=== PATIENT | male | born 1970 | race Caucasian/White ===

== ENCOUNTER → 2016-07-14 | Outpatient (CLI) | payer OTHER ==
--- NOTE | 2016-07-14 15:52 | REP ---
Chest two views HISTORY: Shortness of breath Comparison: None The lungs are clear. The heart is normal in size. The pulmonary vasculature is normal in appearance. The bony structure is intact. IMPRESSION: No acute disease. Signed by Gregorio Denson MD 07/14/2016 03:44 P
== END ==
LOC: M WUC 14:59
PROVIDERS: ATTEND Nurse Practitioner Family
DX: R06.02 Shortness of breath (principal)

== ENCOUNTER → 2016-09-30 | Outpatient (CLI) | payer OTHER ==
--- NOTE | 2016-10-04 12:12 | SLEEPCENT ---
DATE OF PROCEDURE: 09/30/2016 ORDERED BY: NENA Moore Nocturnal polysomnography was performed for evaluation of sleep apnea syndrome symptoms in this patient with a history of excessive somnolence and observed breathing irregularity in sleep. 6 hours and 18 minutes of data were reviewed. There were 276 minutes of sleep identified. Sleep latency was mildly prolonged at 49 minutes. Rapid eye movement (REM) was prolonged at 185 minutes. Sleep architecture was fair with some fragmentation and brief periods of wake. There were 2-3 REM periods appreciated, albeit brief. Overall sleep efficiency was 74%. The patient's EKG showed a sinus rhythm with an average heart rate of 56 beats per minute. Rate variability was seen surrounding respiratory events. Rate ranged 45-75 beats per minute. EEG showed reasonably normal waveforms for awake and sleep. No focal events were identified. There were 49 respiratory events identified of 10 seconds in duration or greater for an apnea hypopnea index of 10.6. The events were obstructive, not exclusive to sleep stage, more frequent but not exclusive to the supine posture. Arousals from respiratory events occurred 5.4 times per hour when arousals from snoring were included. There was some limb activity noted as well. Only 1 train of 30 events. Limb movement arousal index borderline at 5.2. Respiratory events were associated with oxygen desaturations into the low 80s. IMPRESSION: Mild obstructive sleep apnea syndrome (G47.33). Apnea hypopnea index 10.6. RECOMMENDATION: At minimum, sleep position retraining should be recommended for avoidance of the supine posture. However, given the oxygen desaturation seen, consideration should also be given to referral back to the sleep disorder center for pressure therapy. In the interim, alcohol and sedative avoidance should be practiced and caution exercised during the operation of motor vehicles.
== END ==
LOC: M SLEEP 19:47
PROVIDERS: ATTEND Nurse Practitioner Adult Health
DX: G47.30 Sleep apnea, unspecified (principal)

== ENCOUNTER → 2016-10-28 | Outpatient (CLI) | payer OTHER ==
[~2016-10-28] MED LIST: NAPR500T PO; NEXI20CA PO
--- NOTE | 2016-11-03 20:31 | SLEEPCENT ---
DATE OF PROCEDURE: 10/28/2016 ORDERING PROVIDER: Renee Maravilla NP Nocturnal polysomnography was performed for the titration of pressure therapy in this patient with obstructive sleep apnea syndrome, apnea-hypopnea index of 10. For testing, the patient was fit with a ResMed P10 full face mask of medium size. 4 cm of water pressure were applied to the circuit and the lights were extinguished. 6 hours and 49 minutes of data were reviewed. There were 265 minutes of sleep identified. Sleep latency was prolonged at 48 minutes. Rapid eye movement (REM) latency was prolonged at 136 minutes. Sleep architecture improved late in the study. There were two REM periods appreciated. Overall sleep efficiency was 65.5%. Patient's EKG showed a sinus rhythm with an average heart rate of 54 beats per minute. There was some rate variability seen. Rate ranged 40-70 beats per minute. EEG showed normal wave forms for wake and sleep. Respiratory events were found best palliated with CPAP at a pressure of +10. CPAP tolerance was good and there was some limb activity. Limb movement arousal index is borderline at 5.6. IMPRESSION: Obstructive sleep apnea syndrome (G47.33). RECOMMENDATIONS: Nightly use of pressure therapy 10 cm of water.
== END ==
LOC: M SLEEP 19:46
PROVIDERS: ATTEND Nurse Practitioner Adult Health
DX: G47.33 Obstructive sleep apnea (adult) (pediatric) (principal)

== ENCOUNTER 2016-11-06 19:59 | Emergency (ER) | payer OTHER ==
[~2016-11-06] VITALS: Ht 175.3 cm; Wt 90.0 kg
[2016-11-06] MEDS ORDERED: NEXI20CA PO (20:04)
[2016-11-06 21:28] VITALS: BP 147/88
[2016-11-06] MEDS ORDERED: NAPR500T PO (21:28)
--- NOTE | 2016-11-07 08:46 | REP ---
REASON: Pain after trauma. PRIORS: None. FINDINGS: The joint spaces are symmetric and relatively well maintained. There is no evidence of acute fracture or destructive osseous lesion. IMPRESSION: Negative. Plantar and retrocalcaneal heel spurs are present. There are nonspecific calcifications in the soft tissues posterior to the talus. Signed by Dung Yanez DO 11/07/2016 09:22 A
== END 2016-11-06 21:36 | disposition home or self-care (01) ==
LOC: M ED 19:59
DX: M76.71 Peroneal tendinitis, right leg (principal); Z87.891 Personal history of nicotine dependence; K21.9 Gastro-esophageal reflux disease without esophagitis; Z86.19 Personal history of other infectious and parasitic diseases; Z79.899 Other long term (current) drug therapy

== ENCOUNTER → 2017-03-31 | Outpatient (CLI) | payer OTHER ==
--- NOTE | 2017-04-01 02:18 | REP ---
Clinical: trauma. Technique: AP, Lateral and bilateral oblique views of the left foot. Findings: Nondisplaced oblique fracture of the 5th proximal phalanx. Impression: Acute nondisplaced 5th proximal phalanx fracture. Signed by Abad Dunn MD 04/01/2017 02:10 A
== END ==
LOC: M WUC 09:59
PROVIDERS: ATTEND Physician Assistant
DX: S92.515A Nondisplaced fracture of proximal phalanx of left lesser toe(s), initial encounter for closed fracture (principal); X58.XXXA Exposure to other specified factors, initial encounter; Y92.89 Other specified places as the place of occurrence of the external cause; Y93.89 Activity, other specified; Y99.8 Other external cause status

== ENCOUNTER 2017-07-05 10:24 | Emergency (ER) | payer OTHER ==
[2017-07-05 11:02] LABS: BASO % 0.5 % (0.0-1.0); EOS # 0.1 10^3/uL (0.0-0.50); EOS % 1.7 % (0.0-3.0); HEMATOCRIT 45.1 % (42.0-52.0); HEMOGLOBIN 15.7 g/dl (14.0-18.0); IMMATURE GRANULOCYTE % 0.2 % (0-3.0); LYMPH # 3.2 10^3/uL (1.5-4.5); LYMPH % 49.2 % (24.0-44.0); MEAN CORPUSCULAR HEMOGLOBIN 27.9 pg (27.0-33.0); MEAN CORPUSCULAR HGB CONC 34.8 g/dl (32.0-36.5); MEAN CORPUSCULAR VOLUME 80.2 fl (80.0-96.0); MONO # 0.6 10^3/uL (0.0-0.8); MONO % 9.4 % (0.0-5.0); NEUTROPHILS # 2.5 10^3/uL (1.8-7.7); PLATELET COUNT, AUTOMATED 153 10^3/uL (150-450); RED BLOOD COUNT 5.62 10^6/uL (4.30-6.10); RED CELL DISTRIBUTION WIDTH 13.2 % (11.5-14.5); WHITE BLOOD COUNT 6.5 10^3/uL (4.0-10.0)
[2017-07-05 11:34] LABS: ALBUMIN/GLOBULIN RATIO 1.05 (1.00-1.93); ALKALINE PHOSPHATASE 95 U/L (45-117); ALT/SGPT 82 U/L (12-78); ANION GAP 8 MEQ/L (8-16); AST/SGOT 38 U/L (7-37); BILIRUBIN,DIRECT 0.1 MG/DL (0.0-0.2); BILIRUBIN,TOTAL 0.7 MG/DL (0.2-1.0); BLOOD UREA NITROGEN 17 MG/DL (7-18); CALCIUM LEVEL 9.1 MG/DL (8.5-10.1); CARBON DIOXIDE LEVEL 26 MEQ/L (21-32); CHLORIDE LEVEL 107 MEQ/L (98-107); CPK CREATINE PHOSPHOKINASE 193 U/L (39-308); CREATININE FOR GFR 1.14 MG/DL (0.70-1.30); GLOMERULAR FILTRATION RATE > 60.0 (>60); GLUCOSE, FASTING 102 MG/DL (70-100); LIPASE 126 U/L (73-393); POTASSIUM SERUM 4.4 MEQ/L (3.5-5.1); SODIUM LEVEL 141 MEQ/L (136-145); TOTAL PROTEIN 7.8 GM/DL (6.4-8.2); TROPONIN I < 0.02 NG/ML (< 0.10)
[2017-07-05 11:39] LABS: CK-MB VALUE MASS 1.7 NG/ML (<3.6); MB/CK RELATIVE INDEX 0.88 (< OR =4); NT-PRO BNP 17 PG/ML (<125)
[2017-07-05] MEDS: GI COCKTAIL 50ML BTL(HYOSCYAMINE/MAALOX/LIDOCAINE VISCOUS)(1:3:1) PO (11:52)
[2017-07-05 14:04] LABS: D-DIMER QUANT < 270.0 ng/ml (<500)
[2017-07-05 17:31] LABS: CPK CREATINE PHOSPHOKINASE 157 U/L (39-308); TROPONIN I < 0.02 NG/ML (< 0.10)
[2017-07-05 17:32] LABS: CK-MB VALUE MASS 1.5 NG/ML (<3.6); MB/CK RELATIVE INDEX 0.95 (< OR =4)
== END 2017-07-05 18:14 | disposition home or self-care (01) ==
LOC: M ED 10:24
DX: R07.9 Chest pain, unspecified (principal); Z79.899 Other long term (current) drug therapy; Z87.891 Personal history of nicotine dependence
CPT/HCPCS: 71045

== ENCOUNTER → 2018-05-19 | Outpatient (REF) | payer OTHER ==
[~2018-05-19] MED LIST changes: +NAPR-50 PO; -NAPR500T PO; +SUCR1SS PO
[2018-05-19 16:43] LABS: APPEARANCE, URINE CLEAR (CLEAR); BACTERIA, URINE AUTO NEGATIVE (NEGATIVE); BILIRUBIN, URINE AUTO NEGATIVE (NEGATIVE); BLOOD, URINE BLOOD NEGATIVE (NEGATIVE); COLOR, URINE YELLOW (YELLOW); GLUCOSE, URINE (UA) AUTO NEGATIVE (NEGATIVE); KETONE, URINE AUTO NEGATIVE (NEGATIVE); LEUKOCYTE ESTERASE, URINE AUTO NEGATIVE (NEGATIVE); MUCUS, URINE SMALL (NEGATIVE); NITRITE, URINE AUTO NEGATIVE (NEGATIVE); PROTEIN, URINE AUTO NEGATIVE (NEGATIVE); RBC, URINE AUTO 0 /HPF (0-3); SPECIFIC GRAVITY URINE AUTO 1.021 (1.002-1.035); SQUAMOUS EPITHELIAL CELL UR AU 0 /HPF (0-6); UROBILINOGEN, URINE AUTO 0.2 mg/dL (0.0-2.0); WBC, URINE AUTO 1 /HPF (0-3)
== END ==
LOC: M LAB REF 16:16
PROVIDERS: ATTEND Nurse Practitioner Family
DX: R39.12 Poor urinary stream (principal)

== ENCOUNTER → 2018-09-22 | Outpatient (CLI) | payer OTHER ==
[~2018-09-22] MED LIST changes: -NAPR-50 PO; +NAPR-837 PO
[2018-09-22 09:08] LABS: BASO % 0.5 % (0.0-1.0); EOS # 0.2 10^3/uL (0.0-0.50); EOS % 2.9 % (0.0-3.0); HEMATOCRIT 45.9 % (42.0-52.0); HEMOGLOBIN 15.8 g/dl (13.5-17.5); LYMPH # 2.7 10^3/uL (1.5-4.5); LYMPH % 44.1 % (24.0-44.0); MEAN CORPUSCULAR HEMOGLOBIN 28.5 pg (27.0-33.0); MEAN CORPUSCULAR HGB CONC 34.4 g/dl (32.0-36.5); MEAN CORPUSCULAR VOLUME 82.7 fl (80.0-96.0); MONO # 0.6 10^3/uL (0.0-0.8); MONO % 9.2 % (0.0-5.0); NEUTROPHILS # 2.7 10^3/uL (1.8-7.7); NEUTROPHILS % 43.1 % (36.0-66.0); PLATELET COUNT, AUTOMATED 166 10^3/uL (150-450); RED BLOOD COUNT 5.55 10^6/uL (4.30-6.10); WHITE BLOOD COUNT 6.2 10^3/uL (4.0-10.0)
[2018-09-22 09:40] LABS: ALBUMIN 3.5 GM/DL (3.2-5.2); ALT/SGPT 122 U/L (12-78); BILIRUBIN,TOTAL 0.5 MG/DL (0.2-1.0); BLOOD UREA NITROGEN 15 MG/DL (7-18); CALCIUM LEVEL 8.6 MG/DL (8.5-10.1); CARBON DIOXIDE LEVEL 29 MEQ/L (21-32); CHLORIDE LEVEL 109 MEQ/L (98-107); CHOLESTEROL LEVEL 214 MG/DL (<200); CREATININE FOR GFR 1.04 MG/DL (0.70-1.30); GLOMERULAR FILTRATION RATE > 60.0 (>60); GLUCOSE, FASTING 89 MG/DL (70-100); HDL CHOLESTEROL 40 MG/DL (>40); LDL CHOLESTEROL 141 MG/DL (<100); NON-HDL-C 174 MG/DL; POTASSIUM SERUM 4.6 MEQ/L (3.5-5.1); SODIUM LEVEL 144 MEQ/L (136-145); TOTAL PROTEIN 7.4 GM/DL (6.4-8.2); TRIGLYCERIDES LEVEL 166 MG/DL (<150)
== END ==
LOC: M WUC 08:01
PROVIDERS: ATTEND Nurse Practitioner Family
DX: K21.9 Gastro-esophageal reflux disease without esophagitis (principal); E78.5 Hyperlipidemia, unspecified

== ENCOUNTER → 2019-09-21 | Outpatient (CLI) | payer OTHER ==
[2019-09-21 10:52] LABS: HEMATOCRIT 47.8 % (42.0-52.0); HEMOGLOBIN 16.5 g/dl (13.5-17.5); MEAN CORPUSCULAR HEMOGLOBIN 28.2 pg (27.0-33.0); MEAN CORPUSCULAR HGB CONC 34.5 g/dl (32.0-36.5); MEAN CORPUSCULAR VOLUME 81.6 fl (80.0-96.0); PLATELET COUNT, AUTOMATED 175 10^3/uL (150-450); RED BLOOD COUNT 5.86 10^6/uL (4.30-6.10); WHITE BLOOD COUNT 6.6 10^3/uL (4.0-10.0)
[2019-09-21 11:02] LABS: ALBUMIN 3.8 GM/DL (3.2-5.2); ALT/SGPT 78 U/L (12-78); BILIRUBIN,TOTAL 0.7 MG/DL (0.2-1.0); BLOOD UREA NITROGEN 15 MG/DL (7-18); CALCIUM LEVEL 9.1 MG/DL (8.5-10.1); CARBON DIOXIDE LEVEL 27 MEQ/L (21-32); CHLORIDE LEVEL 111 MEQ/L (98-107); CHOLESTEROL LEVEL 204 MG/DL (<200); CREATININE FOR GFR 1.14 MG/DL (0.70-1.30); GLOMERULAR FILTRATION RATE > 60.0 (>56); GLUCOSE, FASTING 102 MG/DL (70-100); HDL CHOLESTEROL 34 MG/DL (>40); LDL CHOLESTEROL 128 MG/DL (<100); NON-HDL-C 170 MG/DL; POTASSIUM SERUM 4.6 MEQ/L (3.5-5.1); SODIUM LEVEL 142 MEQ/L (136-145); TOTAL PROTEIN 7.5 GM/DL (6.4-8.2); TRIGLYCERIDES LEVEL 209 MG/DL (<150)
[2019-09-25 12:07] LABS: HEPATITIS C QUANTITATION 6588460 IU/mL (.)
== END ==
LOC: M WUC 08:27
PROVIDERS: ATTEND Family Medicine
DX: Z00.00 Encounter for general adult medical examination without abnormal findings (principal); Z12.5 Encounter for screening for malignant neoplasm of prostate; B18.2 Chronic viral hepatitis C

== ENCOUNTER → 2019-12-06 | Outpatient (CLI) | payer OTHER ==
[~2019-12-06] MED LIST changes: +CLAR10CA3 PO; +FLOM0.4C39 PO; +NEXI40CA PO
== END ==
LOC: M LABSMTC 12:14
PROVIDERS: ATTEND Anesthesiology
DX: Z01.812 Encounter for preprocedural laboratory examination (principal); Z20.828 Contact with and (suspected) exposure to other viral communicable diseases

== ENCOUNTER 2019-12-11 09:30 | Day surgery (SDC) | payer OTHER ==
[~2019-12-11] VITALS: Ht 172.7 cm; Wt 97.5 kg
[~2019-12-11 09:30] MED LIST changes: +NS 1,000 ML IV ONE
[2019-12-11] MEDS ORDERED: fentaNYL 100 MCG/2 ML INJECTION (J3010) As Ordered ONE (11:38)
[2019-12-11] MEDS ORDERED: LIDOCAINE 2% 100MG/5ML SDV (FOR ANES.) As Ordered ONE (11:38)
[2019-12-11] MEDS ORDERED: propofoL 200 MG/20 ML VIAL As Ordered ONE ×2 (11:38→11:51)
[2019-12-11 12:27] VITALS: BP 125/85
--- NOTE | 2019-12-19 11:31 | ROOR ---
Patient Name: Riky Vergara Procedure Date: 12/11/2019 10:13 AM Date of : 1970 Age: 49 Room: [facility] Gender: Male Note Status: Finalized Procedure: Total Colonoscopy to Cecum Indications: Screening for colorectal malignant neoplasm Providers: Gerald Ricardo MD Referring MD: Ry Noriega MD Requesting Provider: Medicines: Monitored Anesthesia Care Complications: No immediate complications. Procedure: Pre-Anesthesia Assessment: - The heart rate, respiratory rate, oxygen saturations, blood pressure, adequacy of pulmonary ventilation, and response to care were monitored throughout the procedure. The Colonoscope was introduced through the anus and advanced to the cecum, identified by appendiceal orifice and ileocecal valve. The colonoscopy was performed without difficulty. The patient tolerated the procedure well. The quality of the bowel preparation was excellent. Findings: The perianal and digital rectal examinations were normal. Non-bleeding internal hemorrhoids were found during retroflexion. The hemorrhoids were small and Grade I (internal hemorrhoids that do not prolapse). No other significant abnormalities were identified in a careful examination of the remainder of the colon. The exam was otherwise without abnormality on direct and retroflexion views. Impression: - Non-bleeding internal hemorrhoids. - The examination was otherwise normal on direct and retroflexion views. - No specimens collected. - The exam was otherwise normal to the cecum. Recommendation: - Patient has a contact number available for emergencies. The signs and symptoms of potential delayed complications were discussed with the patient. Return to normal activities tomorrow. Written discharge instructions were provided to the patient. - High fiber diet. - Discharge patient to home. - Continue present medications. - Repeat colonoscopy in 10 years for screening purposes. - Return to referring physician. - The findings and recommendations were discussed with the patient. Gerald Ricardo MD Gerald Ricardo MD 12/11/2019 11:57:20 AM Number of Addenda: 0 Note Initiated On: 12/11/2019 10:13 AM Estimated Blood Loss: Estimated blood loss: none.
== END 2019-12-11 12:29 | disposition home or self-care (01) ==
LOC: M OPP 09:30
PROVIDERS: ATTEND Internal Medicine Gastroenterology
DX: Z12.11 Encounter for screening for malignant neoplasm of colon (principal); K64.0 First degree hemorrhoids; K22.8 Other specified diseases of esophagus; K44.9 Diaphragmatic hernia without obstruction or gangrene; K21.9 Gastro-esophageal reflux disease without esophagitis; R12 Heartburn; G47.30 Sleep apnea, unspecified; B19.20 Unspecified viral hepatitis C without hepatic coma; Z79.899 Other long term (current) drug therapy
CPT/HCPCS: 43239; 45378; 88305; J3010

== ENCOUNTER → 2020-01-31 | Outpatient (CLI) | payer OTHER ==
[~2020-01-31] MED LIST changes: -NS 1,000 ML IV ONE
[2020-02-05 02:06] LABS: HEPATITIS C QUANTITATION 7829320 IU/mL (.); HEPATITIS C VIRUS GENOTYPE 1b (.)
== END ==
LOC: M WUC 08:05
PROVIDERS: ATTEND Internal Medicine Infectious Disease
DX: B18.2 Chronic viral hepatitis C (principal)

== ENCOUNTER → 2020-03-18 | Outpatient (REF) | payer OTHER ==
[2020-03-18 16:23] LABS: ALBUMIN 3.9 GM/DL (3.2-5.2); BILIRUBIN,DIRECT 0.2 MG/DL (0.0-0.2); BILIRUBIN,TOTAL 0.5 MG/DL (0.2-1.0); TOTAL PROTEIN 7.4 GM/DL (6.4-8.2)
[2020-03-21 00:09] LABS: HEPATITIS C QUANTITATION HCV Not Detected IU/mL (.)
== END ==
LOC: M SFHCPLAZ 14:10
PROVIDERS: ATTEND Internal Medicine Infectious Disease
DX: B18.2 Chronic viral hepatitis C (principal)

== ENCOUNTER → 2020-07-15 | Outpatient (REF) | payer OTHER ==
[2020-07-15 18:42] LABS: ALBUMIN 4.1 GM/DL (3.2-5.2); BILIRUBIN,DIRECT 0.1 MG/DL (0.0-0.2); BILIRUBIN,TOTAL 0.4 MG/DL (0.2-1.0); TOTAL PROTEIN 7.5 GM/DL (6.4-8.2)
[2020-07-18 00:07] LABS: HEPATITIS C QUANTITATION HCV Not Detected IU/mL (.)
== END ==
LOC: M SFHCPLAZ 13:52
PROVIDERS: ATTEND Internal Medicine Infectious Disease
DX: B18.2 Chronic viral hepatitis C (principal)

== ENCOUNTER → 2020-12-25 | Outpatient (CLI) | payer OTHER ==
--- NOTE | 2020-12-25 15:16 | REP ---
INDICATION: COUGH COMPARISON: 07/14/2016 TECHNIQUE: PA and lateral. FINDINGS: The mediastinum and cardiac silhouette are normal. The lung willis are clear and without acute consolidation, effusion, or pneumothorax. The skeletal structures are intact and normal. IMPRESSION: No acute cardiopulmonary process. <Electronically signed by Abad Dunn > 12/25/20 [id number]
== END ==
LOC: M WUC 15:01
PROVIDERS: ATTEND Family Medicine
DX: R05 Cough (principal)

== ENCOUNTER 2021-01-12 08:02 | Emergency (ER) | payer OTHER ==
[~2021-01-12] VITALS: Ht 172.7 cm; Wt 98.6 kg
[2021-01-12] MEDS ORDERED: ACETAMINOPHEN TAB 650MG DOSE (2X325MG) PO ONE (08:40)
[2021-01-12] MEDS ORDERED: PRED20TA PO (08:47)
[2021-01-12] MEDS ORDERED: IBUP200C25 PO (08:47)
--- NOTE | 2021-01-12 08:56 | REP ---
INDICATION: COVID SOB COMPARISON: 12/25/2020 TECHNIQUE: Portable AP view of the chest FINDINGS: Mediastinum and cardiac silhouette are normal. Evaluation is limited by technique and very subtle left perihilar and right basilar airspace disease cannot be excluded. No discrete focal consolidation, effusion, or pneumothorax. IMPRESSION: Limited examination. Cannot exclude subtle early airspace disease. No discrete focal consolidation or effusion. <Electronically signed by Abad Dunn > 01/12/21 [id number]
[2021-01-12 09:24] LABS: ABG BASE EXCESS -3.4 (-2.0-2.0); ABG HCO3 19.3 MEQ/L (22.0-26.0); ABG O2 SATURATION 95.7 % (95.0-99.0); ABG PARTIAL PRESSURE CO2 28.9 mmHg (35.0-45.0); ABG PARTIAL PRESSURE O2 79.6 mmHg (75.0-100.0); ABG STANDARD HCO3 21.7 MEQ/L (22.0-26.0); ABG TOTAL CO2 20.2 MEQ/L (22.0-29.0); ABG pH (ARTERIAL) 7.442 UNITS (7.350-7.450)
[2021-01-12 09:27] LABS: BASO % 0.2 % (0.0-1.0); HEMATOCRIT 45.8 % (42.0-52.0); HEMOGLOBIN 15.7 g/dl (13.5-17.5); LYMPH # 0.9 10^3/uL (1.5-5.0); LYMPH % 20.5 % (24.0-44.0); MEAN CORPUSCULAR HEMOGLOBIN 27.4 pg (27.0-33.0); MEAN CORPUSCULAR HGB CONC 34.3 g/dl (32.0-36.5); MEAN CORPUSCULAR VOLUME 79.8 fl (80.0-96.0); MONO # 0.4 10^3/uL (0.0-0.8); MONO % 9.5 % (2.0-8.0); NEUTROPHILS # 3.1 10^3/uL (1.5-8.5); NEUTROPHILS % 69.3 % (36.0-66.0); PLATELET COUNT, AUTOMATED 127 10^3/uL (150-450); RED BLOOD COUNT 5.74 10^6/uL (4.30-6.10); WHITE BLOOD COUNT 4.4 10^3/uL (4.0-10.0)
[2021-01-12 09:52] LABS: CK-MB VALUE MASS 1.3 NG/ML (<3.6); CPK CREATINE PHOSPHOKINASE 186 U/L (39-308); TROPONIN I < 0.02 NG/ML (< 0.10)
[2021-01-12 10:02] LABS: ALBUMIN 3.2 GM/DL (3.2-5.2); ALT/SGPT 56 U/L (12-78); BILIRUBIN,TOTAL 0.4 MG/DL (0.2-1.0); BLOOD UREA NITROGEN 21 MG/DL (7-18); C REACTIVE PROTEIN QUANTITATIV 1.88 MG/DL (0.00-0.30); CALCIUM LEVEL 8.5 MG/DL (8.5-10.1); CARBON DIOXIDE LEVEL 24 MEQ/L (21-32); CHLORIDE LEVEL 106 MEQ/L (98-107); CREATININE FOR GFR 1.27 MG/DL (0.70-1.30); GLOMERULAR FILTRATION RATE > 60.0 (>56); GLUCOSE, FASTING 115 MG/DL (70-100); LDH LACTATE DEHYDROGENASE 340 U/L (87-241); POTASSIUM SERUM 3.8 MEQ/L (3.5-5.1); SODIUM LEVEL 136 MEQ/L (136-145); TOTAL PROTEIN 7.6 GM/DL (6.4-8.2)
[2021-01-12] MEDS ORDERED: ISOVUE-370 76% 100ML VIAL As Ordered ONE (10:41)
--- NOTE | 2021-01-12 11:23 | REP ---
INDICATION: COVID positive/hypoxia, r/o PE COMPARISON: None. TECHNIQUE: CT angiography of the chest after the intravenous administration of 75 cc Isovue 370 attention pulmonary arteries. FINDINGS: There is excellent visualization of the pulmonary arterial vasculature. No focal filling defects are present that would be considered consistent with acute pulmonary emboli. Limited evaluation of the thoracic aorta shows no abnormality. There is mediastinal and right hilar adenopathy. There are no pleural or pericardial effusions. The imaged upper abdomen and imaged osseous structures are within normal limits. Evaluation of the lung willis shows patchy bilateral airspace opacities right greater than left. IMPRESSION: 1. There is no evidence of a pulmonary embolism. 2. Adenopathy and airspace opacities consistent with COVID-19 pneumonia. <Electronically signed by Dung Yanez > 01/12/21 [id number]
[2021-01-12] MEDS ORDERED: [UNRECOGNIZED DRUG - OTHER] (12:08)
[2021-01-12] MEDS ORDERED: AZIT-12 PO (12:08)
[2021-01-12 12:44] VITALS: BP 131/83
--- NOTE | 2021-01-14 17:17 | ECGEPIP ---
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
== END 2021-01-12 13:11 | disposition home or self-care (01) ==
LOC: M ED 08:02
DX: J12.82 Pneumonia due to coronavirus disease 2019 (principal); R09.02 Hypoxemia; N40.0 Benign prostatic hyperplasia without lower urinary tract symptoms; B18.2 Chronic viral hepatitis C; Z79.899 Other long term (current) drug therapy
CPT/HCPCS: 36415; 36600; 71045; 71275; 80053; 82550; 82553; 82803; 83605; 83615; 84484; 85025; 86140; 87040; 87798; 93005; 99284; Q9967

== ENCOUNTER 2021-01-14 11:14 | Inpatient (IN) | payer OTHER ==
[~2021-01-14] VITALS: Ht 172.7 cm; Wt 82.9 kg
[~2021-01-14 11:14] MED LIST changes: +AZIT-12 PO; +IBUP200C25 PO; +PRED20TA PO; +[UNRECOGNIZED DRUG - OTHER]
[2021-01-14] MEDS ORDERED: dexameTHASONE 4 MG/ML 1ML VIAL (J1100 PER 1MG) IV ONE (11:35)
--- NOTE | 2021-01-14 12:01 | REP ---
INDICATION: DYSPNEA/COUGH- covid positive. COMPARISON: Comparison chest x-ray January 12, 2021. TECHNIQUE: Portable upright AP chest radiograph. FINDINGS: There are AC patchy infiltrates in the upper lobes bilaterally consistent with viral pneumonia. Pleural angles are sharp. Heart size is normal. No acute bony abnormality is seen. Oxygen delivery tubing is noted. IMPRESSION: New hazy bilateral upper lobe infiltrates consistent with viral pneumonitis. <Electronically signed by Alireza Knapp > 01/14/21 [id number]
[2021-01-14] MEDS: COMBIVENT RESPIMAT 100-20MCG INHALER 4GM INH SCH ×6 (12:02→13:05)
[2021-01-14 13:02] LABS: INR 0.97; PROTHROMBIN TIME 13.2 SECONDS (12.7-14.5)
[2021-01-14 13:04] LABS: ALT/SGPT 59 U/L (12-78); BILIRUBIN,DIRECT 0.2 MG/DL (0.0-0.2); BILIRUBIN,TOTAL 0.5 MG/DL (0.2-1.0); BLOOD UREA NITROGEN 20 MG/DL (7-18); C REACTIVE PROTEIN QUANTITATIV 1.54 MG/DL (0.00-0.30); CALCIUM LEVEL 8.8 MG/DL (8.5-10.1); CARBON DIOXIDE LEVEL 23 MEQ/L (21-32); CHLORIDE LEVEL 107 MEQ/L (98-107); CK-MB VALUE MASS 1.2 NG/ML (<3.6); CPK CREATINE PHOSPHOKINASE 218 U/L (39-308); CREATININE FOR GFR 1.01 MG/DL (0.70-1.30); FERRITIN 886 NG/ML (26-388); GLOMERULAR FILTRATION RATE > 60.0 (>56); GLUCOSE, FASTING 108 MG/DL (70-100); LDH LACTATE DEHYDROGENASE 433 U/L (87-241); MB/CK RELATIVE INDEX 0.55 (< OR =4); NT-PRO BNP 104 PG/ML (<125); POTASSIUM SERUM 4.1 MEQ/L (3.5-5.1); SODIUM LEVEL 138 MEQ/L (136-145); THYROID STIMULATING HORMONE 0.855 uIU/ML (0.358-3.740); THYROXINE (T4) 9.3 UG/DL (4.5-12.0); TOTAL PROTEIN 6.6 GM/DL (6.4-8.2); TROPONIN I < 0.02 NG/ML (< 0.10)
[2021-01-14 13:05] LABS: D-DIMER QUANT 1679.41 ng/ml (<500)
[2021-01-14 13:35] LABS: ABG BASE EXCESS 0.5 (-2.0-2.0); ABG HCO3 23.2 MEQ/L (22.0-26.0); ABG O2 SATURATION 93.5 % (95.0-99.0); ABG PARTIAL PRESSURE CO2 32.5 mmHg (35.0-45.0); ABG PARTIAL PRESSURE O2 65.5 mmHg (75.0-100.0); ABG STANDARD HCO3 24.8 MEQ/L (22.0-26.0); ABG TOTAL CO2 24.2 MEQ/L (22.0-29.0); ABG pH (ARTERIAL) 7.472 UNITS (7.350-7.450)
[2021-01-14] MEDS ORDERED: MUCI600T31 PO (13:35)
[2021-01-14] MEDS ORDERED: AZIT-12 PO (13:37)
[2021-01-14] MEDS ORDERED: HOME MED LIST COMPLETE! XX SCH (13:40)
[2021-01-14 14:32] LABS: BASO % 0.2 % (0.0-1.0); HEMATOCRIT 48.1 % (42.0-52.0); HEMOGLOBIN 16.4 g/dl (13.5-17.5); LYMPH # 1.4 10^3/uL (1.5-5.0); LYMPH % 28.5 % (24.0-44.0); MEAN CORPUSCULAR HEMOGLOBIN 27.3 pg (27.0-33.0); MEAN CORPUSCULAR HGB CONC 34.1 g/dl (32.0-36.5); MONO # 0.3 10^3/uL (0.0-0.8); MONO % 5.9 % (2.0-8.0); NEUTROPHILS # 3.1 10^3/uL (1.5-8.5); PLATELET COUNT, AUTOMATED 137 10^3/uL (150-450); RED BLOOD COUNT 6.01 10^6/uL (4.30-6.10); WHITE BLOOD COUNT 4.8 10^3/uL (4.0-10.0)
--- NOTE | 2021-01-14 17:46 | HPEPDOC ---
General Date of Admission 01/14/21 Date of Service: Jan 14, 2021 Chief Complaint The patient is a 50-year-old male admitted with a reason for visit of Covid +, Worsening Symptoms. Source: Patient History of Present Illness 50-year-old male with obesity, KWAKU noncompliant with CPAP, hepatitis C started having symptoms of cough, cold, congestion chills, body aches, headache, loss of taste and smell on January 06, 2021. patient was found to have a positive Covid test on 01/09/2021. He presented to the ED on 01/12/2021 for continued cough and worsening shortness of breath and was found to be hypoxic and sent home with 2 L of oxygen he comes back to the emergency room on 01/14/2021 with increasing shortness of breath from before and found to be hypoxic to 86% with 2 L of oxygen. He was needing 4 L of oxygen to maintain saturations above 92%. Patient is being admitted for Covid pneumonia with acute hypoxic respiratory failure. Home Medications Scheduled Azithromycin (Azithromycin) 250 Mg Tablet, 250 MG PO DAILY, (Reported) 2 ON THE FIRST DAY, 1 T DAYS 2-5 Esomeprazole Magnesium (Nexium) 40 Mg Capsule.dr, 40 MG PO DAILY, (Reported) Prednisone (Prednisone) 20 Mg Tablet, 20 MG PO DAILY, (Reported) Tamsulosin HCl (Flomax) 0.4 Mg Capsule, 0.4 MG PO DAILY, (Reported) Scheduled PRN Guaifenesin (Mucinex) 600 Mg Tab.er.12h, 600 MG PO for CONGESTION, (Reported) Ibuprofen (Ibuprofen) 200 Mg Capsule, 400 MG PO QID PRN for PAIN LEVEL 1-4, (Reported) Allergies Coded Allergies: No Known Allergies (Unverified , 12/04/19) Past Medical History Medical History Chronic hepatitis C diagnosed in 2010 treated in 2019 History of IV drug use last use in 1999 History of alcohol abuse Sleep apnea does not use the CPAP GERD Hypercholesterolemia Surgical History Tonsillectomy Social History * Smoker: former Smoker (Quit in 2016) A-FIB/CHADSVASC A-FIB History Current/History of A-Fib/PAF?: No Review of Systems Constitutional: Reports: Malaise, Weakness, Fatigue Eyes: Denies: Pain, Vision change ENT: Reports: Sinus Congestion, Sore Throat Skin: Denies: Rash, Lesions, Breakdown Pulmonary: Reports: Dyspnea, Cough Cardiovascular: Denies: Chest Pain, Palpitations, Lt Headedness Gastrointestinal: Reports: Diarrhea, Other Symptoms (pooor appetite); Denies: Nausea, Vomiting, Abdominal Pain Genitourinary: Reports: Frequency; Denies: Dysuria, Incontinence, Retention Hematologic: Denies: Bruising, Bleeding Excessively Musculoskeletal: Reports: Muscle Pain Neurological: Denies: Numbness, Change in speech, Confusion Physical Examination General Exam: Positive: Alert, Cooperative, No Acute Distress Eye Exam: Positive: PERRLA, Conjunctiva & lids normal, EOMI; Negative: Sclera icteric ENT Exam: Positive: Atraumatic, Mucous membr. moist/pink, Pharynx Normal Neck Exam: Positive: Supple; Negative: JVD, thyromegaly Chest Exam: Positive: Diminished, Other (Bilateral diffuse crackles) Heart Exam: Positive: Rate Normal, Regular Rhythm, Normal S1, Normal S2; Negative: Murmurs, Rubs Abdomen Exam: Positive: Normal bowel sounds, Soft; Negative: Tenderness Extremity Exam: Negative: Clubbing, Cyanosis, Edema Skin Exam: Positive: Nl turgor and temperature; Negative: Breakdown, Lesion Neuro Exam: Positive: Normal Speech, Strength at 5/5 X4 ext, Normal Tone Psych Exam: Positive: Memory Intact, Oriented x 3 Vital Signs Vital Signs Date Time Temp Pulse Resp B/P (MAP) Pulse Ox O2 Delivery O2 Flow Rate FiO2 01/14/21 14:20 97 89 01/14/21 12:01 146/87 (106) 01/14/21 12:00 Nasal Cannula 4.0 01/14/21 11:15 98.2 28 Laboratory Data Labs 24H Laboratory Tests 2 01/14/21 12:07: Immature Granulocyte % (Auto) 0.4, Neutrophils (%) (Auto) 65.0, Lymphocytes (%) (Auto) 28.5, Monocytes (%) (Auto) 5.9, Eosinophils (%) (Auto) 0.0, Basophils (%) (Auto) 0.2, Neutrophils # (Auto) 3.1, Lymphocytes # (Auto) 1.4L, Monocytes # (Auto) 0.3, Eosinophils # (Auto) 0.0, Basophils # (Auto) 0.0, Nucleated Red Blood Cells % (auto) 0.0, Prothrombin Time 13.2, Prothromb Time International Ratio 0.97, D-Dimer, Quantitative 1679.41H, Anion Gap 8, Glomerular Filtration Rate > 60.0, Lactic Acid Level 0.9, Calcium Level 8.8, Ferritin 886H, Total Bilirubin 0.5, Direct Bilirubin 0.2, Aspartate Amino Transf (AST/SGOT) 56H, Alanine Aminotransferase (ALT/SGPT) 59, Alkaline Phosphatase 72, Lactate Dehydrogenase 433H, Total Creatine Kinase 218, Creatine Kinase MB 1.2, Creatine Kinase MB Relative Index 0.55, Troponin I < 0.02, C-Reactive Protein, Q uantitative 1.54H, YQ-Fbk-C-Type Natriuretic Peptide 104, Total Protein 6.6, Albumin 3.0L, Albumin/Globulin Ratio 0.8, Procalcitonin <0.05, Thyroid Stimulating Hormone (TSH) 0.855, Thyroxine (T4) 9.3 01/14/21 12:25: Blood Gas Bicarbonate Standard 24.8, Arterial Blood pH 7.472H, Arterial Blood Partial Pressure CO2 32.5L, Arterial Blood Partial Pressure O2 65.5L, Arterial Blood Total CO2 24.2, Arterial Blood HCO3 23.2, Arterial Blood Base Excess 0.5, Arterial Blood Oxygen Saturation 93.5L CBC/BMP Laboratory Tests 01/14/21 12:07 Microbiology Microbiology 01/14/21 Blood Culture, Received Pending 01/14/21 Blood Culture, Received Pending Assessment/Plan 50-year-old male with obesity, KWAKU noncompliant with CPAP, hepatitis C started having symptoms of cough, cold, congestion chills, body aches, headache, loss of taste and smell on January 07, 2021. patient was found to have a positive Covid test on 01/09/2021. He presented to the ED on 01/12/2021 for continued cough and worsening shortness of breath and was found to be hypoxic and sent home with 2 L of oxygen he comes back to the emergency room on 01/14/2021 with increasing shortness of breath from before and found to be hypoxic to 86% with 2 L of oxygen. He was needing 4 L of oxygen to maintain saturations above 92%. Patient is being admitted for Covid pneumonia with acute hypoxic respiratory failure. COVID-19 pneumonia with acute hypoxic respiratory failure We will start the patient on Decadron and remdesivir, aspirin. Will use MDIs as needed Covid labs ordered Procalcitonin not elevated so no antibiotics given Awake proning, incentive spirometry, Lovenox twice daily BPH continue flomax. H/o KWAKU does not use CPAP. Plan / VTE VTE Prophylaxis Ordered?: Yes Claire Nuñez MD Jan 14, 2021 14:57
--- NOTE | 2021-01-14 17:52 | ECGEPIP ---
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
[2021-01-14] MEDS ORDERED: REMDESIVIR 200 MG in NS 250 ML IV ONE (18:00)
[2021-01-14] MEDS ORDERED: SODIUM CHLORIDE 0.9% INJ 10 ML SYR IV ONE (20:00)
[2021-01-14] MEDS: guaiFENesin ER 600 MG TAB PO SCH (21:00)
[2021-01-15] VITALS (7 sets, daily range): BP systolic 113–121; BP diastolic 58–79; O2SAT 92
[2021-01-15] MEDS: ENOXAPARIN 60MG/0.6ML SYRINGE (J1650 PER 10MG) SC SCH ×3 (02:22→20:56)
[2021-01-15] MEDS: ASPIRIN 81MG ENTERIC TABLET PO SCH ×2 (02:23→09:09)
[2021-01-15 05:34] LABS: ABG BASE EXCESS 0.6 (-2.0-2.0); ABG HCO3 23.7 MEQ/L (22.0-26.0); ABG O2 SATURATION 93.7 % (95.0-99.0); ABG PARTIAL PRESSURE CO2 33.7 mmHg (35.0-45.0); ABG PARTIAL PRESSURE O2 66.7 mmHg (75.0-100.0); ABG STANDARD HCO3 24.9 MEQ/L (22.0-26.0); ABG TOTAL CO2 24.7 MEQ/L (22.0-29.0); ABG pH (ARTERIAL) 7.465 UNITS (7.350-7.450)
[2021-01-15 07:37] LABS: BASO % 0.2 % (0.0-1.0); HEMATOCRIT 44.6 % (42.0-52.0); HEMOGLOBIN 15.2 g/dl (13.5-17.5); LYMPH # 1.2 10^3/uL (1.5-5.0); LYMPH % 20.9 % (24.0-44.0); MEAN CORPUSCULAR HGB CONC 34.1 g/dl (32.0-36.5); MEAN CORPUSCULAR VOLUME 79.2 fl (80.0-96.0); MONO # 0.5 10^3/uL (0.0-0.8); MONO % 8.9 % (2.0-8.0); NEUTROPHILS % 69.7 % (36.0-66.0); PLATELET COUNT, AUTOMATED 160 10^3/uL (150-450); RED BLOOD COUNT 5.63 10^6/uL (4.30-6.10); WHITE BLOOD COUNT 5.8 10^3/uL (4.0-10.0)
[2021-01-15 08:06] LABS: ALBUMIN 2.8 GM/DL (3.2-5.2); ALT/SGPT 57 U/L (12-78); BILIRUBIN,DIRECT 0.2 MG/DL (0.0-0.2); BILIRUBIN,TOTAL 0.5 MG/DL (0.2-1.0); BLOOD UREA NITROGEN 23 MG/DL (7-18); CALCIUM LEVEL 9.1 MG/DL (8.5-10.1); CARBON DIOXIDE LEVEL 24 MEQ/L (21-32); CHLORIDE LEVEL 107 MEQ/L (98-107); CREATININE FOR GFR 0.96 MG/DL (0.70-1.30); GLOMERULAR FILTRATION RATE > 60.0 (>56); GLUCOSE, FASTING 103 MG/DL (70-100); SODIUM LEVEL 137 MEQ/L (136-145)
[2021-01-15] MEDS: COMBIVENT RESPIMAT 100-20MCG INHALER 4GM INH SCH ×3 (08:11→20:56)
[2021-01-15] MEDS ORDERED: dexameTHASONE 20MG/5ML VIAL (J1100 PER 1MG) IV SCH (09:00)
[2021-01-15] MEDS ORDERED: dexameTHASONE 4 MG/ML 1ML VIAL (J1100 PER 1MG) IV SCH (09:00)
[2021-01-15] MEDS ORDERED: PANTOPRAZOLE 40MG TAB (PROTONIX) PO SCH (09:00)
[2021-01-15] MEDS: TAMSULOSIN 0.4 MG CAP PO SCH (09:09)
[2021-01-15] MEDS: guaiFENesin ER 600 MG TAB PO SCH ×2 (09:09→20:55)
[2021-01-15] MEDS: ACETAMINOPHEN TAB 650MG DOSE (2X325MG) PO PRN (11:47)
--- NOTE | 2021-01-15 13:12 | IPNPDOC ---
Subjective Date Seen The patient was seen on 01/15/21. Subjective Chief Complaint/HPI Patient's oxygen requirement has increased progressively since yesterday and this morning he was placed on Vapotherm now needing 40 L at 100%. Generalized weakness poor appetite. Updated patient's regarding his condition this morning. Objective Physical Examination General Exam: Positive: Alert, Cooperative, No Acute Distress, Other (Conversational dyspnea noted) Eye Exam: Positive: PERRLA, Conjunctiva & lids normal, EOMI; Negative: Sclera icteric ENT Exam: Positive: Atraumatic, Mucous membr. moist/pink, Pharynx Normal Neck Exam: Positive: Supple; Negative: JVD, thyromegaly Chest Exam: Positive: Diminished, Other (Bilateral diffuse crackles) Heart Exam: Positive: Rate Normal, Regular Rhythm, Normal S1, Normal S2; Negative: Murmurs, Rubs Abdomen Exam: Positive: Normal bowel sounds, Soft; Negative: Tenderness Extremity Exam: Negative: Clubbing, Cyanosis, Edema Skin Exam: Negative: Breakdown, Lesion Psych Exam: Positive: Memory Intact, Oriented x 3 Assessment /Plan Assessment 50-year-old male with obesity, KWAKU noncompliant with CPAP, hepatitis C treated , started having symptoms of cough, cold, congestion, chills, body aches, headache, loss of taste and smell on January 07, 2021. Patient was found to have a positive Covid test on 01/09/2021. He presented to the ED on 01/12/2021 for continued cough and worsening shortness of breath and was found to be hypoxic and sent home with 2 L of oxygen he comes back to the emergency room on 01/14/2021 with increasing shortness of breath from before and found to be hypoxic to 86% with 2 L of oxygen. He was needing 4 L of oxygen to maintain saturations above 92%. Patient is being admitted for Covid pneumonia with acute hypoxic respiratory failure. Patient's oxygen requirement progressively increased overnight and at present patient is on Vapotherm 40 L /100%. COVID-19 pneumonia with acute hypoxic respiratory failure on Decadron and remdesivir, aspirin. Continue Combivent [id number] and albuterol as needed. Procalcitonin not elevated so no antibiotics given Awake proning, incentive spirometry, Lovenox twice daily Currently needing Vapotherm at 40 L / 100% BPH continue flomax. H/o KWAKU does not use CPAP. Plan/VTE VTE Prophylaxis Ordered?: Yes VS, I&O, 24H, Fishbone Vital Signs/I&O Vital Signs Date Time Temp Pulse Resp B/P (MAP) Pulse Ox O2 Delivery O2 Flow Rate FiO2 01/15/21 12:00 40.0 100 01/15/21 11:46 97.2 87 20 118/73 (88) 95 HVNI-Vapotherm I&O- Last 24 Hours up to 6 AM 01/15/21 05:59 Intake Total 460 ml Output Total 0 ml Balance 460 ml Laboratory Data 24H LABS Laboratory Tests 2 01/15/21 05:23: Blood Gas Bicarbonate Standard 24.9, Arterial Blood pH 7.465H, Arterial Blood Partial Pressure CO2 33.7L, Arterial Blood Partial Pressure O2 66.7L, Arterial B lood Total CO2 24.7, Arterial Blood HCO3 23.7, Arterial Blood Base Excess 0.6, Arterial Blood Oxygen Saturation 93.7L 01/15/21 07:02: Immature Granulocyte % (Auto) 0.3, Neutrophils (%) (Auto) 69.7H, Lymphocytes (%) (Auto) 20.9L, Monocytes (%) (Auto) 8.9H, Eosinophils (%) (Auto) 0.0, Basophils (%) (Auto) 0.2, Neutrophils # (Auto) 4.0, Lymphocytes # (Auto) 1.2L, Monocytes # (Auto) 0.5, Eosinophils # (Auto) 0.0, Basophils # (Auto) 0.0, Nucleated Red Blood Cells % (auto) 0.0, Anion Gap 6L, Glomerular Filtration Rate > 60.0, Calcium Level 9.1, Magnesium Level 2.0, Total Bilirubin 0.5, Direct Bilirubin 0.2, Aspartate Amino Transf (AST/SGOT) 56H, Alanine Aminotransferase (ALT/SGPT) 57, Alkaline Phosphatase 72, Total Protein 7.0, Albumin 2.8L, Albumin/Globulin Ratio 0.7 CBC/BMP Laboratory Tests 01/15/21 07:02 Microbiology Microbiology 01/14/21 Blood Culture - Preliminary, Resulted No growth after 24 hours . All specim... 01/14/21 Blood Culture - Preliminary, Resulted No growth after 24 hours . All specim... Claire Nuñez MD Jan 15, 2021 13:12
[2021-01-15] MEDS: REMDESIVIR 100 MG in NS 250 ML IV SCH (17:43)
[2021-01-15] MEDS: SODIUM CHLORIDE 0.9% INJ 10 ML SYR IV SCH (17:44)
[2021-01-15] MEDS: PANTOPRAZOLE 40MG TAB (PROTONIX) PO SCH (20:55)
[2021-01-15] MEDS: dexameTHASONE 20MG/5ML VIAL (J1100 PER 1MG) IV SCH (20:56)
[2021-01-16] MEDS: COMBIVENT RESPIMAT 100-20MCG INHALER 4GM INH SCH ×4 (02:14→18:39)
[2021-01-16 08:39] LABS: HEMATOCRIT 45.6 % (42.0-52.0); HEMOGLOBIN 15.3 g/dl (13.5-17.5); MEAN CORPUSCULAR HEMOGLOBIN 26.9 pg (27.0-33.0); MEAN CORPUSCULAR HGB CONC 33.6 g/dl (32.0-36.5); MEAN CORPUSCULAR VOLUME 80.1 fl (80.0-96.0); PLATELET COUNT, AUTOMATED 175 10^3/uL (150-450); RED BLOOD COUNT 5.69 10^6/uL (4.30-6.10); WHITE BLOOD COUNT 6.5 10^3/uL (4.0-10.0)
[2021-01-16 09:00] VITALS: BP 116/77
[2021-01-16 09:09] LABS: ALBUMIN 2.8 GM/DL (3.2-5.2); ALT/SGPT 78 U/L (12-78); BILIRUBIN,DIRECT 0.3 MG/DL (0.0-0.2); BILIRUBIN,TOTAL 0.7 MG/DL (0.2-1.0); BLOOD UREA NITROGEN 32 MG/DL (7-18); CALCIUM LEVEL 9.3 MG/DL (8.5-10.1); CARBON DIOXIDE LEVEL 24 MEQ/L (21-32); CHLORIDE LEVEL 106 MEQ/L (98-107); CPK CREATINE PHOSPHOKINASE 147 U/L (39-308); FERRITIN 1307 NG/ML (26-388); GLOMERULAR FILTRATION RATE > 60.0 (>56); GLUCOSE, FASTING 132 MG/DL (70-100); LDH LACTATE DEHYDROGENASE 604 U/L (87-241); MAGNESIUM LEVEL 2.2 MG/DL (1.8-2.4); NT-PRO BNP 87 PG/ML (<125); POTASSIUM SERUM 4.2 MEQ/L (3.5-5.1); SODIUM LEVEL 138 MEQ/L (136-145); TOTAL PROTEIN 7.2 GM/DL (6.4-8.2); TROPONIN I < 0.02 NG/ML (< 0.10)
[2021-01-16 09:20] LABS: INR 1.04
[2021-01-16 09:22] LABS: PARTIAL THROMBOPLASTIN TIME 32.5 SECONDS (25.9-37.0)
[2021-01-16] MEDS: ASPIRIN 81MG ENTERIC TABLET PO SCH (09:30)
[2021-01-16] MEDS: PANTOPRAZOLE 40MG TAB (PROTONIX) PO SCH ×2 (09:30→21:12)
[2021-01-16] MEDS: guaiFENesin ER 600 MG TAB PO SCH ×2 (09:30→21:12)
[2021-01-16] MEDS: dexameTHASONE 20MG/5ML VIAL (J1100 PER 1MG) IV SCH ×2 (09:30→21:14)
[2021-01-16] MEDS: ALBUTEROL 90 MCG/ACT 8GM HFA INHALER INH PRN (09:30)
[2021-01-16] MEDS: TAMSULOSIN 0.4 MG CAP PO SCH (09:31)
[2021-01-16] MEDS: ENOXAPARIN 60MG/0.6ML SYRINGE (J1650 PER 10MG) SC SCH ×2 (09:31→21:14)
[2021-01-16 09:58] LABS: ATYPICAL LYMPH 3 % (0-5); LYMPHOCYTES 19 % (16-44); MONOCYTES 8 % (0-5); NEUTROPHILS 70 % (28-66); PLATELET ESTIMATE NORMAL (NORMAL)
--- NOTE | 2021-01-16 11:05 | IPNPDOC ---
Subjective Date Seen The patient was seen on 01/16/21. Subjective Chief Complaint/HPI Remains about the same as yesterday, no acute overnight events, SOb not any worse than yesterday . Needing vapotherm 30L/ 90% Objective Physical Examination General Exam: Positive: Alert, Cooperative, No Acute Distress, Other (Conversational dyspnea noted) Eye Exam: Positive: PERRLA, Conjunctiva & lids normal, EOMI; Negative: Sclera icteric ENT Exam: Positive: Atraumatic, Mucous membr. moist/pink, Pharynx Normal Neck Exam: Positive: Supple; Negative: JVD, thyromegaly Chest Exam: Positive: Diminished, Other (Bilateral diffuse crackles) Heart Exam: Positive: Rate Normal, Regular Rhythm, Normal S1, Normal S2; Negative: Murmurs, Rubs Abdomen Exam: Positive: Normal bowel sounds, Soft; Negative: Tenderness Extremity Exam: Negative: Clubbing, Cyanosis, Edema Skin Exam: Negative: Breakdown, Lesion Psych Exam: Positive: Memory Intact, Oriented x 3 Assessment /Plan Assessment 50-year-old male with obesity, KWAKU noncompliant with CPAP, hepatitis C treated , started having symptoms of cough, cold, congestion, chills, body aches, headache, loss of taste and smell on January 07, 2021. Patient was found to have a positive Covid test on 01/09/2021. He presented to the ED on 01/12/2021 for continued cough and worsening shortness of breath and was found to be hypoxic and sent home with 2 L of oxygen he comes back to the emergency room on 01/14/2021 with increasing shortness of breath from before and found to be hypoxic to 86% with 2 L of oxygen. He was needing 4 L of oxygen to maintain saturations above 92%. Patient is being admitted for Covid pneumonia with acute hypoxic respiratory failure. Patient's oxygen requirement progressively increased overnight and at present patient is on Vapotherm 40 L /100%. COVID-19 pneumonia with acute hypoxic respiratory failure on Decadron and remdesivir, aspirin. Continue Combivent [id number] and a lbuterol as needed. Procalcitonin not elevated so no antibiotics given Awake proning, incentive spirometry, Lovenox twice daily Currently needing Vapotherm BPH continue flomax. H/o KWAKU does not use CPAP. Plan/VTE VTE Prophylaxis Ordered?: Yes VS, I&O, 24H, [place] Vital Signs/I&O Vital Signs Date Time Temp Pulse Resp B/P (MAP) Pulse Ox O2 Delivery O2 Flow Rate FiO2 01/16/21 09:00 97.0 75 20 116/77 (90) 92 HVNI-Vapotherm 30.0 95 I&O- Last 24 Hours up to 6 AM 01/16/21 05:59 Intake Total 240 ml Output Total 1800 ml Balance -1560 ml Laboratory Data 24H LABS Laboratory Tests 2 01/16/21 07:46: Neutrophils (%) (Auto) , Nucleated Red Blood Cells % (auto) 0.0, Neutrophils 70H, Lymphocytes (Manual) 19, Monocytes (Manual) 8H, Atypical Lymphocytes 3, Red Blood Cell Morphology NORMAL, Platelet Estimate NORMAL, Prothrombin Time 14.0, Prothromb Time International Ratio 1.04, Activated Partial Thromboplast Time 32.5, Fibrinogen 536H, Anion Gap 8, Glomerular Filtration Rate > 60.0, Calcium Level 9.3, Magnesium Level 2.2, Ferritin 1307H, Total Bilirubin 0.7, Direct Bilirubin 0.3H, Aspartate Amino Transf (AST/SGOT) 71H, Alanine Aminotransferase (ALT/SGPT) 78, Alkaline Phosphatase 89, Lactate Dehydrogenase 604H, Total Creatine Kinase 147, Troponin I < 0.02, FO-Euw-L-Type Natriuretic Peptide 87, Total Protein 7.2, Albumin 2.8L, Albumin/Globulin Ratio 0.6 CBC/BMP Laboratory Tests 01/16/21 07:46 Microbiology Microbiology 01/14/21 Blood Culture - Preliminary, Resulted No growth after 24 hours . All specim... 01/14/21 Blood Culture - Preliminary, Resulted No growth after 24 hours . All specim... Claire Nuñez MD Jan 16, 2021 11:05
[2021-01-16] MEDS: REMDESIVIR 100 MG in NS 250 ML IV SCH (16:31)
[2021-01-16] MEDS: SODIUM CHLORIDE 0.9% INJ 10 ML SYR IV SCH (18:34)
[2021-01-16 20:00] VITALS: O2SAT 93
[2021-01-16 22:00] VITALS: BP 111/63
[2021-01-16] MEDS ORDERED: FLUTICASONE PROP 0.05% NASAL SPRAY 16 GM (FLONASE) NARES PRN (22:25)
[2021-01-17] VITALS (7 sets, daily range): BP systolic 102–148; BP diastolic 57–63; O2SAT 93–94
[2021-01-17] MEDS: COMBIVENT RESPIMAT 100-20MCG INHALER 4GM INH SCH ×4 (02:04→19:33)
[2021-01-17 07:57] LABS: HEMATOCRIT 43.2 % (42.0-52.0); HEMOGLOBIN 14.5 g/dl (13.5-17.5); MEAN CORPUSCULAR HGB CONC 33.6 g/dl (32.0-36.5); MEAN CORPUSCULAR VOLUME 80.4 fl (80.0-96.0); PLATELET COUNT, AUTOMATED 218 10^3/uL (150-450); RED BLOOD COUNT 5.37 10^6/uL (4.30-6.10)
[2021-01-17 08:22] LABS: BLOOD UREA NITROGEN 29 MG/DL (7-18); CALCIUM LEVEL 8.9 MG/DL (8.5-10.1); CARBON DIOXIDE LEVEL 24 MEQ/L (21-32); CHLORIDE LEVEL 108 MEQ/L (98-107); CREATININE FOR GFR 0.88 MG/DL (0.70-1.30); GLOMERULAR FILTRATION RATE > 60.0 (>56); GLUCOSE, FASTING 131 MG/DL (70-100); MAGNESIUM LEVEL 2.1 MG/DL (1.8-2.4); POTASSIUM SERUM 4.6 MEQ/L (3.5-5.1); SODIUM LEVEL 140 MEQ/L (136-145)
[2021-01-17 08:46] LABS: ATYPICAL LYMPH 2 % (0-5); LYMPHOCYTES 13 % (16-44); MONOCYTES 3 % (0-5); NEUTROPHILS 79 % (28-66)
[2021-01-17 08:48] LABS: PLATELET ESTIMATE NORMAL (NORMAL); SMUDGE CELLS 1+
[2021-01-17] MEDS: ASPIRIN 81MG ENTERIC TABLET PO SCH (10:49)
[2021-01-17] MEDS: guaiFENesin ER 600 MG TAB PO SCH (10:49)
[2021-01-17] MEDS: TAMSULOSIN 0.4 MG CAP PO SCH (10:49)
[2021-01-17] MEDS: PANTOPRAZOLE 40MG TAB (PROTONIX) PO SCH ×2 (10:49→20:52)
[2021-01-17] MEDS: dexameTHASONE 20MG/5ML VIAL (J1100 PER 1MG) IV SCH ×2 (10:55→20:52)
[2021-01-17] MEDS: ENOXAPARIN 60MG/0.6ML SYRINGE (J1650 PER 10MG) SC SCH (10:55)
--- NOTE | 2021-01-17 16:33 | IPNPDOC ---
Subjective Date Seen The patient was seen on 01/17/21. Subjective Chief Complaint/HPI Patient feels a little better this a.m.. Says his appetite is better. He complains of some back pain from laying on his belly. He says that he has been vomiting almost all day. Remains on Vapotherm at 30 L 90%. Objective Physical Examination General Exam: Positive: Alert, Cooperative, No Acute Distress, Other (Conversational dyspnea noted) Eye Exam: Positive: PERRLA, Conjunctiva & lids normal, EOMI; Negative: Sclera icteric ENT Exam: Positive: Atraumatic, Mucous membr. moist/pink, Pharynx Normal Neck Exam: Positive: Supple; Negative: JVD, thyromegaly Chest Exam: Positive: Diminished, Other (Bilateral diffuse crackles) Heart Exam: Positive: Rate Normal, Regular Rhythm, Normal S1, Normal S2; Negative: Murmurs, Rubs Abdomen Exam: Positive: Normal bowel sounds, Soft; Negative: Tenderness Extremity Exam: Negative: Clubbing, Cyanosis, Edema Skin Exam: Negative: Breakdown, Lesion Psych Exam: Positive: Memory Intact, Oriented x 3 Assessment /Plan Assessment 50-year-old male with obesity, KWAKU noncompliant with CPAP, hepatitis C treated , started having symptoms of cough, cold, congestion, chills, body aches, headache, loss of taste and smell on January 07, 2021. Patient was found to have a positive Covid test on 01/09/2021. He presented to the ED on 01/12/2021 for continued cough and worsening shortness of breath and was found to be hypox ic and sent home with 2 L of oxygen he comes back to the emergency room on 01/14/2021 with increasing shortness of breath from before and found to be hypoxic to 86% with 2 L of oxygen. He was needing 4 L of oxygen to maintain saturations above 92%. Patient is being admitted for Covid pneumonia with acute hypoxic respiratory failure. COVID-19 pneumonia with acute hypoxic respiratory failure on Decadron and remdesivir, aspirin. Continue Combivent [id number] and albuterol as needed. Procalcitonin not elevated so no antibiotics given Awake proning, incentive spirometry, Lovenox Currently needing Vapotherm BPH continue flomax. H/o KWAKU does not use CPAP. Plan/VTE VTE Prophylaxis Ordered?: Yes VS, I&O, 24H, Nataliobonjoseph Vital Signs/I&O Vital Signs Date Time Temp Pulse Resp B/P (MAP) Pulse Ox O2 Delivery O2 Flow Rate FiO2 01/17/21 16:00 94 Nasal Cannula 30.0 90 01/17/21 04:24 96.8 63 20 102/57 (72) I&O- Last 24 Hours up to 6 AM 01/17/21 06:00 Intake Total 1500 ml Output Total 1075 ml Balance 425 ml Laboratory Data 24H LABS Laboratory Tests 2 01/17/21 07:03: Neutrophils (%) (Auto) , Nucleated Red Blood Cells % (auto) 0.0, Neutrophils 79H, Band Neutrophils 3, Lymphocytes (Manual) 13L, Monocytes (Manual) 3, Atypical Lymphocytes 2, Smudge Cells 1+, Platelet Estimate NORMAL, Anion Gap 8, Glomerular Filtration Rate > 60.0, Calcium Level 8.9, Magnesium Level 2.1 CBC/BMP Laboratory Tests 01/17/21 07:03 Microbiology Microbiology 01/14/21 Blood Culture - Preliminary, Resulted No Growth after 72 hours. All specime... 01/14/21 Blood Culture - Preliminary, Resulted No Growth after 72 hours. All specime... Claire Nuñez MD Jan 17, 2021 16:33
[2021-01-17] MEDS: REMDESIVIR 100 MG in NS 250 ML IV SCH (18:54)
[2021-01-17] MEDS: SODIUM CHLORIDE 0.9% INJ 10 ML SYR IV SCH (20:53)
[2021-01-18 00:11] VITALS: BP 131/64
[2021-01-18] MEDS: COMBIVENT RESPIMAT 100-20MCG INHALER 4GM INH SCH ×4 (01:43→19:27)
[2021-01-18 04:31] VITALS: BP 127/76
[2021-01-18] MEDS: ALBUTEROL 90 MCG/ACT 8GM HFA INHALER INH PRN (07:24)
[2021-01-18 08:00] VITALS: BP 105/57
[2021-01-18 08:29] LABS: HEMATOCRIT 44.2 % (42.0-52.0); HEMOGLOBIN 14.9 g/dl (13.5-17.5); MEAN CORPUSCULAR HEMOGLOBIN 27.2 pg (27.0-33.0); MEAN CORPUSCULAR HGB CONC 33.7 g/dl (32.0-36.5); MEAN CORPUSCULAR VOLUME 80.7 fl (80.0-96.0); PLATELET COUNT, AUTOMATED 244 10^3/uL (150-450); RED BLOOD COUNT 5.48 10^6/uL (4.30-6.10); WHITE BLOOD COUNT 11.4 10^3/uL (4.0-10.0)
[2021-01-18 08:50] LABS: INR 1.06; PROTHROMBIN TIME 14.2 SECONDS (12.7-14.5)
[2021-01-18 08:52] LABS: PARTIAL THROMBOPLASTIN TIME 26.4 SECONDS (25.9-37.0)
[2021-01-18 08:53] LABS: ALBUMIN 2.7 GM/DL (3.2-5.2); ALT/SGPT 93 U/L (12-78); BILIRUBIN,DIRECT 0.3 MG/DL (0.0-0.2); BILIRUBIN,TOTAL 0.8 MG/DL (0.2-1.0); BLOOD UREA NITROGEN 30 MG/DL (7-18); CALCIUM LEVEL 8.7 MG/DL (8.5-10.1); CARBON DIOXIDE LEVEL 23 MEQ/L (21-32); CHLORIDE LEVEL 108 MEQ/L (98-107); CPK CREATINE PHOSPHOKINASE 62 U/L (39-308); CREATININE FOR GFR 0.93 MG/DL (0.70-1.30); FERRITIN 1163 NG/ML (26-388); GLOMERULAR FILTRATION RATE > 60.0 (>56); GLUCOSE, FASTING 127 MG/DL (70-100); LDH LACTATE DEHYDROGENASE 635 U/L (87-241); NT-PRO BNP 342 PG/ML (<125); POTASSIUM SERUM 4.7 MEQ/L (3.5-5.1); SODIUM LEVEL 140 MEQ/L (136-145); TOTAL PROTEIN 6.3 GM/DL (6.4-8.2); TROPONIN I < 0.02 NG/ML (< 0.10)
[2021-01-18] MEDS: dexameTHASONE 20MG/5ML VIAL (J1100 PER 1MG) IV SCH ×2 (09:00→23:05)
[2021-01-18 09:18] LABS: ATYPICAL LYMPH 3 % (0-5); LYMPHOCYTES 12 % (16-44); MONOCYTES 7 % (0-5); NEUTROPHILS 74 % (28-66)
[2021-01-18 09:21] LABS: PLATELET ESTIMATE NORMAL (NORMAL)
[2021-01-18] MEDS: TAMSULOSIN 0.4 MG CAP PO SCH (10:19)
[2021-01-18] MEDS: PANTOPRAZOLE 40MG TAB (PROTONIX) PO SCH ×2 (10:19→23:06)
[2021-01-18] MEDS: ASPIRIN 81MG ENTERIC TABLET PO SCH (10:19)
[2021-01-18] MEDS: ENOXAPARIN 60MG/0.6ML SYRINGE (J1650 PER 10MG) SC SCH (10:20)
--- NOTE | 2021-01-18 12:10 | IPNPDOC ---
Subjective Date Seen The patient was seen on 01/18/21. Subjective Chief Complaint/HPI Minimal improvement in oxygen requirement. At present he is needing 30 L / 90%. Fortunately he is able to prone throughout the day. He says that he sleeps on his sides during the night. His appetite has improved and overall he is feeling better Objective Physical Examination General Exam: Positive: Alert, Cooperative, No Acute Distress Eye Exam: Positive: PERRLA, Conjunctiva & lids normal, EOMI; Negative: Sclera icteric ENT Exam: Positive: Atraumatic, Mucous membr. moist/pink, Pharynx Normal Neck Exam: Positive: Supple; Negative: JVD, thyromegaly Chest Exam: Positive: Diminished, Other (Bilateral diffuse crackles) Heart Exam: Positive: Rate Normal, Regular Rhythm, Normal S1, Normal S2; Negative: Murmurs, Rubs Abdomen Exam: Positive: Normal bowel sounds, Soft; Negative: Tenderness Extremity Exam: Negative: Clubbing, Cyanosis, Edema Skin Exam: Positive: Nl turgor and temperature; Negative: Breakdown, Lesion Neuro Exam: Positive: Normal Speech, Strength at 5/5 X4 ext, Normal Tone Psych Exam: Positive: Memory Intact, Oriented x 3 Assessment /Plan Assessment 50-year-old male with obesity, KWAKU noncompliant with CPAP, hepatitis C treated , started having symptoms of cough, cold, congestion, chills, body aches, heada jc, loss of taste and smell on January 07, 2021. Patient was found to have a positive Covid test on 01/09/2021. He presented to the ED on 01/12/2021 for continued cough and worsening shortness of breath and was found to be hypoxic and sent home with 2 L of oxygen he comes back to the emergency room on 01/14/2021 with increasing shortness of breath from before and found to be hypoxic to 86% with 2 L of oxygen. He was needing 4 L of oxygen to maintain saturations above 92%. Patient is being admitted for Covid pneumonia with acute hypoxic respiratory failure. COVID-19 pneumonia with acute hypoxic respiratory failure on Decadron and remdesivir, aspirin. Continue Combivent [id number]-[id number] and albuterol as needed. Procalcitonin not elevated so no antibiotics given Awake proning, incentive spirometry, Lovenox Currently needing Vapotherm BPH continue flomax. H/o KWAKU does not use CPAP. Plan/VTE VTE Prophylaxis Ordered?: Yes VS, I&O, 24H, Fishbone Vital Signs/I&O Vital Signs Date Time Temp Pulse Resp B/P (MAP) Pulse Ox O2 Delivery O2 Flow Rate FiO2 01/18/21 08:28 92 HVNI-Vapotherm 30.0 90 01/18/21 08:00 96.7 80 17 105/57 (73) I&O- Last 24 Hours up to 6 AM 01/18/21 06:00 Intake Total 820 ml Output Total 1100 ml Balance -280 ml Laboratory Data 24H LABS Laboratory Tests 2 01/18/21 07:28: Neutrophils (%) (Auto) , Nucleated Red Blood Cells % (auto) 0.0, Neutrophils 74H, Band Neutrophils 4, Lymphocytes (Manual) 12L, Monocytes (Manual) 7H, Atypical Lymphocytes 3, Platelet Estimate NORMAL, Prothrombin Time 14.2H, Prothromb Time International Ratio 1.06, Activated Partial Thromboplast Time 26.4, Fibrinogen 383, Anion Gap 9, Glomerular Filtration Rate > 60.0, Calcium Level 8.7, Ferritin 1163H, Total Bilirubin 0.8, Direct Bilirubin 0.3H, Aspartate Amino Transf (AST/SGOT) 46H, Alanine Aminotransferase (ALT/SGPT) 93H, Alkaline Phosphatase 92, Lactate Dehydrogenase 635H, Total Creatine Kinase 62, Troponin I < 0.02, HT-Qbf-S-Type Natriuretic Peptide 342H, Total Protein 6.3L, Albumin 2.7L, Albumin/Globulin Ratio 0.8 CBC/BMP Laboratory Tests 01/18/21 07:28 Microbiology Microbiology 01/14/21 Blood Culture - Preliminary, Resulted No Growth after 72 hours. All specime... 01/14/21 Blood Culture - Preliminary, Resulted No Growth after 72 hours. All specime... Claire Nuñez MD Jan 18, 2021 12:10
[2021-01-18 14:00] VITALS: BP 102/56
[2021-01-18] MEDS: SODIUM CHLORIDE 0.9% INJ 10 ML SYR IV SCH (17:53)
[2021-01-18] MEDS: REMDESIVIR 100 MG in NS 250 ML IV SCH (17:53)
[2021-01-18 20:13] VITALS: BP 127/78
[2021-01-19] MEDS: COMBIVENT RESPIMAT 100-20MCG INHALER 4GM INH SCH ×4 (02:00→20:31)
[2021-01-19 04:00] VITALS: BP 116/67
[2021-01-19 08:00] VITALS: O2SAT 94
--- NOTE | 2021-01-19 09:44 | IPNPDOC ---
Subjective Date Seen The patient was seen on 01/19/21. Subjective Chief Complaint/HPI No acute events over night. Oxygen requirement no improvement yet. remains on vapotherm at 30 L/ 90 to 95 %. Objective Physical Examination General Exam: Positive: Alert, Cooperative, No Acute Distress Eye Exam: Positive: PERRLA, Conjunctiva & lids normal, EOMI; Negative: Sclera icteric ENT Exam: Positive: Atraumatic, Mucous membr. moist/pink, Pharynx Normal Neck Exam: Positive: Supple; Negative: JVD, thyromegaly Chest Exam: Positive: Diminished, Other (Bilateral diffuse crackles) Heart Exam: Positive: Rate Normal, Regular Rhythm, Normal S1, Normal S2; Negative: Murmurs, Rubs Abdomen Exam: Positive: Normal bowel sounds, Soft; Negative: Tenderness Extremity Exam: Negative: Clubbing, Cyanosis, Edema Skin Exam: Positive: Nl turgor and temperature; Negative: Breakdown, Lesion Neuro Exam: Positive: Normal Speech, Strength at 5/5 X4 ext, Normal Tone Psych Exam: Positive: Memory Intact, Oriented x 3 Assessment /Plan Assessment 50-year-old male with obesity, KWAKU noncompliant with CPAP, hepatitis C treated , started having symptoms of cough, cold, congestion, chills, body aches, headache, loss of taste and smell on January 07, 2021. Patient was found to have a positive Covid test on 01/09/2021. He presented to the ED on 01/12/2021 for continued cough and worsening shortness of breath and was found to be hypoxic and sent home with 2 L of oxygen he comes back to the emergency room on 01/14/2021 with increasing shortness of breath from before and found to be hypoxic to 86% with 2 L of oxygen. He was needing 4 L of oxygen to maintain saturations above 92%. Patient is being admitted for Covid pneumonia with acute hypoxic respiratory failure. COVID-19 pneumonia with acute hypoxic respiratory failure finished remdesevir on Decadron and aspirin. Continue Combivent fpuqon-kxw-[id number] and albuterol as needed. Procalcitonin not elevated so no antibiotics given Awake proning, incentive spirometry, Lovenox On Vapotherm BPH continue flomax. H/o KWAKU does not use CPAP. Plan/VTE VTE Prophylaxis Ordered?: Yes VS, I&O, 24H, Fishbone Vital Signs/I&O Vital Signs Date Time Temp Pulse Resp B/P (MAP) Pulse Ox O2 Delivery O2 Flow Rate FiO2 01/19/21 06:00 91 HVNI-Vapotherm 30.0 95 01/19/21 04:00 98.6 73 20 116/67 (83) I&O- Last 24 Hours up to 6 AM 01/19/21 06:00 Intake Total 1260 ml Output Total 1100 ml Balance 160 ml Laboratory Data 24H LABS Laboratory Tests 2 01/18/21 07:28: Neutrophils (%) (Auto) , Nucleated Red Blood Cells % (auto) 0.0, Neutrophils 74H, Band Neutrophils 4, Lymphocytes (Manual) 12L, Monocytes (Manual) 7H, Atypical Lymphocytes 3, Platelet Estimate NORMAL, Prothrombin Time 14.2H, Prothr omb Time International Ratio 1.06, Activated Partial Thromboplast Time 26.4, Fibrinogen 383, Anion Gap 9, Glomerular Filtration Rate > 60.0, Calcium Level 8.7, Ferritin 1163H, Total Bilirubin 0.8, Direct Bilirubin 0.3H, Aspartate Amino Transf (AST/SGOT) 46H, Alanine Aminotransferase (ALT/SGPT) 93H, Alkaline Phosphatase 92, Lactate Dehydrogenase 635H, Total Creatine Kinase 62, Troponin I < 0.02, RV-Puu-N-Type Natriuretic Peptide 342H, Total Protein 6.3L, Albumin 2.7L, Albumin/Globulin Ratio 0.8, Procalcitonin 0.07 CBC/BMP Laboratory Tests 01/18/21 07:28 Microbiology Microbiology 01/14/21 Blood Culture - Preliminary, Resulted No Growth after 72 hours. All specime... 01/14/21 Blood Culture - Preliminary, Resulted No Growth after 72 hours. All specime... Claire Nuñez MD Jan 19, 2021 07:18
[2021-01-19] MEDS: PANTOPRAZOLE 40MG TAB (PROTONIX) PO SCH ×2 (09:54→20:10)
[2021-01-19] MEDS: dexameTHASONE 20MG/5ML VIAL (J1100 PER 1MG) IV SCH (09:54)
[2021-01-19] MEDS: ASPIRIN 81MG ENTERIC TABLET PO SCH (09:54)
[2021-01-19] MEDS: ENOXAPARIN 60MG/0.6ML SYRINGE (J1650 PER 10MG) SC SCH (09:54)
[2021-01-19] MEDS: TAMSULOSIN 0.4 MG CAP PO SCH (09:55)
[2021-01-19 10:23] LABS: BASO % 0.2 % (0.0-1.0); HEMATOCRIT 45.3 % (42.0-52.0); LYMPH # 1.1 10^3/uL (1.5-5.0); LYMPH % 8.7 % (24.0-44.0); MEAN CORPUSCULAR HEMOGLOBIN 26.7 pg (27.0-33.0); MEAN CORPUSCULAR HGB CONC 33.1 g/dl (32.0-36.5); MEAN CORPUSCULAR VOLUME 80.7 fl (80.0-96.0); MONO # 0.4 10^3/uL (0.0-0.8); MONO % 3.2 % (2.0-8.0); NEUTROPHILS # 10.8 10^3/uL (1.5-8.5); NEUTROPHILS % 86.2 % (36.0-66.0); PLATELET COUNT, AUTOMATED 250 10^3/uL (150-450); RED BLOOD COUNT 5.61 10^6/uL (4.30-6.10); WHITE BLOOD COUNT 12.5 10^3/uL (4.0-10.0)
[2021-01-19 11:04] LABS: BLOOD UREA NITROGEN 27 MG/DL (7-18); CALCIUM LEVEL 8.5 MG/DL (8.5-10.1); CARBON DIOXIDE LEVEL 24 MEQ/L (21-32); CHLORIDE LEVEL 104 MEQ/L (98-107); CREATININE FOR GFR 1.09 MG/DL (0.70-1.30); GLOMERULAR FILTRATION RATE > 60.0 (>56); GLUCOSE, FASTING 138 MG/DL (70-100); POTASSIUM SERUM 4.8 MEQ/L (3.5-5.1); SODIUM LEVEL 137 MEQ/L (136-145)
[2021-01-19 12:00] VITALS: O2SAT 95
[2021-01-19 14:56] VITALS: BP 114/69
[2021-01-19 20:00] VITALS: BP 78/43
[2021-01-19 20:10] VITALS: O2SAT 95
[2021-01-20] MEDS: COMBIVENT RESPIMAT 100-20MCG INHALER 4GM INH SCH ×4 (02:17→20:59)
[2021-01-20] MEDS: ACETAMINOPHEN TAB 650MG DOSE (2X325MG) PO PRN ×2 (06:33→13:53)
[2021-01-20 06:35] VITALS: BP 94/62
[2021-01-20 07:13] LABS: BASO % 0.3 % (0.0-1.0); EOS % 0.3 % (0.0-3.0); HEMATOCRIT 45.2 % (42.0-52.0); HEMOGLOBIN 15.3 g/dl (13.5-17.5); LYMPH # 1.3 10^3/uL (1.5-5.0); LYMPH % 10.2 % (24.0-44.0); MEAN CORPUSCULAR HGB CONC 33.8 g/dl (32.0-36.5); MEAN CORPUSCULAR VOLUME 79.9 fl (80.0-96.0); MONO # 0.5 10^3/uL (0.0-0.8); MONO % 3.6 % (2.0-8.0); NEUTROPHILS # 10.8 10^3/uL (1.5-8.5); NEUTROPHILS % 83.7 % (36.0-66.0); PLATELET COUNT, AUTOMATED 254 10^3/uL (150-450); RED BLOOD COUNT 5.66 10^6/uL (4.30-6.10); WHITE BLOOD COUNT 12.9 10^3/uL (4.0-10.0)
[2021-01-20 07:23] LABS: INR 1.1; PROTHROMBIN TIME 14.6 SECONDS (12.7-14.5)
[2021-01-20 07:29] LABS: PARTIAL THROMBOPLASTIN TIME 24.9 SECONDS (25.9-37.0)
[2021-01-20 08:02] LABS: ALBUMIN 2.7 GM/DL (3.2-5.2); ALT/SGPT 76 U/L (12-78); BILIRUBIN,DIRECT 0.4 MG/DL (0.0-0.2); BILIRUBIN,TOTAL 1.1 MG/DL (0.2-1.0); BLOOD UREA NITROGEN 27 MG/DL (7-18); CALCIUM LEVEL 9.1 MG/DL (8.5-10.1); CARBON DIOXIDE LEVEL 26 MEQ/L (21-32); CHLORIDE LEVEL 104 MEQ/L (98-107); CPK CREATINE PHOSPHOKINASE 45 U/L (39-308); FERRITIN 966 NG/ML (26-388); GLOMERULAR FILTRATION RATE > 60.0 (>56); GLUCOSE, FASTING 88 MG/DL (70-100); LDH LACTATE DEHYDROGENASE 626 U/L (87-241); NT-PRO BNP 145 PG/ML (<125); POTASSIUM SERUM 4.1 MEQ/L (3.5-5.1); SODIUM LEVEL 137 MEQ/L (136-145); TOTAL PROTEIN 6.7 GM/DL (6.4-8.2); TROPONIN I < 0.02 NG/ML (< 0.10)
[2021-01-20] MEDS: PANTOPRAZOLE 40MG TAB (PROTONIX) PO SCH ×2 (08:16→20:16)
[2021-01-20] MEDS: ASPIRIN 81MG ENTERIC TABLET PO SCH (08:16)
[2021-01-20] MEDS: TAMSULOSIN 0.4 MG CAP PO SCH (08:16)
[2021-01-20] MEDS: ENOXAPARIN 60MG/0.6ML SYRINGE (J1650 PER 10MG) SC SCH (08:17)
--- NOTE | 2021-01-20 12:36 | IPNPDOC ---
Text Note Date of Service The patient was seen on 01/20/21. NOTE Subjective: Patient is a 50-year-old male presented to the hospital with wor sening shortness of breath and was found to have COVID-19. Patient is on max Vapotherm at this time. Patient's oxygen saturations has been doing well on this. We will attempt to wean it later. Patient states he is feeling well. Review of systems: General: Patient denies fevers HEENT: Patient denies headaches Cardiovascular: Patient denies chest pain Respiratory: Patient reports improvement in shortness of breath, cough GI: Patient denies abdominal pain, nausea, vomiting, diarrhea : Patient denies increased frequency or pain with urination Extremities: Patient denies swelling or pain in extremities Neurological: Patient denies numbness or tingling in legs Physical exam: Vitals: See below General: Alert and oriented male patient who was sitting up in bed when I walked in. Patient had Vapotherm nasal cannula in place. Patient did not appear to be in any acute distress. HEENT: Normocephalic, atraumatic, moist mucous membranes. Neck: No lymphadenopathy or thyromegaly Cardiac: Regular rate and rhythm, no murmurs, normal S1, normal S2 Pulm: Diminished breath sounds bilaterally Abd: Nondistended, nontender to palpation, normal bowel sounds Ext: No edema bilateral lower extremities Labs: See below Imaging: No new imaging has been performed Assessment/plan: 50-year-old male with a history of obesity, KWAKU noncompliant with CPAP, treated hepatitis C who started having symptoms of a cough, cold, congestion, chills, body aches, headache, loss of taste and smell on 01/07/2021 and was found to be Covid positive on 01/09/2021. Patient presented to the emergency department on with continued cough and worsening shortness of breath found to be hypoxic and was sent home with 2 L of oxygen and came back to the emergency room on 6020 with increased shortness of breath and was found to be hypoxic at 86 with 2 L of oxygen. Patient needed 4 L of oxygen to maintain saturations above 92% and was admitted for Covid pneumonia with acute hypoxic respiratory failure. 1. Acute hypoxic respiratory failure secondary to COVID-19. Patient is currently on maximal Vapotherm. Patient has finished remdesivir and Decadron. Baricitinib has been added. Procalcitonin not elevated so no antibiotics given. Continue with proning and incentive spirometry. 2. COVID-19. Continue treatment as above. 3. BPH. Continue Flomax. 4. History of KWAKU. Does not use CPAP. 5. Class I obesity. DVT Prophylaxis: Lovenox Disposition: Pending improvement in oxygenation. VS,Fishbone, I+O VS, Fishbone, I+O Laboratory Tests 01/20/21 06:43 Vital Signs Date Time Temp Pulse Resp B/P (MAP) Pulse Ox O2 Delivery O2 Flow Rate FiO2 01/20/21 10:47 40.0 100 01/20/21 06:35 94/62 (73) 93 HVNI-Vapotherm 01/19/21 20:00 97.4 71 16 I&O- Last 24 Hours up to 6 AM 01/20/21 06:00 Intake Total 710 ml Output Total 1025 ml Balance -315 ml ANITA SANTANA DO Jan 20, 2021 12:36
[2021-01-20 14:00] VITALS: BP 107/53
[2021-01-20] MEDS: BARICITINIB 2MG TABLET (OLUMIANT) FOR EUA PO SCH (14:33)
[2021-01-20 20:00] VITALS: BP 116/62
--- NOTE | 2021-01-20 23:16 | IPNPDOC ---
Text Note Date of Service The patient was seen on 01/20/21. NOTE TIME OF SERVICE 11;11PM I was asked to see the pt by René grover of concerns that the patient may need to be upgraded to ICU. The patient is persistently hypoxemic to the high 80s despite being switched to non-rebreather mask. Per chart review it was noted that he has KWAKU and is non-compliant w CPAP. Per d/w the RT the patient refused ABG #Acute Hypoxemic Respiratory Failure 2/2 COVID Plan: we will transfer him to ICU for CPAP and possibly switch to BIPAP we will also check a VBG. LUCHO MCKEON MD Jan 20, 2021 23:16
[2021-01-20 23:20] VITALS: O2SAT 79
[2021-01-20 23:23] VITALS: O2SAT 93
[2021-01-21] VITALS (12 sets, daily range): BP systolic 102–136; BP diastolic 61–80; O2SAT 93–97
[2021-01-21] MEDS: ACETAMINOPHEN TAB 650MG DOSE (2X325MG) PO PRN ×3 (01:02→20:13)
--- NOTE | 2021-01-21 01:12 | REPVR ---
PROCEDURE INFORMATION: Exam: XR Chest Exam date and time: 01/20/2021 11:20 PM Age: 50 years old Clinical indication: Dyspnea; Additional info: Respiratory distress TECHNIQUE: Imaging protocol: XR of the chest. Views: 1 view. COMPARISON: CR PORTABLE CHEST X-RAY 01/14/2021 11:45 AM FINDINGS: Lungs: There are no interval infiltrates. Pleural spaces: Unremarkable. No pleural effusion. No pneumothorax. Heart/Mediastinum: The heart and mediastinum are unchanged. Bones/joints: Unremarkable. IMPRESSION: Essentially stable chest since 01/14/2021. No acute interval process is identified. Electronically signed by: Ra Diaz On 01/21/2021 01:12:10 AM
[2021-01-21 01:35] LABS: VENOUS BASE EXCESS 0.9 (-2.0-2.0); VENOUS O2 SATURATION 98.4 % (60.0-80.0); VENOUS PARTIAL PRESSURE CO2 30.1 mmHg (38.0-50.0); VENOUS PARTIAL PRESSURE O2 136.2 mmHg (30.0-50.0); VENOUS PH 7.501 UNITS (7.330-7.430); VENOUS STANDARD HCO3 25.3 MEQ/L; VENOUS TOTAL CO2 23.9 MEQ/L (24.0-28.0)
[2021-01-21] MEDS: COMBIVENT RESPIMAT 100-20MCG INHALER 4GM INH SCH ×4 (01:53→19:21)
[2021-01-21 04:27] LABS: BASO % 0.1 % (0.0-1.0); EOS # 0.1 10^3/uL (0.0-0.5); EOS % 0.7 % (0.0-3.0); HEMATOCRIT 42.6 % (42.0-52.0); HEMOGLOBIN 14.5 g/dl (13.5-17.5); LYMPH # 0.8 10^3/uL (1.5-5.0); LYMPH % 5.6 % (24.0-44.0); MEAN CORPUSCULAR VOLUME 79.2 fl (80.0-96.0); MONO # 0.5 10^3/uL (0.0-0.8); MONO % 3.4 % (2.0-8.0); NEUTROPHILS # 12.1 10^3/uL (1.5-8.5); NEUTROPHILS % 88.5 % (36.0-66.0); PLATELET COUNT, AUTOMATED 222 10^3/uL (150-450); RED BLOOD COUNT 5.38 10^6/uL (4.30-6.10); WHITE BLOOD COUNT 13.7 10^3/uL (4.0-10.0)
[2021-01-21 04:57] LABS: BLOOD UREA NITROGEN 24 MG/DL (7-18); CALCIUM LEVEL 8.3 MG/DL (8.5-10.1); CARBON DIOXIDE LEVEL 26 MEQ/L (21-32); CHLORIDE LEVEL 101 MEQ/L (98-107); CREATININE FOR GFR 1.07 MG/DL (0.70-1.30); GLOMERULAR FILTRATION RATE > 60.0 (>56); GLUCOSE, FASTING 103 MG/DL (70-100); POTASSIUM SERUM 4.7 MEQ/L (3.5-5.1); SODIUM LEVEL 134 MEQ/L (136-145)
[2021-01-21] MEDS: ENOXAPARIN 60MG/0.6ML SYRINGE (J1650 PER 10MG) SC SCH (08:44)
[2021-01-21] MEDS: BARICITINIB 2MG TABLET (OLUMIANT) FOR EUA PO SCH (08:45)
[2021-01-21] MEDS: PANTOPRAZOLE 40MG TAB (PROTONIX) PO SCH ×2 (08:45→20:11)
[2021-01-21] MEDS: TAMSULOSIN 0.4 MG CAP PO SCH (08:45)
[2021-01-21] MEDS: ASPIRIN 81MG ENTERIC TABLET PO SCH (08:45)
--- NOTE | 2021-01-21 11:50 | CR.PDOC ---
General Date of Consultation: Jan 21, 2021 Referring Provider: ANITA SANTANA DO Attending Physician: ANITA SANTANA DO Consultation REASON FOR CONSULTATION/CHIEF COMPLAINT: Hypoxic respiratory failure, COVID-19 ARDS. HISTORY OF PRESENT ILLNESS: This is a 50-year-old gentleman with past medical history of obstructive sleep apnea noncompliant with CPAP therapy, hepatitis C who is currently admitted to the ICU for COVID-19 ARDS hypoxic respiratory failure. Patient initially presented to the emergency department on January 12, 2021 with ongoing cough and worsening shortness of breath. He was found to be hypoxic and was sent home with 2 L oxygen. He subsequently came back to the emergency room on January 14, 2021 with increasing shortness of breath and found to be profoundly hypoxic on 2 L oxygen. Therefore he was admitted to the hospital for further care. He has been on remdesivir and Decadron for COVID-19. He was put on Vapotherm. Because of his worsening hypoxemia, he was started on baricitinib yesterday. His Vapotherm setting with maxed out on 40 L 100% FiO2. Therefore he was switched to CPAP pressure of 8. Pulmonary was consulted for further recommendation. Patient is doing well with self proning. Work-up revealed significant lymphopenia. Otherwise no elevation of procalcitonin. Renal function is fairly preserved. CT scan of the chest revealed bilateral patchy infiltrates consistent with viral pneumonitis. Allergies Coded Allergies: No Known Allergies (Unverified , 12/04/19) Past Medical History Past Medical History Medical History Chronic hepatitis C diagnosed in 2010 treated in 2019 History of IV drug use last use in 1999 History of alcohol abuse Sleep apnea does not use the CPAP GERD Hypercholesterolemia Surgical History Tonsillectomy Social History * Smoker: former Smoker (Quit in 2016) Family history: Noncontributory to this hospital admission. ALLERGIES: Please see below. HOME MEDICATIONS: Please see below. REVIEW OF SYSTEMS: CONSTITUTIONAL: Admits to experiencing fatigue and malaise but denies fever, chills, night sweats. HEENT: Denies sore throat or sinusitis. CARDIOVASCULAR: Denies chest pain, orthopnea, lower extremity swelling. RESPIRATORY: Admits to having productive cough consist of green sputum and shortness of breath. Denies hemoptysis or wheezing GENITOURINARY: Denies dysuria. MUSCULOSKELETAL: Denies myalgia arthralgia. GASTROINTESTINAL: Denies nausea, vomiting, abdominal pain, blood in stool, diarrhea. SKIN: Denies any skin rash. NEUROLOGICAL: Denies slurred speech or focal weakness. PSYCHIATRIC: Denies depression. ENDOCRINE: Denies weight change. HEMATOLOGIC/LYMPHATIC: Denies bleeding. ALLERGIC/IMMUNOLOGIC: Denies allergy. PHYSICAL EXAMINATION: VITAL SIGNS: Please see below. GENERAL APPEARANCE: Patient alert and oriented x3. Patient not in any acute distress. He is conversing well. HEENT: No cervical adenopathy or wheezing. RESPIRATORY: Significant fine crackles of the right lung field. CARDIOVASCULAR: Normal S1-S2 with no evidence of murmur. ABDOMEN: Soft nontender positive bowel sounds. EXTREMITIES: No evidence of pedal edema. NEUROLOGICAL: Gross neurological examination is intact. PSYCHIATRIC: Alert and oriented x3. LABORATORY DATA: Please see below. ASSESSMENT/PLAN: This is a 50-year-old gentleman with past medical history of obstructive sleep apnea noncompliant with CPAP therapy, hepatitis C who is currently admitted to the ICU for COVID-19 ARDS hypoxic respiratory failure. 1. Hypoxic respiratory failure. 2. COVID-19 ARDS. Recommendations: -Continue with intermittent Vapotherm and CPAP therapy. Encourage self proning. Continue with baricitinib, Decadron, remdesivir. I do not suspect any evidence of bacterial coinfection/pneumonia. Therefore we can further hold off antibiotic therapy. I anticipate he will improve slowly over time. Vital Signs/I&O Vital Signs Date Time Temp Pulse Resp B/P (MAP) Pulse Ox O2 Delivery O2 Flow Rate FiO2 01/21/21 07:45 100 01/21/21 06:00 96 BIPAP/CPAP 01/21/21 06:00 67 28 126/80 (95) 01/21/21 04:00 98.9 01/20/21 23:23 15.0 I&O- Last 24 Hours up to 6 AM 01/21/21 06:00 Intake Total 1840 ml Output Total 875 ml Balance 965 ml Laboratory Data Labs 24H Laboratory Tests 2 01/21/21 01:25: Blood Gas Bicarbonate Standard 25.3, Venous Blood pH 7.501H, Venous Blood Partial Pressure CO2 30.1L, Venous Blood Partial Pressure O2 136.2H, Venous Blood Total Carbon Dioxide 23.9L, Venous Blood HCO3 23.0, Venous Blood Oxygen Saturation 98.4H, Venous Blood Base Excess 0.9 01/21/21 04:00: Immature Granulocyte % (Auto) 1.7, Neutrophils (%) (Auto) 88.5H, Lymphocytes (%) (Auto) 5.6L, Monocytes (%) (Auto) 3.4, Eosinophils (%) (Auto) 0.7, Basophils (%) (Auto) 0.1, Neutrophils # (Auto) 12.1H, Lymphocytes # (Auto) 0.8L, Monocytes # (Auto) 0.5, Eosinophils # (Auto) 0.1, Basophils # (Auto) 0.0, Nucleated Red Blood Cells % (auto) 0.0 01/21/21 04:01: Anion Gap 7L, Glomerular Filtration Rate > 60.0, Calcium Level 8.3L CBC/BMP Laboratory Tests 01/21/21 04:00 01/21/21 04:01 Microbiology Microbiology 01/14/21 Blood Culture - Final, Complete NO GROWTH AFTER 5 DAYS 01/14/21 Blood Culture - Final, Complete NO GROWTH AFTER 5 DAYS Allergies Coded Allergies: No Known Allergies (Unverified , 12/04/19) Home Medications Scheduled Azithromycin (Azithromycin) 250 Mg Tablet, 250 MG PO DAILY, (Reported) 2 ON THE FIRST DAY, 1 T DAYS 2-5 Esomeprazole Magnesium (Nexium) 40 Mg Capsule.dr, 40 MG PO DAILY, (Reported) Prednisone (Prednisone) 20 Mg Tablet, 20 MG PO DAILY, (Reported) Tamsulosin HCl (Flomax) 0.4 Mg Capsule, 0.4 MG PO DAILY, (Reported) Scheduled PRN Guaifenesin (Mucinex) 600 Mg Tab.er.12h, 600 MG PO for CONGESTION, (Reported) Ibuprofen (Ibuprofen) 200 Mg Capsule, 400 MG PO QID PRN for PAIN LEVEL 1-4, (Reported) JOSE LUIS DAY MD Jan 21, 2021 11:50
--- NOTE | 2021-01-21 14:01 | IPNPDOC ---
Text Note Date of Service The patient was seen on 01/21/21. NOTE Subjective: Patient is a 50-year-old male who presented to hospital with wor sening shortness of breath and was later found to have COVID-19. Patient had to be transferred to the intensive care unit last night due to worsening respiratory distress. Patient was transitioned over to CPAP therapy and was currently on 10 cm of water at 100% FiO2 CPAP therapy when I walked into the room today. Patient says he was having a tough time breathing but was more comfortable with the CPAP machine on. Patient denies any chest pain at this time. Patient has been trying to prone as much as possible. Review of systems: General: Patient denies fevers HEENT: Patient denies headaches Cardiovascular: Patient denies chest pain Respiratory: Patient reports increased shortness of breath as above GI: Patient denies abdominal pain, nausea, vomiting, diarrhea : Patient denies increased frequency or pain with urination Extremities: Patient denies swelling or pain in extremities Neurological: Patient denies numbness or tingling in legs Physical exam: Vitals: See below General: Alert and oriented male patient who was sitting on the side of the bed when I walked in the room. Patient had CPAP mask on. Patient did not appear to be in any acute distress. HEENT: Normocephalic, atraumatic, moist mucous membranes. Neck: No lymphadenopathy or thyromegaly Cardiac: Regular rate and rhythm, no murmurs, normal S1, normal S2 Pulm: Diminished breath sounds bilaterally Abd: Nondistended, nontender to palpation, normal bowel sounds Ext: No edema bilateral lower extremities Labs: See below Imaging: Chest x-ray performed on 01/20/2021 was reported to show essentially stable chest since 6020. No acute interval process is identified. Assessment/plan: 50-year-old male with a history of obesity, KWAKU noncompliant with CPAP, treated hepatitis C who started having symptoms of cough, cold, congestion, chills, body aches, headache, loss of taste smell on 01/07/2021 was found to be Covid positive. Patient required increased oxygenation and ventilatory support with CPAP last night and was transferred to the intensive care unit. 1. Acute hypoxic respiratory failure secondary to COVID-19. Patient needed to be transferred to the intensive care unit so the patient could be placed on CPAP therapy. Patient is doing better with this. I have consulted pulmonology to help with the patient's CPAP settings. They will follow along. I appreciate Dr. Trejo's help treating the patient. I again advised patient prone as much as possible in order to help with this. Continue remdesivir Decadron and baricitinib. 2. COVID-19. Continue treatment as above. 3. BPH. Continue Flomax. 4. History of KWAKU. CPAP will be used at night. 5. Class I obesity, complicating the patient's care. DVT Prophylaxis: Lovenox Disposition: Pending improvement of the patient's oxygenation. VS,Fishbone, I+O VS, Fishbone, I+O Laboratory Tests 01/21/21 04:00 01/21/21 04:01 Vital Signs Date Time Temp Pulse Resp B/P (MAP) Pulse Ox O2 Delivery O2 Flow Rate FiO2 01/21/21 13:00 85 22 96 HVNI-Vapotherm 100 01/21/21 12:00 40.0 01/21/21 11:25 97.4 118/74 (89) I&O- Last 24 Hours up to 6 AM 01/21/21 06:00 Intake Total 1840 ml Output Total 875 ml Balance 965 ml ANITA SANTANA DO Jan 21, 2021 14:01
[2021-01-21] MEDS: RAMELTEON 8 MG TAB (ROZEREM) PO SCH (20:11)
[2021-01-22] VITALS (7 sets, daily range): BP systolic 89–115; BP diastolic 55–72
[2021-01-22] MEDS ORDERED: KETOROLAC 30 MG/ML 1ML VIAL IV ONE (00:30)
[2021-01-22] MEDS: COMBIVENT RESPIMAT 100-20MCG INHALER 4GM INH SCH ×2 (01:16→07:35)
[2021-01-22] MEDS: ACETAMINOPHEN TAB 650MG DOSE (2X325MG) PO PRN (04:06)
[2021-01-22 04:33] LABS: BASO % 0.1 % (0.0-1.0); EOS # 0.2 10^3/uL (0.0-0.5); EOS % 1.3 % (0.0-3.0); HEMATOCRIT 43.7 % (42.0-52.0); HEMOGLOBIN 14.8 g/dl (13.5-17.5); LYMPH # 0.6 10^3/uL (1.5-5.0); LYMPH % 4.2 % (24.0-44.0); MEAN CORPUSCULAR HEMOGLOBIN 27.3 pg (27.0-33.0); MEAN CORPUSCULAR HGB CONC 33.9 g/dl (32.0-36.5); MEAN CORPUSCULAR VOLUME 80.5 fl (80.0-96.0); MONO # 0.4 10^3/uL (0.0-0.8); MONO % 3.3 % (2.0-8.0); NEUTROPHILS # 12.1 10^3/uL (1.5-8.5); NEUTROPHILS % 89.9 % (36.0-66.0); PLATELET COUNT, AUTOMATED 209 10^3/uL (150-450); RED BLOOD COUNT 5.43 10^6/uL (4.30-6.10); WHITE BLOOD COUNT 13.5 10^3/uL (4.0-10.0)
[2021-01-22 05:03] LABS: ALBUMIN 2.2 GM/DL (3.2-5.2); ALT/SGPT 42 U/L (12-78); BILIRUBIN,TOTAL 1.2 MG/DL (0.2-1.0); BLOOD UREA NITROGEN 29 MG/DL (7-18); CALCIUM LEVEL 8.7 MG/DL (8.5-10.1); CARBON DIOXIDE LEVEL 26 MEQ/L (21-32); CHLORIDE LEVEL 102 MEQ/L (98-107); CREATININE FOR GFR 1.33 MG/DL (0.70-1.30); GLOMERULAR FILTRATION RATE > 60.0 (>56); GLUCOSE, FASTING 105 MG/DL (70-100); POTASSIUM SERUM 4.9 MEQ/L (3.5-5.1); SODIUM LEVEL 135 MEQ/L (136-145); TOTAL PROTEIN 6.1 GM/DL (6.4-8.2)
[2021-01-22] MEDS ORDERED: SODIUM CHLORIDE 0.9% 500 ML IV ONE (05:15)
[2021-01-22] MEDS: ASPIRIN 81MG ENTERIC TABLET PO SCH (09:12)
[2021-01-22] MEDS: BARICITINIB 2MG TABLET (OLUMIANT) FOR EUA PO SCH (09:13)
[2021-01-22] MEDS: PANTOPRAZOLE 40MG TAB (PROTONIX) PO SCH ×2 (09:13→19:51)
[2021-01-22] MEDS: TAMSULOSIN 0.4 MG CAP PO SCH (09:13)
[2021-01-22] MEDS: ENOXAPARIN 60MG/0.6ML SYRINGE (J1650 PER 10MG) SC SCH (09:14)
--- NOTE | 2021-01-22 10:48 | IPNPDOC ---
Subjective Date Seen The patient was seen on 01/22/21. Subjective Chief Complaint/HPI Patient has absolutely no complaint today. He goes between Vapotherm and CPAP. Constitutional: Denies: Chills, Fever Eyes: Denies: Pain ENT: Denies: Head Aches Skin: Denies: Rash Pulmonary: Denies: Dyspnea, Cough, Pleuritic Chest Pain Cardiovascular: Denies: Chest Pain, Palpitations, Orthopnea, Edema Gastrointestinal: Denies: Nausea, Vomiting, Abdominal Pain, Diarrhea Neurological: Denies: Weakness Objective Physical Examination General Exam: Positive: Alert, Cooperative, No Acute Distress Eye Exam: Positive: PERRLA, Conjunctiva & lids normal, EOMI; Negative: Sclera icteric ENT Exam: Positive: Atraumatic, Mucous membr. moist/pink, Pharynx Normal Neck Exam: Positive: Supple; Negative: JVD, thyromegaly Chest Exam: Positive: Diminished, Other (Bilateral diffuse crackles) Heart Exam: Positive: Rate Normal, Regular Rhythm, Normal S1, Normal S2; Negative: Murmurs, Rubs Abdomen Exam: Positive: Normal bowel sounds, Soft; Negative: Tenderness Extremity Exam: Negative: Clubbing, Cyanosis, Edema Skin Exam: Positive: Nl turgor and temperature; Negative: Breakdown, Lesion Neuro Exam: Positive: Normal Speech, Strength at 5/5 X4 ext, Normal Tone Psych Exam: Positive: Memory Intact, Oriented x 3 Assessment /Plan Assessment This is a 50-year-old gentleman with past medical history of obstructive sleep apnea noncompliant with CPAP therapy, hepatitis C who is currently admitted to the ICU for COVID-19 ARDS hypoxic respiratory failure. 1. Hypoxic respiratory failure. 2. COVID-19 ARDS. Plan/VTE VTE Prophylaxis Ordered?: Yes Plan -He is alternating betwee Vapotherm and CPAP pressure of 8 cm water. -Continue with baricitinib, but not severe and Decadron. -Patient is self proning. -I do not suspect superimposed bacterial pneumonia. Therefore, we can hold off antibiotic therapy. -Low threshold for intubation. CODE STATUS was addressed with patient. There was some hesitation but patient wishes to remain full code for now. Disposition continue ICU care. VS, I&O, 24H, Fishbone Vital Signs/I&O Vital Signs Date Time Temp Pulse Resp B/P (MAP) Pulse Ox O2 Delivery O2 Flow Rate FiO2 01/22/21 06:00 78 94/55 (68) 93 NIPPV (BIPAP/CPAP) 95 01/22/21 04:00 98.2 29 01/22/21 03:00 40.0 I&O- Last 24 Hours up to 6 AM 01/22/21 06:00 Intake Total 1260 ml Output Total 750 ml Balance 510 ml Laboratory Data 24H LABS Laboratory Tests 2 01/22/21 04:08: Immature Granulocyte % (Auto) 1.2, Neutrophils (%) (Auto) 89.9H, Lymphocytes (%) (Auto) 4.2L, Monocytes (%) (Auto) 3.3, Eosinophils (%) (Auto) 1.3, Basophils (%) (Auto) 0.1, Neutrophils # (Auto) 12.1H, Lymphocytes # (Auto) 0.6L, Monocytes # (Auto) 0.4, Eosinophils # (Auto) 0.2, Basophils # (Auto) 0.0, Nucleated Red Blood Cells % (auto) 0.0, Anion Gap 7L, Glomerular Filtration Rate > 60.0, Calcium Level 8.7, Magnesium Level 2.0, Total Bilirubin 1.2H, Aspartate Amino Transf (AST/SGOT) 33, Alanine Aminotransferase (ALT/SGPT) 42, Alkaline Phosphatase 105, Total Protein 6.1L, Albumin 2.2L, Albumin/Globulin Ratio 0.6 CBC/BMP Laboratory Tests 01/22/21 04:08 Microbiology Microbiology 01/14/21 Blood Culture - Final, Complete NO GROWTH AFTER 5 DAYS 01/14/21 Blood Culture - Final, Complete NO GROWTH AFTER 5 DAYS JOSE LUIS DAY MD Jan 22, 2021 10:48
--- NOTE | 2021-01-22 13:54 | IPNPDOC ---
Text Note Date of Service The patient was seen on 01/22/21. NOTE Subjective: Patient is a 50-year-old male presented hospital with worsening shortness of breath was later found to have COVID-19. Patient was transferred to the ICU 2 nights ago for worsening respiratory distress and was placed on CPAP therapy. Patient has been trying to prone as much as possible. Patient does have issues with being a prone on Vapotherm with oxygen saturations decreasing. Patient does say he is having some shortness of breath. Patient has been coughing as well but this is nonproductive. Patient is otherwise doing well Review of systems: General: Patient denies fevers HEENT: Patient denies headaches Cardiovascular: Patient denies chest pain Respiratory: Patient reports shortness of breath and cough as above GI: Patient denies abdominal pain, nausea, vomiting, diarrhea : Patient denies increased frequency or pain with urination Extremities: Patient denies swelling or pain in extremities Neurological: Patient denies numbness or tingling in legs Physical exam: Vitals: See below General: Alert and oriented male patient who is laying on his side with Vapotherm nasal cannula in place when I walked in. Patient not appear to be in any acute distress. HEENT: Normocephalic, atraumatic, moist mucous membranes. Neck: No lymphadenopathy or thyromegaly Cardiac: Regular rate and rhythm, no murmurs, normal S1, normal S2 Pulm: Diminished breath sounds bilaterally Abd: Nondistended, nontender to palpation, normal bowel sounds Ext: No edema bilateral lower extremities Labs: See below Imaging: No new imaging has been performed Assessment/plan: 50-year-old male with a history of obesity, KWAKU noncompliant with CPAP, treated hepatitis C was started having symptoms of cough, cold, congestion, chills, body aches, headache, loss of taste and smell on 01/07/2021 is found to be Covid positive. Patient is required increased oxygenation and ventilatory support with CPAP and has been transferred to the intensive care unit. 1. Acute hypoxic respiratory failure secondary to COVID-19. Patient will need to remain on CPAP for most of the next 48 hours. Patient can come off onto Vapotherm for about an hour for breakfast and dinner. I have supplemented a protein shake as well during breakfast and dinner to add more caloric intake since the patient was getting lunch. I explained to the patient that this strategy is to be able to keep the lungs inflated to help with avoiding airway collapse every time he switches from CPAP to Vapotherm. Patient states that he will try a as much as he can because he does not want to be intubated. I explained the patient that we will try everything in her power to get there and this is the best way at this time. The next 48 hours he will be on CPAP therapy. Patient will be given IV Ativan for anxiety if needed. 2. COVID-19. Continue with baricitinib, dexamethasone, and patient has complet ed course of remdesivir. 3. BPH. Continue Flomax. 4. History of KWAKU. Patient will be on CPAP the next 48 hours. 5. Class I obesity. Complicating the patient's care. DVT Prophylaxis: Lovenox Disposition: Pending improvement patient's oxygenation. VS,Fishbone, I+O VS, Fishbone, I+O Laboratory Tests 01/22/21 04:08 Vital Signs Date Time Temp Pulse Resp B/P (MAP) Pulse Ox O2 Delivery O2 Flow Rate FiO2 01/22/21 10:00 84 30 90 HVNI-Vapotherm 40.0 95 01/22/21 08:00 97.4 105/63 (77) I&O- Last 24 Hours up to 6 AM 01/22/21 06:00 Intake Total 1260 ml Output Total 750 ml Balance 510 ml ANITA SANTANA DO Jan 22, 2021 13:54
[2021-01-22] MEDS: ALBUTEROL 90 MCG/ACT 8GM HFA INHALER INH SCH ×2 (15:29→19:35)
[2021-01-22] MEDS ORDERED: LORazepam 2 MG/ML VIAL As Ordered ONE (19:39)
[2021-01-22] MEDS: RAMELTEON 8 MG TAB (ROZEREM) PO SCH (19:51)
[2021-01-22] MEDS: LORazepam 2 MG/ML VIAL IV PRN (19:51)
[2021-01-23] VITALS (10 sets, daily range): BP systolic 100–119; BP diastolic 62–85; O2SAT 87–92
[2021-01-23] MEDS: ALBUTEROL 90 MCG/ACT 8GM HFA INHALER INH SCH ×4 (01:16→19:36)
[2021-01-23] MEDS: PANTOPRAZOLE 40MG TAB (PROTONIX) PO SCH ×2 (08:31→21:20)
[2021-01-23] MEDS: ASPIRIN 81MG ENTERIC TABLET PO SCH (08:31)
[2021-01-23] MEDS: ENOXAPARIN 60MG/0.6ML SYRINGE (J1650 PER 10MG) SC SCH (08:31)
[2021-01-23] MEDS: TAMSULOSIN 0.4 MG CAP PO SCH (08:31)
[2021-01-23 10:20] LABS: BASO % 0.1 % (0.0-1.0); EOS # 0.1 10^3/uL (0.0-0.5); EOS % 0.9 % (0.0-3.0); HEMATOCRIT 42.2 % (42.0-52.0); HEMOGLOBIN 14.1 g/dl (13.5-17.5); LYMPH # 0.6 10^3/uL (1.5-5.0); LYMPH % 4.8 % (24.0-44.0); MEAN CORPUSCULAR HEMOGLOBIN 27.1 pg (27.0-33.0); MEAN CORPUSCULAR HGB CONC 33.4 g/dl (32.0-36.5); MEAN CORPUSCULAR VOLUME 81.2 fl (80.0-96.0); MONO # 0.6 10^3/uL (0.0-0.8); NEUTROPHILS # 11.2 10^3/uL (1.5-8.5); NEUTROPHILS % 88.3 % (36.0-66.0); PLATELET COUNT, AUTOMATED 167 10^3/uL (150-450); WHITE BLOOD COUNT 12.7 10^3/uL (4.0-10.0)
--- NOTE | 2021-01-23 10:20 | IPNPDOC ---
Text Note Date of Service The patient was seen on 01/23/21. NOTE SUBJECTIVE: Patient is a 50-year-old gentleman with past medical history of obstructive sleep apnea noncompliant with CPAP therapy, hepatitis C who is currently admitted to the ICU for COVID-19 ARDS hypoxic respiratory failure. Patient was seen lying comfortably in bed on CPAP. Has some cough and shortness of breath. Denies fever, chills, night sweats, chest pain, palpations, n/v/d. OBJECTIVE PHYSICAL EXAMINATION: VITAL SIGNS: Please see below. GENERAL: in no acute distress, HEENT: PERRLA, EOMI, mucous membranes moist CARDIOVASCULAR: regular rate and rhythm; S1 S2; no murmur, rubs or gallops noted RESPIRATORY: Diminished breath sounds; diffuse fine crackles heard ABDOMINAL: normal active bowel sounds; soft, nondistended, no tenderness with palpation EXTREMITIES: no pitting edema bilaterally; +2 dorsalis pedis palpated; normal range of motion and 5/5 strength on both upper and lower extremities. NEUROLOGICAL: Cranial nerves II through XII grossly intact; no focal neurologic deficits noted LABORATORY DATA, IMAGING STUDIES, MICROBIOLOGY: Please see below. ASSESSMENT: This is a 50-year-old gentleman with past medical history of obstr uctive sleep apnea noncompliant with CPAP therapy, hepatitis C who is currently admitted to the ICU for COVID-19 ARDS hypoxic respiratory failure. 1. Hypoxic respiratory failure 2. COVID-19 ARDS PLAN: -Alternate with Vapotherm and CPAP pressure of 10; continue encouragement of proning (patient self prones) -Continue with baricitinib -Unlikely a superimposed bacterial pneumonia; hold off on antibiotic therapy. -CODE STATUS: full code VS,Fishbone, I+O VS, Fishbone, I+O Vital Signs Date Time Temp Pulse Resp B/P (MAP) Pulse Ox O2 Delivery O2 Flow Rate FiO2 01/23/21 07:53 75 01/23/21 06:00 94 91 NIPPV (BIPAP/CPAP) 01/23/21 04:00 99.1 28 114/85 (95) 01/22/21 10:00 40.0 I&O- Last 24 Hours up to 6 AM 01/23/21 06:00 Intake Total 2520 ml Output Total 1500 ml Balance 1020 ml GME ATTESTATION GME ATTESTATION My faculty preceptor for this patient encounter was physically present during the encounter and was fully available. All aspects of the patient interview, examination, medical decision making process, and medical care plan development were reviewed and approved by the faculty preceptor. The faculty preceptor is aware and concurs with the plan as stated in the body of this note and will attest to such by his/her cosignature. ATTENDING NOTE This is a 50-year-old gentleman with no significant past medical problem admitted to the ICU for COVID-19 pneumonia and ARDS requiring Vapotherm. He is currently going intermittently between Vapotherm and CPAP setting of 8cm water. He is currently on baricitinib, remdesivir, Decadron. He is still full code. He is doing well with self-proning. Recommend to continue with current management. Linda Green DO Jan 23, 2021 10:20 JOSE LUIS DAY MD Jan 23, 2021 10:44
[2021-01-23 10:36] LABS: INR 1.35; PROTHROMBIN TIME 17.1 SECONDS (12.7-14.5)
[2021-01-23 10:37] LABS: FIBRINOGEN 313 MG/DL (268-480); PARTIAL THROMBOPLASTIN TIME 40.2 SECONDS (25.9-37.0)
[2021-01-23 10:51] LABS: BLOOD UREA NITROGEN 26 MG/DL (7-18); CALCIUM LEVEL 8.6 MG/DL (8.5-10.1); CARBON DIOXIDE LEVEL 27 MEQ/L (21-32); CHLORIDE LEVEL 101 MEQ/L (98-107); CREATININE FOR GFR 1.18 MG/DL (0.70-1.30); GLOMERULAR FILTRATION RATE > 60.0 (>56); GLUCOSE, FASTING 136 MG/DL (70-100); POTASSIUM SERUM 4.3 MEQ/L (3.5-5.1); SODIUM LEVEL 134 MEQ/L (136-145)
[2021-01-23 10:55] LABS: ALBUMIN 2.2 GM/DL (3.2-5.2); ALT/SGPT 55 U/L (12-78); BILIRUBIN,DIRECT 0.5 MG/DL (0.0-0.2); C REACTIVE PROTEIN QUANTITATIV 8.14 MG/DL (0.00-0.30); CPK CREATINE PHOSPHOKINASE 25 U/L (39-308); FERRITIN 1078 NG/ML (26-388); LDH LACTATE DEHYDROGENASE 746 U/L (87-241); TOTAL PROTEIN 6.2 GM/DL (6.4-8.2); TROPONIN I < 0.02 NG/ML (< 0.10)
[2021-01-23 11:37] LABS: D-DIMER QUANT > 4000 ng/ml (<500)
--- NOTE | 2021-01-23 15:12 | IPNPDOC ---
Text Note Date of Service The patient was seen on 01/23/21. NOTE Subjective: Patient is a 50-year-old male presented to hospital with worsening shortness of breath later found to have COVID-19. Patient was transferred to the ICU 3 nights ago for worsening respiratory distress and was placed on CPAP therapy. Patient was trying to prone as much as possible. Patient did well with CPAP throughout the day yesterday and overnight. Patient is doing better and is motivated to continue to get better. Review of systems: General: Patient denies fevers HEENT: Patient denies headaches Cardiovascular: Patient denies chest pain Respiratory: Patient reports improvement in shortness of breath GI: Patient denies abdominal pain, nausea, vomiting, diarrhea : Patient denies increased frequency or pain with urination Extremities: Patient denies swelling or pain in extremities Neurological: Patient denies numbness or tingling in legs Physical exam: Vitals: See below General: Alert and oriented male patient who was sitting up in bed with CPAP on when I walked in. Patient not in acute distress. HEENT: Normocephalic, atraumatic, moist mucous membranes. Neck: No lymphadenopathy or thyromegaly Cardiac: Regular rate and rhythm, no murmurs, normal S1, normal S2 Pulm: Diminished breath sounds bilaterally Abd: Nondistended, nontender to palpation, normal bowel sounds Ext: No edema bilateral lower extremities Labs: See below Imaging: No new imaging is been performed Assessment/plan: 50-year-old male with a history of obesity, KWAKU noncompliant with CPAP, treated hepatitis C started worsening symptoms found to be Covid positive. Patient had increased oxygenation ventilatory requirements requiring CPAP therapy and had been transferred to the intensive care unit. 1. Acute hypoxic respiratory failure secondary to COVID-19. Patient will continue to remain on CPAP for the next 24 hours. We will reassess the patient tomorrow to see if we can go on Vapotherm. Patient said he slept well with CPAP on and was tolerating it well. 2. COVID-19. Continue with baricitinib, dexamethasone and patient has completed course of remdesivir. 3. BPH. Continue Flomax. 4. History of KWAKU. Patient will be on CPAP next 48 hours. 5. Class I obesity complicating the patient's care DVT Prophylaxis: Lovenox Disposition: Pending improvement in oxygenation. VS,Fishbone, I+O VS, Fishbone, I+O Laboratory Tests 01/23/21 09:58 Vital Signs Date Time Temp Pulse Resp B/P (MAP) Pulse Ox O2 Delivery O2 Flow Rate FiO2 01/23/21 14:38 70 01/23/21 13:00 92 32 90 NIPPV (BIPAP/CPAP) 01/23/21 12:00 98.3 100/63 (75) 01/22/21 10:00 40.0 I&O- Last 24 Hours up to 6 AM 01/23/21 06:00 Intake Total 2520 ml Output Total 1500 ml Balance 1020 ml ANITA SANTANA DO Jan 23, 2021 15:12
[2021-01-23] MEDS: BARICITINIB 2MG TABLET (OLUMIANT) FOR EUA PO SCH (16:40)
[2021-01-23] MEDS: RAMELTEON 8 MG TAB (ROZEREM) PO SCH (21:20)
[2021-01-23] MEDS: LORazepam 2 MG/ML VIAL IV PRN (21:21)
[2021-01-24] VITALS (15 sets, daily range): BP systolic 106–116; BP diastolic 60–65; O2SAT 83–95
[2021-01-24] MEDS: ALBUTEROL 90 MCG/ACT 8GM HFA INHALER INH SCH ×4 (01:30→19:57)
[2021-01-24 06:37] LABS: HEMATOCRIT 42.6 % (42.0-52.0); MEAN CORPUSCULAR HGB CONC 32.9 g/dl (32.0-36.5); MEAN CORPUSCULAR VOLUME 82.1 fl (80.0-96.0); PLATELET COUNT, AUTOMATED 165 10^3/uL (150-450); RED BLOOD COUNT 5.19 10^6/uL (4.30-6.10); WHITE BLOOD COUNT 12.2 10^3/uL (4.0-10.0)
[2021-01-24 06:54] LABS: BLOOD UREA NITROGEN 26 MG/DL (7-18); CALCIUM LEVEL 8.4 MG/DL (8.5-10.1); CARBON DIOXIDE LEVEL 25 MEQ/L (21-32); CHLORIDE LEVEL 100 MEQ/L (98-107); CREATININE FOR GFR 1.05 MG/DL (0.70-1.30); GLOMERULAR FILTRATION RATE > 60.0 (>56); GLUCOSE, FASTING 81 MG/DL (70-100); MAGNESIUM LEVEL 2.2 MG/DL (1.8-2.4); POTASSIUM SERUM 4.9 MEQ/L (3.5-5.1); SODIUM LEVEL 134 MEQ/L (136-145)
[2021-01-24] MEDS: ENOXAPARIN 60MG/0.6ML SYRINGE (J1650 PER 10MG) SC SCH (09:49)
[2021-01-24] MEDS: PANTOPRAZOLE 40MG TAB (PROTONIX) PO SCH ×2 (09:49→21:36)
[2021-01-24] MEDS: TAMSULOSIN 0.4 MG CAP PO SCH (09:49)
[2021-01-24] MEDS: BARICITINIB 2MG TABLET (OLUMIANT) FOR EUA PO SCH (09:49)
[2021-01-24] MEDS: ASPIRIN 81MG ENTERIC TABLET PO SCH (09:49)
--- NOTE | 2021-01-24 12:05 | IPNPDOC ---
Subjective Date Seen The patient was seen on 01/24/21. Subjective Chief Complaint/HPI Patient absolutely has no complaint today. He is doing well with self proning. Constitutional: Denies: Chills, Fever Eyes: Denies: Pain ENT: Denies: Sinus Congestion, Sore Throat Skin: Denies: Rash Pulmonary: Reports: Dyspnea (Baseline); Denies: Cough Cardiovascular: Denies: Chest Pain, Palpitations, Orthopnea, Paroxysmal Noc. Dyspnea, Edema Gastrointestinal: Denies: Nausea, Vomiting Neurological: Denies: Weakness, Numbness Objective Physical Examination General Exam: Positive: Alert, Cooperative, No Acute Distress Eye Exam: Positive: PERRLA, Conjunctiva & lids normal, EOMI; Negative: Sclera icteric ENT Exam: Positive: Atraumatic, Mucous membr. moist/pink, Pharynx Normal Neck Exam: Positive: Supple; Negative: JVD, thyromegaly Chest Exam: Positive: Diminished, Other (Bilateral diffuse crackles) Heart Exam: Positive: Rate Normal, Regular Rhythm, Normal S1, Normal S2; Negative: Murmurs, Rubs Abdomen Exam: Positive: Normal bowel sounds, Soft; Negative: Tenderness Extremity Exam: Negative: Clubbing, Cyanosis, Edema Skin Exam: Positive: Nl turgor and temperature; Negative: Breakdown, Lesion Neuro Exam: Positive: Normal Speech, Strength at 5/5 X4 ext, Normal Tone Psych Exam: Positive: Memory Intact, Oriented x 3 Assessment /Plan Assessment This is a 50-year-old gentleman with past medical history of obstructive sleep apnea noncompliant with CPAP therapy, hepatitis C who is currently admitted to the ICU for COVID-19 ARDS hypoxic respiratory failure. 1. Hypoxic respiratory failure 2. COVID-19 ARDS Plan/VTE VTE Prophylaxis Ordered?: Yes Plan -Alternating between CPAP and Vapotherm. However, he is tolerating more Vapotherm during the day. Therefore we will keep him on Vapotherm more throughout the day. -He is doing well with self proning. -Continue with baricitinib, remdesivir, Decadron. I do not suspect any evidence of superimposed bacterial pneumonia. -He remains critical. He wishes to remain full code. Disposition Continue ICU care. VS, I&O, 24H, Fishbone Vital Signs/I&O Vital Signs Date Time Temp Pulse Resp B/P (MAP) Pulse Ox O2 Delivery O2 Flow Rate FiO2 01/24/21 08:08 75 01/24/21 05:00 87 BIPAP/CPAP 01/24/21 04:00 98.6 92 28 116/60 (78) 01/22/21 10:00 40.0 I&O- Last 24 Hours up to 6 AM 01/24/21 06:00 Intake Total 1110 ml Output Total 1375 ml Balance -265 ml Laboratory Data 24H LABS Laboratory Tests 2 01/24/21 04:46: Nucleated Red Blood Cells % (auto) 0.0, Anion Gap 9, Glomerular Filtration Rate > 60.0, Calcium Level 8.4L, Magnesium Level 2.2 CBC/BMP Laboratory Tests 01/24/21 04:46 Microbiology Microbiology 01/14/21 Blood Culture - Final, Complete NO GROWTH AFTER 5 DAYS 01/14/21 Blood Culture - Final, Complete NO GROWTH AFTER 5 DAYS JOSE LUIS DAY MD Jan 24, 2021 12:05
--- NOTE | 2021-01-24 14:05 | IPNPDOC ---
Text Note Date of Service The patient was seen on 01/24/21. NOTE Subjective: Patient is a 50-year-old male who presented to the hospital with worsening shortness of breath found later to have COVID-19. Patient was transferred to the ICU for evidence of worsening respiratory distress with CPAP therapy. Patient has been tolerating CPAP therapy well throughout the last 2 days. Patient is feeling better and is motivated to continue to get better. Review of systems: General: Patient denies fevers HEENT: Patient denies headaches Cardiovascular: Patient denies chest pain Respiratory: Patient reports improvement in shortness of breath. GI: Patient denies abdominal pain, nausea, vomiting, diarrhea : Patient denies increased frequency or pain with urination Extremities: Patient denies swelling or pain in extremities Neurological: Patient denies numbness or tingling in legs Physical exam: Vitals: See below General: Alert and oriented male patient who was sitting up in bed with Vapotherm nasal cannula when I walked in. Patient not appear to be in any acute distress. HEENT: Normocephalic, atraumatic, moist mucous membranes. Neck: No lymphadenopathy or thyromegaly Cardiac: Regular rate and rhythm, no murmurs, normal S1, normal S2 Pulm: Diminished breath sounds bilaterally Abd: Nondistended, nontender to palpation, normal bowel sounds Ext: No edema bilateral lower extremities Labs: See below Imaging: No new imaging is been performed Assessment/plan: 50-year-old male with a history of obesity, KWAKU noncompliant with CPAP, treated hepatitis C started worsening symptoms found to be Covid positive. Patient had increased oxygenation and ventilatory requirements requiring CPAP therapy. 1. Acute hypoxic respiratory failure secondary to COVID-19. Patient has been on CPAP for last 48 hours and has been tolerating this well. We will attempt to keep the patient on Vapotherm throughout much of the day. Patient will need to be on CPAP overnight. Patient is still in the ICU and will still require ICU level of care at this time. 2. COVID-19. Continue with baricitinib, dexamethasone. Patient has completed course of remdesivir. 3. BPH. Continue Flomax. 4. History of KWAKU. Patient will need to continue her CPAP at night. 5. Class I obesity complicating the patient's care. DVT Prophylaxis: Lovenox Disposition: Pending clinical improvement ALBERTO,Fishbone, I+O VS, Terrence, I+O Laboratory Tests 01/24/21 04:46 Vital Signs Date Time Temp Pulse Resp B/P (MAP) Pulse Ox O2 Delivery O2 Flow Rate FiO2 01/24/21 12:00 97.6 99 22 106/61 (76) 88 HVNI-Vapotherm 40.0 100 I&O- Last 24 Hours up to 6 AM 01/24/21 06:00 Intake Total 1110 ml Output Total 1375 ml Balance -265 ml ANITA SANTANA DO Jan 24, 2021 14:05
[2021-01-24] MEDS: RAMELTEON 8 MG TAB (ROZEREM) PO SCH (21:36)
[2021-01-24] MEDS: LORazepam 2 MG/ML VIAL IV PRN (21:37)
[2021-01-25] VITALS (15 sets, daily range): BP systolic 92–113; BP diastolic 54–89; O2SAT 86–97
[2021-01-25] MEDS: ALBUTEROL 90 MCG/ACT 8GM HFA INHALER INH SCH ×4 (01:13→19:21)
[2021-01-25] MEDS: DEXTROMETHORPHAN 60MG/10ML SUSP 90ML BTL(DELSYM) PO PRN ×2 (02:17→20:09)
[2021-01-25 05:42] LABS: HEMATOCRIT 40.6 % (42.0-52.0); HEMOGLOBIN 13.5 g/dl (13.5-17.5); MEAN CORPUSCULAR HEMOGLOBIN 26.9 pg (27.0-33.0); MEAN CORPUSCULAR HGB CONC 33.3 g/dl (32.0-36.5); PLATELET COUNT, AUTOMATED 169 10^3/uL (150-450); RED BLOOD COUNT 5.01 10^6/uL (4.30-6.10); WHITE BLOOD COUNT 13.8 10^3/uL (4.0-10.0)
[2021-01-25 05:53] LABS: INR 1.22; PROTHROMBIN TIME 15.8 SECONDS (12.7-14.5)
[2021-01-25 05:54] LABS: PARTIAL THROMBOPLASTIN TIME 35.1 SECONDS (25.9-37.0)
[2021-01-25 06:08] LABS: ALT/SGPT 97 U/L (12-78); BILIRUBIN,DIRECT 0.7 MG/DL (0.0-0.2); BILIRUBIN,TOTAL 1.4 MG/DL (0.2-1.0); BLOOD UREA NITROGEN 23 MG/DL (7-18); CALCIUM LEVEL 8.4 MG/DL (8.5-10.1); CARBON DIOXIDE LEVEL 28 MEQ/L (21-32); CHLORIDE LEVEL 100 MEQ/L (98-107); CPK CREATINE PHOSPHOKINASE 33 U/L (39-308); FERRITIN 1274 NG/ML (26-388); GLOMERULAR FILTRATION RATE > 60.0 (>56); GLUCOSE, FASTING 100 MG/DL (70-100); LDH LACTATE DEHYDROGENASE 799 U/L (87-241); MAGNESIUM LEVEL 2.2 MG/DL (1.8-2.4); NT-PRO BNP 171 PG/ML (<125); POTASSIUM SERUM 4.6 MEQ/L (3.5-5.1); SODIUM LEVEL 135 MEQ/L (136-145); TOTAL PROTEIN 6.5 GM/DL (6.4-8.2); TROPONIN I < 0.02 NG/ML (< 0.10)
[2021-01-25] MEDS: BARICITINIB 2MG TABLET (OLUMIANT) FOR EUA PO SCH (07:59)
[2021-01-25] MEDS: ACETAMINOPHEN TAB 650MG DOSE (2X325MG) PO PRN (07:59)
[2021-01-25] MEDS: ASPIRIN 81MG ENTERIC TABLET PO SCH (07:59)
[2021-01-25] MEDS: ENOXAPARIN 60MG/0.6ML SYRINGE (J1650 PER 10MG) SC SCH (08:00)
[2021-01-25] MEDS: PANTOPRAZOLE 40MG TAB (PROTONIX) PO SCH ×2 (08:00→20:09)
[2021-01-25] MEDS: TAMSULOSIN 0.4 MG CAP PO SCH (08:00)
[2021-01-25] MEDS ORDERED: LORazepam 2 MG/ML VIAL As Ordered ONE (08:05)
[2021-01-25] MEDS: PIPERACILLIN/TAZOBACTAM SOD 4.5 GM in D5W MINI-BAG PLUS 50 ML IV SCH ×3 (08:17→20:00)
[2021-01-25] MEDS: LORazepam 2 MG/ML VIAL IV PRN ×2 (08:18→22:29)
--- NOTE | 2021-01-25 08:24 | REP ---
INDICATION: WORSENING HYPOXIA COMPARISON: None. TECHNIQUE: Portable AP view of the chest FINDINGS: The mediastinum and cardiac silhouette are stable and within normal limits for portable technique. The lung willis demonstrate subtle increased scattered bilateral airspace disease. No effusion. No pneumothorax. Skeletal structures are intact. IMPRESSION: Increasing bilateral opacities. <Electronically signed by Abad Dunn > 01/25/21 [id number]
--- NOTE | 2021-01-25 10:40 | IPNPDOC ---
Subjective Date Seen The patient was seen on 01/25/21. Subjective Chief Complaint/HPI Patient still has shortness of breath and complains of productive cough consist of greenish sputum. However he denies fever, chills, chest pain, palpitation or orthopnea. Constitutional: Denies: Chills, Fever Eyes: Denies: Pain ENT: Denies: Head Aches Skin: Denies: Rash Pulmonary: Reports: Dyspnea, Cough (Productive cough consist of green sputum); Denies: Pleuritic Chest Pain Cardiovascular: Denies: Chest Pain, Palpitations, Orthopnea, Edema Gastrointestinal: Denies: Nausea, Vomiting, Abdominal Pain, Diarrhea Neurological: Denies: Weakness, Numbness Objective Physical Examination General Exam: Positive: Alert, Cooperative, Moderate Distress Eye Exam: Positive: PERRLA, Conjunctiva & lids normal, EOMI; Negative: Sclera icteric ENT Exam: Positive: Atraumatic, Mucous membr. moist/pink, Pharynx Normal Neck Exam: Positive: Supple; Negative: JVD, thyromegaly Chest Exam: Positive: Rhonchi (Bilateral), Other (Bilateral diffuse crackles) Heart Exam: Positive: Rate Normal, Regular Rhythm, Normal S1, Normal S2; Negative: Murmurs, Rubs Abdomen Exam: Positive: Normal bowel sounds, Soft; Negative: Tenderness Extremity Exam: Negative: Clubbing, Cyanosis, Edema Skin Exam: Positive: Nl turgor and temperature; Negative: Breakdown, Lesion Neuro Exam: Positive: Normal Speech, Strength at 5/5 X4 ext, Normal Tone Psych Exam: Positive: Mental status NL, Anxiety, Memory Intact, Oriented x 3 Assessment /Plan Assessment This is a 50-year-old gentleman with past medical history of obstructive sleep apnea noncompliant with CPAP therapy, hepatitis C who is currently admitted to the ICU for COVID-19 ARDS hypoxic respiratory failure. 1. Hypoxic respiratory failure 2. COVID-19 ARDS 3. Sepsis present on admission Plan/VTE VTE Prophylaxis Ordered?: Yes Plan -He is depending more on CPAP as he cannot tolerate Vapotherm. We will continue with CPAP most of the day today. I have addressed his CODE STATUS with him and he wishes to remain full code but he would like to talk to his family first. -Continue with baricitinib, remdesivir, Decadron. He has been started on Zosyn. Procalcitonin level pending. Procalcitonin level which was negative or within normal limit, recommend holding empiric antibiotics. -Continue with self proning. -He is low threshold for intubation. Disposition Continue ICU care. VS, I&O, 24H, Fishbone Vital Signs/I&O Vital Signs Date Time Temp Pulse Resp B/P (MAP) Pulse Ox O2 Delivery O2 Flow Rate FiO2 01/25/21 08:26 85 01/25/21 06:00 92 BIPAP/CPAP 01/25/21 04:00 97.0 81 24 99/54 (69) 01/24/21 17:00 40.0 I&O- Last 24 Hours up to 6 AM 01/25/21 06:00 Intake Total 680 ml Output Total 1450 ml Balance -770 ml Laboratory Data 24H LABS Laboratory Tests 2 01/25/21 05:09: Nucleated Red Blood Cells % (auto) 0.0, Prothrombin Time 15.8H, Prothromb Time International Ratio 1.22, Activated Partial Thromboplast Time 35.1, Fibrinogen 253, Anion Gap 7L, Glomerular Filtration Rate > 60.0, Calcium Level 8.4L, Magnesium Level 2.2, Ferritin 1274H, Total Bilirubin 1.4H, Direct Bilirubin 0.7H, Aspartate Amino Transf (AST/SGOT) 74H, Alanine Aminotransferase (ALT/SGPT) 97H, Alkaline Phosphatase 168H, Lactate Dehydrogenase 799H, Total Creatine Kinase 33L, Troponin I < 0.02, SY-Pcr-L-Type Natriuretic Peptide 171H, Total Protein 6.5, Albumin 2.0L, Albumin/Globulin Ratio 0.4 CBC/BMP Laboratory Tests 01/25/21 05:09 Microbiology Microbiology 01/25/21 Gram Stain, Received Pending 01/25/21 Sputum Culture, Received Pending JOSE LUIS DAY MD Jan 25, 2021 10:40
--- NOTE | 2021-01-25 11:32 | IPNPDOC ---
Text Note Date of Service The patient was seen on 01/25/21. NOTE Subjective: Patient is a 50-year-old male presented to the hospital with wor sening shortness of breath and was found later to have COVID-19. Patient had been on CPAP for the last few days and was transitioned back to Vapotherm yesterday and did well for a few hours before needing to be transition back to CPAP after he began desaturating. Patient is currently on CPAP at this time after not doing well on Vapotherm earlier this morning. Patient has been complaining of a cough with greenish sputum production. Patient is very anxious about what is going on. Patient denies any chest pain. Patient is complaining of shortness of breath. Review of systems: General: Patient denies fevers HEENT: Patient denies headaches Cardiovascular: Patient denies chest pain Respiratory: Patient reports shortness of breath and cough with greenish sputum production GI: Patient denies abdominal pain, nausea, vomiting, diarrhea : Patient denies increased frequency or pain with urination Extremities: Patient denies swelling or pain in extremities Neurological: Patient denies numbness or tingling in legs Physical exam: Vitals: See below General: Alert and oriented male patient who was sitting up in bed with CPAP mask on when I walked in. Patient was breathing quite shallow and quick and did appear to be in mild distress. HEENT: Normocephalic, atraumatic, moist mucous membranes. Neck: No lymphadenopathy or thyromegaly Cardiac: Regular rate and rhythm, no murmurs, normal S1, normal S2 Pulm: Diminished breath sounds bilaterally Abd: Nondistended, nontender to palpation, normal bowel sounds Ext: No edema bilateral lower extremities Labs: See below Imaging: Chest x-ray performed on 01/25/2021 was reported to show increasing bilateral opacities Assessment/plan: 50-year-old male with a history of obesity, KWAKU noncompliant with CPAP, treated hepatitis C with worsening symptoms found to be Covid positive. Patient had increased oxygenation and ventilatory requirements requiring CPAP therapy 1. Acute hypoxic respiratory failure secondary to COVID-19. Patient had been on CPAP for 48 hours and was tolerating this well. Patient went to Vapotherm yesterday but did not tolerate this throughout the entire day. Patient was attempted to be weaned just Vapotherm this morning but desatted into the 80s and remained there. Patient was transitioned back to Vapotherm. Patient is breathing quickly around 30 times a minute. I did have a conversation about the patient's CODE STATUS and asking whether or not he would like intubation if we get to that point. Patient states that he needs to talk to his . I advised him that he should talk to his sooner rather than later due to the tenuous nature of the patient's respiratory failure. I advised the patient that he should let us know about his decision and this can always be changed as new information becomes available. At this time, patient is stable on CPAP and we do have room to increase both the pressure and oxygenation. I appreciate Dr. Trejo's help in treating the patient. 2. COVID-19. Continue baricitinib and dexamethasone. Patient has completed course of remdesivir. IV Zosyn has been added until procalcitonin comes back. If procalcitonin is negative, Zosyn can be discontinued. 3. BPH. Continue Flomax. 4. History of KWAKU. Patient is currently on CPAP but once able to be weaned down, patient will need to be on CPAP at night. 5. Class I obesity, complicating the patient's care. DVT Prophylaxis: Lovenox Disposition: Pending clinical improvement VS,Terrence, I+O VS, Terrence, I+O Laboratory Tests 01/25/21 05:09 Vital Signs Date Time Temp Pulse Resp B/P (MAP) Pulse Ox O2 Delivery O2 Flow Rate FiO2 01/25/21 08:26 85 01/25/21 06:00 92 BIPAP/CPAP 01/25/21 04:00 97.0 81 24 99/54 (69) 01/24/21 17:00 40.0 I&O- Last 24 Hours up to 6 AM 01/25/21 06:00 Intake Total 680 ml Output Total 1450 ml Balance -770 ml ANITA SANTANA DO Jan 25, 2021 11:32
[2021-01-25] MEDS: RAMELTEON 8 MG TAB (ROZEREM) PO SCH (20:09)
[2021-01-26] VITALS (11 sets, daily range): BP systolic 96–113; BP diastolic 51–75; O2SAT 89–93
[2021-01-26] MEDS: ALBUTEROL 90 MCG/ACT 8GM HFA INHALER INH SCH ×4 (01:28→20:06)
[2021-01-26] MEDS: PIPERACILLIN/TAZOBACTAM SOD 4.5 GM in D5W MINI-BAG PLUS 50 ML IV SCH ×3 (03:02→13:48)
[2021-01-26] MEDS: LORazepam 2 MG/ML VIAL IV PRN ×2 (03:09→21:50)
[2021-01-26 04:44] LABS: HEMATOCRIT 41.5 % (42.0-52.0); HEMOGLOBIN 13.7 g/dl (13.5-17.5); MEAN CORPUSCULAR HEMOGLOBIN 27.2 pg (27.0-33.0); MEAN CORPUSCULAR VOLUME 82.3 fl (80.0-96.0); PLATELET COUNT, AUTOMATED 181 10^3/uL (150-450); RED BLOOD COUNT 5.04 10^6/uL (4.30-6.10); WHITE BLOOD COUNT 13.2 10^3/uL (4.0-10.0)
[2021-01-26 05:07] LABS: BLOOD UREA NITROGEN 22 MG/DL (7-18); CALCIUM LEVEL 8.8 MG/DL (8.5-10.1); CARBON DIOXIDE LEVEL 29 MEQ/L (21-32); CHLORIDE LEVEL 102 MEQ/L (98-107); CREATININE FOR GFR 1.15 MG/DL (0.70-1.30); GLOMERULAR FILTRATION RATE > 60.0 (>56); GLUCOSE, FASTING 107 MG/DL (70-100); MAGNESIUM LEVEL 2.1 MG/DL (1.8-2.4); POTASSIUM SERUM 4.6 MEQ/L (3.5-5.1); SODIUM LEVEL 136 MEQ/L (136-145)
[2021-01-26] MEDS: PANTOPRAZOLE 40MG TAB (PROTONIX) PO SCH ×2 (08:28→19:56)
[2021-01-26] MEDS: TAMSULOSIN 0.4 MG CAP PO SCH (08:29)
[2021-01-26] MEDS: ENOXAPARIN 60MG/0.6ML SYRINGE (J1650 PER 10MG) SC SCH (08:29)
[2021-01-26] MEDS: ASPIRIN 81MG ENTERIC TABLET PO SCH (08:29)
[2021-01-26] MEDS: BARICITINIB 2MG TABLET (OLUMIANT) FOR EUA PO SCH (08:29)
--- NOTE | 2021-01-26 13:14 | IPNPDOC ---
Subjective Date Seen The patient was seen on 01/26/21. Subjective Chief Complaint/HPI Patient continues to experience shortness of breath and intermittent productive cough. He denies of fever, chills, chest pain, palpitation. Nursing report stated that he is pretty much dependent on CPAP 10 cm of water with Vapotherm +100% nonrebreather on top for feeding. Constitutional: Denies: Chills, Fever Eyes: Denies: Pain ENT: Denies: Head Aches Pulmonary: Reports: Dyspnea, Cough Cardiovascular: Denies: Chest Pain, Palpitations, Orthopnea, Paroxysmal Noc. Dyspnea, Edema Gastrointestinal: Denies: Nausea, Vomiting, Abdominal Pain, Diarrhea Neurological: Denies: Weakness, Numbness Objective Physical Examination General Exam: Positive: Alert, Cooperative, Moderate Distress Eye Exam: Positive: PERRLA, Conjunctiva & lids normal, EOMI; Negative: Sclera icteric ENT Exam: Positive: Atraumatic, Mucous membr. moist/pink, Pharynx Normal Neck Exam: Positive: Supple; Negative: JVD, thyromegaly Chest Exam: Positive: Rhonchi (Bilateral), Other (Bilateral diffuse crackles) Heart Exam: Positive: Rate Normal, Regular Rhythm, Normal S1, Normal S2; Negative: Murmurs, Rubs Abdomen Exam: Positive: Normal bowel sounds, Soft; Negative: Tenderness Extremity Exam: Negative: Clubbing, Cyanosis, Edema Skin Exam: Positive: Nl turgor and temperature; Negative: Breakdown, Lesion Neuro Exam: Positive: Normal Speech, Strength at 5/5 X4 ext, Normal Tone Psych Exam: Positive: Mental status NL, Anxiety, Memory Intact, Oriented x 3 Assessment /Plan Assessment This is a 50-year-old gentleman with past medical history of obstructive sleep apnea noncompliant with CPAP therapy, hepatitis C who is currently admitted to the ICU for COVID-19 ARDS hypoxic respiratory failure. 1. Hypoxic respiratory failure 2. COVID-19 ARDS 3. Sepsis present on admission Plan/VTE VTE Prophylaxis Ordered?: Yes Plan -His clinical status/respiratory status has further deteriorated. He is not tolerating Vapotherm at this point. He is using Vapotherm + 100% nonrebreather doing feeding. Otherwise he remains on CPAP pressure of 10 cm of water with FiO2 nearly 100%. Attempt to readdress CODE STATUS with patient resulted in anxiety and agitation from patient. Patient expresses wish not to discuss "negative things". However, he did rehearse to me that he would like a trial of intubation should he need it. -Continue with baricitinib, Decadron, remdesivir. -Procalcitonin pending. Patient currently on Zosyn. Recommend discontinue br oad-spectrum antibiotic if procalcitonin level is grossly normal. -He should continue with self proning. -Pulmonary will be on standby. Please notify when he reaches impending respiratory failure requiring intubation. Disposition Continue ICU care. VS, I&O, 24H, Fishbone Vital Signs/I&O Vital Signs Date Time Temp Pulse Resp B/P (MAP) Pulse Ox O2 Delivery O2 Flow Rate FiO2 01/26/21 08:44 HVNI-Vapotherm 40.0 100 01/26/21 06:00 93 01/26/21 04:00 97.2 93 40 96/51 (66) I&O- Last 24 Hours up to 6 AM 01/26/21 06:00 Intake Total 385 ml Output Total 1050 ml Balance -665 ml Laboratory Data 24H LABS Laboratory Tests 2 01/26/21 04:20: Nucleated Red Blood Cells % (auto) 0.0, Anion Gap 5L, Glomerular Filtration Rate > 60.0, Calcium Level 8.8, Magnesium Level 2.1 CBC/BMP Laboratory Tests 01/26/21 04:20 Microbiology Microbiology 01/25/21 Gram Stain - Final, Complete 01/25/21 Sputum Culture - Final, Complete JOSE LUIS DAY MD Jan 26, 2021 13:13
--- NOTE | 2021-01-26 13:30 | IPNPDOC ---
Text Note Date of Service The patient was seen on 01/26/21. NOTE Subjective: Patient is a 50-year-old male presented to hospital with worsening shortness of breath is ventilated have COVID-19. Patient has been on CPAP for last few days. Patient was transitioned back to Vapotherm with a nonrebreather over it for meals. Patient is still having a difficult time maintaining saturations greater than 92% while off CPAP. Patient is prone as much as he can. We did have a conversation with both patient and his about CODE STATUS yesterday. Patient is feeling very tired but is otherwise feeling well. Patient is complaining of a productive cough at this time. Review of systems: General: Patient denies fevers HEENT: Patient denies headaches Cardiovascular: Patient denies chest pain Respiratory: Patient reports shortness of breath and a cough with greenish sputum production. GI: Patient denies abdominal pain, nausea, vomiting, diarrhea : Patient denies increased frequency or pain with urination Extremities: Patient denies swelling or pain in extremities Neurological: Patient denies numbness or tingling in legs Physical exam: Vitals: See below General: Alert and oriented male patient who was wearing Vapotherm with a no nrebreather mask over it when I walked in. Patient did not appear to be in any acute distress. HEENT: Normocephalic, atraumatic, moist mucous membranes. Neck: No lymphadenopathy or thyromegaly Cardiac: Regular rate and rhythm, no murmurs, normal S1, normal S2 Pulm: Managed breath sounds bilaterally Abd: Nondistended, nontender to palpation, normal bowel sounds Ext: No edema bilateral lower extremities Labs: See below Imaging: No new imaging is been performed Assessment/plan: 50-year-old male with a history of obesity, KWAKU noncompliant with CPAP, treated hepatitis C with worsening symptoms found to be Covid positive. Patient had increased oxygen ventilatory requirements requiring CPAP therapy. 1. Acute hypoxic respiratory failure secondary to COVID-19. Patient has been on CPAP for the last 72 hours and tolerating this well. When patient transitioned to Vapotherm, patient needs at least a nonrebreather mask in order to maintain his oxygen saturations. Patient will continue to prone. Again discussed CODE STATUS with the patient and patient is still unsure whether or not he would need intubation. Patient does not need to be emergently urgently intubated at this time. I appreciate Dr. Trejo's help treating the patient. 2. COVID-19. Continue baricitinib dexamethasone. Completed course of remdesivir. IV Zosyn has been added. If procalcitonin negative, Zosyn be discontinued. 3. BPH. Continue Flomax. 4. History of KWAKU. Patient is currently on CPAP. If on Vapotherm during the day, patient will need CPAP at night. 5. Class I obesity. Complicating patient's care. DVT Prophylaxis: Lovenox Disposition: Pending clinical improvement VS,Adrye, I+O VS, Nataliobone, I+O Laboratory Tests 01/26/21 04:20 Vital Signs Date Time Temp Pulse Resp B/P (MAP) Pulse Ox O2 Delivery O2 Flow Rate FiO2 01/26/21 08:44 HVNI-Vapotherm 40.0 100 01/26/21 06:00 93 01/26/21 04:00 97.2 93 40 96/51 (66) I&O- Last 24 Hours up to 6 AM 01/26/21 06:00 Intake Total 385 ml Output Total 1050 ml Balance -665 ml ANITA SANTANA DO Jan 26, 2021 13:30
[2021-01-26] MEDS: RAMELTEON 8 MG TAB (ROZEREM) PO SCH (19:55)
[2021-01-26] MEDS ORDERED: LORazepam 2 MG/ML VIAL As Ordered ONE (21:46)
[2021-01-27] VITALS: BP 104/56
[2021-01-27] MEDS: ALBUTEROL 90 MCG/ACT 8GM HFA INHALER INH SCH ×4 (02:47→20:00)
[2021-01-27] MEDS: ALBUTEROL 90 MCG/ACT 8GM HFA INHALER INH PRN (02:48)
[2021-01-27] MEDS ORDERED: LORazepam 2 MG/ML VIAL As Ordered ONE (03:59)
[2021-01-27 04:00] VITALS: BP 114/71
[2021-01-27 04:10] LABS: HEMATOCRIT 41.7 % (42.0-52.0); HEMOGLOBIN 13.8 g/dl (13.5-17.5); MEAN CORPUSCULAR HEMOGLOBIN 27.2 pg (27.0-33.0); MEAN CORPUSCULAR HGB CONC 33.1 g/dl (32.0-36.5); MEAN CORPUSCULAR VOLUME 82.1 fl (80.0-96.0); PLATELET COUNT, AUTOMATED 224 10^3/uL (150-450); RED BLOOD COUNT 5.08 10^6/uL (4.30-6.10); WHITE BLOOD COUNT 15.4 10^3/uL (4.0-10.0)
[2021-01-27] MEDS: LORazepam 2 MG/ML VIAL IV PRN (04:14)
[2021-01-27 04:21] LABS: INR 1.18; PROTHROMBIN TIME 15.4 SECONDS (12.7-14.5)
--- NOTE | 2021-01-27 04:21 | IPNPDOC ---
Text Note Date of Service The patient was seen on 01/27/21. NOTE TIME OF SERVICE 410AM I was asked to assess the patient by RN Randal grover the patient's O2 sats dropped to the 70s on CPAP and the pt became tachycardic into the 130. By the time I arrived in the ICU the RT had switched him to BIPAP and his O2 sats were in the low 90s. #Acute Hypoxemic Respiratory Failure Plan:BIPAP / check VBG now and in a few hours / check chest xray SIRS Tachycardia w T of 101.8 per d/w Randal the pt was coughing Plan: blood cultures / lactic acid / f/u chest xray / check Respiratory panel to r/o RSV (there seems to be an early out break of RSV in the region this year) VS,Terrence, I+O VS, Terrence, I+O Laboratory Tests 01/26/21 04:20 01/27/21 03:53 Vital Signs Date Time Temp Pulse Resp B/P (MAP) Pulse Ox O2 Delivery O2 Flow Rate FiO2 01/27/21 02:49 80 01/27/21 02:00 96 89 NIPPV (BIPAP/CPAP) 01/27/21 00:00 97.2 31 104/56 (72) 01/26/21 20:06 20.0 I&O- Last 24 Hours up to 6 AM 01/27/21 06:00 Intake Total 660 ml Output Total 600 ml Balance 60 ml LUCHO MCKEON MD Jan 27, 2021 04:21
[2021-01-27 04:22] LABS: PARTIAL THROMBOPLASTIN TIME 35.1 SECONDS (25.9-37.0)
[2021-01-27 04:34] LABS: VENOUS BASE EXCESS 3.1 (-2.0-2.0); VENOUS HCO3 27.2 MEQ/L (23.0-27.0); VENOUS O2 SATURATION 98.5 % (60.0-80.0); VENOUS PARTIAL PRESSURE CO2 39.8 mmHg (38.0-50.0); VENOUS PARTIAL PRESSURE O2 134.1 mmHg (30.0-50.0); VENOUS PH 7.453 UNITS (7.330-7.430); VENOUS STANDARD HCO3 27.3 MEQ/L; VENOUS TOTAL CO2 28.5 MEQ/L (24.0-28.0)
[2021-01-27 04:36] LABS: ALBUMIN 2.1 GM/DL (3.2-5.2); ALT/SGPT 99 U/L (12-78); BILIRUBIN,DIRECT 0.8 MG/DL (0.0-0.2); BILIRUBIN,TOTAL 1.4 MG/DL (0.2-1.0); BLOOD UREA NITROGEN 20 MG/DL (7-18); CALCIUM LEVEL 8.5 MG/DL (8.5-10.1); CARBON DIOXIDE LEVEL 29 MEQ/L (21-32); CHLORIDE LEVEL 101 MEQ/L (98-107); CPK CREATINE PHOSPHOKINASE 26 U/L (39-308); FERRITIN 1390 NG/ML (26-388); GLOMERULAR FILTRATION RATE > 60.0 (>56); GLUCOSE, FASTING 101 MG/DL (70-100); LDH LACTATE DEHYDROGENASE 757 U/L (87-241); MAGNESIUM LEVEL 2.2 MG/DL (1.8-2.4); NT-PRO BNP 205 PG/ML (<125); POTASSIUM SERUM 4.6 MEQ/L (3.5-5.1); SODIUM LEVEL 137 MEQ/L (136-145); TROPONIN I < 0.02 NG/ML (< 0.10)
[2021-01-27 07:23] LABS: VENOUS BASE EXCESS 3.2 (-2.0-2.0); VENOUS HCO3 28.4 MEQ/L (23.0-27.0); VENOUS O2 SATURATION 97.9 % (60.0-80.0); VENOUS PARTIAL PRESSURE CO2 45.4 mmHg (38.0-50.0); VENOUS PARTIAL PRESSURE O2 113.6 mmHg (30.0-50.0); VENOUS PH 7.414 UNITS (7.330-7.430); VENOUS STANDARD HCO3 27.3 MEQ/L; VENOUS TOTAL CO2 29.8 MEQ/L (24.0-28.0)
[2021-01-27 08:00] VITALS: BP 114/83
[2021-01-27] MEDS: ENOXAPARIN 60MG/0.6ML SYRINGE (J1650 PER 10MG) SC SCH (08:57)
[2021-01-27] MEDS: ASPIRIN 81MG ENTERIC TABLET PO SCH (08:57)
[2021-01-27] MEDS: PANTOPRAZOLE 40MG TAB (PROTONIX) PO SCH ×2 (08:58→19:34)
[2021-01-27] MEDS: dexameTHASONE 20MG/5ML VIAL (J1100 PER 1MG) IV SCH ×2 (08:58→19:34)
[2021-01-27] MEDS: TAMSULOSIN 0.4 MG CAP PO SCH (08:58)
[2021-01-27] MEDS: BARICITINIB 2MG TABLET (OLUMIANT) FOR EUA PO SCH (08:58)
--- NOTE | 2021-01-27 09:38 | IPNPDOC ---
Text Note Date of Service The patient was seen on 01/27/21. NOTE S: Patient seen and evaluated at bedside this a.m. He tells me he is doing well, but is having difficulty breathing especially during brief periods off of the nonrebreather (ie. when taking PO medications). He tells me he had a panic attack overnight, and that is why he became tachycardic and tachypneic. Denies chest pain, palpitations, abdominal pain, nausea vomiting. Denies changes in urination, bowel movements. O: GEN: Alert, awake, laying in bed left lateral recumbant, NAD, HEENT: NC/AT, EOMI, nares patent, nonrebreather in place CARDIO: RRR, normal heart sounds, no MRG PULM: CTA b/l, no WRR, accessory muscles used with deep inspiration ABD: soft, nontender, nondistended, normal BS EXTREMITIES: no edema, normal ROM IMAGING: CXR (01/14) New hazy bilateral upper lobe infiltrates consistent with viral pneumonitis. CXR (01/20) Essentially stable chest since 01/14/2021. No acute interval process is identified. CXR (01/25) Increasing bilateral opacities. A/P: Riky is 50M history of obesity, KWAKU noncompliant with CPAP, found to be Covid positive on 01/09 with worsening cough, shortness of breath, hypoxia, now on nonrebreather with appropriate oxygen saturation and worsening SOB w/ minimal physical exertion. #Acute hypoxic respiratory failure, secondary to acute COVID-19 SpO2 93% on BiPAP/CPAP Discussed CODE STATUS and possible intubation. Patient tells me he is still unsure about his consent for intubation, as he is concerned about his prognosis following intubation and being placed on a ventilator At this time, patient does not need to be intubated. Continue frequent proning Pulm on consult, appreciate recommendations Of note, patient was transferred to ICU for worsening respiratory distress on CPAP therapy and, there, was transitioned from CPAP to Vapotherm. Unfortunately, he did not tolerate Vapotherm throughout the day and when attempting to wean patient off Vapotherm, he desatted into the 80s and remained there. He was transitioned back to Vapotherm and found to be stable on CPAP. 01/27, patient's O2 sats dropped to 70s and he became tachycardic to 130 on CPAP so he was placed on nonrebreather mask to maintain his oxygen saturations in low 90s. #COVID-19, acute Continue baricitinib Restart Dexamethasone Of note, patient began having symptoms of COVID-19 on 01/07 and was found to be Covid positive on 01/09. He was seen and evaluated at [facility] ED on 01/12 and sent home with 2 L of oxygen. He returned to [facility] ED 01/14 with worsening shortness of breath and was found to be hypoxic with SpO2 86% on 2 L O2, requiring 4L O2 to maintain spO2 above 92%. He was admitted and completed course of remdesivir, Decadron #KWAKU- chronic Continue nonrebreather Of note, if on Vapotherm during the day, patient will need CPAP at night #Anxiety Patient had panic attack early 01/27, resulting in tachycardia and tachypnea Continue Ativan Q4H PRN #BPH- chronic, stable Continue Flomax #Class I obesity Complicating patient's care #DVT Prophylaxis Lovenox (weight based prophylactic dosing) DIET: regular ACTIVITY: as tolerated DISPO: pending clinical improvement VS,Nataliobone, I+O VS, Fishbone, I+O Laboratory Tests 01/27/21 03:53 Vital Signs Date Time Temp Pulse Resp B/P (MAP) Pulse Ox O2 Delivery O2 Flow Rate FiO2 01/27/21 06:00 105 93 NIPPV (BIPAP/CPAP) 01/27/21 05:00 35 01/27/21 04:00 100 01/27/21 04:00 101.8 114/71 (85) 01/26/21 20:06 20.0 I&O- Last 24 Hours up to 6 AM 01/27/21 06:00 Intake Total 780 ml Output Total 1175 ml Balance -395 ml GME ATTESTATION GME ATTESTATION My faculty preceptor for this patient encounter was physically present during the encounter and was fully available. All aspects of the patient interview, examination, medical decision making process, and medical care plan development were reviewed and approved by the faculty preceptor. The faculty preceptor is aware and concurs with the plan as stated in the body of this note and will attest to such by his/her cosignature. ATTENDING NOTE I, Sonia Collins, have independently examined this patient and performed my own physical exam, as well as reviewed the documentation and edited where necessary with the resident. For medical students we have performed the physical exam together and discussed medical decision making and I have verified the history. I have discussed in detail with the resident / student the findings and plan of treatment as documented by the resident / student and edited their note. I agree with their findings and treatment plan and have edited their documentation. I will continue to follow the patient during this hospital stay. Veronica Flores DO Jan 27, 2021 09:37 SONIA COLLINS MD Jan 27, 2021 14:29
[2021-01-27 12:00] VITALS: BP 107/68
--- NOTE | 2021-01-27 12:04 | IPNPDOC ---
Subjective Date Seen The patient was seen on 01/27/21. Subjective Chief Complaint/HPI Complains of ongoing shortness of breath and cough. Denies of fever, chills, chest pain, orthopnea, lower extremity swelling. Constitutional: Denies: Chills, Fever Skin: Denies: Rash Pulmonary: Reports: Dyspnea, Cough Cardiovascular: Denies: Chest Pain, Palpitations, Orthopnea Gastrointestinal: Denies: Nausea, Vomiting, Abdominal Pain Neurological: Denies: Weakness, Numbness Objective Physical Examination General Exam: Positive: Alert, Cooperative, Moderate Distress Eye Exam: Positive: PERRLA, Conjunctiva & lids normal, EOMI ENT Exam: Positive: Atraumatic, Mucous membr. moist/pink, Pharynx Normal Neck Exam: Positive: Supple Chest Exam: Positive: Rhonchi, Other Heart Exam: Positive: Rate Normal, Regular Rhythm, Normal S1, Normal S2 Abdomen Exam: Positive: Normal bowel sounds, Soft Extremity Exam: Negative: Clubbing, Cyanosis, Edema Skin Exam: Positive: Nl turgor and temperature Neuro Exam: Positive: Normal Speech, Strength at 5/5 X4 ext, Normal Tone Psych Exam: Positive: Mental status NL, Anxiety, Memory Intact, Oriented x 3 Assessment /Plan Assessment This is a 50-year-old gentleman with past medical history of obstructive sleep apnea noncompliant with CPAP therapy, hepatitis C who is currently admitted to the ICU for COVID-19 ARDS hypoxic respiratory failure. 1. Hypoxic respiratory failure 2. COVID-19 ARDS 3. Sepsis present on admission Plan/VTE VTE Prophylaxis Ordered?: Yes Plan -Patient cannot tolerate Vapotherm without 100% nonrebreather on top. Even despite this method, he still has episodic oxygen desaturation. He was switched from CPAP to BiPAP. I do not see a benefit of switching to BiPAP as he does not have any ventilatory deficiency. Recommend switching his setting back to CPAP. -Continue with baricitinib, remdesivir, Decadron. -Encourage self proning. -Lasix as needed to keep overall net fluid balance around 0. -He is very low threshold for intubation. According to the conversation I had with him yesterday, he would like a trial of intubation. He remains full code. Disposition Continue ICU care. VS, I&O, 24H, Fishbone Vital Signs/I&O Vital Signs Date Time Temp Pulse Resp B/P (MAP) Pulse Ox O2 Delivery O2 Flow Rate FiO2 01/27/21 10:00 106 44 93 NIPPV (BIPAP/CPAP) 100 01/27/21 08:00 98.4 114/83 (93) 30.0 I&O- Last 24 Hours up to 6 AM 01/27/21 06:00 Intake Total 780 ml Output Total 1175 ml Balance -395 ml Laboratory Data 24H LABS Laboratory Tests 2 01/27/21 03:53: Nucleated Red Blood Cells % (auto) 0.0, Prothrombin Time 15.4H, Prothromb Time International Ratio 1.18, Activated Partial Thromboplast Time 35.1, Fibrinogen 309, Anion Gap 7L, Glomerular Filtration Rate > 60.0, Calcium Level 8.5, Magnesium Level 2.2, Ferritin 1390H, Total Bilirubin 1.4H, Direct Bilirubin 0.8H, Aspartate Amino Transf (AST/SGOT) 56H, Alanine Aminotransferase (ALT/SGPT) 99H, Alkaline Phosphatase 214H, Lactate Dehydrogenase 757H, Total Creatine Kinase 26L, Troponin I < 0.02, WR-Qmh-[id number]-Type Natriuretic Peptide 205H, Total Protein 7.0, Albumin 2.1L, Albumin/Globulin Ratio 0.4, Procalcitonin 0.18 01/27/21 04:27: Blood Gas Bicarbonate Standard 27.3, Venous Blood pH 7.453H, Venous Blood Part ial Pressure CO2 39.8, Venous Blood Partial Pressure O2 134.1H, Venous Blood Total Carbon Dioxide 28.5H, Venous Blood HCO3 27.2H, Venous Blood Oxygen Saturation 98.5H, Venous Blood Base Excess 3.1H 01/27/21 04:28: Lactic Acid Level 1.5 01/27/21 07:18: Blood Gas Bicarbonate Standard 27.3, Venous Blood pH 7.414, Venous Blood Partial Pressure CO2 45.4, Venous Blood Partial Pressure O2 113.6H, Venous Blood Total Carbon Dioxide 29.8H, Venous Blood HCO3 28.4H, Venous Blood Oxygen Saturation 97.9H, Venous Blood Base Excess 3.2H CBC/BMP Laboratory Tests 01/27/21 03:53 Microbiology Microbiology 01/27/21 Blood Culture, Received Pending 01/27/21 Respiratory Virus Panel (PCR) ([facility]) - Final, Complete SARS-CoV-2 (COVID 19) 01/27/21 Blood Culture, Received Pending 01/25/21 Gram Stain - Final, Complete 01/25/21 Sputum Culture - Final, Complete JOSE LUIS DAY MD Jan 27, 2021 12:04
[2021-01-27 12:37] LABS: C REACTIVE PROTEIN QUANTITATIV 3.61 MG/DL (0.00-0.30)
[2021-01-27 16:00] VITALS: BP 109/72
[2021-01-27] MEDS: RAMELTEON 8 MG TAB (ROZEREM) PO SCH (19:34)
[2021-01-27 20:00] VITALS: BP 115/73
[2021-01-28] VITALS: BP 125/81
[2021-01-28] MEDS: ALBUTEROL 90 MCG/ACT 8GM HFA INHALER INH SCH ×4 (02:00→20:00)
[2021-01-28 04:00] VITALS: BP 109/58
[2021-01-28 04:56] LABS: HEMATOCRIT 41.3 % (42.0-52.0); HEMOGLOBIN 13.3 g/dl (13.5-17.5); MEAN CORPUSCULAR HEMOGLOBIN 26.8 pg (27.0-33.0); MEAN CORPUSCULAR HGB CONC 32.2 g/dl (32.0-36.5); MEAN CORPUSCULAR VOLUME 83.1 fl (80.0-96.0); PLATELET COUNT, AUTOMATED 248 10^3/uL (150-450); RED BLOOD COUNT 4.97 10^6/uL (4.30-6.10); WHITE BLOOD COUNT 16.2 10^3/uL (4.0-10.0)
[2021-01-28 05:12] LABS: BLOOD UREA NITROGEN 23 MG/DL (7-18); CALCIUM LEVEL 9.1 MG/DL (8.5-10.1); CARBON DIOXIDE LEVEL 32 MEQ/L (21-32); CHLORIDE LEVEL 102 MEQ/L (98-107); CREATININE FOR GFR 1.08 MG/DL (0.70-1.30); GLOMERULAR FILTRATION RATE > 60.0 (>56); GLUCOSE, FASTING 138 MG/DL (70-100); MAGNESIUM LEVEL 2.4 MG/DL (1.8-2.4); POTASSIUM SERUM 5.3 MEQ/L (3.5-5.1); SODIUM LEVEL 138 MEQ/L (136-145)
[2021-01-28 07:30] LABS: C REACTIVE PROTEIN QUANTITATIV 7.45 MG/DL (0.00-0.30)
[2021-01-28 07:59] VITALS: BP 103/67
[2021-01-28] MEDS: ENOXAPARIN 60MG/0.6ML SYRINGE (J1650 PER 10MG) SC SCH (07:59)
[2021-01-28] MEDS: PANTOPRAZOLE 40MG TAB (PROTONIX) PO SCH ×2 (07:59→20:43)
[2021-01-28] MEDS: BARICITINIB 2MG TABLET (OLUMIANT) FOR EUA PO SCH (08:00)
[2021-01-28] MEDS: TAMSULOSIN 0.4 MG CAP PO SCH (08:00)
[2021-01-28] MEDS: dexameTHASONE 20MG/5ML VIAL (J1100 PER 1MG) IV SCH ×2 (08:01→20:43)
[2021-01-28] MEDS: ASPIRIN 81MG ENTERIC TABLET PO SCH (08:04)
--- NOTE | 2021-01-28 09:27 | REP ---
INDICATION: Worsening Leukocytosis COMPARISON: 01/25/2021 TECHNIQUE: Portable AP view of the chest FINDINGS: The mediastinum and cardiac silhouette are stable and within normal limits for portable technique. The lung willis again demonstrate diffuse bilateral alveolar infiltrates essentially unchanged in appearance. No obvious effusion. No pneumothorax. Skeletal structures are intact. IMPRESSION: Diffuse bilateral alveolar infiltrates essentially unchanged from prior examination. <Electronically signed by Abad Dunn > 01/28/21 0927
--- NOTE | 2021-01-28 11:13 | IPNPDOC ---
Text Note Date of Service The patient was seen on 01/28/21. NOTE S: Patient seen and evaluated at bedside this a.m. He tells me he is feeling well and denies any pain. He tells me he has agreed to a trial of intubation as a "very last resort," and would not like to discuss it further. Denies chest pain, palpitations, abdominal pain, nausea, vomiting. O: GEN: Alert, awake, laying in bed, NAD HEENT: NC/AT, EOMI, nasal cannula in place, patient holding oxygen mask up to the face CARDIO: RRR, normal heart sounds, no MRG PULM: CTA b/l, managed breath sounds bilaterally, no WRR, accessory muscles used ABD: soft, nontender, nondistended, normal BS EXTREMITIES: no edema, normal ROM IMAGING: CXR (01/14) New hazy bilateral upper lobe infiltrates consistent with viral pneumonitis. CXR (01/20) Essentially stable chest since 01/14/2021. No acute interval process is identified. CXR (01/25) Increasing bilateral opacities. CXR (01/28) Diffuse bilateral alveolar infiltrates essentially unchanged from prior examination. A/P: Riky is 50M history of obesity, KWAKU noncompliant with CPAP, found to be Covid positive on 01/09 with worsening cough, shortness of breath, hypoxia, now on CPAP with appropriate oxygen saturation and worsening SOB w/ minimal physical exerti on. #Acute hypoxic respiratory failure, most likely 2/2 to acute COVID-19 SpO2 92% on CPAP (01/27) blood culture negative, after 24H (01/28) CRP 7.45 Patient tells me he is full code and would like a trial of intubation. Continue frequent proning Pulm on consult, appreciate recommendations Of note, patient was transferred to ICU for worsening respiratory distress on CPAP therapy and, there, was transitioned from CPAP to Vapotherm. Unfortunately, he did not tolerate Vapotherm throughout the day and when attempting to wean patient off Vapotherm, he desatted into the 80s and remained there. He was transitioned back to Vapotherm and found to be stable on CPAP. 01/27, patient's O2 sats dropped to 70s and he became tachycardic to 130 on CPAP so he was placed on nonrebreather mask to maintain his oxygen saturations in low 90s. Patient was evaluated to have a very low threshold for intubation according to Pulm/CC and, following discussion with regards to possible intubation and ventilator management, patient consented to full CODE STATUS with trial of intubation if necessary. #COVID-19, acute Continue baricitinib, Decadron Of note, patient began having symptoms of COVID-19 on 01/07 and was found to be COVID19 positive on 01/09. He was seen and evaluated at [facility] ED on 01/12 and sent home with 2 L of oxygen. He returned to [facility] ED 01/14 with worsening shortness of breath and was found to be hypoxic with SpO2 86% on 2 L O2, requiring 4L O2 to maintain spO2 above 92%. He was admitted and completed course of remdesivir, Decadron. #KWAKU- chronic Continue nonrebreather Of note, if on Vapotherm during the day, patient will need CPAP at night #Anxiety-chronic Continue Ativan Q4H PRN Of note, patient had panic attack early 01/27, resulting in tachycardia and tachypnea resulted in session and patient from CPAP to BiPAP for maintenance of appropriate O2 saturation. #BPH- chronic, stable Continue Flomax #Class I obesity Complicating patient's care #DVT Prophylaxis Lovenox (weight based prophylactic dosing) DIET: regular ACTIVITY: as tolerated DISPO: pending clinical improvement VSTerrence, I+O VS, Terrence, I+O Laboratory Tests 01/28/21 04:39 Vital Signs Date Time Temp Pulse Resp B/P (MAP) Pulse Ox O2 Delivery O2 Flow Rate FiO2 01/28/21 08:00 95 01/28/21 07:59 97.1 83 28 103/67 (79) 92 NIPPV (BIPAP/CPAP) 01/27/21 19:00 30.0 I&O- Last 24 Hours up to 6 AM 01/28/21 05:59 Intake Total 1550 ml Output Total 1425 ml Balance 125 ml GME ATTESTATION GME ATTESTATION My faculty preceptor for this patient encounter was physically present during the encounter and was fully available. All aspects of the patient interview, ex amination, medical decision making process, and medical care plan development were reviewed and approved by the faculty preceptor. The faculty preceptor is aware and concurs with the plan as stated in the body of this note and will attest to such by his/her cosignature. ATTENDING NOTE I, Sonia Collins, have independently examined this patient and performed my own p hysical exam, as well as reviewed the documentation and edited where necessary with the resident. For medical students we have performed the physical exam together and discussed medical decision making and I have verified the history. I have discussed in detail with the resident / student the findings and plan of treatment as documented by the resident / student and edited their note. I agree with their findings and treatment plan and have edited their documentation. I will continue to follow the patient during this hospital stay. Veronica Flores DO Jan 28, 2021 11:13 SONIA COLLINS MD Jan 28, 2021 12:30
[2021-01-28 11:39] VITALS: BP 106/75
--- NOTE | 2021-01-28 13:13 | IPNPDOC ---
Subjective Date Seen The patient was seen on 01/28/21. Subjective Chief Complaint/HPI Patient continues to be short of breath and dry cough. He denies of fever, chills, chest pain, palpitation. Constitutional: Denies: Chills, Fever Eyes: Denies: Pain ENT: Denies: Head Aches Skin: Denies: Rash Pulmonary: Reports: Dyspnea, Cough Cardiovascular: Denies: Chest Pain, Palpitations, Orthopnea, Edema Gastrointestinal: Denies: Nausea, Abdominal Pain, Diarrhea Objective Physical Examination General Exam: Positive: Alert, Cooperative, Moderate Distress Eye Exam: Positive: PERRLA, Conjunctiva & lids normal, EOMI ENT Exam: Positive: Atraumatic, Mucous membr. moist/pink, Pharynx Normal Neck Exam: Positive: Supple Chest Exam: Positive: Rhonchi, Other Heart Exam: Positive: Rate Normal, Regular Rhythm, Normal S1, Normal S2 Abdomen Exam: Positive: Normal bowel sounds, Soft Extremity Exam: Negative: Clubbing, Cyanosis, Edema Skin Exam: Positive: Nl turgor and temperature Neuro Exam: Positive: Normal Speech, Strength at 5/5 X4 ext, Normal Tone Psych Exam: Positive: Mental status NL, Anxiety, Memory Intact, Oriented x 3 Assessment /Plan Assessment This is a 50-year-old gentleman with past medical history of obstructive sleep apnea noncompliant with CPAP therapy, hepatitis C who is currently admitted to the ICU for COVID-19 ARDS hypoxic respiratory failure. 1. Hypoxic respiratory failure 2. COVID-19 ARDS 3. Sepsis present on admission Plan/VTE VTE Prophylaxis Ordered?: Yes Plan -He is currently not doing well on Vapotherm make setting at 40 L/min, FiO2 100%. He requires 100% nonrebreather on top of Vapotherm. Recommend to switch him back to CPAP pressure of 10. Titrate FiO2 to target oxygen saturation above 90%. -Continue with self proning. -I do not suspect any evidence of superimposed bacterial pneumonia. Therefore, we can continue to hold off empiric antibiotics. -Continue with baricitinib, Decadron and remdesivir. -Very low threshold for intubation and mechanical ventilator. Patient is cu rrently full code. Disposition Continue ICU care. VS, I&O, 24H, Fishbone Vital Signs/I&O Vital Signs Date Time Temp Pulse Resp B/P (MAP) Pulse Ox O2 Delivery O2 Flow Rate FiO2 01/28/21 12:00 100 01/28/21 12:00 87 90 HVNI-Vapotherm 35.0 01/28/21 11:39 98.1 32 106/75 (85) I&O- Last 24 Hours up to 6 AM 01/28/21 06:00 Intake Total 1430 ml Output Total 1100 ml Balance 330 ml Laboratory Data 24H LABS Laboratory Tests 2 01/28/21 04:39: Nucleated Red Blood Cells % (auto) 0.0, Anion Gap 4L, Glomerular Filtration Rate > 60.0, Calcium Level 9.1, Magnesium Level 2.4, C-Reactive Protein, Quantitative 7.45H CBC/BMP Laboratory Tests 01/28/21 04:39 Microbiology Microbiology 01/27/21 Blood Culture - Preliminary, Resulted No growth after 24 hours . All specim... 01/27/21 Respiratory Virus Panel (PCR) ([facility]) - Final, Complete SARS-CoV-2 (COVID 19) 01/27/21 Blood Culture - Preliminary, Resulted No growth after 24 hours . All specim... 01/25/21 Gram Stain - Final, Complete 01/25/21 Sputum Culture - Final, Complete JOSE LUIS DAY MD Jan 28, 2021 13:13
[2021-01-28 15:34] VITALS: BP 119/70
[2021-01-28 20:00] VITALS: BP 116/83
[2021-01-28] MEDS: DEXTROMETHORPHAN 60MG/10ML SUSP 90ML BTL(DELSYM) PO PRN (20:43)
[2021-01-28] MEDS: RAMELTEON 8 MG TAB (ROZEREM) PO SCH (20:43)
[2021-01-28] MEDS: LORazepam 2 MG/ML VIAL IV PRN (23:35)
[2021-01-29] VITALS: BP 93/63
[2021-01-29] MEDS: ALBUTEROL 90 MCG/ACT 8GM HFA INHALER INH SCH ×4 (02:00→20:42)
[2021-01-29 04:00] VITALS: BP 113/72
[2021-01-29] MEDS ORDERED: LORazepam 2 MG/ML VIAL As Ordered ONE ×2 (04:35→20:28)
[2021-01-29] MEDS: LORazepam 2 MG/ML VIAL IV PRN ×2 (04:41→21:30)
[2021-01-29 05:10] LABS: HEMATOCRIT 41.7 % (42.0-52.0); HEMOGLOBIN 13.4 g/dl (13.5-17.5); MEAN CORPUSCULAR HEMOGLOBIN 26.9 pg (27.0-33.0); MEAN CORPUSCULAR HGB CONC 32.1 g/dl (32.0-36.5); MEAN CORPUSCULAR VOLUME 83.7 fl (80.0-96.0); PLATELET COUNT, AUTOMATED 295 10^3/uL (150-450); RED BLOOD COUNT 4.98 10^6/uL (4.30-6.10); WHITE BLOOD COUNT 17.9 10^3/uL (4.0-10.0)
[2021-01-29 05:19] LABS: INR 1.16; PARTIAL THROMBOPLASTIN TIME 30.2 SECONDS (25.9-37.0); PROTHROMBIN TIME 15.2 SECONDS (12.7-14.5)
[2021-01-29 05:40] LABS: ALBUMIN 2.2 GM/DL (3.2-5.2); ALT/SGPT 114 U/L (12-78); BILIRUBIN,DIRECT 0.3 MG/DL (0.0-0.2); BILIRUBIN,TOTAL 0.7 MG/DL (0.2-1.0); BLOOD UREA NITROGEN 27 MG/DL (7-18); CALCIUM LEVEL 9.4 MG/DL (8.5-10.1); CARBON DIOXIDE LEVEL 31 MEQ/L (21-32); CHLORIDE LEVEL 102 MEQ/L (98-107); CPK CREATINE PHOSPHOKINASE 25 U/L (39-308); CREATININE FOR GFR 1.02 MG/DL (0.70-1.30); FERRITIN 1655 NG/ML (26-388); GLOMERULAR FILTRATION RATE > 60.0 (>56); GLUCOSE, FASTING 127 MG/DL (70-100); LDH LACTATE DEHYDROGENASE 698 U/L (87-241); MAGNESIUM LEVEL 2.4 MG/DL (1.8-2.4); NT-PRO BNP 243 PG/ML (<125); POTASSIUM SERUM 4.9 MEQ/L (3.5-5.1); SODIUM LEVEL 138 MEQ/L (136-145); TOTAL PROTEIN 7.4 GM/DL (6.4-8.2); TROPONIN I < 0.02 NG/ML (< 0.10)
[2021-01-29] MEDS: BARICITINIB 2MG TABLET (OLUMIANT) FOR EUA PO SCH (07:53)
[2021-01-29] MEDS: dexameTHASONE 20MG/5ML VIAL (J1100 PER 1MG) IV SCH ×2 (07:53→20:36)
[2021-01-29] MEDS: ASPIRIN 81MG ENTERIC TABLET PO SCH (07:54)
[2021-01-29] MEDS: TAMSULOSIN 0.4 MG CAP PO SCH (07:54)
[2021-01-29] MEDS: ENOXAPARIN 60MG/0.6ML SYRINGE (J1650 PER 10MG) SC SCH (07:54)
[2021-01-29] MEDS: PANTOPRAZOLE 40MG TAB (PROTONIX) PO SCH ×2 (07:54→20:35)
[2021-01-29 08:00] VITALS: BP 127/81
--- NOTE | 2021-01-29 09:40 | IPNPDOC ---
Text Note Date of Service The patient was seen on 01/29/21. NOTE S: Patient seen and evaluated at bedside this a.m. He tells me he is feeling well. Reports mildly productive cough with green/yellow sputum that has been unchanged since admission. Denies chest pain, palpitations, abdominal pain, nausea, vomiting. Denies difficulty with urination, bowel movements. O: GEN: Alert, awake, laying in bed, NAD HEENT: NC/AT, EOMI, nares patent, BiPAP on face CARDIO: RRR, normal heart sounds, no MRG PULM: CTA b/l, diminished breath sounds bilaterally, no WRR, accessory muscles used ABD: soft, nontender, nondistended, normal BS EXTREMITIES: no edema, normal ROM IMAGING: CXR (01/14) New hazy bilateral upper lobe infiltrates consistent with viral pneumonitis. CXR (01/20) Essentially stable chest since 01/14/2021. No acute interval process is identified. CXR (01/25) Increasing bilateral opacities. CXR (01/28) Diffuse bilateral alveolar infiltrates essentially unchanged from prior examination. A/P: Riky is 50M history of obesity, KWAKU noncompliant with CPAP, found to be Covid positive on 01/09 with worsening cough, shortness of breath, hypoxia, now on CPAP with improving FiO2. #Acute hypoxic respiratory failure, most likely 2/2 to acute [id number] FiO2 SpO2 95% on CPAP 75 FiO2 Leukocytosis continues to worsen (17.9 on 01/29), which may be 2/2 Decadron. (01/27) blood culture negative, after 40 8H (01/29) CRP 3.61, proBNP 205, ferritin 1390, LDH 757 Continue frequent proning Pulm on consult, appreciate recommendations Of note, patient was transferred to ICU for worsening respiratory distress on CPAP therapy and, there, was transitioned from CPAP to Vapotherm. Unfortunately, he did not tolerate Vapotherm throughout the day and when attempting to wean patient off Vapotherm, he desatted into the 80s and remained there. He was transitioned back to Vapotherm and found to be stable on CPAP. 01/27, patient's O2 sats dropped to 70s and he became tachycardic to 130 on CPAP so he was placed on nonrebreather mask to maintain his oxygen saturations in low 90s. Patient was evaluated to have a very low threshold for intubation according to Pulm/CC and, following discussion with regards to possible intubation and ventilator management, patient consented to full CODE STATUS with trial of intubation if necessary. #COVID-19, acute Continue baricitinib, Decadron Of note, patient began having symptoms of COVID-19 on 01/07 and was found to be COVID19 positive on 01/09. He was seen and evaluated at [facility] ED on 01/12 and sent home with 2L of oxygen. He returned to [facility] ED 01/14 with worsening shortness of breath and was found to be hypoxic with SpO2 86% on 2 L O2, requiring 4L O2 to maintain spO2 above 92%. He was admitted and completed course of remdesivir (01/18), Decadron (01/19). #KWAKU- chronic Continue CPAP Of note, if on Vapotherm during the day, patient will need CPAP at night #Anxiety-chronic Continue Ativan Q4H PRN Of note, patient had panic attack early 01/27, resulting in tachycardia and tachypnea resulted in session and patient from CPAP to BiPAP for maintenance of appropriate O2 saturation. #Elevated LFTs, most likely 2/2 history HCV-stable (01/29) AST 55, ALT 114 #BPH- chronic, stable Continue Flomax #Class I obesity Complicating patient's care #DVT Prophylaxis Lovenox (weight based prophylactic dosing) DIET: regular ACTIVITY: as tolerated DISPO: pending clinical improvement VS,Fishbone, I+O VS, Fishbone, I+O Laboratory Tests 01/29/21 04:47 Vital Signs Date Time Temp Pulse Resp B/P (MAP) Pulse Ox O2 Delivery O2 Flow Rate FiO2 01/29/21 08:00 84 127/81 (96) 91 HVNI-Vapotherm 40.0 95 01/29/21 04:00 97.6 18 I&O- Last 24 Hours up to 6 AM 01/29/21 06:00 Intake Total 1160 ml Output Total 1050 ml Balance 110 ml GME ATTESTATION GME ATTESTATION My faculty preceptor for this patient encounter was physically present during the encounter and was fully available. All aspects of the patient interview, examination, medical decision making process, and medical care plan development were reviewed and approved by the faculty preceptor. The faculty preceptor is aware and concurs with the plan as stated in the body of this note and will attest to such by his/her cosignature. ATTENDING NOTE I, Sonia Collins, have independently examined this patient and performed my own physical exam, as well as reviewed the documentation and edited where necessary with the resident. For medical students we have performed the physical exam together and discussed medical decision making and I have verified the history. I have discussed in detail with the resident / student the findings and plan of treatment as documented by the resident / student and edited their note. I agree with their findings and treatment plan and have edited their documentation. I will continue to follow the patient during this hospital stay. Veronica Flores DO Jan 29, 2021 09:40 SONIA COLLINS MD Jan 29, 2021 14:32
[2021-01-29 13:00] VITALS: BP 120/72
--- NOTE | 2021-01-29 13:43 | IPNPDOC ---
Subjective Date Seen The patient was seen on 01/29/21. Subjective Chief Complaint/HPI Patient has no new complaints today. Constitutional: Denies: Chills, Fever Skin: Denies: Rash Pulmonary: Reports: Dyspnea, Cough; Denies: Pleuritic Chest Pain Cardiovascular: Denies: Chest Pain, Palpitations, Orthopnea, Paroxysmal Noc. Dyspnea, Edema Gastrointestinal: Denies: Nausea, Abdominal Pain, Diarrhea Neurological: Denies: Weakness, Numbness Objective Physical Examination General Exam: Positive: Alert, Cooperative, Moderate Distress Eye Exam: Positive: PERRLA, Conjunctiva & lids normal, EOMI ENT Exam: Positive: Atraumatic, Mucous membr. moist/pink, Pharynx Normal Neck Exam: Positive: Supple Chest Exam: Positive: Rhonchi Heart Exam: Positive: Rate Normal, Regular Rhythm, Normal S1, Normal S2 Abdomen Exam: Positive: Normal bowel sounds, Soft Extremity Exam: Negative: Clubbing, Cyanosis, Edema Skin Exam: Positive: Nl turgor and temperature Neuro Exam: Positive: Normal Speech, Strength at 5/5 X4 ext, Normal Tone Psych Exam: Positive: Mental status NL, Anxiety, Memory Intact, Oriented x 3 Assessment /Plan Assessment This is a 50-year-old gentleman with past medical history of obstructive sleep apnea noncompliant with CPAP therapy, hepatitis C who is currently admitted to the ICU for COVID-19 ARDS hypoxic respiratory failure. 1. Hypoxic respiratory failure 2. COVID-19 ARDS 3. Severe sepsis present on admission Plan/VTE VTE Prophylaxis Ordered?: Yes Plan -He has completed a short course of remdesivir. He is currently on baricitinib and Decadron. -Patient is essentially failing on Vapotherm make setting with 100% nonreb reather on top. Continue with CPAP pressure 10 cm of water. His clinical course continues to deteriorate. -Prone when possible. -He is very low threshold for intubation at this point. CODE STATUS was addressed and patient was hesitant to talk about goals of care. However, he hesitantly wanted to remain full code. Disposition Continue ICU care. VS, I&O, 24H, Fishbone Vital Signs/I&O Vital Signs Date Time Temp Pulse Resp B/P (MAP) Pulse Ox O2 Delivery O2 Flow Rate FiO2 01/29/21 08:00 84 127/81 (96) 91 HVNI-Vapotherm 40.0 95 01/29/21 04:00 97.6 18 I&O- Last 24 Hours up to 6 AM 01/29/21 06:00 Intake Total 1160 ml Output Total 1050 ml Balance 110 ml Laboratory Data 24H LABS Laboratory Tests 2 01/29/21 04:47: Nucleated Red Blood Cells % (auto) 0.0, Prothrombin Time 15.2H, Prothromb Time International Ratio 1.16, Activated Partial Thromboplast Time 30.2, Fibrinogen 313, Anion Gap 5L, Glomerular Filtration Rate > 60.0, Calcium Level 9.4, Magnesium Level 2.4, Ferritin 1655H, Total Bilirubin 0.7, Direct Bilirubin 0.3H, Aspartate Amino Transf (AST/SGOT) 55H, Alanine Aminotransferase (ALT/SGPT) 114H, Alkaline Phosphatase 204H, Lactate Dehydrogenase 698H, Total Creatine Kinase 25L, Troponin I < 0.02, TA-Kte-[id number]-Type Natriuretic Peptide 243H, Total Protein 7.4, Albumin 2.2L, Albumin/Globulin Ratio 0.4, Procalcitonin 0.30 CBC/BMP Laboratory Tests 01/29/21 04:47 Microbiology Microbiology 01/27/21 Blood Culture - Preliminary, Resulted No Growth after 48 hours. All Specime... 01/27/21 Respiratory Virus Panel (PCR) ([facility]) - Final, Complete SARS-CoV-2 (COVID 19) 01/27/21 Blood Culture - Preliminary, Resulted No Growth after 48 hours. All Specime... 01/25/21 Gram Stain - Final, Complete 01/25/21 Sputum Culture - Final, Complete JOSE LUIS DAY MD Jan 29, 2021 13:43
[2021-01-29 16:39] VITALS: BP 118/72
[2021-01-29 20:34] VITALS: BP 129/77
[2021-01-29] MEDS: RAMELTEON 8 MG TAB (ROZEREM) PO SCH (20:35)
[2021-01-30] VITALS: BP 98/64
[2021-01-30] MEDS: ALBUTEROL 90 MCG/ACT 8GM HFA INHALER INH SCH ×4 (02:00→19:27)
[2021-01-30] MEDS ORDERED: LORazepam 2 MG/ML VIAL As Ordered ONE (02:27)
[2021-01-30] MEDS: LORazepam 2 MG/ML VIAL IV PRN ×2 (02:29→21:16)
[2021-01-30 04:00] VITALS: BP 115/80
[2021-01-30 05:17] LABS: HEMATOCRIT 41.6 % (42.0-52.0); HEMOGLOBIN 13.5 g/dl (13.5-17.5); MEAN CORPUSCULAR HEMOGLOBIN 27.2 pg (27.0-33.0); MEAN CORPUSCULAR HGB CONC 32.5 g/dl (32.0-36.5); MEAN CORPUSCULAR VOLUME 83.9 fl (80.0-96.0); PLATELET COUNT, AUTOMATED 304 10^3/uL (150-450); RED BLOOD COUNT 4.96 10^6/uL (4.30-6.10); WHITE BLOOD COUNT 14.2 10^3/uL (4.0-10.0)
[2021-01-30 05:31] LABS: BLOOD UREA NITROGEN 29 MG/DL (7-18); CALCIUM LEVEL 9.3 MG/DL (8.5-10.1); CARBON DIOXIDE LEVEL 31 MEQ/L (21-32); CHLORIDE LEVEL 103 MEQ/L (98-107); CREATININE FOR GFR 0.92 MG/DL (0.70-1.30); GLOMERULAR FILTRATION RATE > 60.0 (>56); GLUCOSE, FASTING 130 MG/DL (70-100); MAGNESIUM LEVEL 2.3 MG/DL (1.8-2.4); POTASSIUM SERUM 5.4 MEQ/L (3.5-5.1); SODIUM LEVEL 139 MEQ/L (136-145)
[2021-01-30] MEDS ORDERED: SOD POLYSTYRENE SULFONATE SUSP 15 GM/60 ML UD PO ONE (06:55)
[2021-01-30 08:00] VITALS: BP 128/91
[2021-01-30] MEDS: dexameTHASONE 20MG/5ML VIAL (J1100 PER 1MG) IV SCH ×2 (08:21→20:35)
[2021-01-30] MEDS: TAMSULOSIN 0.4 MG CAP PO SCH (08:22)
[2021-01-30] MEDS: PANTOPRAZOLE 40MG TAB (PROTONIX) PO SCH ×2 (08:22→20:35)
[2021-01-30] MEDS: ASPIRIN 81MG ENTERIC TABLET PO SCH (08:22)
[2021-01-30] MEDS: BARICITINIB 2MG TABLET (OLUMIANT) FOR EUA PO SCH (08:22)
[2021-01-30] MEDS: ENOXAPARIN 60MG/0.6ML SYRINGE (J1650 PER 10MG) SC SCH (08:23)
--- NOTE | 2021-01-30 08:58 | IPNPDOC ---
Text Note Date of Service The patient was seen on 01/30/21. NOTE S: Patient seen and evaluated at bedside this a.m. He tells me he is feeling well and would like to move to the recliner the assistance of nurses. He tells me he would like to start walking around his room and, at the very least, eating meals and in the chair rather than his bed. Continues to report mildly productive cough with green/yellow sputum, unchanged since admission. Denies chest pain, palpitations, abdominal pain, nausea, vomiting. Denies difficulty with urination, bowel movements. Denies anxious mood. O: GEN: Alert, awake, sitting up in bed, NAD HEENT: NC/AT, EOMI, nares patent, CPAP on face CARDIO: RRR, normal heart sounds, no MRG PULM: CTA b/l, diminished breath sounds bilaterally, no WRR, accessory muscles used ABD: soft, nontender, nondistended, normal BS EXTREMITIES: no edema, normal ROM IMAGING: CXR (01/14) New hazy bilateral upper lobe infiltrates consistent with viral pneumonitis. CXR (01/20) Essentially stable chest since 01/14/2021. No acute interval process is identified. CXR (01/25) Increasing bilateral opacities. CXR (01/28) Diffuse bilateral alveolar infiltrates essentially unchanged from prior examination. A/P: Riky is 50M history of obesity, KWAKU noncompliant with CPAP, found to be Covid positive on 01/09 with worsening cough, shortness of breath, hypoxia, now on CPAP with improving FiO2 and no complaints. #Acute hypoxic respiratory failure, most likely 2/2 to acute [id number] FiO2 SpO2 94% on CPAP 60 FiO2 Leukocytosis improving (14.2 on 01/30), which may be 2/2 Decadron. (01/29) CRP 3.61, proBNP 205, ferritin 1390, LDH 757 Continue frequent proning. PT/OT eval pending Pulm on consult, appreciate recommendations Of note, patient was transferred to ICU for worsening respiratory distress on CPAP therapy and, there, was transitioned from CPAP to Vapotherm. Unfortunately, he did not tolerate Vapotherm throughout the day and when attempting to wean patient off Vapotherm, he desatted into the 80s and remained there. He was transitioned back to Vapotherm and found to be stable on CPAP. 01/27, patient's O2 sats dropped to 70s and he became tachycardic to 130 on CPAP so he was placed on nonrebreather mask to maintain his oxygen saturations in low 90s. Patient was evaluated to have a very low threshold for intubation according to Pulm/CC and, following discussion with regards to possible intubation and ventilator management, patient consented to full CODE STATUS with trial of intubation if necessary. Of note, blood cultures 01/14 and 01/27 negative; sputum culture 01/25 of poor quality and difficult to assess. #COVID-19, acute Continue baricitinib, Decadron Of note, patient began having symptoms of COVID-19 on 01/07 and was found to be COVID19 positive on 01/09. He was seen and evaluated at [facility] ED on 01/12 and sent home with 2L of oxygen. He returned to [facility] ED 01/14 with worsening shortness of breath and was found to be hypoxic with SpO2 86% on 2 L O2, requiring 4L O2 to maintain spO2 above 92%. He was admitted and completed course of remdesivir (01/18), Decadron (01/19). #KWAKU- chronic Continue CPAP Of note, if on Vapotherm during the day, patient will need CPAP at night #Hyperkalemia, asx (01/30) AM labs significant for K+ 5.4 Patient received 15g Kayexalate Continue to monitor labs #Anxiety-chronic Continue Ativan Q4H PRN Of note, patient had panic attack early 01/27, resulting in tachycardia and tachypnea resulted in session and patient from CPAP to BiPAP for maintenance of appropriate O2 saturation. #Elevated LFTs, most likely 2/2 history HCV-stable (01/29) AST 55, ALT 114 #BPH- chronic, stable Continue Flomax #Class I obesity Complicating patient's care #DVT Prophylaxis Lovenox (weight based prophylactic dosing) DIET: regular ACTIVITY: as tolerated DISPO: pending clinical improvement VS,Fishbone, I+O VS, Fishbone, I+O Laboratory Tests 01/30/21 04:55 Vital Signs Date Time Temp Pulse Resp B/P (MAP) Pulse Ox O2 Delivery O2 Flow Rate FiO2 01/30/21 08:21 80 01/30/21 06:00 73 94 NIPPV (BIPAP/CPAP) 01/30/21 04:00 98.2 22 115/80 (92) 01/29/21 20:34 40.0 I&O- Last 24 Hours up to 6 AM 01/30/21 06:00 Intake Total 1080 ml Output Total 850 ml Balance 230 ml GME ATTESTATION GME ATTESTATION My faculty preceptor for this patient encounter was physically present during the encounter and was fully available. All aspects of the patient interview, examination, medical decision making process, and medical care plan development were reviewed and approved by the faculty preceptor. The faculty preceptor is aware and concurs with the plan as stated in the body of this note and will attest to such by his/her cosignature. ATTENDING NOTE I, Sonia Collins, have independently examined this patient and performed my own physical exam, as well as reviewed the documentation and edited where necessary with the resident. For medical students we have performed the physical exam together and discussed medical decision making and I have verified the history. I have discussed in detail with the resident / student the findings and plan of treatment as documented by the resident / student and edited their note. I agree with their findings and treatment plan and have edited their documentation. I will continue to follow the patient during this hospital stay. Veronica Flores DO Jan 30, 2021 08:58 SONIA COLLINS MD Jan 30, 2021 14:16
[2021-01-30 12:00] VITALS: BP 111/77
--- NOTE | 2021-01-30 12:26 | IPN ---
PROGRESS NOTE DATE: 01/30/2021 SUBJECTIVE: I attended Riky Vergara here in the intensive care unit. The patient has been examined, chart reviewed and I spoke at length with the nurse at the bedside. He remains here in the ICU secondary to his COVID pneumonia. He has been much more cooperative with the use of CPAP and proning. T-Max overnight 98.2, blood pressure 90-120s, heart rate generally 60-90s with sinus mechanism, respiratory rate generally in the 20s without accessory muscle use. Ins and outs midnight to midnight 1180 mL in, 1075 mL out. White blood cell count 14.2, hemoglobin 13.5, platelet count 304 thousand. Sodium 139, potassium 5.4, chloride 103, CO2 31, BUN 29, creatinine 0.92, glucose 130. No new imaging available. OBJECTIVE: On exam he is prone. Vital signs outlined above. Currently on Vapotherm, saturations are 95% on 40 liters at 100%. He is awake, alert and appropriate and able to be comfortably conversant. Pupils reactive, sclerae clear. Trachea midline. Chest is clear to both auscultation and percussion. Tactile fremitus palpable. Cardiac exam not well heard as he is prone. Peripheral pulses easily palpable, however. There are audible sounds laterally in the flanks. Extremities no cyanosis or clubbing. Neurologically he is awake, alert and appropriate. Psych has normal mood and affect. Mediation list has been reviewed. He remains on Baricitinib and Decadron. He is on ulcer and DVT prophylaxis. No new inflammatory markers are available. His ferritin yesterday was 1655, up mildly from several days prior at 1390. Last d-dimer on 01/23 was greater than 4000 and we will repeat this tomorrow. IMPRESSION: 1. Hypoxemic respiratory failure. 2. COVID-19 pneumonia/ARDS. 3. Severe sepsis on admission. PLAN: At this point he completed a short course of Remdesivir and Decadron. He remains on Baricitinib. He has been much more cooperative with CPAP and does well when on it. He is proning much more and I had a long discussion with him in that regard. At this point, as long as he is able to at least hold where he is at and maybe even make some mild progress, my hopes are that we can avoid intubation. He currently is reasonably comfortable in the prone position. Will proceed as outlined above. We will repeat his inflammatory markers tomorrow. He will be followed closely as given his status there is always a very high likelihood for further decompensation and need for more aggressive measures. He remains a full code.
[2021-01-30 16:00] VITALS: BP 115/78
[2021-01-30 20:00] VITALS: BP 122/74
[2021-01-30] MEDS: RAMELTEON 8 MG TAB (ROZEREM) PO SCH (20:35)
[2021-01-31] VITALS: BP 119/60
[2021-01-31] MEDS: ALBUTEROL 90 MCG/ACT 8GM HFA INHALER INH SCH ×4 (02:41→20:34)
[2021-01-31 04:00] VITALS: BP 122/73
[2021-01-31 08:00] VITALS: BP 117/77
[2021-01-31 08:54] LABS: BASO % 0.2 % (0.0-1.0); EOS % 0.1 % (0.0-3.0); HEMATOCRIT 44.3 % (42.0-52.0); HEMOGLOBIN 14.3 g/dl (13.5-17.5); LYMPH # 1.4 10^3/uL (1.5-5.0); LYMPH % 9.2 % (24.0-44.0); MEAN CORPUSCULAR HEMOGLOBIN 26.9 pg (27.0-33.0); MEAN CORPUSCULAR HGB CONC 32.3 g/dl (32.0-36.5); MEAN CORPUSCULAR VOLUME 83.3 fl (80.0-96.0); MONO # 1.3 10^3/uL (0.0-0.8); MONO % 8.4 % (2.0-8.0); NEUTROPHILS # 12.1 10^3/uL (1.5-8.5); PLATELET COUNT, AUTOMATED 370 10^3/uL (150-450); RED BLOOD COUNT 5.32 10^6/uL (4.30-6.10); WHITE BLOOD COUNT 14.9 10^3/uL (4.0-10.0)
--- NOTE | 2021-01-31 09:14 | IPNPDOC ---
Text Note Date of Service The patient was seen on 01/31/21. NOTE S: Patient seen and evaluated at bedside this a.m. He tells me he is feeling well but still slightly fatigued from working with physical therapy yesterday. He te lls me he was able to ambulate to his chair where he ate his dinner, without complications. He would like to continue working with physical therapy. Reports mildly productive cough with green/yellow sputum, unchanged since admission. Reports mild constipation. Denies chest pain, palpitations, ab dominal pain, nausea, vomiting. Denies anxious mood. O: GEN: Alert, awake, sitting up in bed, NAD HEENT: NC/AT, EOMI, nares patent, CPAP on face CARDIO: RRR, normal heart sounds, no MRG PULM: CTA b/l, diminished breath sounds bilaterally, no WRR, accessory muscles used ABD: soft, nontender, nondistended, normal BS EXTREMITIES: no edema, normal ROM IMAGING: CXR (01/14) New hazy bilateral upper lobe infiltrates consistent with viral pneumonitis. CXR (01/20) Essentially stable chest since 01/14/2021. No acute interval process is identified. CXR (01/25) Increasing bilateral opacities. CXR (01/28) Diffuse bilateral alveolar infiltrates essentially unchanged from prior examination. A/P: Riky is 50M history of obesity, KWAKU noncompliant with CPAP, found to be Covid positive on 01/09 with worsening cough, shortness of breath, hypoxia, now on CPAP with unchanged status. #Acute hypoxic respiratory failure, most likely 2/2 to acute [id number] FiO2 SpO2 98% on CPAP 85 FiO2 Leukocytosis 14.9, which may be 2/2 Decadron. (01/31) ferritin 1356, CRP 0.77, repeat pro-Wilfrido pending Patient encouraged to continue frequent proning. Continue PT/OT Pulm on consult, appreciate recommendations Of note, patient was transferred to ICU for worsening respiratory distress on CPAP therapy and, there, was transitioned from CPAP to Vapotherm. Unfortunately, he did not tolerate Vapotherm throughout the day and when attempting to wean patient off Vapotherm, he desatted into the 80s and remained there. He was transitioned back to Vapotherm and found to be stable on CPAP. 01/27, patient's O2 sats dropped to 70s and he became tachycardic to 130 on CPAP so he was placed on nonrebreather mask to maintain his oxygen saturations in low 90s. Patient was evaluated to have a very low threshold for intubation according to Pulm/CC and, following discussion with regards to possible intubation and ventilator management, patient consented to full CODE STATUS with trial of intubation if necessary. Of note, blood cultures 01/14 and 01/27 negative; sputum culture 01/25 of poor quality and difficult to assess. #COVID-19, acute (01/31) D-dimer> 4000 Continue baricitinib, Decadron Of note, patient began having symptoms of COVID-19 on 01/07 and was found to be COVID19 positive on 01/09. He was seen and evaluated at [facility] ED on 01/12 and sent home with 2L of oxygen. He returned to [facility] ED 01/14 with worsening shortness of breath and was found to be hypoxic with SpO2 86% on 2 L O2, requiring 4L O2 to maintain spO2 above 92%. He was admitted and completed course of remdesivir (01/18), Decadron (01/19). #KWAKU- chronic Continue CPAP Of note, if on Vapotherm during the day, patient will need CPAP at night #Hyperkalemia, asx-resolved (01/31) K+ 4.6 Continue to monitor labs #Anxiety-chronic Continue Ativan Q4H PRN Of note, patient had panic attack early 01/27, resulting in tachycardia and tachypnea resulted in session and patient from CPAP to BiPAP for maintenance of appropriate O2 saturation. #Elevated LFTs, most likely 2/2 history HCV from IVDU, asx-stable (01/31) AST 67, ALT 200 #BPH- chronic, stable Continue Flomax #Class I obesity, chronic Complicating patient's care #DVT Prophylaxis Lovenox twice daily DIET: regular ACTIVITY: as tolerated DISPO: Home with services, pending clinical improvement Terrence DOMINGUEZ, I+O Terrence DOMINGUEZ I+O Laboratory Tests 01/31/21 08:44 Vital Signs Date Time Temp Pulse Resp B/P (MAP) Pulse Ox O2 Delivery O2 Flow Rate FiO2 01/31/21 07:41 100 01/31/21 04:00 97.6 54 18 122/73 (89) 98 NIPPV (BIPAP/CPAP) 01/31/21 04:00 40.0 I&O- Last 24 Hours up to 6 AM 01/31/21 06:00 Intake Total 2120 ml Output Total 1690 ml Balance 430 ml GME ATTESTATION GME ATTESTATION My faculty preceptor for this patient encounter was physically present during the encounter and was fully available. All aspects of the patient interview, examination, medical decision making process, and medical care plan development were reviewed and approved by the faculty preceptor. The faculty preceptor is aware and concurs with the plan as stated in the body of this note and will attest to such by his/her cosignature. ATTENDING NOTE I, Sonia Collins, have independently examined this patient and performed my own physical exam, as well as reviewed the documentation and edited where necessary with the resident. For medical students we have performed the physical exam together and discussed medical decision making and I have verified the history. I have discussed in detail with the resident / student the findings and plan of treatment as documented by the resident / student and edited their note. I agree with their findings and treatment plan and have edited their documentation. I will continue to follow the patient during this hospital stay. Veronica Flores DO Jan 31, 2021 09:14 SONIA COLLINS MD Jan 31, 2021 12:46
[2021-01-31 09:25] LABS: ALBUMIN 2.5 GM/DL (3.2-5.2); ALT/SGPT 200 U/L (12-78); BILIRUBIN,TOTAL 0.6 MG/DL (0.2-1.0); BLOOD UREA NITROGEN 31 MG/DL (7-18); CALCIUM LEVEL 9.5 MG/DL (8.5-10.1); CARBON DIOXIDE LEVEL 30 MEQ/L (21-32); CHLORIDE LEVEL 101 MEQ/L (98-107); CREATININE FOR GFR 0.87 MG/DL (0.70-1.30); GLOMERULAR FILTRATION RATE > 60.0 (>56); GLUCOSE, FASTING 115 MG/DL (70-100); POTASSIUM SERUM 4.6 MEQ/L (3.5-5.1); SODIUM LEVEL 135 MEQ/L (136-145); TOTAL PROTEIN 7.8 GM/DL (6.4-8.2)
[2021-01-31] MEDS: ASPIRIN 81MG ENTERIC TABLET PO SCH (09:32)
[2021-01-31] MEDS: ENOXAPARIN 60MG/0.6ML SYRINGE (J1650 PER 10MG) SC SCH ×2 (09:32→21:10)
[2021-01-31] MEDS: dexameTHASONE 20MG/5ML VIAL (J1100 PER 1MG) IV SCH ×2 (09:32→21:08)
[2021-01-31] MEDS: PANTOPRAZOLE 40MG TAB (PROTONIX) PO SCH ×2 (09:33→21:08)
[2021-01-31] MEDS: TAMSULOSIN 0.4 MG CAP PO SCH (09:33)
[2021-01-31] MEDS: DOCUSATE SODIUM 100MG CAPSULE PO SCH ×2 (09:33→21:08)
[2021-01-31] MEDS: BARICITINIB 2MG TABLET (OLUMIANT) FOR EUA PO SCH (09:36)
[2021-01-31 12:00] VITALS: BP 110/56
--- NOTE | 2021-01-31 12:44 | CCN ---
CRITICAL CARE NOTE DATE: 01/31/2021 SUBJECTIVE: Patient has been examined and chart reviewed. I spoke with his nurse. Currently comfortable and resting on Vapotherm. Saturation 96% on 40 liters flow and 85% FiO2. VITAL SIGNS: Maximum temperature (T-max) overnight 97.6, blood pressure 117 to 125 systolic, heart rate generally in the 80s, respiratory rate 16-18 and unlabored at the moment. INTAKE AND OUTPUT: Ins and outs midnight to midnight 1920 mL and 1615 mL out. LABORATORY DATA: Sodium 135, potassium 4.6, chloride 101, CO2 30, BUN 31, creatinine 0.87. C-reactive protein (CRP) 0.77. His ferritin this morning 1356, down from 1655. D-dimer remains greater than 4000. White blood cell count 14.9, hemoglobin 14.3, platelet count of 370,000, 81% segs, no bands. PHYSICAL EXAMINATION: GENERAL: He is quite comfortable. CHEST: Reasonably clear to both auscultation and percussion. Tactile fremitus palpable. CARDIAC EXAM: Regular with no gallop. Peripheral pulses palpable. No edema. ABDOMEN: Soft and nontender. Normoactive bowel sounds. No obvious organomegaly or masses. EXTREMITIES: No cyanosis or clubbing. NEUROLOGIC: Awake, alert and appropriate. PSYCHAITRIC: Appropriate mood and affect. IMPRESSION: 1. Hypoxemic respiratory failure. 2. COVID pneumonia/acute respiratory distress syndrome (ARDS). 3. Severe sepsis on admission. PLAN: At this point, he has finished his therapy with Remdesivir and Decadron. He is to finish his course of baricitinib. He is doing well with proning and continuous positive airway pressure (CPAP). Oxygen saturations are reasonable. I am in agreement with his current management. At this point, he will be followed closely while here in the hospital. Further recommendations will be made in the progress record as new information becomes available
[2021-01-31 16:00] VITALS: BP 118/60
[2021-01-31 19:41] VITALS: BP 112/71
[2021-01-31] MEDS: RAMELTEON 8 MG TAB (ROZEREM) PO SCH (21:08)
[2021-01-31] MEDS: LORazepam 2 MG/ML VIAL IV PRN (21:10)
[2021-01-31] MEDS: guaiFENesin ER 600 MG TAB PO PRN (21:23)
[2021-02-01] VITALS (21 sets, daily range): BP systolic 97–121; BP diastolic 58–74; O2SAT 85–98
[2021-02-01] MEDS: LORazepam 2 MG/ML VIAL IV PRN ×2 (02:02→21:25)
[2021-02-01] MEDS: ALBUTEROL 90 MCG/ACT 8GM HFA INHALER INH SCH ×4 (02:47→20:00)
[2021-02-01 05:21] LABS: BASO % 0.2 % (0.0-1.0); EOS % 0.2 % (0.0-3.0); HEMATOCRIT 41.2 % (42.0-52.0); HEMOGLOBIN 13.3 g/dl (13.5-17.5); LYMPH # 0.9 10^3/uL (1.5-5.0); LYMPH % 6.6 % (24.0-44.0); MEAN CORPUSCULAR HEMOGLOBIN 26.8 pg (27.0-33.0); MEAN CORPUSCULAR HGB CONC 32.3 g/dl (32.0-36.5); MEAN CORPUSCULAR VOLUME 82.9 fl (80.0-96.0); MONO # 0.8 10^3/uL (0.0-0.8); MONO % 5.8 % (2.0-8.0); NEUTROPHILS # 11.4 10^3/uL (1.5-8.5); PLATELET COUNT, AUTOMATED 358 10^3/uL (150-450); RED BLOOD COUNT 4.97 10^6/uL (4.30-6.10); WHITE BLOOD COUNT 13.2 10^3/uL (4.0-10.0)
[2021-02-01 05:42] LABS: BLOOD UREA NITROGEN 29 MG/DL (7-18); C REACTIVE PROTEIN QUANTITATIV 0.45 MG/DL (0.00-0.30); CALCIUM LEVEL 8.9 MG/DL (8.5-10.1); CARBON DIOXIDE LEVEL 32 MEQ/L (21-32); CHLORIDE LEVEL 100 MEQ/L (98-107); CREATININE FOR GFR 1.02 MG/DL (0.70-1.30); GLOMERULAR FILTRATION RATE > 60.0 (>56); GLUCOSE, FASTING 132 MG/DL (70-100); MAGNESIUM LEVEL 2.3 MG/DL (1.8-2.4); SODIUM LEVEL 136 MEQ/L (136-145)
[2021-02-01] MEDS: DOCUSATE SODIUM 100MG CAPSULE PO SCH ×2 (08:34→21:25)
[2021-02-01] MEDS: PANTOPRAZOLE 40MG TAB (PROTONIX) PO SCH ×2 (08:34→21:24)
[2021-02-01] MEDS: ASPIRIN 81MG ENTERIC TABLET PO SCH (08:34)
[2021-02-01] MEDS: dexameTHASONE 20MG/5ML VIAL (J1100 PER 1MG) IV SCH ×2 (08:34→20:00)
[2021-02-01] MEDS: TAMSULOSIN 0.4 MG CAP PO SCH (08:34)
[2021-02-01] MEDS: ENOXAPARIN 60MG/0.6ML SYRINGE (J1650 PER 10MG) SC SCH ×2 (08:35→21:25)
[2021-02-01] MEDS: BARICITINIB 2MG TABLET (OLUMIANT) FOR EUA PO SCH (08:35)
--- NOTE | 2021-02-01 11:05 | IPNPDOC ---
Text Note Date of Service The patient was seen on 02/01/21. NOTE Subjective: Patient is a 50-year-old male with a PMHx of KWAKU (non-compliant with CPAP), Obesity, Diagnosed with COVID19 on 01/09 who presented to the ER on 01/14 with worsening cough and shortness of breath. Patient was admitted to the hospitalist service for further evaluation and treatment. Patient was seen and examined at the bedside. Currently patient denies any nausea, vomiting, abdominal pain, diarrhea, or urinary discomfort. Reports that his breathing is doing relatively better, still reports a cough that is mostly nonproductive. Denies any chest pain. Objective: Vitals (See below) General: Patient was seen sitting up in chair, appears to be comfortable. Currently on Vapotherm therapy. No acute distress. He is awake, alert, oriented 3 HEENT: NC, AT CVS: RRR, +S1S2 Lungs: Fair air entry b/l, mild crackles at bases. No wheezing or rhonchi Abdomen: Soft, ND, NT Extremities: - Edema, - Calf tenderness Imaging: CXR (01/14) New hazy bilateral upper lobe infiltrates consistent with viral pneumonitis. CXR (01/20) Essentially stable chest since 01/14/2021. No acute interval process is identified. CXR (01/25) Increasing bilateral opacities. CXR (01/28) Diffuse bilateral alveolar infiltrates essentially unchanged from prior examination. Assessment and plan: Acute hypoxic respiratory failure / ARDS - likely 2/2 COVID19 pneumonia - Currently patient reports shortness of breath without any significant productive cough - Patient is currently on max Vapotherm therapy - Inflammatory markers will be trended; CRP improving - Imaging noted above - s/p Remdesivir (Complete 5 days) - c/w Baricitinib (Day #12) and Dexamethasone (Day #14) - c/w Acapella / Incentive spirometry / Mucinex / Prone positioning - Pulmonology on consultation KWAKU - c/w CPAP s/p Hyperkalemia Anxiety - c/w Ativan PRN Transaminitis - possibly 2/2 Hx of Hepatitis C, possibly 2/2 Medications (Remdesivir) - Based on prior records it appears that HCV RNA was undetectable on 07/15/2020 - Will check liver profile today - Will continue to trend BPH - c/w Tamsulosin Obesity - BMI of 28.7 - Contin getting medical care GI prophylaxis - c/w Protonix DVT prophylaxis - c/w Lovenox weight-based prophylactic dosing Prognosis: - Guarded Disposition: - Pending clinical improvement Terrence DOMINGUEZ, I+O Terrence DOMINGUEZ I+O Laboratory Tests 02/01/21 04:46 Vital Signs Date Time Temp Pulse Resp B/P (MAP) Pulse Ox O2 Delivery O2 Flow Rate FiO2 02/01/21 10:00 95 40.0 100 02/01/21 08:38 97.2 81 22 104/66 (79) NIPPV (BIPAP/CPAP) I&O- Last 24 Hours up to 6 AM 02/01/21 06:00 Intake Total 1660 ml Output Total 1775 ml Balance -115 ml CHRISTOPHER COLLINS MD Feb 01, 2021 11:05
[2021-02-01 11:45] LABS: ALBUMIN 2.3 GM/DL (3.2-5.2); ALT/SGPT 177 U/L (12-78); BILIRUBIN,DIRECT 0.2 MG/DL (0.0-0.2); BILIRUBIN,TOTAL 0.7 MG/DL (0.2-1.0); FERRITIN 1373 NG/ML (26-388)
[2021-02-01] MEDS: RAMELTEON 8 MG TAB (ROZEREM) PO SCH (21:25)
[2021-02-02] VITALS: BP 118/67; O2SAT 95
[2021-02-02] MEDS: ALBUTEROL 90 MCG/ACT 8GM HFA INHALER INH SCH ×4 (02:54→20:17)
[2021-02-02] MEDS: LORazepam 2 MG/ML VIAL IV PRN ×2 (02:54→20:35)
[2021-02-02 04:00] VITALS: BP 107/68; O2SAT 95
[2021-02-02 05:23] LABS: BASO % 0.2 % (0.0-1.0); EOS # 0.9 10^3/uL (0.0-0.5); EOS % 6.7 % (0.0-3.0); HEMATOCRIT 41.6 % (42.0-52.0); HEMOGLOBIN 13.6 g/dl (13.5-17.5); LYMPH # 1.8 10^3/uL (1.5-5.0); LYMPH % 13.6 % (24.0-44.0); MEAN CORPUSCULAR HEMOGLOBIN 27.3 pg (27.0-33.0); MEAN CORPUSCULAR HGB CONC 32.7 g/dl (32.0-36.5); MEAN CORPUSCULAR VOLUME 83.4 fl (80.0-96.0); MONO % 7.3 % (2.0-8.0); NEUTROPHILS # 9.5 10^3/uL (1.5-8.5); NEUTROPHILS % 70.6 % (36.0-66.0); PLATELET COUNT, AUTOMATED 394 10^3/uL (150-450); RED BLOOD COUNT 4.99 10^6/uL (4.30-6.10); WHITE BLOOD COUNT 13.4 10^3/uL (4.0-10.0)
[2021-02-02 05:34] LABS: INR 1.07; PROTHROMBIN TIME 14.3 SECONDS (12.7-14.5)
[2021-02-02 05:41] LABS: ALBUMIN 2.4 GM/DL (3.2-5.2); ALT/SGPT 152 U/L (12-78); BILIRUBIN,DIRECT 0.2 MG/DL (0.0-0.2); BILIRUBIN,TOTAL 0.6 MG/DL (0.2-1.0); BLOOD UREA NITROGEN 28 MG/DL (7-18); CALCIUM LEVEL 9.2 MG/DL (8.5-10.1); CARBON DIOXIDE LEVEL 31 MEQ/L (21-32); CHLORIDE LEVEL 103 MEQ/L (98-107); CREATININE FOR GFR 0.96 MG/DL (0.70-1.30); FERRITIN 1312 NG/ML (26-388); GLOMERULAR FILTRATION RATE > 60.0 (>56); GLUCOSE, FASTING 87 MG/DL (70-100); MAGNESIUM LEVEL 2.1 MG/DL (1.8-2.4); POTASSIUM SERUM 4.6 MEQ/L (3.5-5.1); SODIUM LEVEL 138 MEQ/L (136-145); TOTAL PROTEIN 6.5 GM/DL (6.4-8.2)
[2021-02-02 05:53] LABS: D-DIMER QUANT > 4000 ng/ml (<500)
[2021-02-02 08:05] VITALS: BP 92/57
[2021-02-02] MEDS: PANTOPRAZOLE 40MG TAB (PROTONIX) PO SCH ×2 (08:54→20:18)
[2021-02-02] MEDS: ENOXAPARIN 60MG/0.6ML SYRINGE (J1650 PER 10MG) SC SCH ×2 (08:54→20:18)
[2021-02-02] MEDS: TAMSULOSIN 0.4 MG CAP PO SCH (08:54)
[2021-02-02] MEDS: dexameTHASONE 20MG/5ML VIAL (J1100 PER 1MG) IV SCH ×2 (08:54→20:17)
[2021-02-02] MEDS: ASPIRIN 81MG ENTERIC TABLET PO SCH (08:54)
[2021-02-02] MEDS: DOCUSATE SODIUM 100MG CAPSULE PO SCH ×2 (08:54→20:17)
--- NOTE | 2021-02-02 09:16 | IPNPDOC ---
Text Note Date of Service The patient was seen on 02/02/21. NOTE S: Patient seen and evaluated at bedside this a.m. He tells me he is feeling well and has no acute complaints. Report frequent ambulation to and from his chair f or meals, without difficulty. Reports dry cough, but tells me he has chest congestion and feels like he cannot "get it out." Denies chest pain, palpitations, abdominal pain, nausea, vomiting. O: GEN: Alert, awake, sitting up in bed, NAD HEENT: NC/AT, EOMI, nares patent, CPAP on face CARDIO: RRR, normal heart sounds, no MRG PULM: CTA b/l, diminished breath sounds bilaterally, no WRR, accessory muscles used ABD: soft, nontender, nondistended, normal BS EXTREMITIES: no edema, normal ROM IMAGING: CXR (01/14) New hazy bilateral upper lobe infiltrates consistent with viral pneumonitis. CXR (01/20) Essentially stable chest since 01/14/2021. No acute interval process is identified. CXR (01/25) Increasing bilateral opacities. CXR (01/28) Diffuse bilateral alveolar infiltrates essentially unchanged from prior examination. A/P: Riky is 50M history of obesity, KWAKU noncompliant with CPAP, found to be Covid positive on 01/09 with worsening cough, shortness of breath, hypoxia, now on CPAP with unchanged status. #Acute hypoxic respiratory failure, most likely 2/2 to acute [id number] FiO2 SpO2 95% on CPAP 100 FiO2 Mild leukocytosis 13.4, which may be 2/2 Decadron. (02/02) ferritin 1312, CRP 0.3, repeat pro-Wilfrido pending Patient encouraged to continue frequent proning. Continue PT/OT Pulm on consult, appreciate recommendations Of note, patient was transferred to ICU for worsening respiratory distress on CPAP therapy and, there, was transitioned from CPAP to Vapotherm. Unfortunately, he did not tolerate Vapotherm throughout the day and when attempting to wean patient off Vapotherm, he desatted into the 80s and remained there. He was transitioned back to Vapotherm and found to be stable on CPAP. 01/27, patient's O2 sats dropped to 70s and he became tachycardic to 130 on CPAP so he was placed on nonrebreather mask to maintain his oxygen saturations in low 90s. Patient was evaluated to have a very low threshold for intubation according to Pulm/CC and, following discussion with regards to possible intubation and ventilator management, patient consented to full CODE STATUS with trial of intubation if necessary. Of note, blood cultures 01/14 and 01/27 negative; sputum culture 01/25 of poor quality and difficult to assess. #COVID-19, acute (02/02) D-dimer> 4000 Continue baricitinib, Decadron Of note, patient began having symptoms of COVID-19 on 01/07 and was found to be COVID19 positive on 01/09. He was seen and evaluated at [facility] ED on 01/12 and sent home with 2L of oxygen. He returned to [facility] ED 01/14 with worsening shortness of breath and was found to be hypoxic with SpO2 86% on 2 L O2, requiring 4L O2 to maintain spO2 above 92%. He was admitted and completed course of remdesivir (01/18), Decadron (01/19). #KWAKU- chronic Continue CPAP Of note, if on Vapotherm during the day, patient will need CPAP at night #Hyperkalemia, asx-resolved Continue to monitor labs Of note, patient was found to have K+ 5.4 on 01/30, and received one-time dose 15g Kayexalate with adequate response. #Anxiety-chronic Continue Ativan Q4H PRN Of note, patient had panic attack early 01/27, resulting in tachycardia and tachypnea resulted in session and patient from CPAP to BiPAP for maintenance of appropriate O2 saturation. #Elevated LFTs, most likely 2/2 history HCV from IVDU, asx-stable (02/02) AST 47, ALT 152 #BPH- chronic, stable Continue Flomax #Class I obesity, chronic Complicating patient's care #DVT Prophylaxis Lovenox twice daily DIET: regular ACTIVITY: as tolerated DISPO: Home with services, pending clinical improvement Terrence DOMINGUEZ, I+O Terrence DOMINGUEZ, I+O Laboratory Tests 02/02/21 04:56 Vital Signs Date Time Temp Pulse Resp B/P (MAP) Pulse Ox O2 Delivery O2 Flow Rate FiO2 02/02/21 08:39 91 HVNI-Vapotherm 40.0 95 02/02/21 04:00 97.8 69 22 107/68 (81) I&O- Last 24 Hours up to 6 AM 02/02/21 06:00 Intake Total 980 ml Output Total 1395 ml Balance -415 ml GME ATTESTATION GME ATTESTATION My faculty preceptor for this patient encounter was physically present during the encounter and was fully available. All aspects of the patient interview, examination, medical decision making process, and medical care plan development were reviewed and approved by the faculty preceptor. The faculty preceptor is aware and concurs with the plan as stated in the body of this note and will attest to such by his/her cosignature. ATTENDING NOTE I, Sonia Collins, have independently examined this patient and performed my own physical exam, as well as reviewed the documentation and edited where necessary with the resident. For medical students we have performed the physical exam together and discussed medical decision making and I have verified the history. I have discussed in detail with the resident / student the findings and plan of treatment as documented by the resident / student and edited their note. I agree with their findings and treatment plan and have edited their documentation. I will continue to follow the patient during this hospital stay. Veronica Flores DO Feb 02, 2021 09:16 SONIA COLLINS MD Feb 02, 2021 16:01
[2021-02-02 12:56] VITALS: BP 91/53
[2021-02-02] MEDS: BARICITINIB 2MG TABLET (OLUMIANT) FOR EUA PO SCH (13:50)
[2021-02-02 16:29] VITALS: BP 108/70
[2021-02-02 20:00] VITALS: BP 113/63
[2021-02-02] MEDS: RAMELTEON 8 MG TAB (ROZEREM) PO SCH (20:18)
[2021-02-03] VITALS: BP 106/69
[2021-02-03] MEDS: LORazepam 2 MG/ML VIAL IV PRN ×2 (01:14→20:27)
[2021-02-03] MEDS: ALBUTEROL 90 MCG/ACT 8GM HFA INHALER INH SCH ×4 (01:14→19:52)
[2021-02-03 05:00] VITALS: BP 99/57
[2021-02-03 05:18] LABS: BASO % 0.2 % (0.0-1.0); EOS # 0.1 10^3/uL (0.0-0.5); EOS % 0.7 % (0.0-3.0); HEMATOCRIT 40.3 % (42.0-52.0); HEMOGLOBIN 13.1 g/dl (13.5-17.5); LYMPH # 0.9 10^3/uL (1.5-5.0); LYMPH % 8.4 % (24.0-44.0); MEAN CORPUSCULAR HEMOGLOBIN 26.9 pg (27.0-33.0); MEAN CORPUSCULAR HGB CONC 32.5 g/dl (32.0-36.5); MEAN CORPUSCULAR VOLUME 82.8 fl (80.0-96.0); MONO # 0.6 10^3/uL (0.0-0.8); NEUTROPHILS # 9.4 10^3/uL (1.5-8.5); NEUTROPHILS % 83.7 % (36.0-66.0); PLATELET COUNT, AUTOMATED 421 10^3/uL (150-450); RED BLOOD COUNT 4.87 10^6/uL (4.30-6.10); WHITE BLOOD COUNT 11.3 10^3/uL (4.0-10.0)
[2021-02-03 05:28] LABS: INR 0.99; PROTHROMBIN TIME 13.4 SECONDS (12.7-14.5)
[2021-02-03 05:45] LABS: ALBUMIN 2.3 GM/DL (3.2-5.2); ALT/SGPT 119 U/L (12-78); BILIRUBIN,DIRECT 0.2 MG/DL (0.0-0.2); BILIRUBIN,TOTAL 0.5 MG/DL (0.2-1.0); BLOOD UREA NITROGEN 25 MG/DL (7-18); C REACTIVE PROTEIN QUANTITATIV 1.55 MG/DL (0.00-0.30); CARBON DIOXIDE LEVEL 30 MEQ/L (21-32); CHLORIDE LEVEL 102 MEQ/L (98-107); CREATININE FOR GFR 0.89 MG/DL (0.70-1.30); FERRITIN 1216 NG/ML (26-388); GLOMERULAR FILTRATION RATE > 60.0 (>56); GLUCOSE, FASTING 131 MG/DL (70-100); MAGNESIUM LEVEL 2.2 MG/DL (1.8-2.4); POTASSIUM SERUM 4.8 MEQ/L (3.5-5.1); SODIUM LEVEL 137 MEQ/L (136-145); TOTAL PROTEIN 6.8 GM/DL (6.4-8.2)
[2021-02-03 06:31] LABS: D-DIMER QUANT > 4000 ng/ml (<500)
[2021-02-03 08:09] VITALS: BP 101/63
[2021-02-03] MEDS: PANTOPRAZOLE 40MG TAB (PROTONIX) PO SCH ×2 (08:10→20:11)
[2021-02-03] MEDS: ASPIRIN 81MG ENTERIC TABLET PO SCH (08:10)
[2021-02-03] MEDS: guaiFENesin ER 600 MG TAB PO PRN (08:11)
[2021-02-03] MEDS: TAMSULOSIN 0.4 MG CAP PO SCH (08:11)
[2021-02-03] MEDS: BARICITINIB 2MG TABLET (OLUMIANT) FOR EUA PO SCH (08:11)
[2021-02-03] MEDS: ENOXAPARIN 60MG/0.6ML SYRINGE (J1650 PER 10MG) SC SCH ×2 (08:12→20:12)
[2021-02-03] MEDS: dexameTHASONE 20MG/5ML VIAL (J1100 PER 1MG) IV SCH ×2 (08:12→20:12)
[2021-02-03] MEDS: DOCUSATE SODIUM 100MG CAPSULE PO SCH ×2 (09:00→20:11)
--- NOTE | 2021-02-03 09:17 | IPNPDOC ---
Text Note Date of Service The patient was seen on 02/03/21. NOTE NOTE S: Patient seen and evaluated at bedside this a.m. He tells me he is feeling well and has been ambulating more often during PT sessions. He tells me he is able to ambulate around the room with the walker, and his main limitation is being connected to his Vapotherm machine. No acute complaints. Denies chest pain, palpitations, abdominal pain, nausea, vomiting. O: GEN: Alert, awake, sitting on the edge of his bed, NAD HEENT: NC/AT, EOMI, nares patent, CPAP on face CARDIO: RRR, normal heart sounds, no MRG PULM: CTA b/l, diminished breath sounds right side, no WRR, accessory muscles used with deep inspiration ABD: soft, nontender, nondistended, normal BS EXTREMITIES: no edema, normal ROM IMAGING: CXR (01/14) New hazy bilateral upper lobe infiltrates consistent with viral pneumonitis. CXR (01/20) Essentially stable chest since 01/14/2021. No acute interval process is identified. CXR (01/25) Increasing bilateral opacities. CXR (01/28) Diffuse bilateral alveolar infiltrates essentially unchanged from prior examination. A/P: Riky is 50M history of obesity, KWAKU noncompliant with CPAP, found to be Covid positive on 01/09 with worsening cough, shortness of breath, hypoxia, now on CPAP with unchanged status. #Acute hypoxic respiratory failure, most likely 2/2 to acute [id number] FiO2 SpO2 97% on CPAP 100 FiO2 Mild leukocytosis 11.3, which may be 2/2 Decadron. (02/03) ferritin 1216, CRP 1.55, repeat pro-Wilfrido pending (02/02 pro-Wilfrido 0.07) Patient encouraged to continue frequent proning. Continue PT/OT Pulm on consult, appreciate recommendations Of note, patient was transferred to ICU for worsening respiratory distress on CPAP therapy and, there, was transitioned from CPAP to Vapotherm. Unfortunately, he did not tolerate Vapotherm throughout the day and when attempting to wean patient off Vapotherm, he desatted into the 80s and remained there. He was transitioned back to Vapotherm and found to be stable on CPAP. 01/27, patient's O2 sats dropped to 70s and he became tachycardic to 130 on CPAP so he was placed on nonrebreather mask to maintain his oxygen saturations in low 90s. Patient was evaluated to have a very low threshold for intubation according to Pulm/CC and, following discussion with regards to possible intubation and ventilator management, patient consented to full CODE STATUS with trial of intubation if necessary. Of note, blood cultures 01/14 and 01/27 negative; sputum culture 01/25 of poor quality and difficult to assess. #COVID-19, acute (02/03) D-dimer> 4000 Continue baricitinib, Decadron Of note, patient began having symptoms of COVID-19 on 01/07 and was found to be COVID19 positive on 01/09. He was seen and evaluated at [facility] ED on 01/12 and sent home with 2L of oxygen. He returned to [facility] ED 01/14 with worsening shortness of breath and was found to be hypoxic with SpO2 86% on 2 L O2, requiring 4L O2 to maintain spO2 above 92%. He was admitted and completed course of remdesivir (01/18), Decadron (01/19). #KWAKU- chronic Continue CPAP Of note, if on Vapotherm during the day, patient will need CPAP at night #Hyperkalemia, asx-resolved Continue to monitor labs Of note, patient was found to have K+ 5.4 on 01/30, and received one-time dose 15g Kayexalate with adequate response. #Anxiety-chronic Continue Ativan Q4H PRN Of note, patient had panic attack early 01/27, resulting in tachycardia and tachypnea resulted in session and patient from CPAP to BiPAP for maintenance of appropriate O2 saturation. #Elevated LFTs, most likely 2/2 history HCV from IVDU, asx-stable (02/02) AST 26, ALT 119 #BPH- chronic, stable Continue Flomax #Class I obesity, chronic Complicating patient's care #DVT Prophylaxis Lovenox twice daily DIET: regular ACTIVITY: as tolerated DISPO: Home with services, pending clinical improvement VS,Terrence, I+O VS, Nataliobone, I+O Laboratory Tests 02/03/21 05:04 Vital Signs Date Time Temp Pulse Resp B/P (MAP) Pulse Ox O2 Delivery O2 Flow Rate FiO2 02/03/21 08:38 95 HVNI-Vapotherm 40.0 100 02/03/21 05:00 97.9 67 30 99/57 (71) I&O- Last 24 Hours up to 6 AM 02/03/21 06:00 Intake Total 1110 ml Output Total 1250 ml Balance -140 ml GME ATTESTATION GME ATTESTATION My faculty preceptor for this patient encounter was physically present during the encounter and was fully available. All aspects of the patient interview, examination, medical decision making process, and medical care plan development were reviewed and approved by the faculty preceptor. The faculty preceptor is aware and concurs with the plan as stated in the body of this note and will attest to such by his/her cosignature. ATTENDING NOTE I, Sonia Collins, have independently examined this patient and performed my own physical exam, as well as reviewed the documentation and edited where necessary with the resident. For medical students we have performed the physical exam together and discussed medical decision making and I have verified the history. I have discussed in detail with the resident / student the findings and plan of treatment as documented by the resident / student and edited their note. I agree with their findings and treatment plan and have edited their documentation. I will continue to follow the patient during this hospital stay. Veronica Flores DO Feb 03, 2021 09:17 SONIA COLLINS MD Feb 17, 2021 20:05
[2021-02-03 12:22] VITALS: BP 109/62
[2021-02-03 17:29] VITALS: BP 97/63
[2021-02-03] MEDS: RAMELTEON 8 MG TAB (ROZEREM) PO SCH (20:11)
[2021-02-03 20:19] VITALS: BP 119/68
[2021-02-04] VITALS (11 sets, daily range): BP systolic 96–130; BP diastolic 55–76; O2SAT 91–98
[2021-02-04] MEDS: ALBUTEROL 90 MCG/ACT 8GM HFA INHALER INH SCH ×4 (02:00→19:18)
[2021-02-04 04:18] LABS: BASO % 0.2 % (0.0-1.0); EOS # 0.2 10^3/uL (0.0-0.5); EOS % 1.5 % (0.0-3.0); HEMATOCRIT 38.2 % (42.0-52.0); HEMOGLOBIN 12.4 g/dl (13.5-17.5); LYMPH # 0.9 10^3/uL (1.5-5.0); LYMPH % 7.1 % (24.0-44.0); MEAN CORPUSCULAR HEMOGLOBIN 27.1 pg (27.0-33.0); MEAN CORPUSCULAR HGB CONC 32.5 g/dl (32.0-36.5); MEAN CORPUSCULAR VOLUME 83.4 fl (80.0-96.0); MONO # 0.7 10^3/uL (0.0-0.8); NEUTROPHILS % 84.3 % (36.0-66.0); PLATELET COUNT, AUTOMATED 455 10^3/uL (150-450); RED BLOOD COUNT 4.58 10^6/uL (4.30-6.10); WHITE BLOOD COUNT 13.1 10^3/uL (4.0-10.0)
[2021-02-04 04:30] LABS: INR 1.06; PROTHROMBIN TIME 14.2 SECONDS (12.7-14.5)
[2021-02-04 04:51] LABS: ALBUMIN 2.4 GM/DL (3.2-5.2); ALT/SGPT 103 U/L (12-78); BILIRUBIN,DIRECT 0.2 MG/DL (0.0-0.2); BILIRUBIN,TOTAL 0.6 MG/DL (0.2-1.0); BLOOD UREA NITROGEN 24 MG/DL (7-18); C REACTIVE PROTEIN QUANTITATIV 0.71 MG/DL (0.00-0.30); CALCIUM LEVEL 9.2 MG/DL (8.5-10.1); CARBON DIOXIDE LEVEL 32 MEQ/L (21-32); CHLORIDE LEVEL 101 MEQ/L (98-107); CREATININE FOR GFR 0.85 MG/DL (0.70-1.30); FERRITIN 1109 NG/ML (26-388); GLOMERULAR FILTRATION RATE > 60.0 (>56); GLUCOSE, FASTING 132 MG/DL (70-100); POTASSIUM SERUM 5.5 MEQ/L (3.5-5.1); SODIUM LEVEL 136 MEQ/L (136-145); TOTAL PROTEIN 6.3 GM/DL (6.4-8.2)
[2021-02-04 05:31] LABS: D-DIMER QUANT > 4000 ng/ml (<500)
[2021-02-04] MEDS: LORazepam 2 MG/ML VIAL IV PRN ×2 (05:47→20:13)
[2021-02-04] MEDS ORDERED: SOD POLYSTYRENE SULFONATE SUSP 15 GM/60 ML UD PO ONE (08:00)
[2021-02-04] MEDS: DOCUSATE SODIUM 100MG CAPSULE PO SCH ×2 (10:11→20:14)
[2021-02-04] MEDS: ENOXAPARIN 60MG/0.6ML SYRINGE (J1650 PER 10MG) SC SCH ×2 (10:11→20:12)
[2021-02-04] MEDS: ASPIRIN 81MG ENTERIC TABLET PO SCH (10:12)
[2021-02-04] MEDS: TAMSULOSIN 0.4 MG CAP PO SCH (10:12)
[2021-02-04] MEDS: PANTOPRAZOLE 40MG TAB (PROTONIX) PO SCH ×2 (10:12→20:13)
[2021-02-04] MEDS: dexameTHASONE 20MG/5ML VIAL (J1100 PER 1MG) IV SCH ×2 (10:14→20:13)
[2021-02-04] MEDS: BARICITINIB 2MG TABLET (OLUMIANT) FOR EUA PO SCH (10:14)
[2021-02-04] MEDS: guaiFENesin ER 600 MG TAB PO PRN (10:15)
--- NOTE | 2021-02-04 10:17 | IPNPDOC ---
Text Note Date of Service The patient was seen on 02/04/21. NOTE S: Patient seen and evaluated at bedside this a.m. He tells me he is feeling much better and has noticed significant improvement since admission. Reports improve d cough, which he now describes as nonproductive. Reports continued work with PT, including sitting on the edge of the bed and ambulating with the walker. Denies chest pain, palpitations, abdominal pain, nausea, vomiting. O: GEN: Alert, awake, laying in bed, NAD HEENT: NC/AT, EOMI, nares patent, CPAP on face CARDIO: RRR, normal heart sounds, no MRG PULM: CTA b/l, diminished breath sounds right side, no WRR, no accessory muscles used ABD: soft, nontender, nondistended, normal BS EXTREMITIES: no edema, normal ROM IMAGING: CXR (01/14) New hazy bilateral upper lobe infiltrates consistent with viral pneumonitis. CXR (01/20) Essentially stable chest since 01/14/2021. No acute interval process is identified. CXR (01/25) Increasing bilateral opacities. CXR (01/28) Diffuse bilateral alveolar infiltrates essentially unchanged from prior examination. A/P: Riky is 50M history of obesity, KWAKU noncompliant with CPAP, found to be Covid positive on 01/09 with worsening cough, shortness of breath, hypoxia, now on CPAP with minimally improved overall status. #Acute hypoxic respiratory failure, most likely 2/2 to acute COVID-19- improving FiO2 SpO2 98% on CPAP 40/100 FiO2. Patient was found to have SpO2 70s% during evaluation this morning, which quickly improved when patient repositioned in bed and was no longer speaking. Patient does tell me this AM that his CPAP settings were decreased today, so I suspect his is more sensitive to minimal exertion. Mild leukocytosis 13.1 (02/03) ferritin 1109, CRP 0.71, repeat pro-Wilfrido pending (02/03 pro-Wilfrido <0.05) Patient encouraged to continue frequent proning. Continue PT/OT Pulm on consult, appreciate recommendations Of note, patient was transferred to ICU for worsening respiratory distress on CPAP therapy and, there, was transitioned from CPAP to Vapotherm. Unfortunately, he did not tolerate Vapotherm throughout the day and when attempting to wean pat ient off Vapotherm, he desatted into the 80s and remained there. He was transitioned back to Vapotherm and found to be stable on CPAP. 01/27, patient's O2 sats dropped to 70s and he became tachycardic to 130 on CPAP so he was placed on nonrebreather mask to maintain his oxygen saturations in low 90s. Patient was evaluated to have a very low threshold for intubation according to Pulm/CC and, following discussion with regards to possible intubation and ventilator management, patient consented to full CODE STATUS with trial of intubation if necessary. Of note, blood cultures 01/14 and 01/27 negative; sputum culture 01/25 of poor quality and difficult to assess. #COVID-19, acute (02/04) D-dimer> 4000 Continue baricitinib, Decadron Of note, patient began having symptoms of COVID-19 on 01/07 and was found to be COVID19 positive on 01/09. He was seen and evaluated at [facility] ED on 01/12 and sent home with 2L of oxygen. He returned to [facility] ED 01/14 with worsening shortness of breath and was found to be hypoxic with SpO2 86% on 2 L O2, requiring 4L O2 to maintain spO2 above 92%. He was admitted and completed course of remdesivir (01/18), Decadron (01/19). #KWAKU- chronic Continue CPAP Of note, if on Vapotherm during the day, patient will need CPAP at night #Hyperkalemia, asx-resolved Continue to monitor labs Of note, patient was found to have K+ 5.4 on 01/30, and received one-time dose 15g Kayexalate with adequate response. #Anxiety-chronic Continue Ativan Q4H PRN Of note, patient had panic attack early 01/27, resulting in tachycardia and tachypnea resulted in session and patient from CPAP to BiPAP for maintenance of appropriate O2 saturation. 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 I agree with the finding and the plan of care as documented in the residents note. VS,Fishbone, I+O VS, Fishbone, I+O Laboratory Tests 02/04/21 03:57 Vital Signs Date Time Temp Pulse Resp B/P (MAP) Pulse Ox O2 Delivery O2 Flow Rate FiO2 02/04/21 07:48 100 02/04/21 00:00 97.0 72 22 96/55 (69) 98 NIPPV (BIPAP/CPAP) 02/03/21 21:00 40.0 I&O- Last 24 Hours up to 6 AM 02/04/21 05:59 Intake Total 660 ml Output Total 900 ml Balance -240 ml Veronica Flores DO Feb 04, 2021 10:17 SASHA SCRUGGS MD Feb 05, 2021 06:21
[2021-02-04] MEDS: RAMELTEON 8 MG TAB (ROZEREM) PO SCH (20:12)
[2021-02-05] VITALS (15 sets, daily range): BP systolic 95–119; BP diastolic 57–70; O2SAT 96–99
[2021-02-05] MEDS: LORazepam 2 MG/ML VIAL IV PRN ×3 (00:14→20:03)
[2021-02-05] MEDS: ALBUTEROL 90 MCG/ACT 8GM HFA INHALER INH SCH ×4 (01:35→20:16)
[2021-02-05 05:11] LABS: BASO % 0.2 % (0.0-1.0); EOS # 0.1 10^3/uL (0.0-0.5); EOS % 0.7 % (0.0-3.0); HEMATOCRIT 40.6 % (42.0-52.0); LYMPH # 1.1 10^3/uL (1.5-5.0); LYMPH % 9.2 % (24.0-44.0); MEAN CORPUSCULAR HEMOGLOBIN 26.7 pg (27.0-33.0); MEAN CORPUSCULAR VOLUME 83.5 fl (80.0-96.0); MONO # 0.9 10^3/uL (0.0-0.8); NEUTROPHILS # 9.9 10^3/uL (1.5-8.5); NEUTROPHILS % 81.3 % (36.0-66.0); PLATELET COUNT, AUTOMATED 348 10^3/uL (150-450); RED BLOOD COUNT 4.86 10^6/uL (4.30-6.10); WHITE BLOOD COUNT 12.2 10^3/uL (4.0-10.0)
[2021-02-05 05:41] LABS: INR 1.01; PROTHROMBIN TIME 13.7 SECONDS (12.7-14.5)
[2021-02-05 05:42] LABS: ALBUMIN 2.4 GM/DL (3.2-5.2); ALT/SGPT 89 U/L (12-78); BILIRUBIN,DIRECT 0.2 MG/DL (0.0-0.2); BILIRUBIN,TOTAL 0.5 MG/DL (0.2-1.0); BLOOD UREA NITROGEN 23 MG/DL (7-18); C REACTIVE PROTEIN QUANTITATIV 0.37 MG/DL (0.00-0.30); CALCIUM LEVEL 9.1 MG/DL (8.5-10.1); CARBON DIOXIDE LEVEL 30 MEQ/L (21-32); CHLORIDE LEVEL 104 MEQ/L (98-107); CREATININE FOR GFR 0.86 MG/DL (0.70-1.30); FERRITIN 1108 NG/ML (26-388); GLOMERULAR FILTRATION RATE > 60.0 (>56); GLUCOSE, FASTING 121 MG/DL (70-100); POTASSIUM SERUM 4.5 MEQ/L (3.5-5.1); SODIUM LEVEL 137 MEQ/L (136-145); TOTAL PROTEIN 6.7 GM/DL (6.4-8.2)
[2021-02-05 07:20] LABS: D-DIMER QUANT > 4000 ng/ml (<500)
[2021-02-05] MEDS: ENOXAPARIN 60MG/0.6ML SYRINGE (J1650 PER 10MG) SC SCH ×2 (08:13→20:03)
[2021-02-05] MEDS: DEXTROMETHORPHAN 60MG/10ML SUSP 90ML BTL(DELSYM) PO PRN (08:13)
[2021-02-05] MEDS: dexameTHASONE 20MG/5ML VIAL (J1100 PER 1MG) IV SCH ×2 (08:14→20:02)
[2021-02-05] MEDS: PANTOPRAZOLE 40MG TAB (PROTONIX) PO SCH ×2 (08:14→20:02)
[2021-02-05] MEDS: DOCUSATE SODIUM 100MG CAPSULE PO SCH ×2 (08:14→20:02)
[2021-02-05] MEDS: TAMSULOSIN 0.4 MG CAP PO SCH (08:14)
[2021-02-05] MEDS: ASPIRIN 81MG ENTERIC TABLET PO SCH (08:14)
[2021-02-05] MEDS: BARICITINIB 2MG TABLET (OLUMIANT) FOR EUA PO SCH (08:15)
--- NOTE | 2021-02-05 09:32 | IPNPDOC ---
Text Note Date of Service The patient was seen on 02/05/21. NOTE S: Patient seen and evaluated at bedside this a.m. He tells me he has just transitioned from CPAP to Vapotherm this morning and feels short of breath. His nurse does tell me that patient's SpO2 98% on CPAP throughout the night. Patient continues to work with PT, and tells me he is ambulating with a walker well. He is noted to have significant desaturation and fatigue with exertion, but he is found to recover quickly with rest, as noted in PT progress note on 02/04. Reports dry cough. Denies chest pain, abdominal pain, nausea, vomiting. O: GEN: Alert, awake, laying in bed, NAD HEENT: NC/AT, EOMI, Vapotherm in place, moist mucous membranes CARDIO: RRR, normal heart sounds, no MRG PULM: CTA b/l, coarse breath sounds bilaterally throughout, no WRR, accessory muscles used ABD: soft, nontender, nondistended, normal BS EXTREMITIES: no edema, normal ROM IMAGING: CXR (01/14) New hazy bilateral upper lobe infiltrates consistent with viral pneumonitis. CXR (01/20) Essentially stable chest since 01/14/2021. No acute interval process is identified. CXR (01/25) Increasing bilateral opacities. CXR (01/28) Diffuse bilateral alveolar infiltrates essentially unchanged from prior examination. A/P: Riky is 50M history of obesity, KWAKU noncompliant with CPAP, found to be Covid positive on 01/09 with worsening cough, shortness of breath, hypoxia, now on Vapotherm throughout the day and CPAP at night with minimally improved overall status. #Acute hypoxic respiratory failure, most likely 2/2 to acute COVID-19- improving SpO2 99% on CPAP 10/100 FiO2. Patient was found to have SpO2 88% on Vapotherm 35/80 during evaluation this morning. Mild leukocytosis 12.2 (02/04) ferritin 1108, CRP 0.37, repeat pro-Wilfrido pending (02/04 pro-Wilfrido 0.06) Patient encouraged to continue frequent proning. Continue PT/OT Pulm on consult, appreciate recommendations Of note, patient was transferred to ICU for worsening respiratory distress on CPAP therapy and, there, was transitioned from CPAP to Vapotherm. Unfortunately, he did not tolerate Vapotherm throughout the day and when attempting to wean patient off Vapotherm, he desatted into the 80s and remained there. He was tra nsitioned back to Vapotherm and found to be stable on CPAP. 01/27, patient's O2 sats dropped to 70s and he became tachycardic to 130 on CPAP so he was placed on nonrebreather mask to maintain his oxygen saturations in low 90s. Patient was evaluated to have a very low threshold for intubation according to Pulm/CC and, following discussion with regards to possible intubation and ventilator manageme nt, patient consented to full CODE STATUS with trial of intubation if necessary. Of note, blood cultures 01/14 and 01/27 negative; sputum culture 01/25 of poor quality and difficult to assess. His productive cough resolved and he was noted to have occasional dry cough. #COVID-19, acute (02/04) D-dimer> 4000 Continue baricitinib (started 01/20), Decadron (started 01/27) Of note, patient began having symptoms of COVID-19 on 01/07 and was found to be COVID19 positive on 01/09. He was seen and evaluated at [facility] ED on 01/12 and sent home with 2L of oxygen. He returned to [facility] ED 01/14 with worsening shortness of breath and was found to be hypoxic with SpO2 86% on 2 L O2, requiring 4L O2 to maintain spO2 above 92%. He was admitted and completed course of remdesivir (01/18), Decadron (01/19). #KWAKU- chronic Continue CPAP. Will adjust patient's CPAP settings to titrate SPO2 >90%. Of note, if on Vapotherm during the day, patient will need CPAP at night #Hyperkalemia, asx-resolved Continue to monitor labs Of note, patient was found to have K+ 5.4 (01/30), K+ 5.5 (02/04), and received one-time dose 15g Kayexalate with adequate response. #Anxiety-chronic Continue Ativan Q4H PRN Of note, patient had panic attack early 01/27, resulting in tachycardia and tachypnea resulted in session and patient from CPAP to BiPAP for maintenance of appropriate O2 saturation. 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 I agree with the finding and the plan of care as documented in the residents note. VS,Fishbone, I+O VS, Fishbone, I+O Laboratory Tests 02/05/21 04:55 Vital Signs Date Time Temp Pulse Resp B/P (MAP) Pulse Ox O2 Delivery O2 Flow Rate FiO2 02/05/21 08:00 97.5 86 22 106/67 (80) 97 100 02/05/21 04:00 NIPPV (BIPAP/CPAP) 10.0 I&O- Last 24 Hours up to 6 AM 02/05/21 06:00 Intake Total 1250 ml Output Total 425 ml Balance 825 ml Veronica Flores DO Feb 05, 2021 09:32 SASHA SCRUGGS MD Feb 06, 2021 06:30
[2021-02-05] MEDS: RAMELTEON 8 MG TAB (ROZEREM) PO SCH (20:02)
[2021-02-06] VITALS (7 sets, daily range): BP systolic 103–111; BP diastolic 58–69
[2021-02-06] MEDS: LORazepam 2 MG/ML VIAL IV PRN ×3 (00:23→20:13)
[2021-02-06] MEDS: ALBUTEROL 90 MCG/ACT 8GM HFA INHALER INH SCH ×4 (02:00→19:22)
[2021-02-06 05:10] LABS: BASO % 0.1 % (0.0-1.0); EOS # 0.1 10^3/uL (0.0-0.5); EOS % 0.9 % (0.0-3.0); HEMATOCRIT 37.6 % (42.0-52.0); HEMOGLOBIN 12.4 g/dl (13.5-17.5); LYMPH # 1.7 10^3/uL (1.5-5.0); LYMPH % 11.9 % (24.0-44.0); MEAN CORPUSCULAR HEMOGLOBIN 27.3 pg (27.0-33.0); MEAN CORPUSCULAR VOLUME 82.6 fl (80.0-96.0); MONO # 0.9 10^3/uL (0.0-0.8); MONO % 6.6 % (2.0-8.0); NEUTROPHILS # 10.7 10^3/uL (1.5-8.5); RED BLOOD COUNT 4.55 10^6/uL (4.30-6.10); WHITE BLOOD COUNT 13.9 10^3/uL (4.0-10.0)
[2021-02-06 05:14] LABS: PLATELET COUNT, AUTOMATED 460 10^3/uL (150-450)
[2021-02-06 05:26] LABS: INR 1.18; PROTHROMBIN TIME 15.5 SECONDS (12.7-14.5)
[2021-02-06 05:42] LABS: ALBUMIN 2.6 GM/DL (3.2-5.2); ALT/SGPT 76 U/L (12-78); BILIRUBIN,DIRECT 0.2 MG/DL (0.0-0.2); BILIRUBIN,TOTAL 0.5 MG/DL (0.2-1.0); BLOOD UREA NITROGEN 23 MG/DL (7-18); CALCIUM LEVEL 9.2 MG/DL (8.5-10.1); CARBON DIOXIDE LEVEL 30 MEQ/L (21-32); CHLORIDE LEVEL 102 MEQ/L (98-107); CREATININE FOR GFR 0.81 MG/DL (0.70-1.30); FERRITIN 1070 NG/ML (26-388); GLOMERULAR FILTRATION RATE > 60.0 (>56); GLUCOSE, FASTING 114 MG/DL (70-100); SODIUM LEVEL 138 MEQ/L (136-145); TOTAL PROTEIN 6.3 GM/DL (6.4-8.2)
[2021-02-06 06:41] LABS: D-DIMER QUANT > 4000 ng/ml (<500)
[2021-02-06] MEDS: DOCUSATE SODIUM 100MG CAPSULE PO SCH ×2 (09:00→20:14)
[2021-02-06] MEDS: dexameTHASONE 20MG/5ML VIAL (J1100 PER 1MG) IV SCH ×2 (09:10→20:13)
[2021-02-06] MEDS: ENOXAPARIN 60MG/0.6ML SYRINGE (J1650 PER 10MG) SC SCH ×2 (09:10→20:13)
[2021-02-06] MEDS: TAMSULOSIN 0.4 MG CAP PO SCH (09:10)
[2021-02-06] MEDS: PANTOPRAZOLE 40MG TAB (PROTONIX) PO SCH ×2 (09:10→20:13)
[2021-02-06] MEDS: ASPIRIN 81MG ENTERIC TABLET PO SCH (09:10)
--- NOTE | 2021-02-06 10:04 | IPNPDOC ---
Text Note Date of Service The patient was seen on 02/06/21. NOTE S: Patient seen and evaluated at bedside this a.m. He tells me he is doing well he denies any acute complaints. Reports shortness of breath with exertion, but te lls me he can recover quickly with rest and deep breathing. Reports dry cough. Denies chest pain, abdominal pain, nausea, vomiting. O: GEN: Alert, awake, laying in bed, NAD HEENT: NC/AT, EOMI, CPAP on face, nares patent CARDIO: RRR, normal heart sounds, no MRG PULM: CTA b/l, diminished breath sounds on left side, no WRR, accessory muscles used ABD: soft, nontender, nondistended, normal BS EXTREMITIES: no edema, normal ROM IMAGING: CXR (01/14) New hazy bilateral upper lobe infiltrates consistent with viral pneumonitis. CXR (01/20) Essentially stable chest since 01/14/2021. No acute interval process is identified. CXR (01/25) Increasing bilateral opacities. CXR (01/28) Diffuse bilateral alveolar infiltrates essentially unchanged from prior examination. A/P: Riky is 50M history of obesity, KWAKU noncompliant with CPAP, found to be Covid positive on 01/09 with worsening cough, shortness of breath, hypoxia, now on Vapotherm throughout the day and CPAP at night with improved overall status. #Acute hypoxic respiratory failure, most likely 2/2 to acute COVID-19- improving SpO2 97% on CPAP 10/100 FiO2. Patient's Vapotherm settings have been decreased to 35/65 and patient tells me he has been tolerating it well. Mild leukocytosis 13.9 (02/06) ferritin 1070 CRP 0.30, repeat pro-Wilfrido pending (02/05 pro-Wilfrido <0.05) Patient encouraged to continue frequent proning. Continue PT/OT Pulm on consult, appreciate recommendations Of note, patient was transferred to ICU for worsening respiratory distress on CPAP therapy and, there, was transitioned from CPAP to Vapotherm. Unfortunately, he did not tolerate Vapotherm throughout the day and when attempting to wean patient off Vapotherm, he desatted into the 80s and remained there. He was transitioned back to Vapotherm and found to be stable on CPAP. 01/27, patient's O2 sats dropped to 70s and he became tachycardic to 130 on CPAP so he was placed on nonrebreather mask to maintain his oxygen saturations in low 90s. Patient was evaluated to have a very low threshold for intubation according to Pulm/CC and, following discussion with regards to possible intubation and ventilator management, patient consented to full CODE STATUS with trial of intubation if necessary. Of note, blood cultures 01/14 and 01/27 negative; sputum culture 01/25 of poor quality and difficult to assess. His productive cough resolved and he was noted to have occasional dry cough. #COVID-19, acute (02/06) D-dimer> 4000 D/C baricitinib Continue Decadron (restarted 01/27) Of note, patient began having symptoms of COVID-19 on 01/07 and was found to be COVID19 positive on 01/09. He was seen and evaluated at [facility] ED on 01/12 and sent home with 2L of oxygen. He returned to [facility] ED 01/14 with worsening shortness of breath and was found to be hypoxic with SpO2 86% on 2 L O2, requiring 4L O2 to maintain spO2 above 92%. He was admitted and completed course of remdesivir (01/14-01/18), Decadron (01/14-01/19), baricitinib (). #KWAKU- chronic Continue CPAP. Will adjust patient's CPAP settings to titrate SPO2 >90%. Of note, if on Vapotherm during the day, patient will need CPAP at night #Hyperkalemia, asx-resolved Continue to monitor labs Of note, patient was found to have K+ 5.4 (01/30), K+ 5.5 (02/04), and received one-time dose 15g Kayexalate with adequate response. #Anxiety-chronic Continue Ativan Q4H PRN Of note, patient had panic attack early 01/27, resulting in tachycardia and tachypnea resulted in session and patient from CPAP to BiPAP for maintenance of appropriate O2 saturation. 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 I agree with the finding and the plan of care as documented in the residents note. VS,Fishbone, I+O VS, Fishbone, I+O Laboratory Tests 02/06/21 04:41 Vital Signs Date Time Temp Pulse Resp B/P (MAP) Pulse Ox O2 Delivery O2 Flow Rate FiO2 02/06/21 08:31 88 HVNI-Vapotherm 35.0 85 02/06/21 04:24 98.0 73 28 103/61 (75) I&O- Last 24 Hours up to 6 AM 02/06/21 06:00 Intake Total 820 ml Output Total 1000 ml Balance -180 ml Veronica Flores DO Feb 06, 2021 10:04 SASHA SCRUGGS MD Feb 07, 2021 06:37
[2021-02-06] MEDS: RAMELTEON 8 MG TAB (ROZEREM) PO SCH (20:13)
[2021-02-07] MEDS: LORazepam 2 MG/ML VIAL IV PRN ×3 (00:13→20:55)
[2021-02-07 00:15] VITALS: BP 101/57
[2021-02-07] MEDS: ALBUTEROL 90 MCG/ACT 8GM HFA INHALER INH SCH ×4 (02:03→20:13)
[2021-02-07 05:23] LABS: BASO # 0.1 10^3/uL (0.0-0.2); BASO % 0.4 % (0.0-1.0); EOS # 0.1 10^3/uL (0.0-0.5); EOS % 0.5 % (0.0-3.0); HEMATOCRIT 38.5 % (42.0-52.0); HEMOGLOBIN 12.5 g/dl (13.5-17.5); LYMPH # 1.8 10^3/uL (1.5-5.0); LYMPH % 11.1 % (24.0-44.0); MEAN CORPUSCULAR HEMOGLOBIN 26.9 pg (27.0-33.0); MEAN CORPUSCULAR HGB CONC 32.5 g/dl (32.0-36.5); MONO # 0.9 10^3/uL (0.0-0.8); MONO % 5.8 % (2.0-8.0); NEUTROPHILS # 12.5 10^3/uL (1.5-8.5); NEUTROPHILS % 78.2 % (36.0-66.0); PLATELET COUNT, AUTOMATED 476 10^3/uL (150-450); RED BLOOD COUNT 4.64 10^6/uL (4.30-6.10); WHITE BLOOD COUNT 15.9 10^3/uL (4.0-10.0)
[2021-02-07 05:28] LABS: INR 0.92; PROTHROMBIN TIME 12.8 SECONDS (12.7-14.5)
[2021-02-07 05:31] LABS: D-DIMER QUANT 3461.1 ng/ml (<500)
[2021-02-07 05:33] LABS: BLOOD UREA NITROGEN 27 MG/DL (7-18); CALCIUM LEVEL 9.5 MG/DL (8.5-10.1); CARBON DIOXIDE LEVEL 29 MEQ/L (21-32); CHLORIDE LEVEL 103 MEQ/L (98-107); CREATININE FOR GFR 0.86 MG/DL (0.70-1.30); GLOMERULAR FILTRATION RATE > 60.0 (>56); GLUCOSE, FASTING 131 MG/DL (70-100); MAGNESIUM LEVEL 2.1 MG/DL (1.8-2.4); SODIUM LEVEL 137 MEQ/L (136-145)
[2021-02-07 05:35] LABS: ALBUMIN 2.5 GM/DL (3.2-5.2); BILIRUBIN,DIRECT 0.2 MG/DL (0.0-0.2); BILIRUBIN,TOTAL 0.5 MG/DL (0.2-1.0); TOTAL PROTEIN 6.2 GM/DL (6.4-8.2)
[2021-02-07 08:00] VITALS: BP 110/70
[2021-02-07] MEDS: PANTOPRAZOLE 40MG TAB (PROTONIX) PO SCH ×2 (08:24→20:48)
[2021-02-07] MEDS: DOCUSATE SODIUM 100MG CAPSULE PO SCH ×2 (08:24→20:48)
[2021-02-07] MEDS: ASPIRIN 81MG ENTERIC TABLET PO SCH (08:24)
[2021-02-07] MEDS: TAMSULOSIN 0.4 MG CAP PO SCH (08:24)
[2021-02-07] MEDS: dexameTHASONE 20MG/5ML VIAL (J1100 PER 1MG) IV SCH ×2 (08:24→20:48)
[2021-02-07] MEDS: ENOXAPARIN 60MG/0.6ML SYRINGE (J1650 PER 10MG) SC SCH ×2 (08:25→20:49)
[2021-02-07 12:43] VITALS: BP 108/69
[2021-02-07 16:00] VITALS: BP 110/71
[2021-02-07 17:35] VITALS: BP 129/73
[2021-02-07] MEDS: RAMELTEON 8 MG TAB (ROZEREM) PO SCH (20:48)
[2021-02-07 20:55] VITALS: BP 116/76
[2021-02-08 00:11] VITALS: BP 114/61
[2021-02-08] MEDS: LORazepam 2 MG/ML VIAL IV PRN ×2 (00:56→20:40)
[2021-02-08] MEDS: ALBUTEROL 90 MCG/ACT 8GM HFA INHALER INH SCH ×4 (02:51→20:10)
[2021-02-08 04:55] VITALS: BP 101/56
[2021-02-08 05:55] LABS: BASO # 0.1 10^3/uL (0.0-0.2); BASO % 0.3 % (0.0-1.0); EOS % 0.2 % (0.0-3.0); HEMATOCRIT 39.9 % (42.0-52.0); LYMPH # 1.8 10^3/uL (1.5-5.0); LYMPH % 9.9 % (24.0-44.0); MEAN CORPUSCULAR HEMOGLOBIN 27.1 pg (27.0-33.0); MEAN CORPUSCULAR HGB CONC 32.6 g/dl (32.0-36.5); MEAN CORPUSCULAR VOLUME 83.3 fl (80.0-96.0); MONO # 0.9 10^3/uL (0.0-0.8); MONO % 4.9 % (2.0-8.0); NEUTROPHILS # 14.6 10^3/uL (1.5-8.5); NEUTROPHILS % 80.3 % (36.0-66.0); PLATELET COUNT, AUTOMATED 475 10^3/uL (150-450); RED BLOOD COUNT 4.79 10^6/uL (4.30-6.10); WHITE BLOOD COUNT 18.1 10^3/uL (4.0-10.0)
[2021-02-08 06:26] LABS: ALBUMIN 2.7 GM/DL (3.2-5.2); ALT/SGPT 67 U/L (12-78); BILIRUBIN,TOTAL 0.5 MG/DL (0.2-1.0); BLOOD UREA NITROGEN 25 MG/DL (7-18); CALCIUM LEVEL 9.5 MG/DL (8.5-10.1); CARBON DIOXIDE LEVEL 27 MEQ/L (21-32); CHLORIDE LEVEL 103 MEQ/L (98-107); CREATININE FOR GFR 0.96 MG/DL (0.70-1.30); FERRITIN 934 NG/ML (26-388); GLOMERULAR FILTRATION RATE > 60.0 (>56); GLUCOSE, FASTING 119 MG/DL (70-100); POTASSIUM SERUM 4.4 MEQ/L (3.5-5.1); SODIUM LEVEL 137 MEQ/L (136-145); TOTAL PROTEIN 6.8 GM/DL (6.4-8.2)
--- NOTE | 2021-02-08 09:14 | IPNPDOC ---
Text Note Date of Service The patient was seen on 02/07/21. NOTE Subjective: Patient seen and evaluated at bedside this a.m. He tells me he is doing well he denies any acute complaints. Reports shortness of breath with exertion, but tells me he can recover quickly with rest and deep breathing. Reports dry cough. Denies chest pain, abdominal pain, nausea, vomiting. Objective: Vital Signs: reviewed General: NAD, sitting comfortably in chair HEENT: NC/AT, EOMI Neck: supple, no masses Chest: lungs CTA B/L, diminished breath sounds, no accessory muscle use Heart: +S1S2, RRR Abd: soft, NT, ND, +BS Ext: no edema Skin: no rashes Neuro: no gross focal deficits Psych: AAOx3 A/P: 50M with PMHx including obesity, KWAKU noncompliant with CPAP, found to be Covid positive on 01/09 with worsening cough, shortness of breath and hypoxia #Acute hypoxic respiratory failure/COVID-19, acute - improving, o2 requirements slowly trending down - Pulm on consult, appreciate recommendations - DDimer trending down - s/p baricitinib - Continue Decadron 10q12 (restarted 01/27) - therapeutic dosing lovenox 50q12h - symptoms of COVID-19 on 01/07 and was found to be COVID19 positive on 01/09. He was seen and evaluated at [facility] ED on 01/12 and sent home with 2L of oxygen. He returned to [facility] ED 01/14 with worsening shortness of breath and was found to be hypoxic with SpO2 86% on 2 L O2, requiring 4L O2 to maintain spO2 above 92%. He was admitted and completed course of remdesivir (01/14-01/18), Decadron (01/14- 01/19), baricitinib (). #KWAKU - chronic - Continue CPAP. Will adjust patient's CPAP settings to titrate SPO2 >90%. -Vapotherm during the day, patient will need CPAP at night #Hyperkalemia - resolved - Continue to trend #Anxiety-chronic - Continue Ativan Q4H PRN -panic attack early 01/27, transitioned CPAP to BiPAP for maintenance of appropriate O2 saturation. 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, asx-stable - essentially resolved - elevated ALP today - continue to trend #BPH - chronic, stable - Continue Flomax # obesity - Complicating patient's care #DVT Prophylaxis - as above - Lovenox twice daily DISPO: Pending clinical improvement VS,Terrence, I+O VSTerrence, I+O Laboratory Tests 02/08/21 05:27 Vital Signs Date Time Temp Pulse Resp B/P (MAP) Pulse Ox O2 Delivery O2 Flow Rate FiO2 02/08/21 08:09 93 HVNI-Vapotherm 30.0 80 02/08/21 04:55 96.1 84 20 101/56 (71) I&O- Last 24 Hours up to 6 AM 02/08/21 06:00 Intake Total 900 ml Output Total 1150 ml Balance -250 ml SASHA SCRUGGS MD Feb 08, 2021 09:14
--- NOTE | 2021-02-08 09:16 | IPNPDOC ---
Text Note Date of Service The patient was seen on 02/08/21. NOTE Subjective: Patient seen and evaluated at bedside this a.m. he just had a bowel movement, and is short of breath from minimal exertion ambulating from commode to bed. He was able to catch his breath and recover after a few minutes. He denies any new complaints. No acute overnight events reported. Objective: Vital Signs: reviewed General: NAD, lying comfortably in bed HEENT: NC/AT, EOMI Neck: supple, no masses Chest: lungs CTA B/L, diminished breath sounds, no accessory muscle use Heart: +S1S2, RRR Abd: soft, NT, ND, +BS Ext: no edema Skin: no rashes Neuro: no gross focal deficits Psych: AAOx3 A/P: 50M with PMHx including obesity, KWAKU noncompliant with CPAP, found to be Covid positive on 01/09 with worsening cough, shortness of breath and hypoxia #Acute hypoxic respiratory failure/COVID-19, acute - improving, o2 requirements slowly trending down - Pulm on consult, appreciate recommendations - DDimer trending down, will follow with tomorrow labs - s/p baricitinib - Continue Decadron 10q12 (restarted 01/27) - therapeutic dosing lovenox 50q12h - symptoms of COVID-19 on 01/07 and was found to be COVID19 positive on 01/09. He was seen and evaluated at [facility] ED on 01/12 and sent home with 2L of oxygen. He returned to [facility] ED 01/14 with worsening shortness of breath and was found to be hypoxic with SpO2 86% on 2 L O2, requiring 4L O2 to maintain spO2 above 92%. He was admitted and completed course of remdesivir (01/14-01/18), Decadron (01/14- 01/19), baricitinib (). #KWAKU - chronic - Continue CPAP. Will adjust patient's CPAP settings to titrate SPO2 >90%. -Vapotherm during the day, patient will need CPAP at night #Hyperkalemia - resolved - Continue to trend #Anxiety-chronic - Continue Ativan Q4H PRN -panic attack early 01/27, transitioned CPAP to BiPAP for maintenance of appropriate O2 saturation. 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 VS,Fishbone, I+O VS, Fishbone, I+O Laboratory Tests 02/08/21 05:27 Vital Signs Date Time Temp Pulse Resp B/P (MAP) Pulse Ox O2 Delivery O2 Flow Rate FiO2 02/08/21 08:09 93 HVNI-Vapotherm 30.0 80 02/08/21 04:55 96.1 84 20 101/56 (71) I&O- Last 24 Hours up to 6 AM 02/08/21 06:00 Intake Total 900 ml Output Total 1150 ml Balance -250 ml SASHA SCRUGGS MD Feb 08, 2021 09:16
[2021-02-08 10:00] VITALS: BP 112/83
[2021-02-08] MEDS: DOCUSATE SODIUM 100MG CAPSULE PO SCH ×2 (10:03→20:40)
[2021-02-08] MEDS: PANTOPRAZOLE 40MG TAB (PROTONIX) PO SCH ×2 (10:04→20:40)
[2021-02-08] MEDS: ASPIRIN 81MG ENTERIC TABLET PO SCH (10:04)
[2021-02-08] MEDS: TAMSULOSIN 0.4 MG CAP PO SCH (10:04)
[2021-02-08] MEDS: ENOXAPARIN 60MG/0.6ML SYRINGE (J1650 PER 10MG) SC SCH ×2 (10:05→20:40)
[2021-02-08] MEDS: dexameTHASONE 20MG/5ML VIAL (J1100 PER 1MG) IV SCH ×2 (10:05→20:39)
[2021-02-08 17:00] VITALS: BP 104/66
[2021-02-08 20:00] VITALS: BP 102/57
[2021-02-08] MEDS: RAMELTEON 8 MG TAB (ROZEREM) PO SCH (20:40)
[2021-02-08 23:45] VITALS: BP 92/50
[2021-02-09] VITALS (8 sets, daily range): BP systolic 91–108; BP diastolic 53–70
[2021-02-09] MEDS: ALBUTEROL 90 MCG/ACT 8GM HFA INHALER INH SCH ×4 (02:44→20:00)
[2021-02-09] MEDS: LORazepam 2 MG/ML VIAL IV PRN ×2 (03:57→21:49)
[2021-02-09 07:04] LABS: BASO # 0.1 10^3/uL (0.0-0.2); BASO % 0.3 % (0.0-1.0); EOS % 0.2 % (0.0-3.0); HEMOGLOBIN 12.6 g/dl (13.5-17.5); LYMPH # 2.1 10^3/uL (1.5-5.0); LYMPH % 12.1 % (24.0-44.0); MEAN CORPUSCULAR HEMOGLOBIN 27.6 pg (27.0-33.0); MEAN CORPUSCULAR HGB CONC 33.2 g/dl (32.0-36.5); MEAN CORPUSCULAR VOLUME 83.2 fl (80.0-96.0); MONO # 1.2 10^3/uL (0.0-0.8); MONO % 6.8 % (2.0-8.0); NEUTROPHILS # 13.5 10^3/uL (1.5-8.5); NEUTROPHILS % 76.9 % (36.0-66.0); PLATELET COUNT, AUTOMATED 405 10^3/uL (150-450); RED BLOOD COUNT 4.57 10^6/uL (4.30-6.10); WHITE BLOOD COUNT 17.5 10^3/uL (4.0-10.0)
[2021-02-09 07:32] LABS: ALBUMIN 2.5 GM/DL (3.2-5.2); ALT/SGPT 58 U/L (12-78); BILIRUBIN,TOTAL 0.4 MG/DL (0.2-1.0); BLOOD UREA NITROGEN 25 MG/DL (7-18); CARBON DIOXIDE LEVEL 29 MEQ/L (21-32); CHLORIDE LEVEL 104 MEQ/L (98-107); CREATININE FOR GFR 0.82 MG/DL (0.70-1.30); FERRITIN 854 NG/ML (26-388); GLOMERULAR FILTRATION RATE > 60.0 (>56); GLUCOSE, FASTING 108 MG/DL (70-100); POTASSIUM SERUM 4.2 MEQ/L (3.5-5.1); SODIUM LEVEL 139 MEQ/L (136-145); TOTAL PROTEIN 6.3 GM/DL (6.4-8.2)
[2021-02-09] MEDS: ENOXAPARIN 60MG/0.6ML SYRINGE (J1650 PER 10MG) SC SCH ×2 (09:19→21:48)
[2021-02-09] MEDS: PANTOPRAZOLE 40MG TAB (PROTONIX) PO SCH ×2 (09:20→21:48)
[2021-02-09] MEDS: TAMSULOSIN 0.4 MG CAP PO SCH (09:20)
[2021-02-09] MEDS: DOCUSATE SODIUM 100MG CAPSULE PO SCH ×2 (09:20→21:49)
[2021-02-09] MEDS: ASPIRIN 81MG ENTERIC TABLET PO SCH (09:20)
[2021-02-09] MEDS: dexameTHASONE 20MG/5ML VIAL (J1100 PER 1MG) IV SCH ×2 (09:20→21:48)
--- NOTE | 2021-02-09 11:10 | IPNPDOC ---
Text Note Date of Service The patient was seen on 02/09/21. NOTE Subjective: Patient seen and evaluated at bedside this a.m. He denies any new complaints. No acute overnight events reported. Objective: Vital Signs: reviewed General: NAD, lying comfortably in bed HEENT: NC/AT, EOMI Neck: supple, no masses Chest: lungs CTA B/L, diminished breath sounds, no accessory muscle use Heart: +S1S2, RRR Abd: soft, NT, ND, +BS Ext: no edema Skin: no rashes Neuro: no gross focal deficits Psych: AAOx3 A/P: 50M with PMHx including obesity, KWAKU noncompliant with CPAP, found to be Covid positive on 01/09 with worsening cough, shortness of breath and hypoxia #Acute hypoxic respiratory failure/COVID-19, acute - improving, o2 requirements slowly trending down - Pulm on consult, appreciate recommendations - DDimer trending down, will follow with tomorrow labs - s/p baricitinib - Continue Decadron 10q12 (restarted 01/27) - therapeutic dosing lovenox 50q12h - symptoms of COVID-19 on 01/07 and was found to be COVID19 positive on 01/09. He was seen and evaluated at [facility] ED on 01/12 and sent home with 2L of oxygen. He returned to [facility] ED 01/14 with worsening shortness of breath and was found to be hypoxic with SpO2 86% on 2 L O2, requiring 4L O2 to maintain spO2 above 92%. He was admitted and completed course of remdesivir (01/14-01/18), Decadron (01/14- 01/19), baricitinib (). #KWAKU - chronic - Continue CPAP. Will adjust patient's CPAP settings to titrate SPO2 >90%. -Vapotherm during the day, patient will need CPAP at night #Hyperkalemia - resolved - Continue to trend #Anxiety-chronic - Continue Ativan Q4H PRN -panic attack early 01/27, transitioned CPAP to BiPAP for maintenance of appropriate O2 saturation. 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 discussed with nursing staff. VS,Fishbone, I+O VS, Fishbone, I+O Laboratory Tests 02/09/21 06:31 Vital Signs Date Time Temp Pulse Resp B/P (MAP) Pulse Ox O2 Delivery O2 Flow Rate FiO2 02/09/21 09:27 97.6 110 20 104/68 (80) 96 HVNI-Vapotherm 30.0 70 I&O- Last 24 Hours up to 6 AM 02/09/21 06:00 Intake Total 665 ml Output Total 325 ml Balance 340 ml SASHA SCRUGGS MD Feb 09, 2021 11:10
[2021-02-09] MEDS: DEXTROMETHORPHAN 60MG/10ML SUSP 90ML BTL(DELSYM) PO PRN (14:52)
[2021-02-09] MEDS: RAMELTEON 8 MG TAB (ROZEREM) PO SCH (21:49)
[2021-02-10] MEDS: ALBUTEROL 90 MCG/ACT 8GM HFA INHALER INH SCH ×4 (02:23→21:20)
[2021-02-10 03:56] VITALS: BP 104/60
[2021-02-10] MEDS: LORazepam 2 MG/ML VIAL IV PRN ×2 (04:05→21:51)
[2021-02-10 07:05] LABS: BASO # 0.1 10^3/uL (0.0-0.2); BASO % 0.3 % (0.0-1.0); EOS % 0.2 % (0.0-3.0); HEMATOCRIT 38.7 % (42.0-52.0); HEMOGLOBIN 12.6 g/dl (13.5-17.5); LYMPH # 1.5 10^3/uL (1.5-5.0); LYMPH % 8.9 % (24.0-44.0); MEAN CORPUSCULAR HEMOGLOBIN 27.1 pg (27.0-33.0); MEAN CORPUSCULAR HGB CONC 32.6 g/dl (32.0-36.5); MEAN CORPUSCULAR VOLUME 83.2 fl (80.0-96.0); MONO # 0.8 10^3/uL (0.0-0.8); NEUTROPHILS # 13.9 10^3/uL (1.5-8.5); NEUTROPHILS % 82.1 % (36.0-66.0); PLATELET COUNT, AUTOMATED 369 10^3/uL (150-450); RED BLOOD COUNT 4.65 10^6/uL (4.30-6.10); WHITE BLOOD COUNT 16.9 10^3/uL (4.0-10.0)
[2021-02-10 07:22] LABS: ALBUMIN 2.7 GM/DL (3.2-5.2); ALT/SGPT 58 U/L (12-78); BILIRUBIN,TOTAL 0.5 MG/DL (0.2-1.0); BLOOD UREA NITROGEN 25 MG/DL (7-18); CALCIUM LEVEL 9.5 MG/DL (8.5-10.1); CARBON DIOXIDE LEVEL 27 MEQ/L (21-32); CHLORIDE LEVEL 103 MEQ/L (98-107); CREATININE FOR GFR 0.96 MG/DL (0.70-1.30); GLOMERULAR FILTRATION RATE > 60.0 (>56); GLUCOSE, FASTING 120 MG/DL (70-100); POTASSIUM SERUM 4.3 MEQ/L (3.5-5.1); SODIUM LEVEL 137 MEQ/L (136-145); TOTAL PROTEIN 6.7 GM/DL (6.4-8.2)
[2021-02-10 08:00] VITALS: BP 118/90
[2021-02-10] MEDS: ENOXAPARIN 60MG/0.6ML SYRINGE (J1650 PER 10MG) SC SCH ×2 (09:43→21:52)
[2021-02-10] MEDS: dexameTHASONE 20MG/5ML VIAL (J1100 PER 1MG) IV SCH ×2 (09:44→22:04)
[2021-02-10] MEDS: ASPIRIN 81MG ENTERIC TABLET PO SCH (09:44)
[2021-02-10] MEDS: DEXTROMETHORPHAN 60MG/10ML SUSP 90ML BTL(DELSYM) PO PRN (09:44)
[2021-02-10] MEDS: TAMSULOSIN 0.4 MG CAP PO SCH (09:44)
[2021-02-10] MEDS: PANTOPRAZOLE 40MG TAB (PROTONIX) PO SCH ×2 (09:44→21:50)
[2021-02-10] MEDS: DOCUSATE SODIUM 100MG CAPSULE PO SCH ×2 (09:44→21:50)
--- NOTE | 2021-02-10 09:57 | IPNPDOC ---
Text Note Date of Service The patient was seen on 02/10/21. NOTE Subjective: Patient is a 50-year-old male with a PMHx of KWAKU (non-compliant with CPAP), Obesity, Diagnosed with COVID19 on 01/09 who presented to the ER on 01/14 with worsening cough and shortness of breath. Patient was admitted to the hospitalist service for further evaluation and treatment. Patient was seen and examined at the bedside. Patient is seen lying on his side, appears comfortable. Reports breathing is doing better. Denies any nausea, vomi ting, abdominal pain, diarrhea, or urinary discomfort. Objective: Vitals (See below) General: Laying in bed on his side, appears comfortable, no acute distress, awake, alert, oriented 3 HEENT: NC, AT CVS: +S1S2 Lungs: There appears to be fair air entry bilaterally without any auscultated evidence of crackles, wheezing or rhonchi Abdomen: Remains soft without any distention or tenderness Extremities: No evidence of lower extremity edema Imaging: CXR (01/14) New hazy bilateral upper lobe infiltrates consistent with viral pneumonitis. CXR (01/20) Essentially stable chest since 01/14/2021. No acute interval process is identified. CXR (01/25) Increasing bilateral opacities. CXR (01/28) Diffuse bilateral alveolar infiltrates essentially unchanged from prior examination. Assessment and plan: Acute hypoxic respiratory failure / ARDS - likely 2/2 COVID19 pneumonia - Patient was that her breathing is doing better - c/w Vapotherm therapy; FiO2 requirement has been improving - Inflammatory markers have improved - Imaging noted above - s/p Remdesivir (Complete 5 days) and Baricitinib (Completed 14 days) - c/w Dexamethasone - c/w Acapella / Incentive spirometry / Mucinex / Prone positioning KWAKU - c/w CPAP s/p Hyperkalemia Anxiety - c/w Ativan PRN s/p Transaminitis - possibly 2/2 Hx of Hepatitis C, possibly 2/2 Medications (Remdesivir) - Based on prior records it appears that HCV RNA was undetectable on 07/15/2020 - Will have outpatient follow up with PCP BPH - c/w Tamsulosin Obesity - BMI of 28.7 - Complicating medical care GI prophylaxis - c/w Protonix DVT prophylaxis - c/w Lovenox weight-based prophylactic dosing Prognosis: - Guarded Disposition: - Pending clinical improvement VS,Nataliobone, I+O VS, Fishbone, I+O Laboratory Tests 02/10/21 06:30 Vital Signs Date Time Temp Pulse Resp B/P (MAP) Pulse Ox O2 Delivery O2 Flow Rate FiO2 02/10/21 08:23 92 HVNI-Vapotherm 30.0 65 02/10/21 08:00 72 118/90 (99) 02/10/21 03:56 97.1 24 I&O- Last 24 Hours up to 6 AM 02/10/21 05:59 Intake Total 1140 ml Output Total 1025 ml Balance 115 ml CHRISTOPHER COLLINS MD Feb 10, 2021 09:57
[2021-02-10 12:00] VITALS: BP 110/70
[2021-02-10 16:00] VITALS: BP 115/56
[2021-02-10 20:00] VITALS: BP 114/62
[2021-02-10] MEDS: RAMELTEON 8 MG TAB (ROZEREM) PO SCH (21:50)
[2021-02-11] VITALS (7 sets, daily range): BP systolic 94–115; BP diastolic 57–70
[2021-02-11] MEDS: ALBUTEROL 90 MCG/ACT 8GM HFA INHALER INH SCH ×4 (01:27→20:53)
[2021-02-11] MEDS: LORazepam 2 MG/ML VIAL IV PRN ×2 (03:48→21:32)
[2021-02-11 07:43] LABS: BASO % 0.2 % (0.0-1.0); EOS % 0.1 % (0.0-3.0); HEMATOCRIT 36.4 % (42.0-52.0); HEMOGLOBIN 11.9 g/dl (13.5-17.5); LYMPH # 1.6 10^3/uL (1.5-5.0); LYMPH % 10.6 % (24.0-44.0); MEAN CORPUSCULAR HEMOGLOBIN 27.2 pg (27.0-33.0); MEAN CORPUSCULAR HGB CONC 32.7 g/dl (32.0-36.5); MEAN CORPUSCULAR VOLUME 83.1 fl (80.0-96.0); MONO # 0.9 10^3/uL (0.0-0.8); MONO % 5.7 % (2.0-8.0); NEUTROPHILS % 80.8 % (36.0-66.0); PLATELET COUNT, AUTOMATED 290 10^3/uL (150-450); RED BLOOD COUNT 4.38 10^6/uL (4.30-6.10); WHITE BLOOD COUNT 14.9 10^3/uL (4.0-10.0)
[2021-02-11 08:11] LABS: ALBUMIN 2.5 GM/DL (3.2-5.2); ALT/SGPT 49 U/L (12-78); BILIRUBIN,TOTAL 0.4 MG/DL (0.2-1.0); BLOOD UREA NITROGEN 24 MG/DL (7-18); CALCIUM LEVEL 9.3 MG/DL (8.5-10.1); CARBON DIOXIDE LEVEL 28 MEQ/L (21-32); CHLORIDE LEVEL 104 MEQ/L (98-107); CREATININE FOR GFR 0.81 MG/DL (0.70-1.30); FERRITIN 767 NG/ML (26-388); GLOMERULAR FILTRATION RATE > 60.0 (>56); GLUCOSE, FASTING 116 MG/DL (70-100); MAGNESIUM LEVEL 2.1 MG/DL (1.8-2.4); POTASSIUM SERUM 4.2 MEQ/L (3.5-5.1); SODIUM LEVEL 138 MEQ/L (136-145); TOTAL PROTEIN 6.3 GM/DL (6.4-8.2)
[2021-02-11] MEDS: PANTOPRAZOLE 40MG TAB (PROTONIX) PO SCH ×2 (08:22→21:30)
[2021-02-11] MEDS: dexameTHASONE 20MG/5ML VIAL (J1100 PER 1MG) IV SCH ×2 (08:22→21:31)
[2021-02-11] MEDS: DOCUSATE SODIUM 100MG CAPSULE PO SCH ×2 (08:22→21:30)
[2021-02-11] MEDS: ASPIRIN 81MG ENTERIC TABLET PO SCH (08:22)
[2021-02-11] MEDS: TAMSULOSIN 0.4 MG CAP PO SCH (08:22)
[2021-02-11] MEDS: ENOXAPARIN 60MG/0.6ML SYRINGE (J1650 PER 10MG) SC SCH ×2 (08:22→21:30)
--- NOTE | 2021-02-11 09:40 | IPNPDOC ---
Text Note Date of Service The patient was seen on 02/11/21. NOTE Subjective: Patient is a 50-year-old male with a PMHx of KWAKU (non-compliant with CPAP), Obesity, Diagnosed with COVID19 on 01/09 who presented to the ER on 01/14 with worsening cough and shortness of breath. Patient was admitted to the hospitalist service for further evaluation and treatment. Patient was seen and examined at the bedside. Patient denies any nausea, vomiting, abdominal pain, diarrhea, or urinary discomfort. Patient reports his breathing is doing better. Denies any significant cough. Objective: Vitals (See below) General: Patient is sitting up at the edge of the bed eating breakfast appears to be comfortable, awake, alert, oriented 3 HEENT: Atraumatic and normocephalic CVS: +S1S2 Lungs: There appears to be fair air entry bilaterally without any evidence of crackles, wheezing or rhonchi Abdomen: Soft, ND, NT Extremities: No lower extremity edema Imaging: CXR (01/14) New hazy bilateral upper lobe infiltrates consistent with viral pneumonitis. CXR (01/20) Essentially stable chest since 01/14/2021. No acute interval process is identi fied. CXR (01/25) Increasing bilateral opacities. CXR (01/28) Diffuse bilateral alveolar infiltrates essentially unchanged from prior examination. Assessment and plan: Acute hypoxic respiratory failure / ARDS - likely 2/2 COVID19 pneumonia - Reports breathing is doing better; no significant cough - c/w Vapotherm therapy; FiO2 requirement has been improving - Inflammatory markers have continued to improve - Imaging noted above - s/p Remdesivir (Complete 5 days) and Baricitinib (Completed 14 days) - c/w Dexamethasone - c/w Acapella / Incentive spirometry / Mucinex / Prone positioning KWAKU - c/w CPAP s/p Hyperkalemia Anxiety - c/w Ativan PRN s/p Transaminitis - possibly 2/2 Hx of Hepatitis C, possibly 2/2 Medications (Remdesivir) - Based on prior records it appears that HCV RNA was undetectable on 07/15/2020 - Will have outpatient follow up with PCP BPH - c/w Tamsulosin Obesity - BMI of 28.7 - Complicating medical care GI prophylaxis - c/w Protonix DVT prophylaxis - c/w Lovenox weight-based prophylactic dosing Prognosis: - Guarded Disposition: - Pending clinical improvement VS,Terrence, I+O VS, Terrence, I+O Laboratory Tests 02/11/21 07:08 Vital Signs Date Time Temp Pulse Resp B/P (MAP) Pulse Ox O2 Delivery O2 Flow Rate FiO2 02/11/21 08:01 100/58 (72) 02/11/21 08:00 96.7 89 16 92 NIPPV (BIPAP/CPAP) 12.0 02/10/21 22:12 55 I&O- Last 24 Hours up to 6 AM 02/11/21 06:00 Intake Total 780 ml Output Total 585 ml Balance 195 ml CHRISTOPHER COLLINS MD Feb 11, 2021 09:40
[2021-02-11] MEDS: DEXTROMETHORPHAN 60MG/10ML SUSP 90ML BTL(DELSYM) PO PRN (13:46)
[2021-02-11] MEDS: RAMELTEON 8 MG TAB (ROZEREM) PO SCH (21:30)
[2021-02-12] VITALS (7 sets, daily range): BP systolic 100–109; BP diastolic 61–67
[2021-02-12] MEDS: ALBUTEROL 90 MCG/ACT 8GM HFA INHALER INH SCH ×4 (01:42→20:52)
[2021-02-12] MEDS: LORazepam 2 MG/ML VIAL IV PRN ×2 (01:43→20:54)
[2021-02-12 07:51] LABS: BASO % 0.2 % (0.0-1.0); EOS % 0.1 % (0.0-3.0); LYMPH # 1.5 10^3/uL (1.5-5.0); LYMPH % 10.5 % (24.0-44.0); MEAN CORPUSCULAR HEMOGLOBIN 27.3 pg (27.0-33.0); MEAN CORPUSCULAR HGB CONC 32.4 g/dl (32.0-36.5); MEAN CORPUSCULAR VOLUME 84.1 fl (80.0-96.0); MONO # 0.7 10^3/uL (0.0-0.8); MONO % 4.7 % (2.0-8.0); NEUTROPHILS % 82.2 % (36.0-66.0); PLATELET COUNT, AUTOMATED 253 10^3/uL (150-450); WHITE BLOOD COUNT 14.6 10^3/uL (4.0-10.0)
[2021-02-12 08:11] LABS: ALBUMIN 2.5 GM/DL (3.2-5.2); ALT/SGPT 44 U/L (12-78); BILIRUBIN,TOTAL 0.5 MG/DL (0.2-1.0); BLOOD UREA NITROGEN 25 MG/DL (7-18); CALCIUM LEVEL 8.9 MG/DL (8.5-10.1); CARBON DIOXIDE LEVEL 29 MEQ/L (21-32); CHLORIDE LEVEL 104 MEQ/L (98-107); CREATININE FOR GFR 0.72 MG/DL (0.70-1.30); FERRITIN 702 NG/ML (26-388); GLOMERULAR FILTRATION RATE > 60.0 (>56); GLUCOSE, FASTING 115 MG/DL (70-100); MAGNESIUM LEVEL 2.1 MG/DL (1.8-2.4); POTASSIUM SERUM 4.2 MEQ/L (3.5-5.1); SODIUM LEVEL 139 MEQ/L (136-145); TOTAL PROTEIN 6.5 GM/DL (6.4-8.2)
[2021-02-12] MEDS: TAMSULOSIN 0.4 MG CAP PO SCH (08:48)
[2021-02-12] MEDS: DOCUSATE SODIUM 100MG CAPSULE PO SCH ×2 (08:48→20:55)
[2021-02-12] MEDS: DEXTROMETHORPHAN 60MG/10ML SUSP 90ML BTL(DELSYM) PO PRN (08:48)
[2021-02-12] MEDS: ASPIRIN 81MG ENTERIC TABLET PO SCH (08:48)
[2021-02-12] MEDS: PANTOPRAZOLE 40MG TAB (PROTONIX) PO SCH ×2 (08:48→20:55)
[2021-02-12] MEDS: ENOXAPARIN 60MG/0.6ML SYRINGE (J1650 PER 10MG) SC SCH ×2 (08:49→20:55)
[2021-02-12] MEDS: dexameTHASONE 20MG/5ML VIAL (J1100 PER 1MG) IV SCH ×2 (08:49→20:54)
--- NOTE | 2021-02-12 13:16 | IPNPDOC ---
Text Note Date of Service The patient was seen on 02/12/21. NOTE Subjective: Patient is a 50-year-old male with a PMHx of KWAKU (non-compliant with CPAP), Obesity, Diagnosed with COVID19 on 01/09 who presented to the ER on 01/14 with worsening cough and shortness of breath. Patient was admitted to the hospitalist service for further evaluation and treatment. Patient was seen and examined at the bedside. Currently patient appears relatively fine sitting up in bed eating breakfast. Denies any chest pain, no significant cough. No nausea, vomiting, abdominal pain, no urinary discomfort or diarrhea. Objective: Vitals (See below) General: Patient is sitting up in bed eating breakfast, not appear to be in any distress, oriented to person, place and time HEENT: AT, NC CVS: +S1S2 Lungs: Air entry appears to be fair bilaterally without any evidence of wheezing, crackles or rhonchi Abdomen: Remains soft without any distention or tenderness Extremities: Lower extremities are without edema Imaging: CXR (01/14) New hazy bilateral upper lobe infiltrates consistent with viral pneumonitis. CXR (01/20) Essentially stable chest since 01/14/2021. No acute interval process is identified. CXR (01/25) Increasing bilateral opacities. CXR (01/28) Diffuse bilateral alveolar infiltrates essentially unchanged from prior examination. Assessment and plan: Acute hypoxic respiratory failure / ARDS - likely 2/2 COVID19 pneumonia - Patient continues to have clinical improvement and has been transitioned to high flow nasal cannula oxygen - s/p Vapotherm therapy - Inflammatory markers have continued to improve - Imaging noted above - s/p Remdesivir (Complete 5 days) and Baricitinib (Completed 14 days) - c/w Dexamethasone - c/w Acapella / Incentive spirometry / Mucinex / Prone positioning - Patient continues to work with physical therapy KWAKU - c/w CPAP s/p Hyperkalemia Anxiety - c/w Ativan PRN s/p Transaminitis - possibly 2/2 Hx of Hepatitis C, possibly 2/2 Medications (Remdesivir) - Based on prior records it appears that HCV RNA was undetectable on 07/15/2020 - Will have outpatient follow up with PCP BPH - c/w Tamsulosin Obesity - BMI of 28.7 - Complicating medical care GI prophylaxis - c/w Protonix DVT prophylaxis - c/w Lovenox weight-based prophylactic dosing Disposition: - Pending clinical improvement - Anticipate discharge within the next 24-48 hours Terrence DOMINGUEZ, I+O VSTerrence I+O Laboratory Tests 02/12/21 07:14 Vital Signs Date Time Temp Pulse Resp B/P (MAP) Pulse Ox O2 Delivery O2 Flow Rate FiO2 02/12/21 13:09 93 High Flow Cannula 8.0 02/12/21 11:50 97.6 87 21 109/66 (80) 02/12/21 08:00 50 I&O- Last 24 Hours up to 6 AM 02/12/21 06:00 Intake Total 680 ml Output Total 850 ml Balance -170 ml CHRISTOPHER COLLINS MD Feb 12, 2021 13:16
[2021-02-12] MEDS: RAMELTEON 8 MG TAB (ROZEREM) PO SCH (20:55)
[2021-02-13] VITALS (8 sets, daily range): BP systolic 90–114; BP diastolic 50–80
[2021-02-13] MEDS: LORazepam 2 MG/ML VIAL IV PRN ×2 (00:54→22:32)
[2021-02-13] MEDS: ALBUTEROL 90 MCG/ACT 8GM HFA INHALER INH SCH ×4 (03:10→19:35)
[2021-02-13 07:48] LABS: BASO % 0.2 % (0.0-1.0); EOS % 0.2 % (0.0-3.0); HEMATOCRIT 36.9 % (42.0-52.0); LYMPH # 1.8 10^3/uL (1.5-5.0); LYMPH % 13.6 % (24.0-44.0); MEAN CORPUSCULAR HEMOGLOBIN 27.3 pg (27.0-33.0); MEAN CORPUSCULAR HGB CONC 32.5 g/dl (32.0-36.5); MEAN CORPUSCULAR VOLUME 84.1 fl (80.0-96.0); MONO # 0.7 10^3/uL (0.0-0.8); MONO % 5.6 % (2.0-8.0); NEUTROPHILS # 10.1 10^3/uL (1.5-8.5); NEUTROPHILS % 78.5 % (36.0-66.0); PLATELET COUNT, AUTOMATED 219 10^3/uL (150-450); RED BLOOD COUNT 4.39 10^6/uL (4.30-6.10); WHITE BLOOD COUNT 12.9 10^3/uL (4.0-10.0)
[2021-02-13 08:26] LABS: ALBUMIN 2.4 GM/DL (3.2-5.2); ALT/SGPT 43 U/L (12-78); BILIRUBIN,TOTAL 0.4 MG/DL (0.2-1.0); BLOOD UREA NITROGEN 23 MG/DL (7-18); CALCIUM LEVEL 8.9 MG/DL (8.5-10.1); CARBON DIOXIDE LEVEL 29 MEQ/L (21-32); CHLORIDE LEVEL 105 MEQ/L (98-107); CREATININE FOR GFR 0.74 MG/DL (0.70-1.30); FERRITIN 664 NG/ML (26-388); GLOMERULAR FILTRATION RATE > 60.0 (>56); GLUCOSE, FASTING 98 MG/DL (70-100); MAGNESIUM LEVEL 2.1 MG/DL (1.8-2.4); SODIUM LEVEL 140 MEQ/L (136-145); TOTAL PROTEIN 6.3 GM/DL (6.4-8.2)
[2021-02-13] MEDS: DOCUSATE SODIUM 100MG CAPSULE PO SCH ×2 (09:39→21:24)
[2021-02-13] MEDS: PANTOPRAZOLE 40MG TAB (PROTONIX) PO SCH ×2 (09:39→21:24)
[2021-02-13] MEDS: ASPIRIN 81MG ENTERIC TABLET PO SCH (09:39)
[2021-02-13] MEDS: TAMSULOSIN 0.4 MG CAP PO SCH (09:39)
[2021-02-13] MEDS: ENOXAPARIN 60MG/0.6ML SYRINGE (J1650 PER 10MG) SC SCH ×2 (09:39→21:25)
[2021-02-13] MEDS: dexameTHASONE 20MG/5ML VIAL (J1100 PER 1MG) IV SCH ×2 (09:40→21:24)
--- NOTE | 2021-02-13 11:53 | IPNPDOC ---
Text Note Date of Service The patient was seen on 02/13/21. NOTE Subjective: Patient is a 50-year-old male with a PMHx of KWAKU (non-compliant with CPAP), Obesity, Diagnosed with COVID19 on 01/09 who presented to the ER on 01/14 with worsening cough and shortness of breath. Patient was admitted to the hospitalist service for further evaluation and treatment. Patient was seen and examined at the bedside. Patient was seen sitting up in the bed. He was on high flow nasal cannula oxygen at 15L. . Patient denies any naus ea, vomiting, abdominal pain, diarrhea, or urinary discomfort. He reports that his breathing is doing significantly better. Denies any significant cough. Objective: Vitals (See below) General: Patient is sitting up at that adjusted the bed. He appears to be comfortable, no acute distress, is awake, alert, oriented to person, place and time HEENT: Atraumatic and normocephalic CVS: +S1S2 Lungs: Air entry appears to be fair bilaterally without any discernible crackles, wheezing or rhonchi on auscultation Abdomen: Soft, without any appreciated tenderness or distention Extremities: No edema Imaging: CXR (01/14) New hazy bilateral upper lobe infiltrates consistent with viral pneumonitis. CXR (01/20) Essentially stable chest since 01/14/2021. No acute interval process is identified. CXR (01/25) Increasing bilateral opacities. CXR (01/28) Diffuse bilateral alveolar infiltrates essentially unchanged from prior examination. Assessment and plan: Acute hypoxic respiratory failure / ARDS - likely 2/2 COVID19 pneumonia - Clinically patient has reported significant improvement in his breathing, no significant cough - s/p Vapotherm therapy; c/w High flow NC - Inflammatory markers have continued to improve - Imaging noted above - s/p Remdesivir (Complete 5 days) and Baricitinib (Completed 14 days) - c/w Dexamethasone - c/w Acapella / Incentive spirometry / Mucinex / Prone positioning - c/w PT - Anticipate discharge within his oxygen requirement has come down to 2-3 L via NC KWAKU - c/w CPAP s/p Hyperkalemia Anxiety - c/w Ativan PRN s/p Transaminitis - possibly 2/2 Hx of Hepatitis C, possibly 2/2 Medications (Remdesivir) - Based on prior records it appears that HCV RNA was undetectable on 07/15/2020 - Will have outpatient follow up with PCP BPH - c/w Tamsulosin Obesity - BMI of 28.7 - Complicating medical care GI prophylaxis - c/w Protonix DVT prophylaxis - c/w Lovenox weight-based prophylactic dosing Disposition: - Pending clinical improvement VS,Fishbone, I+O VS, Fishbone, I+O Laboratory Tests 02/13/21 07:17 Vital Signs Date Time Temp Pulse Resp B/P (MAP) Pulse Ox O2 Delivery O2 Flow Rate FiO2 02/13/21 08:00 97.2 80 19 114/75 (88) 96 High Flow Cannula 02/13/21 04:09 8.0 02/12/21 08:00 50 I&O- Last 24 Hours up to 6 AM 02/13/21 05:59 Intake Total 1500 ml Output Total 1025 ml Balance 475 ml CHRISTOPHER COLLINS MD Feb 13, 2021 11:53
[2021-02-13] MEDS: RAMELTEON 8 MG TAB (ROZEREM) PO SCH (21:24)
[2021-02-13] MEDS ORDERED: NS 500 ML IV ONE (21:25)
[2021-02-14] VITALS: BP 122/64
[2021-02-14] MEDS: ALBUTEROL 90 MCG/ACT 8GM HFA INHALER INH SCH ×4 (02:48→20:20)
[2021-02-14] MEDS: LORazepam 2 MG/ML VIAL IV PRN ×2 (03:08→20:30)
[2021-02-14 04:00] VITALS: BP 103/59
[2021-02-14 06:46] LABS: BASO % 0.2 % (0.0-1.0); EOS % 0.2 % (0.0-3.0); HEMATOCRIT 35.5 % (42.0-52.0); HEMOGLOBIN 11.4 g/dl (13.5-17.5); LYMPH # 1.8 10^3/uL (1.5-5.0); LYMPH % 14.1 % (24.0-44.0); MEAN CORPUSCULAR HEMOGLOBIN 27.1 pg (27.0-33.0); MEAN CORPUSCULAR HGB CONC 32.1 g/dl (32.0-36.5); MEAN CORPUSCULAR VOLUME 84.3 fl (80.0-96.0); MONO # 0.8 10^3/uL (0.0-0.8); PLATELET COUNT, AUTOMATED 178 10^3/uL (150-450); RED BLOOD COUNT 4.21 10^6/uL (4.30-6.10); WHITE BLOOD COUNT 12.9 10^3/uL (4.0-10.0)
[2021-02-14 07:14] LABS: ALBUMIN 2.4 GM/DL (3.2-5.2); ALT/SGPT 41 U/L (12-78); BILIRUBIN,TOTAL 0.4 MG/DL (0.2-1.0); BLOOD UREA NITROGEN 24 MG/DL (7-18); CALCIUM LEVEL 8.6 MG/DL (8.5-10.1); CARBON DIOXIDE LEVEL 27 MEQ/L (21-32); CHLORIDE LEVEL 106 MEQ/L (98-107); CREATININE FOR GFR 0.67 MG/DL (0.70-1.30); FERRITIN 623 NG/ML (26-388); GLOMERULAR FILTRATION RATE > 60.0 (>56); GLUCOSE, FASTING 109 MG/DL (70-100); MAGNESIUM LEVEL 1.9 MG/DL (1.8-2.4); POTASSIUM SERUM 4.4 MEQ/L (3.5-5.1); SODIUM LEVEL 140 MEQ/L (136-145); TOTAL PROTEIN 5.7 GM/DL (6.4-8.2)
[2021-02-14 08:00] VITALS: BP 130/76
[2021-02-14] MEDS: TAMSULOSIN 0.4 MG CAP PO SCH (08:57)
[2021-02-14] MEDS: PANTOPRAZOLE 40MG TAB (PROTONIX) PO SCH ×2 (08:57→20:30)
[2021-02-14] MEDS: ASPIRIN 81MG ENTERIC TABLET PO SCH (08:57)
[2021-02-14] MEDS: DOCUSATE SODIUM 100MG CAPSULE PO SCH ×2 (08:57→20:30)
[2021-02-14] MEDS: ENOXAPARIN 60MG/0.6ML SYRINGE (J1650 PER 10MG) SC SCH ×2 (08:57→20:30)
[2021-02-14] MEDS: dexameTHASONE 20MG/5ML VIAL (J1100 PER 1MG) IV SCH (08:58)
[2021-02-14 12:00] VITALS: BP 105/55
--- NOTE | 2021-02-14 12:55 | IPNPDOC ---
Text Note Date of Service The patient was seen on 02/14/21. NOTE Subjective: Patient is a 50-year-old male with a PMHx of KWAKU (non-compliant with CPAP), Obesity, Diagnosed with COVID19 on 01/09 who presented to the ER on 01/14 with worsening cough and shortness of breath. Patient was admitted to the hospitalist service for further evaluation and treatment. Overnight patient had received 500 mL of normal saline because his blood pressure was borderline low. Patient was seen and examined at the bedside. Currently patient notes that his breathing is doing a lot better. He feels relatively fine. Denies chest pain, cough, abdominal pain, diarrhea, or discomfort with urination. Patient denies any lightheadedness or dizziness. Objective: Vitals (See below) General: Patient is sitting up at the edge of the bed, appears comfortable, awake, alert, oriented 3 HEENT: Atraumatic and normocephalic CVS: +S1S2 Lungs: Fair bilaterally. No wheezing, rales, rhonchi Abdomen: Soft, nondistended, nontender Extremities: Lower extremities are without edema Imaging: CXR (01/14) New hazy bilateral upper lobe infiltrates consistent with viral pneumonitis. CXR (01/20) Essentially stable chest since 01/14/2021. No acute interval process is identified. CXR (01/25) Increasing bilateral opacities. CXR (01/28) Diffuse bilateral alveolar infiltrates essentially unchanged from prior examination. Assessment and plan: Acute hypoxic respiratory failure / ARDS - likely 2/2 COVID19 pneumonia - Ports breathing is doing relatively fine. No significant cough - s/p Vapotherm therapy; c/w High flow NC - slowly improving - Inflammatory markers have continued to improve - Imaging noted above - s/p Remdesivir (Complete 5 days) and Baricitinib (Completed 14 days) - c/w Dexamethasone; will reduce frequency today - c/w Acapella / Incentive spirometry / Mucinex / Prone positioning - c/w PT - Anticipate discharge within his oxygen requirement has come down to 2-3 L via NC; possibly early next week s/p Hypotension - s/p Normal saline 500cc - Encouraged increase oral hydration KWAKU - c/w CPAP s/p Hyperkalemia Anxiety - c/w Ativan PRN s/p Transaminitis - possibly 2/2 Hx of Hepatitis C, possibly 2/2 Medications (Remdesivir) - Based on prior records it appears that HCV RNA was undetectable on 07/15/2020 - Will have outpatient follow up with PCP BPH - c/w Tamsulosin Obesity - BMI of 28.7 - Complicating medical care GI prophylaxis - c/w Protonix DVT prophylaxis - c/w Lovenox weight-based prophylactic dosing Disposition: - Pending clinical improvement VS,Terrence, I+O VS, Terrence, I+O Laboratory Tests 02/14/21 06:05 Vital Signs Date Time Temp Pulse Resp B/P (MAP) Pulse Ox O2 Delivery O2 Flow Rate FiO2 02/14/21 12:00 8.0 02/14/21 08:00 97.5 94 18 130/76 (94) 94 High Flow Cannula 02/12/21 08:00 50 I&O- Last 24 Hours up to 6 AM 02/14/21 06:00 Intake Total 1450 ml Output Total 550 ml Balance 900 ml CHRISTOPHER COLLINS MD Feb 14, 2021 12:55
[2021-02-14 16:00] VITALS: BP 103/59
[2021-02-14 20:00] VITALS: BP 105/55
[2021-02-14] MEDS: RAMELTEON 8 MG TAB (ROZEREM) PO SCH (20:30)
[2021-02-15] VITALS (7 sets, daily range): BP systolic 86–128; BP diastolic 50–65
[2021-02-15] MEDS: LORazepam 2 MG/ML VIAL IV PRN ×4 (00:46→20:21)
[2021-02-15] MEDS: ALBUTEROL 90 MCG/ACT 8GM HFA INHALER INH SCH ×4 (01:10→20:33)
[2021-02-15] MEDS: DEXTROMETHORPHAN 60MG/10ML SUSP 90ML BTL(DELSYM) PO PRN (06:16)
[2021-02-15] MEDS: guaiFENesin ER 600 MG TAB PO PRN (06:16)
--- NOTE | 2021-02-15 08:42 | REP ---
INDICATION: chest pain, SOB. COMPARISON: 01/28/2021, 01/25/2021 TECHNIQUE: AP semi-erect portable FINDINGS: Slight elevation of the right diaphragm compared to the left. There are patchy bilateral infiltrates in a diffuse pattern left greater than right and increased since the prior study. No gross effusion. No pneumothorax. Cardiomediastinal silhouette and airway unchanged. Bones show no acute finding. IMPRESSION: 1. Somewhat worsening bilateral patchy infiltrates left greater than right since the 01/28/2021 prior exam. <Electronically signed by Guillermo Nguyen > 02/15/21 0817
[2021-02-15] MEDS: ENOXAPARIN 60MG/0.6ML SYRINGE (J1650 PER 10MG) SC SCH ×2 (09:31→20:21)
[2021-02-15] MEDS: DOCUSATE SODIUM 100MG CAPSULE PO SCH ×2 (09:32→20:21)
[2021-02-15] MEDS: dexameTHASONE 20MG/5ML VIAL (J1100 PER 1MG) IV SCH (09:32)
[2021-02-15] MEDS: ASPIRIN 81MG ENTERIC TABLET PO SCH (09:32)
[2021-02-15] MEDS: TAMSULOSIN 0.4 MG CAP PO SCH (09:33)
[2021-02-15] MEDS: PANTOPRAZOLE 40MG TAB (PROTONIX) PO SCH ×2 (09:33→20:21)
[2021-02-15] MEDS ORDERED: NS 500 ML IV ONE ×2 (09:35→09:40)
[2021-02-15] MEDS: ACETAMINOPHEN TAB 650MG DOSE (2X325MG) PO PRN (09:35)
[2021-02-15] MEDS ORDERED: SODIUM CHLORIDE 0.9% 1000ML IV STA (09:38)
[2021-02-15 09:41] LABS: BASO % 0.1 % (0.0-1.0); EOS # 0.1 10^3/uL (0.0-0.5); EOS % 0.8 % (0.0-3.0); HEMATOCRIT 39.8 % (42.0-52.0); HEMOGLOBIN 13.1 g/dl (13.5-17.5); LYMPH % 14.1 % (24.0-44.0); MEAN CORPUSCULAR HEMOGLOBIN 27.3 pg (27.0-33.0); MEAN CORPUSCULAR HGB CONC 32.9 g/dl (32.0-36.5); MEAN CORPUSCULAR VOLUME 82.9 fl (80.0-96.0); MONO # 0.9 10^3/uL (0.0-0.8); MONO % 6.2 % (2.0-8.0); NEUTROPHILS # 10.9 10^3/uL (1.5-8.5); NEUTROPHILS % 77.5 % (36.0-66.0); PLATELET COUNT, AUTOMATED 133 10^3/uL (150-450); WHITE BLOOD COUNT 14.1 10^3/uL (4.0-10.0)
[2021-02-15 10:23] LABS: ALBUMIN 2.6 GM/DL (3.2-5.2); ALT/SGPT 40 U/L (12-78); BILIRUBIN,TOTAL 0.7 MG/DL (0.2-1.0); BLOOD UREA NITROGEN 18 MG/DL (7-18); C REACTIVE PROTEIN QUANTITATIV 1.12 MG/DL (0.00-0.30); CALCIUM LEVEL 8.8 MG/DL (8.5-10.1); CARBON DIOXIDE LEVEL 28 MEQ/L (21-32); CHLORIDE LEVEL 102 MEQ/L (98-107); CK-MB VALUE MASS 1.1 NG/ML (<3.6); CPK CREATINE PHOSPHOKINASE 22 U/L (39-308); CREATININE FOR GFR 0.81 MG/DL (0.70-1.30); FERRITIN 709 NG/ML (26-388); GLOMERULAR FILTRATION RATE > 60.0 (>56); GLUCOSE, FASTING 79 MG/DL (70-100); MAGNESIUM LEVEL 1.7 MG/DL (1.8-2.4); POTASSIUM SERUM 3.9 MEQ/L (3.5-5.1); SODIUM LEVEL 137 MEQ/L (136-145); TROPONIN I < 0.02 NG/ML (< 0.10)
[2021-02-15] MEDS: PIPERACILLIN/TAZOBACTAM SOD 3.375 GM in D5W MINI-BAG PLUS 50 ML IV SCH ×3 (11:35→23:04)
--- NOTE | 2021-02-15 12:56 | IPNPDOC ---
Text Note Date of Service The patient was seen on 02/15/21. NOTE Subjective: Patient is a 50-year-old male with a PMHx of KWAKU (non-compliant with CPAP), Obesity, Diagnosed with COVID19 on 01/09 who presented to the ER on 01/14 with worsening cough and shortness of breath. Patient was admitted to the hospitalist service for further evaluation and treatment. Patient was seen and examined at the bedside. This morning patient was reporting chest discomfort, difficulty breathing, cough. Denies any nausea, vomiting, abd ominal pain, diarrhea, or urinary discomfort. Vitals this morning have revealed a fever, tachycardia and hypotension. Objective: Vitals (See below) General: Patient is laying on his side, appears uncomfortable, awake, alert, oriented 3 HEENT: AT, NC CVS: Tachycardic, +S1S2 Lungs: Air entry is fair bilaterally, no wheezing / rhonchi / rales Abdomen: Again, his abdomen is soft without any appreciated distention or tenderness Extremities: no edema noted Imaging: CXR(01/14 New hazy bilateral upper lobe infiltrates consistent with viral pneumonitis. CXR 01/20 Essentially stable chest since 01/14/2021. No acute interval process is identified. CXR 01/25 Increasing bilateral opacities. CXR 01/28 Diffuse bilateral alveolar infiltrates essentially unchanged from prior examination. CXR 02/15 Somewhat worsening bilateral patchy infiltrates left greater than right since the 01/28/2021 prior exam. Assessment and plan: Sepsis - possibly 2/2 HCAP - This morning patient was noted to be febrile with fever 101.1F - Patient was tachycardic / tachypneic / hypotensive - Patient has reported increased shortness of breath and a productive cough - Slight increase in leukocytosis - Will check blood cultures / UA / procalcitonin / MRSA screen - Will start sepsis bundle for IV fluid hydration - Will start broad spectrum antibiotics with Zosyn (Day #1) Acute hypoxic respiratory failure / ARDS - likely 2/2 COVID19 pneumonia, possibly 2/2 pneumonia - s/p Vapotherm therapy; c/w High flow nasal cannula oxygen - Inflammatory markers have continued to improve - Imaging noted above - s/p Remdesivir (Complete 5 days) and Baricitinib (Completed 14 days) - c/w Dexamethasone at current dosing - c/w Acapella / Incentive spirometry / Mucinex / Prone positioning - c/w PT Lactic acidosis - Will start IV fluid hydration Hypotension - Will start IV fluid hydration KWAKU - c/w CPAP s/p Hyperkalemia Anxiety - c/w Ativan PRN s/p Transaminitis - possibly 2/2 Hx of Hepatitis C, possibly 2/2 Medications (Remdesivir) - Based on prior records it appears that HCV RNA was undetectable on 07/15/2020 - Will have outpatient follow up with PCP BPH - c/w Tamsulosin Obesity - BMI of 28.7 - Complicating medical care Insomnia - c/w Ramelteon GI prophylaxis - c/w Protonix DVT prophylaxis - c/w Lovenox weight-based prophylactic dosing Disposition: - Pending clinical improvement VS,Terrence I+O VSTerrence I+O Laboratory Tests 02/15/21 09:17 Vital Signs Date Time Temp Pulse Resp B/P (MAP) Pulse Ox O2 Delivery O2 Flow Rate FiO2 02/15/21 11:39 100.1 106 20 87/50 (62) 95 High Flow Cannula 10.0 02/12/21 08:00 50 I&O- Last 24 Hours up to 6 AM 02/15/21 05:59 Intake Total 1620 ml Output Total 950 ml Balance 670 ml CHRISTOPHER COLLINS MD Feb 15, 2021 12:56
[2021-02-15 13:06] LABS: CK-MB VALUE MASS < 1.0 NG/ML (<3.6); CPK CREATINE PHOSPHOKINASE 15 U/L (39-308); MB/CK RELATIVE INDEX 6.67 (< OR =4); TROPONIN I < 0.02 NG/ML (< 0.10)
[2021-02-15] MEDS: NS 1,000 ML IV SCH ×2 (14:15→17:25)
[2021-02-15 15:50] LABS: CK-MB VALUE MASS < 1.0 NG/ML (<3.6); CPK CREATINE PHOSPHOKINASE 20 U/L (39-308); TROPONIN I < 0.02 NG/ML (< 0.10)
[2021-02-15] MEDS: RAMELTEON 8 MG TAB (ROZEREM) PO SCH (20:21)
[2021-02-16] VITALS (7 sets, daily range): BP systolic 101–123; BP diastolic 55–79; O2SAT 91
[2021-02-16] MEDS: LORazepam 2 MG/ML VIAL IV PRN ×4 (00:21→23:58)
[2021-02-16] MEDS: ALBUTEROL 90 MCG/ACT 8GM HFA INHALER INH SCH ×4 (01:32→20:21)
[2021-02-16] MEDS: PIPERACILLIN/TAZOBACTAM SOD 3.375 GM in D5W MINI-BAG PLUS 50 ML IV SCH ×4 (04:17→21:05)
[2021-02-16] MEDS: NS 1,000 ML IV SCH ×2 (04:18→15:39)
[2021-02-16 08:21] LABS: BASO % 0.1 % (0.0-1.0); EOS # 0.2 10^3/uL (0.0-0.5); HEMOGLOBIN 11.5 g/dl (13.5-17.5); LYMPH # 1.8 10^3/uL (1.5-5.0); LYMPH % 12.1 % (24.0-44.0); MEAN CORPUSCULAR HEMOGLOBIN 27.1 pg (27.0-33.0); MEAN CORPUSCULAR HGB CONC 32.9 g/dl (32.0-36.5); MEAN CORPUSCULAR VOLUME 82.5 fl (80.0-96.0); MONO # 0.9 10^3/uL (0.0-0.8); MONO % 6.1 % (2.0-8.0); NEUTROPHILS # 11.7 10^3/uL (1.5-8.5); NEUTROPHILS % 79.9 % (36.0-66.0); PLATELET COUNT, AUTOMATED 115 10^3/uL (150-450); RED BLOOD COUNT 4.24 10^6/uL (4.30-6.10); WHITE BLOOD COUNT 14.7 10^3/uL (4.0-10.0)
[2021-02-16] MEDS: dexameTHASONE 20MG/5ML VIAL (J1100 PER 1MG) IV SCH (08:38)
[2021-02-16] MEDS: ASPIRIN 81MG ENTERIC TABLET PO SCH (08:38)
[2021-02-16] MEDS: DOCUSATE SODIUM 100MG CAPSULE PO SCH ×2 (08:38→21:05)
[2021-02-16] MEDS: ACETAMINOPHEN TAB 650MG DOSE (2X325MG) PO PRN (08:40)
[2021-02-16] MEDS: TAMSULOSIN 0.4 MG CAP PO SCH (08:40)
[2021-02-16] MEDS: PANTOPRAZOLE 40MG TAB (PROTONIX) PO SCH ×2 (08:40→21:05)
[2021-02-16] MEDS: ENOXAPARIN 60MG/0.6ML SYRINGE (J1650 PER 10MG) SC SCH ×2 (08:41→21:05)
[2021-02-16 08:42] LABS: BLOOD UREA NITROGEN 10 MG/DL (7-18); CALCIUM LEVEL 8.4 MG/DL (8.5-10.1); CARBON DIOXIDE LEVEL 27 MEQ/L (21-32); CHLORIDE LEVEL 106 MEQ/L (98-107); CREATININE FOR GFR 0.66 MG/DL (0.70-1.30); GLOMERULAR FILTRATION RATE > 60.0 (>56); GLUCOSE, FASTING 89 MG/DL (70-100); POTASSIUM SERUM 3.8 MEQ/L (3.5-5.1); SODIUM LEVEL 138 MEQ/L (136-145)
[2021-02-16 08:43] LABS: ALBUMIN 2.2 GM/DL (3.2-5.2); ALT/SGPT 40 U/L (12-78); BILIRUBIN,TOTAL 0.9 MG/DL (0.2-1.0); MAGNESIUM LEVEL 1.9 MG/DL (1.8-2.4); TOTAL PROTEIN 5.6 GM/DL (6.4-8.2)
--- NOTE | 2021-02-16 12:18 | IPNPDOC ---
Text Note Date of Service The patient was seen on 02/16/21. NOTE Subjective: Patient is a 50-year-old male with a PMHx of KWAKU (non-compliant with CPAP), Obesity, Diagnosed with COVID19 on 01/09 who presented to the ER on 01/14 with worsening cough and shortness of breath. Patient was admitted to the hospitalist service for further evaluation and treatment. Patient was seen and examined at the bedside. Currently, patient was that he feels better than he did yesterday. Reports some left-sided pleuritic chest pain. Reports some shortness breath and a productive cough. Denies any nausea, vomiting, abdominal pain, diarrhea, or urinary discomfort. Objective: Vitals (See below) General: Sitting up at the edge of the beneficiary without any acute distress, is awake, alert and oriented to person, place HEENT: Atraumatic, normocephalic CVS: +S1S2 Lungs: Left lung field is some crackles, but no rhonchi or wheezing Abdomen: Abdomen is soft without any distention or tenderness Extremities: LE do not reveal any significant edema Imaging: CXR(01/14 New hazy bilateral upper lobe infiltrates consistent with viral pneumonitis. CXR 01/20 Essentially stable chest since 01/14/2021. No acute interval process is identified. CXR 01/25 Increasing bilateral opacities. CXR 01/28 Diffuse bilateral alveolar infiltrates essentially unchanged from prior examination. CXR 02/15 Somewhat worsening bilateral patchy infiltrates left greater than right since the 01/28/2021 prior exam. Assessment and plan: Sepsis - possibly 2/2 HCAP - Afebrile since yesterday; Tmax yesterday of 101.1F - Patient has reported increased shortness of breath and a productive cough - Leukocytosis / Elevated CRP - Blood cultures 02/15: no growth at 24 hours - PCT elevated - UA negative / MRSA negative - Imaging noted above - Will get CT chest today to evaluate - s/p Sepsis fluid bolus; c/w current IV fluids - c/w Zosyn (Day #2) Acute hypoxic respiratory failure / ARDS - likely 2/2 COVID19 pneumonia, possibly 2/2 pneumonia - s/p Vapotherm therapy; c/w High flow nasal cannula oxygen - Inflammatory markers have continued to improve - Imaging noted above - s/p Remdesivir (Complete 5 days) and Baricitinib (Completed 14 days) - c/w Dexamethasone at current dosing - c/w Acapella / Incentive spirometry / Mucinex / Prone positioning - c/w PT s/p Lactic acidosis - c/w IV fluid hydration s/p Hypotension - c/w IV fluid hydration KWAKU - c/w CPAP s/p Hyperkalemia Anxiety - c/w Ativan PRN s/p Transaminitis - possibly 2/2 Hx of Hepatitis C, possibly 2/2 Medications (Remdesivir) - Based on prior records it appears that HCV RNA was undetectable on 07/15/2020 - Will have outpatient follow up with PCP BPH - c/w Tamsulosin Obesity - BMI of 28.7 - Complicating medical care Insomnia - c/w Ramelteon GI prophylaxis - c/w Protonix DVT prophylaxis - c/w Lovenox weight-based prophylactic dosing Disposition: - Pending clinical improvement VS,Nataliobone, I+O VS, Fishbone, I+O Laboratory Tests 02/16/21 07:55 Vital Signs Date Time Temp Pulse Resp B/P (MAP) Pulse Ox O2 Delivery O2 Flow Rate FiO2 02/16/21 08:03 91 Nasal Cannula 10.0 02/16/21 04:00 98.0 95 22 105/60 (75) 02/12/21 08:00 50 I&O- Last 24 Hours up to 6 AM 02/16/21 05:59 Intake Total 1725 ml Output Total 475 ml Balance 1250 ml CHRISTOPHER COLLINS MD Feb 16, 2021 12:18
[2021-02-16] MEDS ORDERED: ISOVUE-370 76% 100ML VIAL As Ordered ONE (12:28)
--- NOTE | 2021-02-16 13:46 | REP ---
INDICATION: Hypxoia / Fevers / Elevated D-dimers COMPARISON: 01/12/2021 TECHNIQUE: CT angiography of the chest after the intravenous administration of 75 cc Isovue 370 attention pulmonary arteries. FINDINGS: There is suboptimal opacification of the pulmonary arterial system. Small and moderate pulmonary emboli cannot be ruled out. The thoracic aorta is unchanged. There is adenopathy status quo. No pleural or pericardial effusions have developed. There is no change in the imaged upper abdomen or imaged osseous structures. Evaluation of the lung willis shows extensive interstitial and airspace opacities throughout the lung willis with air bronchograms and bronchiectasis. This has increased compared to the prior exam rather extensively. IMPRESSION: 1. The examination is suboptimal in evaluating for pulmonary emboli as described above. Consider repeat exam if clinically relevant. 2. Extensive worsening in lung disease as described above. <Electronically signed by Dung Yanez > 02/16/21 [id number]
[2021-02-16] MEDS: RAMELTEON 8 MG TAB (ROZEREM) PO SCH (21:05)
[2021-02-17] VITALS: BP 118/73
[2021-02-17] MEDS: ALBUTEROL 90 MCG/ACT 8GM HFA INHALER INH SCH ×4 (01:14→19:38)
[2021-02-17] MEDS: LORazepam 2 MG/ML VIAL IV PRN ×2 (01:48→21:16)
[2021-02-17 04:00] VITALS: BP 128/68
[2021-02-17] MEDS: PIPERACILLIN/TAZOBACTAM SOD 3.375 GM in D5W MINI-BAG PLUS 50 ML IV SCH ×4 (05:00→21:16)
[2021-02-17 06:08] LABS: BASO % 0.1 % (0.0-1.0); EOS # 0.1 10^3/uL (0.0-0.5); EOS % 0.9 % (0.0-3.0); HEMATOCRIT 32.2 % (42.0-52.0); HEMOGLOBIN 10.6 g/dl (13.5-17.5); LYMPH # 1.9 10^3/uL (1.5-5.0); LYMPH % 17.9 % (24.0-44.0); MEAN CORPUSCULAR HEMOGLOBIN 27.5 pg (27.0-33.0); MEAN CORPUSCULAR HGB CONC 32.9 g/dl (32.0-36.5); MEAN CORPUSCULAR VOLUME 83.4 fl (80.0-96.0); MONO # 0.6 10^3/uL (0.0-0.8); MONO % 5.3 % (2.0-8.0); NEUTROPHILS # 7.9 10^3/uL (1.5-8.5); PLATELET COUNT, AUTOMATED 108 10^3/uL (150-450); RED BLOOD COUNT 3.86 10^6/uL (4.30-6.10); WHITE BLOOD COUNT 10.5 10^3/uL (4.0-10.0)
[2021-02-17 06:23] LABS: BLOOD UREA NITROGEN 9 MG/DL (7-18); CARBON DIOXIDE LEVEL 25 MEQ/L (21-32); CHLORIDE LEVEL 109 MEQ/L (98-107); CREATININE FOR GFR 0.63 MG/DL (0.70-1.30); GLOMERULAR FILTRATION RATE > 60.0 (>56); GLUCOSE, FASTING 97 MG/DL (70-100); MAGNESIUM LEVEL 2.1 MG/DL (1.8-2.4); POTASSIUM SERUM 3.5 MEQ/L (3.5-5.1); SODIUM LEVEL 142 MEQ/L (136-145)
[2021-02-17 08:11] VITALS: BP 124/76
[2021-02-17] MEDS: dexameTHASONE 20MG/5ML VIAL (J1100 PER 1MG) IV SCH (08:13)
[2021-02-17] MEDS: ENOXAPARIN 60MG/0.6ML SYRINGE (J1650 PER 10MG) SC SCH ×2 (08:13→21:15)
[2021-02-17] MEDS: DOCUSATE SODIUM 100MG CAPSULE PO SCH ×2 (08:14→21:15)
[2021-02-17] MEDS: PANTOPRAZOLE 40MG TAB (PROTONIX) PO SCH ×2 (08:14→21:15)
[2021-02-17] MEDS: TAMSULOSIN 0.4 MG CAP PO SCH (08:14)
[2021-02-17] MEDS: ASPIRIN 81MG ENTERIC TABLET PO SCH (08:14)
[2021-02-17] MEDS ORDERED: CHLORHEXIDINE GLUCONATE 0.12 % 15ML UDC (PERIDEX ORAL RINSE) MT SCH (09:00)
[2021-02-17 11:50] VITALS: BP 108/67
--- NOTE | 2021-02-17 12:00 | IPNPDOC ---
Text Note Date of Service The patient was seen on 02/17/21. NOTE Subjective: Patient is a 50-year-old male who has been being treated for COVID- 19 when he was diagnosed on January 09, 2021 and presented to the emergency department January 6009 with worsening cough and shortness of breath. Patient states that he is feeling better. Patient did had to be transferred to the ICU for possible sepsis most likely secondary to a bacterial pneumonia. Patient states he is feeling better at this time. Review of systems: General: Patient denies fevers HEENT: Patient denies headaches Cardiovascular: Patient denies chest pain Respiratory: Patient reports improvement in shortness of breath. Patient also reports productive cough GI: Patient denies abdominal pain, nausea, vomiting, diarrhea : Patient denies increased frequency or pain with urination Extremities: Patient denies swelling or pain in extremities Neurological: Patient denies numbness or tingling in legs Physical exam: Vitals: See below General: Alert and oriented male patient who was sitting in the bedside chair with nasal cannula oxygen in place when I walked in. Patient did not appear to be in any acute distress. HEENT: Normocephalic, atraumatic, moist mucous membranes. Neck: No lymphadenopathy or thyromegaly Cardiac: Regular rate and rhythm, no murmurs, normal S1, normal S2 Pulm: Fine bibasilar crackles diminished breath sounds Abd: Nondistended, nontender to palpation, normal bowel sounds Ext: No edema bilateral lower extremities Labs: See below Imaging: CT angiogram of the chest performed on 02/16/2021 is reported to show the examination is suboptimal in evaluating for pulmonary emboli. Consider repeat exam clinically relevant. Extensive worsening of lung disease described as extensive interstitial and airspace opacities throughout the lung willis with air bronchograms and bronchiectasis. Increased compared to prior exam rather extensively. Assessment/plan: 50-year-old male presented to the hospital initially for with COVID-19 was diagnosed with acute hypoxic respiratory failure likely secondary to ARDS secondary to COVID-19 who worsened most likely had a bacterial pneumonia on top of COVID-19 1. Sepsis, possibly secondary to healthcare associated pneumonia. Afebrile for the last [address] chest does show worsening of airspace disease. Continue with current IV fluids and continue with IV Zosyn. Today is day 3 of Zosyn continue for 7 days of treatment. 2. Acute hypoxic respiratory failure likely secondary to COVID-19 pneumonia likely worsened by possible pneumonia. Patient is currently on high flow nasal cannula. Status post full remdesivir and baricitinib treatment. Continue dexamethasone at current dosing. Continue with Acapella and incentive spirometer. 3. Status post lactic acidosis. Continue IV fluid hydration. 4. Status post hypotension. Continue with IV fluid hydration. 5. KWAKU. Continue CPAP at night. 6. Status post hyperkalemia, resolved. 7. Anxiety. Continue Ativan as needed 8. Status post transaminitis. Possibly secondary to COVID-19, possibly secondary to medications. Will need follow-up outpatient. 9. BPH continue with tamsulosin. 10. Insomnia. Continue home LDL. 11. GI prophylaxis continue Protonix DVT Prophylaxis: Lovenox Disposition: Pending clinical improvement VS,Terrence, I+O VS, Terrence, I+O Laboratory Tests 02/17/21 05:53 Vital Signs Date Time Temp Pulse Resp B/P (MAP) Pulse Ox O2 Delivery O2 Flow Rate FiO2 02/17/21 08:11 97.1 89 24 124/76 (92) 91 High Flow Cannula 10.0 02/12/21 08:00 50 l I&O- Last 24 Hours up to 6 AM 02/17/21 05:59 Intake Total 2040 ml Output Total 3125 ml Balance -1085 ml ANITA SANTANA DO Feb 17, 2021 12:00
[2021-02-17 17:04] VITALS: BP 110/72
[2021-02-17 20:00] VITALS: BP 120/80
[2021-02-17] MEDS: RAMELTEON 8 MG TAB (ROZEREM) PO SCH (21:15)
[2021-02-18] VITALS: BP 122/74
[2021-02-18] MEDS: LORazepam 2 MG/ML VIAL IV PRN ×2 (00:48→21:56)
[2021-02-18] MEDS: ALBUTEROL 90 MCG/ACT 8GM HFA INHALER INH SCH ×4 (02:00→19:44)
[2021-02-18] MEDS: PIPERACILLIN/TAZOBACTAM SOD 3.375 GM in D5W MINI-BAG PLUS 50 ML IV SCH (05:00)
[2021-02-18 05:05] LABS: BASO % 0.1 % (0.0-1.0); EOS # 0.2 10^3/uL (0.0-0.5); EOS % 2.2 % (0.0-3.0); HEMATOCRIT 33.5 % (42.0-52.0); HEMOGLOBIN 11.1 g/dl (13.5-17.5); LYMPH # 2.3 10^3/uL (1.5-5.0); LYMPH % 27.2 % (24.0-44.0); MEAN CORPUSCULAR HEMOGLOBIN 27.7 pg (27.0-33.0); MEAN CORPUSCULAR HGB CONC 33.1 g/dl (32.0-36.5); MEAN CORPUSCULAR VOLUME 83.5 fl (80.0-96.0); MONO # 0.6 10^3/uL (0.0-0.8); MONO % 6.7 % (2.0-8.0); NEUTROPHILS # 5.4 10^3/uL (1.5-8.5); NEUTROPHILS % 63.1 % (36.0-66.0); PLATELET COUNT, AUTOMATED 117 10^3/uL (150-450); RED BLOOD COUNT 4.01 10^6/uL (4.30-6.10); WHITE BLOOD COUNT 8.6 10^3/uL (4.0-10.0)
[2021-02-18 06:00] VITALS: BP 112/70
[2021-02-18 07:36] LABS: BLOOD UREA NITROGEN 15 MG/DL (7-18); C REACTIVE PROTEIN QUANTITATIV 5.08 MG/DL (0.00-0.30); CALCIUM LEVEL 8.6 MG/DL (8.5-10.1); CARBON DIOXIDE LEVEL 26 MEQ/L (21-32); CHLORIDE LEVEL 109 MEQ/L (98-107); GLOMERULAR FILTRATION RATE > 60.0 (>56); GLUCOSE, FASTING 84 MG/DL (70-100); MAGNESIUM LEVEL 2.1 MG/DL (1.8-2.4); POTASSIUM SERUM 3.7 MEQ/L (3.5-5.1); SODIUM LEVEL 142 MEQ/L (136-145)
[2021-02-18 08:05] VITALS: BP 124/77
[2021-02-18] MEDS: dexameTHASONE 20MG/5ML VIAL (J1100 PER 1MG) IV SCH (08:07)
[2021-02-18] MEDS: guaiFENesin ER 600 MG TAB PO PRN (08:07)
[2021-02-18] MEDS: ASPIRIN 81MG ENTERIC TABLET PO SCH (08:07)
[2021-02-18] MEDS: PANTOPRAZOLE 40MG TAB (PROTONIX) PO SCH ×2 (08:07→21:56)
[2021-02-18] MEDS: TAMSULOSIN 0.4 MG CAP PO SCH (08:07)
[2021-02-18] MEDS: DOCUSATE SODIUM 100MG CAPSULE PO SCH ×2 (08:07→21:56)
[2021-02-18] MEDS: ENOXAPARIN 60MG/0.6ML SYRINGE (J1650 PER 10MG) SC SCH ×2 (08:08→21:56)
[2021-02-18] MEDS ORDERED: SODIUM CHLORIDE NASAL 0.65% SPRAY BTL (OCEAN) PRN (12:25)
[2021-02-18 12:28] VITALS: BP 110/62
[2021-02-18] MEDS: LevoFLOXacin 750 MG TABLET PO SCH (12:28)
--- NOTE | 2021-02-18 17:48 | IPNPDOC ---
Text Note Date of Service The patient was seen on 02/18/21. NOTE Subjective: Patient 50-year-old male's been treated for COVID-19 when he was diagnosed in 01/09/2021 presented the emergency department on January 14, 2021 with worsening cough and shortness of breath. Patient had a transfer to the ICU for possible sepsis secondary to bacterial pneumonia. Patient is feeling better at this time. Review of systems: General: Patient denies fevers HEENT: Patient denies headaches Cardiovascular: Patient denies chest pain Respiratory: Patient denies shortness of breath at rest, reports shortness of breath with mild exertion. Patient also reports productive cough GI: Patient denies abdominal pain, nausea, vomiting, diarrhea : Patient denies increased frequency or pain with urination Extremities: Patient denies swelling or pain in extremities Neurological: Patient denies numbness or tingling in legs Physical exam: Vitals: See below General: Alert and oriented male patient who sitting bedside chair with nasal cannula oxygen in place when I walked in. Patient not appear to be in any acute distress. HEENT: Normocephalic, atraumatic, moist mucous membranes. Neck: No lymphadenopathy or thyromegaly Cardiac: Regular rate and rhythm, no murmurs, normal S1, normal S2 Pulm: Diminished breath sounds bilaterally Abd: Nondistended, nontender to palpation, normal bowel sounds Ext: No edema bilateral lower extremities Labs: See below Imaging: No new imaging is been performed Assessment/plan: 50-year-old male presented to hospital initially with COVID-19 and developed acute hypoxic respiratory failure secondary to ARDS secondary to COVID-19 worsened likely secondary bacterial pneumonia. 1. Sepsis most likely secondary to healthcare associated pneumonia. Afebrile for the last 3 days. Continue with IV fluids and antibiotics. Zosyn has been changed to p.o. Levaquin. 2. Acute hypoxia respiratory failure likely secondary to COVID-19 pneumonia likely worsened by possible bacterial pneumonia. Continue high flow nasal can nula and wean as necessary. Patient completed full remdesivir and baricitinib treatment. 3. Status post lactic acidosis. IV fluid hydration will be stopped. 4. Status post hypotension. IV fluid hydration was stopped at this time. 5. KWAKU. Continue CPAP at night. 6. Hyperkalemia, resolved. 7. Anxiety. Continue Ativan as needed. 8. Transaminitis, improved. Will need outpatient follow-up. 9. BPH. Continue tamsulosin. 10. Insomnia. Continue ramelteon 11. GI prophylaxis with Protonix DVT Prophylaxis: Lovenox Disposition: Pending clinical improvement Terrence DOMINGUEZ, I+O Terrence DOMINGUEZ, I+O Laboratory Tests 02/18/21 04:51 Vital Signs Date Time Temp Pulse Resp B/P (MAP) Pulse Ox O2 Delivery O2 Flow Rate FiO2 02/18/21 12:28 96.7 92 26 110/62 (78) 92 High Flow Cannula 8.0 02/12/21 08:00 50 I&O- Last 24 Hours up to 6 AM 02/18/21 06:00 Intake Total 1270 ml Output Total 1575 ml Balance -305 ml ANITA SANTANA DO Feb 18, 2021 17:48
[2021-02-18 21:00] VITALS: BP 120/79
[2021-02-18] MEDS: RAMELTEON 8 MG TAB (ROZEREM) PO SCH (21:56)
[2021-02-19] VITALS: BP 118/79
[2021-02-19] MEDS: ALBUTEROL 90 MCG/ACT 8GM HFA INHALER INH SCH ×4 (02:33→19:57)
[2021-02-19 04:00] VITALS: BP 116/73
[2021-02-19] MEDS: LORazepam 2 MG/ML VIAL IV PRN ×2 (04:05→21:57)
[2021-02-19 04:57] LABS: BASO % 0.1 % (0.0-1.0); EOS # 0.2 10^3/uL (0.0-0.5); EOS % 2.3 % (0.0-3.0); HEMATOCRIT 34.7 % (42.0-52.0); HEMOGLOBIN 11.3 g/dl (13.5-17.5); LYMPH # 2.6 10^3/uL (1.5-5.0); LYMPH % 29.5 % (24.0-44.0); MEAN CORPUSCULAR HEMOGLOBIN 27.2 pg (27.0-33.0); MEAN CORPUSCULAR HGB CONC 32.6 g/dl (32.0-36.5); MEAN CORPUSCULAR VOLUME 83.6 fl (80.0-96.0); MONO # 0.6 10^3/uL (0.0-0.8); MONO % 7.1 % (2.0-8.0); NEUTROPHILS # 5.4 10^3/uL (1.5-8.5); NEUTROPHILS % 60.2 % (36.0-66.0); PLATELET COUNT, AUTOMATED 127 10^3/uL (150-450); RED BLOOD COUNT 4.15 10^6/uL (4.30-6.10)
[2021-02-19 05:33] LABS: BLOOD UREA NITROGEN 12 MG/DL (7-18); C REACTIVE PROTEIN QUANTITATIV 2.15 MG/DL (0.00-0.30); CALCIUM LEVEL 8.6 MG/DL (8.5-10.1); CARBON DIOXIDE LEVEL 27 MEQ/L (21-32); CHLORIDE LEVEL 107 MEQ/L (98-107); CREATININE FOR GFR 0.69 MG/DL (0.70-1.30); GLOMERULAR FILTRATION RATE > 60.0 (>56); GLUCOSE, FASTING 83 MG/DL (70-100); MAGNESIUM LEVEL 1.8 MG/DL (1.8-2.4); POTASSIUM SERUM 3.8 MEQ/L (3.5-5.1); SODIUM LEVEL 140 MEQ/L (136-145)
[2021-02-19] MEDS: LevoFLOXacin 750 MG TABLET PO SCH (06:41)
[2021-02-19] MEDS: TAMSULOSIN 0.4 MG CAP PO SCH (08:54)
[2021-02-19] MEDS: ENOXAPARIN 60MG/0.6ML SYRINGE (J1650 PER 10MG) SC SCH ×2 (08:54→21:58)
[2021-02-19] MEDS: dexameTHASONE 20MG/5ML VIAL (J1100 PER 1MG) IV SCH (08:55)
[2021-02-19] MEDS: ACETAMINOPHEN TAB 650MG DOSE (2X325MG) PO PRN (08:55)
[2021-02-19] MEDS: PANTOPRAZOLE 40MG TAB (PROTONIX) PO SCH ×2 (08:55→21:57)
[2021-02-19] MEDS: DOCUSATE SODIUM 100MG CAPSULE PO SCH ×2 (08:55→21:57)
[2021-02-19] MEDS: ASPIRIN 81MG ENTERIC TABLET PO SCH (08:56)
[2021-02-19 10:00] VITALS: BP 102/66
[2021-02-19 12:00] VITALS: BP 105/62
--- NOTE | 2021-02-19 12:51 | IPNPDOC ---
Text Note Date of Service The patient was seen on 02/19/21. NOTE Subjective: 50-year-old male has been treated for COVID-19 when he was diagnosed on 01/09/2021. Patient presented the emergency department on 01/14/2021 with worsening cough and shortness of breath. Patient had recently transferred to the intensive care unit due to sepsis from most likely secondary to bacterial pneumonia. Patient is feeling much better today. Review of systems: General: Patient denies fevers HEENT: Patient denies headaches Cardiovascular: Patient denies chest pain Respiratory: Patient does report shortness of breath with exertion but denies any shortness of breath with rest. GI: Patient denies abdominal pain, nausea, vomiting, diarrhea : Patient denies increased frequency or pain with urination Extremities: Patient denies swelling or pain in extremities Neurological: Patient denies numbness or tingling in legs Physical exam: Vitals: See below General: Alert and oriented male patient lying in bed with nasal cannula oxygen in place when I walked in. Patient not appear to be in any acute distress. HEENT: Normocephalic, atraumatic, moist mucous membranes. Neck: No lymphadenopathy or thyromegaly Cardiac: Regular rate and rhythm, no murmurs, normal S1, normal S2 Pulm: Diminished breath sounds bilaterally Abd: Nondistended, nontender to palpation, normal bowel sounds Ext: No edema bilateral lower extremities Labs: See below Imaging: No new imaging is been performed Assessment/plan: 50-year-old male presented to hospital initially with COVID-19 developed acute hypoxic respiratory failure secondary to ARDS secondary to COVID-19 worsened most likely by bacterial pneumonia. 1. Sepsis secondary to healthcare associated pneumonia. Afebrile for last 4 days. Zosyn has been changed to p.o. Levaquin. IV fluids have been stopped at this time. 2. Acute hypoxic respiratory failure secondary to COVID-19 pneumonia likely worsened by bacterial pneumonia. Continue high flow nasal cannula and wean as necessary. Patient is completed full remdesivir and baricitinib treatment. 3. Status post lactic acidosis. IV fluid hydration will be stopped. 4. Status post hypotension. IV fluid hydration has been stopped. 5. KWAKU. Continue CPAP at night. 6. Hyperkalemia, resolved. Continue to monitor. 7. Anxiety. Continue Ativan as needed. 8. Transaminitis, improved. Will need outpatient follow-up. 9. BPH. Continue tamsulosin. 10. Insomnia. Continue ramelteon. 11. GI prophylaxis Protonix DVT Prophylaxis: Lovenox Disposition: Pending clinical improvement, possible discharge sometime next week with home oxygen VS,Fishbone, I+O VS, Fishbone, I+O Laboratory Tests 02/19/21 04:47 Vital Signs Date Time Temp Pulse Resp B/P (MAP) Pulse Ox O2 Delivery O2 Flow Rate FiO2 02/19/21 04:00 8.0 02/19/21 04:00 98.0 79 22 116/73 (87) 97 NIPPV (BIPAP/CPAP) I&O- Last 24 Hours up to 6 AM 02/19/21 05:59 Intake Total 840 ml Output Total 2225 ml Balance -1385 ml ANITA SANTANA DO Feb 19, 2021 12:51
[2021-02-19 17:00] VITALS: BP 107/75
[2021-02-19 20:49] VITALS: BP 99/58
[2021-02-19] MEDS: RAMELTEON 8 MG TAB (ROZEREM) PO SCH (21:57)
[2021-02-20] MEDS: ALBUTEROL 90 MCG/ACT 8GM HFA INHALER INH SCH ×4 (02:17→20:18)
[2021-02-20] MEDS: LORazepam 2 MG/ML VIAL IV PRN ×2 (02:37→20:49)
[2021-02-20 05:36] VITALS: BP 100/59
[2021-02-20 08:14] LABS: BASO % 0.4 % (0.0-1.0); EOS # 0.2 10^3/uL (0.0-0.5); EOS % 2.7 % (0.0-3.0); HEMATOCRIT 38.2 % (42.0-52.0); HEMOGLOBIN 12.5 g/dl (13.5-17.5); LYMPH # 2.4 10^3/uL (1.5-5.0); LYMPH % 28.1 % (24.0-44.0); MEAN CORPUSCULAR HEMOGLOBIN 27.3 pg (27.0-33.0); MEAN CORPUSCULAR HGB CONC 32.7 g/dl (32.0-36.5); MEAN CORPUSCULAR VOLUME 83.4 fl (80.0-96.0); MONO # 0.6 10^3/uL (0.0-0.8); NEUTROPHILS # 5.1 10^3/uL (1.5-8.5); NEUTROPHILS % 60.5 % (36.0-66.0); PLATELET COUNT, AUTOMATED 147 10^3/uL (150-450); RED BLOOD COUNT 4.58 10^6/uL (4.30-6.10); WHITE BLOOD COUNT 8.4 10^3/uL (4.0-10.0)
[2021-02-20 08:28] LABS: BLOOD UREA NITROGEN 17 MG/DL (7-18); CALCIUM LEVEL 9.3 MG/DL (8.5-10.1); CARBON DIOXIDE LEVEL 26 MEQ/L (21-32); CHLORIDE LEVEL 105 MEQ/L (98-107); GLOMERULAR FILTRATION RATE > 60.0 (>56); GLUCOSE, FASTING 86 MG/DL (70-100); POTASSIUM SERUM 4.3 MEQ/L (3.5-5.1); SODIUM LEVEL 138 MEQ/L (136-145)
[2021-02-20] MEDS: ASPIRIN 81MG ENTERIC TABLET PO SCH (10:15)
[2021-02-20] MEDS: PANTOPRAZOLE 40MG TAB (PROTONIX) PO SCH ×2 (10:15→20:50)
[2021-02-20] MEDS: DOCUSATE SODIUM 100MG CAPSULE PO SCH ×2 (10:16→20:50)
[2021-02-20] MEDS: dexameTHASONE 20MG/5ML VIAL (J1100 PER 1MG) IV SCH (10:16)
[2021-02-20] MEDS: TAMSULOSIN 0.4 MG CAP PO SCH (10:16)
[2021-02-20] MEDS: ENOXAPARIN 60MG/0.6ML SYRINGE (J1650 PER 10MG) SC SCH ×2 (10:18→20:49)
[2021-02-20] MEDS: LevoFLOXacin 750 MG TABLET PO SCH (10:25)
[2021-02-20 14:00] VITALS: BP 102/62
--- NOTE | 2021-02-20 17:31 | IPNPDOC ---
Text Note Date of Service The patient was seen on 02/20/21. NOTE Subjective: Patient is a 50-year-old male who was treated for COVID-19 after being admitted on 01/14/2021 with worsening cough and shortness of breath. Patient has now been transferred out of the intensive care unit to the medical surgical floor and is off Covid precautions. Patient says that his breathing is better today but he is still on 8 L of oxygen via nasal cannula. Patient is otherwise in good spirits and is not having other complaints today. Review of systems: General: Patient denies fevers HEENT: Patient denies headaches Cardiovascular: Patient denies chest pain Respiratory: Patient reports shortness of breath with exertion but denies shortness of breath at rest GI: Patient denies abdominal pain, nausea, vomiting, diarrhea : Patient denies increased frequency or pain with urination Extremities: Patient denies swelling or pain in extremities Neurological: Patient denies numbness or tingling in legs Physical exam: Vitals: See below General: Alert and oriented male patient who was sitting up in bed eating breakfast when I walked in. Patient not appear to be in any acute distress. HEENT: Normocephalic, atraumatic, moist mucous membranes. Neck: No lymphadenopathy or thyromegaly Cardiac: Regular rate and rhythm, no murmurs, normal S1, normal S2 Pulm: Diminished breath sounds bilaterally Abd: Nondistended, nontender to palpation, normal bowel sounds Ext: No edema bilateral lower extremities Labs: See below Imaging: No new imaging been performed Assessment/plan: 50-year-old male presented to hospital initially with COVID-19 developed acute hypoxic respiratory failure second ARDS secondary to COVID-19 worsened most likely by bacterial pneumonia who was also found to have adenovirus on respiratory panel performed yesterday. 1. Sepsis secondary to healthcare associated pneumonia. Afebrile for the last 5 days. On p.o. Levaquin. IV fluids stopped at this time. We will continue to monitor. 2. Acute hypoxic respiratory failure secondary to COVID-19 pneumonia likely worsened by bacterial pneumonia likely worsened possibly by adenovirus infection. Patient is on 8 L of nasal cannula oxygen at this time. We will continue to monitor and treat symptomatically. Patient was completed full course of remdesivir and baricitinib. 3. Status post lactic acidosis. 4. Status post hypotension. 5. KWAKU. Continue CPAP at night. 6. Hyperkalemia, resolved. Continue to monitor. 7. Continue Ativan as needed. 8. Transaminitis, improved. Will need outpatient follow-up. Continue to monitor. 9. BPH. Continue tamsulosin. 10. Insomnia. Continue ramelteon. 11. GI prophylaxis with Protonix. 12. Adenovirus. This is found on respiratory panel that was performed yesterday. Continue symptomatic treatment. DVT Prophylaxis: Lovenox Disposition: Pending clinical improvement Terrence DOMINGUEZ I+O VSTerrence I+O Laboratory Tests 02/20/21 07:16 Vital Signs Date Time Temp Pulse Resp B/P (MAP) Pulse Ox O2 Delivery O2 Flow Rate FiO2 02/20/21 14:00 98.3 91 18 102/62 (75) 94 02/20/21 11:00 8.0 02/20/21 05:36 NIPPV (BIPAP/CPAP) I&O- Last 24 Hours up to 6 AM 02/20/21 06:00 Intake Total 1820 ml Output Total 1300 ml Balance 520 ml ANITA SANTANA DO Feb 20, 2021 17:31
[2021-02-20] MEDS: RAMELTEON 8 MG TAB (ROZEREM) PO SCH (20:50)
[2021-02-20 21:56] VITALS: BP 100/61
[2021-02-21] MEDS: LORazepam 2 MG/ML VIAL IV PRN ×2 (02:22→22:18)
[2021-02-21] MEDS: ALBUTEROL 90 MCG/ACT 8GM HFA INHALER INH SCH ×4 (02:36→20:53)
[2021-02-21 06:00] VITALS: BP 106/52
[2021-02-21] MEDS: LevoFLOXacin 750 MG TABLET PO SCH (08:25)
[2021-02-21] MEDS: ASPIRIN 81MG ENTERIC TABLET PO SCH (08:25)
[2021-02-21] MEDS: ENOXAPARIN 60MG/0.6ML SYRINGE (J1650 PER 10MG) SC SCH ×2 (08:25→20:50)
[2021-02-21] MEDS: TAMSULOSIN 0.4 MG CAP PO SCH (08:25)
[2021-02-21] MEDS: dexameTHASONE 20MG/5ML VIAL (J1100 PER 1MG) IV SCH (08:25)
[2021-02-21] MEDS: DOCUSATE SODIUM 100MG CAPSULE PO SCH ×2 (08:25→20:49)
[2021-02-21] MEDS: PANTOPRAZOLE 40MG TAB (PROTONIX) PO SCH ×2 (08:25→20:49)
[2021-02-21 08:30] LABS: BASO % 0.3 % (0.0-1.0); EOS # 0.2 10^3/uL (0.0-0.5); EOS % 3.4 % (0.0-3.0); HEMATOCRIT 38.9 % (42.0-52.0); HEMOGLOBIN 12.6 g/dl (13.5-17.5); LYMPH % 29.8 % (24.0-44.0); MEAN CORPUSCULAR HEMOGLOBIN 26.9 pg (27.0-33.0); MEAN CORPUSCULAR HGB CONC 32.4 g/dl (32.0-36.5); MEAN CORPUSCULAR VOLUME 83.1 fl (80.0-96.0); MONO # 0.5 10^3/uL (0.0-0.8); NEUTROPHILS # 3.9 10^3/uL (1.5-8.5); NEUTROPHILS % 57.6 % (36.0-66.0); PLATELET COUNT, AUTOMATED 142 10^3/uL (150-450); RED BLOOD COUNT 4.68 10^6/uL (4.30-6.10); WHITE BLOOD COUNT 6.8 10^3/uL (4.0-10.0)
[2021-02-21 08:47] LABS: BLOOD UREA NITROGEN 16 MG/DL (7-18); C REACTIVE PROTEIN QUANTITATIV 0.98 MG/DL (0.00-0.30); CARBON DIOXIDE LEVEL 29 MEQ/L (21-32); CHLORIDE LEVEL 103 MEQ/L (98-107); CREATININE FOR GFR 0.79 MG/DL (0.70-1.30); GLOMERULAR FILTRATION RATE > 60.0 (>56); GLUCOSE, FASTING 81 MG/DL (70-100); POTASSIUM SERUM 4.1 MEQ/L (3.5-5.1); SODIUM LEVEL 138 MEQ/L (136-145)
[2021-02-21 14:00] VITALS: BP 93/65
--- NOTE | 2021-02-21 14:12 | IPNPDOC ---
Text Note Date of Service The patient was seen on 02/21/21. NOTE Subjective: Patient is a 50-year-old male who was treated for COVID-19 to be admitted on 6020 with worsening cough and shortness of breath. Patient has now been transferred out of the intensive care unit and onto the medical surgical floor and is off Covid precautions. Patient says breathing is slightly better but he feels like his nose is very plugged up. Patient states that he feels better with breathing with the mask on versus a nasal cannula. Patient is otherwise in good spirits and does not have any other complaints. Review of systems: General: Patient denies fevers HEENT: Patient denies headaches Cardiovascular: Patient denies chest pain Respiratory: Patient reports shortness of breath with exertion and states that he feels like his nose is plugged up and he breathes better with the mask versus nasal cannula GI: Patient denies abdominal pain, nausea, vomiting, diarrhea : Patient denies increased frequency or pain with urination Extremities: Patient denies swelling or pain in extremities Neurological: Patient denies numbness or tingling in legs Physical exam: Vitals: See below General: Alert and oriented male patient who was sitting up in bed when I walked in. Patient not appear to be in any acute distress. HEENT: Normocephalic, atraumatic, moist mucous membranes. Neck: No lymphadenopathy or thyromegaly Cardiac: Regular rate and rhythm, no murmurs, normal S1, normal S2 Pulm: Diminished breath sounds in the lower lobes bilaterally, clear in the upper lung willis. Abd: Nondistended, nontender to palpation, normal bowel sounds Ext: No edema bilateral lower extremities Labs: See below Imaging: No new imaging is been performed Assessment/plan: 50-year-old male presented to the hospital initially with COVID-19 who developed acute hypoxic respiratory failure secondary to ARDS secondary to COVID-19 worsened most likely by bacterial pneumonia was also found to have adenovirus. 1. Sepsis secondary to healthcare associated pneumonia. Afebrile for the last 6 days. On p.o. Levaquin. IV fluids but has stopped at this time. Continue to monitor. 2. Acute hypoxic respiratory failure secondary to COVID-19 pneumonia likely worsened by bacterial pneumonia likely worsened by possible adenovirus infection. Patient is on 8 L nasal cannula oxygen in place I did instruct nursing to try a mask with the patient as the patient stated that his nose is very plugged up and he feels like with the mask on he breathes better. Patient does very well with CPAP therapy. 3. KWAKU. Continue CPAP at night. 4. Hyperkalemia, resolved. Continue to monitor. 5. Anxiety. Continue Ativan as needed. 6. Transaminitis, improved. Will need outpatient follow-up. 7. BPH. Continue tamsulosin 8. Insomnia. Continue ramelteon. 9. Adenovirus. This was on a respiratory panel performed 2 days ago. Continue symptomatic treatment. 10. GI prophylaxis with Protonix DVT Prophylaxis: Lovenox Disposition: Pending clinical improvement VS,Terrence, I+O VS, Terrence, I+O Laboratory Tests 02/21/21 07:27 Vital Signs Date Time Temp Pulse Resp B/P (MAP) Pulse Ox O2 Delivery O2 Flow Rate FiO2 02/21/21 06:00 97.8 87 20 106/52 (70) 95 NIPPV (BIPAP/CPAP) 8.0 I&O- Last 24 Hours up to 6 AM 02/21/21 06:00 Intake Total 1320 ml Output Total 1400 ml Balance -80 ml ANITA SANTANA DO Feb 21, 2021 14:12
[2021-02-21] MEDS: RAMELTEON 8 MG TAB (ROZEREM) PO SCH (20:49)
[2021-02-21] MEDS: guaiFENesin ER 600 MG TAB PO PRN (20:49)
[2021-02-21 22:00] VITALS: BP 134/81
[2021-02-21] MEDS ORDERED: LORazepam 2 MG/ML VIAL As Ordered ONE (22:10)
[2021-02-22] MEDS: ALBUTEROL 90 MCG/ACT 8GM HFA INHALER INH SCH ×4 (02:03→21:02)
[2021-02-22] MEDS ORDERED: LORazepam 2 MG/ML VIAL As Ordered ONE ×2 (02:48→21:33)
[2021-02-22] MEDS: LORazepam 2 MG/ML VIAL IV PRN ×2 (02:52→21:38)
[2021-02-22 06:00] VITALS: BP 99/62
[2021-02-22 07:23] LABS: BASO % 0.3 % (0.0-1.0); EOS # 0.2 10^3/uL (0.0-0.5); EOS % 2.7 % (0.0-3.0); HEMATOCRIT 38.4 % (42.0-52.0); HEMOGLOBIN 12.5 g/dl (13.5-17.5); LYMPH # 2.6 10^3/uL (1.5-5.0); LYMPH % 33.9 % (24.0-44.0); MEAN CORPUSCULAR HEMOGLOBIN 27.2 pg (27.0-33.0); MEAN CORPUSCULAR HGB CONC 32.6 g/dl (32.0-36.5); MEAN CORPUSCULAR VOLUME 83.7 fl (80.0-96.0); MONO # 0.6 10^3/uL (0.0-0.8); MONO % 7.4 % (2.0-8.0); NEUTROPHILS # 4.2 10^3/uL (1.5-8.5); PLATELET COUNT, AUTOMATED 161 10^3/uL (150-450); RED BLOOD COUNT 4.59 10^6/uL (4.30-6.10); WHITE BLOOD COUNT 7.7 10^3/uL (4.0-10.0)
[2021-02-22 07:44] LABS: BLOOD UREA NITROGEN 18 MG/DL (7-18); C REACTIVE PROTEIN QUANTITATIV 0.54 MG/DL (0.00-0.30); CALCIUM LEVEL 9.6 MG/DL (8.5-10.1); CARBON DIOXIDE LEVEL 26 MEQ/L (21-32); CHLORIDE LEVEL 103 MEQ/L (98-107); CREATININE FOR GFR 0.78 MG/DL (0.70-1.30); GLOMERULAR FILTRATION RATE > 60.0 (>56); GLUCOSE, FASTING 89 MG/DL (70-100); MAGNESIUM LEVEL 2.1 MG/DL (1.8-2.4); POTASSIUM SERUM 4.1 MEQ/L (3.5-5.1); SODIUM LEVEL 138 MEQ/L (136-145)
[2021-02-22] MEDS: DOCUSATE SODIUM 100MG CAPSULE PO SCH ×2 (08:26→21:02)
[2021-02-22] MEDS: dexameTHASONE 20MG/5ML VIAL (J1100 PER 1MG) IV SCH (08:26)
[2021-02-22] MEDS: ASPIRIN 81MG ENTERIC TABLET PO SCH (08:26)
[2021-02-22] MEDS: guaiFENesin ER 600 MG TAB PO PRN ×2 (08:27→21:05)
[2021-02-22] MEDS: PANTOPRAZOLE 40MG TAB (PROTONIX) PO SCH ×2 (08:27→21:02)
[2021-02-22] MEDS: TAMSULOSIN 0.4 MG CAP PO SCH (08:27)
[2021-02-22] MEDS: ENOXAPARIN 60MG/0.6ML SYRINGE (J1650 PER 10MG) SC SCH ×2 (08:27→21:02)
[2021-02-22] MEDS: LevoFLOXacin 750 MG TABLET PO SCH (08:27)
--- NOTE | 2021-02-22 10:33 | IPNPDOC ---
Text Note Date of Service The patient was seen on 02/22/21. NOTE Subjective: Patient is a 50-year-old male was treated for COVID-19 was admitted on 01/14/2021 with worsening cough and shortness of breath. Patient is now been transferred out of the intensive care unit and onto the medical surgical floor and is off Covid precautions. Patient is breathing slightly better today. Patient tried using a mask versus nasal cannula as he felt his nose is very plugged up yesterday but this did not really work well for him. Patient is otherwise in good spirits and is feeling better today. Review of systems: General: Patient denies fevers HEENT: Patient denies headaches Cardiovascular: Patient denies chest pain Respiratory: Patient reports some shortness of breath with exertion but denies shortness of breath at rest GI: Patient denies abdominal pain, nausea, vomiting, diarrhea : Patient denies increased frequency or pain with urination Extremities: Patient denies swelling or pain in extremities Neurological: Patient denies numbness or tingling in legs Physical exam: Vitals: See below General: Alert and oriented male patient was sitting up in bed when I walked in. Patient not appear to be in any acute distress. HEENT: Normocephalic, atraumatic, moist mucous membranes. Neck: No lymphadenopathy or thyromegaly Cardiac: Regular rate and rhythm, no murmurs, normal S1, normal S2 Pulm: Diminished breath sounds in the lower lung willis, clear in the upper lung willsi Abd: Nondistended, nontender to palpation, normal bowel sounds Ext: No edema bilateral lower extremities Labs: See below Imaging: No new imaging is been performed Assessment/plan: 50-year-old male presented to hospital initially with COVID-19 developed acute hypoxic respiratory failure second to ARDS secondary to COVID-19 worsened by most likely bacterial pneumonia was also found to have adenovirus. 1. Sepsis secondary to healthcare associated pneumonia. Afebrile for 7 days. On p.o. Levaquin. Was on p.o. Zosyn. IV fluids been stopped at this time. 2. Acute hypoxic respiratory failure secondary COVID-19 pneumonia likely worsened by bacterial pneumonia possibly worsened by adenovirus infection. Patient is on 7 L of nasal cannula oxygen. We will continue to attempt to wean this down. I instructed the patient to continue using incentive spirometer. 3. KWAKU. Continue CPAP at night. 4. Hyperkalemia, resolved. Continue to monitor. 5. Anxiety. Continue Ativan as needed. 6. Transaminitis, improved. Will need outpatient follow-up. 7. BPH. Continue tamsulosin. 8. Insomnia. Continue ramelteon. 9. Adenovirus. Found respiratory panel 3 days ago. Continue symptomatic treatment. 10. GI prophylaxis Protonix. DVT Prophylaxis: Lovenox Disposition: Pending improvement in oxygenation. VS,Nataliobone, I+O VS, Fishbone, I+O Laboratory Tests 02/22/21 06:51 Vital Signs Date Time Temp Pulse Resp B/P (MAP) Pulse Ox O2 Delivery O2 Flow Rate FiO2 02/22/21 06:00 97.7 75 20 99/62 (74) 98 NIPPV (BIPAP/CPAP) 8.0 I&O- Last 24 Hours up to 6 AM 02/22/21 06:00 Intake Total 1020 ml Output Total 680 ml Balance 340 ml ANITA SANTANA DO Feb 22, 2021 10:32
[2021-02-22 14:00] VITALS: BP 109/64
[2021-02-22] MEDS: RAMELTEON 8 MG TAB (ROZEREM) PO SCH (21:02)
[2021-02-22 21:08] VITALS: BP 113/74
[2021-02-23] MEDS ORDERED: LORazepam 2 MG/ML VIAL As Ordered ONE ×2 (01:31→20:55)
[2021-02-23] MEDS: LORazepam 2 MG/ML VIAL IV PRN ×2 (01:38→20:59)
[2021-02-23] MEDS: ALBUTEROL 90 MCG/ACT 8GM HFA INHALER INH SCH ×4 (01:39→19:42)
[2021-02-23 06:00] VITALS: BP 95/69
[2021-02-23 07:27] LABS: BASO % 0.3 % (0.0-1.0); EOS # 0.2 10^3/uL (0.0-0.5); EOS % 3.1 % (0.0-3.0); HEMATOCRIT 37.6 % (42.0-52.0); HEMOGLOBIN 12.2 g/dl (13.5-17.5); LYMPH # 2.5 10^3/uL (1.5-5.0); LYMPH % 35.2 % (24.0-44.0); MEAN CORPUSCULAR HEMOGLOBIN 27.3 pg (27.0-33.0); MEAN CORPUSCULAR HGB CONC 32.4 g/dl (32.0-36.5); MEAN CORPUSCULAR VOLUME 84.1 fl (80.0-96.0); MONO # 0.6 10^3/uL (0.0-0.8); MONO % 8.3 % (2.0-8.0); NEUTROPHILS # 3.6 10^3/uL (1.5-8.5); NEUTROPHILS % 51.1 % (36.0-66.0); PLATELET COUNT, AUTOMATED 179 10^3/uL (150-450); RED BLOOD COUNT 4.47 10^6/uL (4.30-6.10); WHITE BLOOD COUNT 7.1 10^3/uL (4.0-10.0)
[2021-02-23 07:50] LABS: BLOOD UREA NITROGEN 18 MG/DL (7-18); C REACTIVE PROTEIN QUANTITATIV 0.49 MG/DL (0.00-0.30); CARBON DIOXIDE LEVEL 28 MEQ/L (21-32); CHLORIDE LEVEL 103 MEQ/L (98-107); CREATININE FOR GFR 0.87 MG/DL (0.70-1.30); GLOMERULAR FILTRATION RATE > 60.0 (>56); GLUCOSE, FASTING 92 MG/DL (70-100); POTASSIUM SERUM 3.9 MEQ/L (3.5-5.1); SODIUM LEVEL 141 MEQ/L (136-145)
[2021-02-23] MEDS ORDERED: dexameTHASONE 4 MG/ML 1ML VIAL (J1100 PER 1MG) IV SCH (09:00)
[2021-02-23] MEDS: DOCUSATE SODIUM 100MG CAPSULE PO SCH ×2 (09:01→21:00)
[2021-02-23] MEDS: ASPIRIN 81MG ENTERIC TABLET PO SCH (09:01)
[2021-02-23] MEDS: TAMSULOSIN 0.4 MG CAP PO SCH (09:01)
[2021-02-23] MEDS: PANTOPRAZOLE 40MG TAB (PROTONIX) PO SCH ×2 (09:01→21:00)
[2021-02-23] MEDS: LevoFLOXacin 750 MG TABLET PO SCH (09:01)
[2021-02-23] MEDS: ENOXAPARIN 60MG/0.6ML SYRINGE (J1650 PER 10MG) SC SCH ×2 (09:02→20:59)
--- NOTE | 2021-02-23 12:33 | IPNPDOC ---
Text Note Date of Service The patient was seen on 02/23/21. NOTE Subjective: Patient is a 50-year-old male who was treated for COVID-19 when he was admitted on 01/14/2021 with worsening cough and shortness of breath. Patient has been transferred out of the ICU and is on the Medr floor off Covid precautions. Patient says he is breathing better and this is the best he has felt since he has been hospitalized. Patient states he feels like he no longer is sick. Patient has been eating and drinking without any issues. Review of systems: General: Patient denies fevers HEENT: Patient denies headaches Cardiovascular: Patient denies chest pain Respiratory: Patient reports improvement in shortness of breath with exertion. Denies shortness of breath at rest. GI: Patient denies abdominal pain, nausea, vomiting, diarrhea : Patient denies increased frequency or pain with urination Extremities: Patient denies swelling or pain in extremities Neurological: Patient denies numbness or tingling in legs Physical exam: Vitals: See below General: Alert and oriented male patient who was laying in bed when I walked in the room. Patient not appear to be in any acute distress. HEENT: Normocephalic, atraumatic, moist mucous membranes. Neck: No lymphadenopathy or thyromegaly Cardiac: Regular rate and rhythm, no murmurs, normal S1, normal S2 Pulm: Diminished breath sounds in the lower lung willis, clear on the upper lung willis bilaterally Abd: Nondistended, nontender to palpation, normal bowel sounds Ext: No edema bilateral lower extremities Labs: See below Imaging: No new imaging is been performed Assessment/plan: 50-year-old male presented to hospital initially with COVID-19 who developed acute hypoxic respiratory failure secondary to gas secondary to COVID-19 worsened likely by bacterial pneumonia was found to have adenovirus. 1. Sepsis secondary to healthcare associated pneumonia. Afebrile for 8 days. On p.o. Levaquin. Was on IV Zosyn. IV fluids have been stopped at this time. Complete 10-day course of antibiotics. 2. Acute hypoxic respiratory failure secondary to COVID-19 pneumonia likely worsened by bacterial pneumonia possibly worsened by adenovirus infection. Patient has been able to wean down to 3 L of oxygen at this time. Patient does use incentive spirometer. We will continue to monitor. Patient's IV dexam ethasone has been switched to p.o. prednisone. Patient will need prednisone taper once discharged. 3. O's KWAKU. Continue CPAP at night. 4. Hyperkalemia, resolved. Continue to monitor. 5. Anxiety. Continue Ativan as needed. This is been switched to p.o. 6. Transaminitis, improved. Will need outpatient follow-up. 7. BPH. Continue tamsulosin. 8. Insomnia. Continue ramelteon. 9. Adenovirus infection. Found on respiratory panel on 02/19/2021. Continue symptomatic treatment. 10. GI prophylaxis Protonix. DVT Prophylaxis: Lovenox Disposition: Pending maintenance of patient's oxygenation at the 3 to 4 L/min range. Possible discharge within the next 24 to 48 hours. VS,Terrence, I+O VS, Terrence, I+O Laboratory Tests 02/23/21 07:09 Vital Signs Date Time Temp Pulse Resp B/P (MAP) Pulse Ox O2 Delivery O2 Flow Rate FiO2 02/23/21 07:20 3.0 02/23/21 06:00 98.3 87 20 95/69 (78) 93 NIPPV (BIPAP/CPAP) I&O- Last 24 Hours up to 6 AM 02/23/21 06:00 Intake Total 2460 ml Output Total 870 ml Balance 1590 ml ANITA SANTANA DO Feb 23, 2021 12:33
[2021-02-23 14:00] VITALS: BP 116/72
[2021-02-23] MEDS: guaiFENesin ER 600 MG TAB PO PRN (20:59)
[2021-02-23] MEDS: RAMELTEON 8 MG TAB (ROZEREM) PO SCH (21:00)
[2021-02-23 22:00] VITALS: BP 103/65
[2021-02-24 00:28] VITALS: O2SAT 95
[2021-02-24] MEDS: ALBUTEROL 90 MCG/ACT 8GM HFA INHALER INH SCH (02:16)
[2021-02-24] MEDS ORDERED: LORazepam 2 MG/ML VIAL As Ordered ONE (03:18)
[2021-02-24] MEDS: LORazepam 2 MG/ML VIAL IV PRN (03:21)
[2021-02-24 06:00] VITALS: BP 103/65
[2021-02-24] MEDS: DOCUSATE SODIUM 100MG CAPSULE PO SCH (08:16)
[2021-02-24] MEDS: TAMSULOSIN 0.4 MG CAP PO SCH (08:16)
[2021-02-24] MEDS: PANTOPRAZOLE 40MG TAB (PROTONIX) PO SCH (08:16)
[2021-02-24] MEDS: ASPIRIN 81MG ENTERIC TABLET PO SCH (08:16)
[2021-02-24] MEDS: LevoFLOXacin 750 MG TABLET PO SCH (08:16)
[2021-02-24] MEDS: ENOXAPARIN 60MG/0.6ML SYRINGE (J1650 PER 10MG) SC SCH (08:17)
[2021-02-24] MEDS ORDERED: predniSONE 20 MG TAB PO SCH (09:00)
[2021-02-24] MEDS ORDERED: PRED10TA2 PO (12:29)
[2021-02-24] MEDS ORDERED: LEVO750T13 PO (12:29)
--- NOTE | 2021-02-24 19:09 | DS.PDOC ---
Discharge Summary General Date of Admission Jan 14, 2021 at 14:57 Date of Discharge 02/24/21 Discharge Summary DISCHARGE DIAGNOSES: 1. Covid PNA 2. Hospital acquired pneumonia 3. Adenovirus 4. Acute hypoxic respiratory failure 5. Electrolyte abnormality 6. Transaminitis COMPLICATIONS/CHIEF COMPLAINT: Covid +, Worsening Symptoms. HOSPITAL COURSE: Mr. Vergara, is a 50-year-old male who presented on 01/14/2021 with COVID-19. He was treated with remdesivir, baricitinib, and dexamethasone. However his acute hypoxic respiratory failure worsened due to possibly superimposed hospital- acquired pneumonia as well as adenovirus. He was initially started on Zosyn which was transitioned to p.o. levofloxacin which he will complete as an outpatient. At the time of discharge, he continued to require 3 L of O2 which was set up for him. Home health services were also arranged. He was cleared by physical therapy. He was asked to follow-up with his primary care physician within 3 to 5 days to discuss recent course of events. He was asked to obtain discharge summary as well as all imaging results for appropriate follow-ups. DISCHARGE MEDICATIONS: Please see below. ALLERGIES: Please see below. PHYSICAL EXAMINATION ON DISCHARGE: VITAL SIGNS: Please see below. General: Lying in bed, no acute distress Head/Neck/Throat: Trachea midline, mucous membranes moist Eyes: Sclera anicteric, no erythema or discharge appreciated bilaterally Thorax: Normal respiratory effort on 3 L nasal cannula, lungs clear to auscultation bilaterally, no wheezes/rales/rhonchi Cardiovascular: Normal rate, regular rhythm, normal S1, S2; no S3, S4, rubs/gallops/murmurs Abdomen: Bowel sounds present, soft/nontender/nondistended Genitourinary: No CVA tenderness, no Sanchez in place Musculoskeletal: Moving all extremities, no edema Skin: Warm, dry Neurologic: AAOx3, speech fluent and goal-directed, no focal deficits, grossly intact LABORATORY DATA: Please see below. IMAGING: CT ANGIO CHEST There is suboptimal opacification of the pulmonary arterial system. Small and moderate pulmonary emboli cannot be ruled out. The thoracic aorta is unchanged. There is adenopathy status quo. No pleural or pericardial effusions have developed. There is no change in the imaged upper abdomen or imaged osseous structures. Evaluation of the lung willis shows extensive interstitial and airspace opacities throughout the lung willis with air bronchograms and bronchiectasis. This has increased compared to the prior exam rather extensively. IMPRESSION: 1. The examination is suboptimal in evaluating for pulmonary emboli as described above. Consider repeat exam if clinically relevant. 2. Extensive worsening in lung disease as described above. PROGNOSIS: Good ACTIVITY: As tolerated DIET: Regular DISPOSITION: Home Health Service. DISCHARGE INSTRUCTIONS: Patient is to follow his primary care physician within 3 to 5 days TIME SPENT ON DISCHARGE: 30 minutes. Vital Signs/I&Os Vital Signs Date Time Temp Pulse Resp B/P (MAP) Pulse Ox O2 Delivery O2 Flow Rate FiO2 02/24/21 09:00 3.0 02/24/21 06:00 98.2 92 20 103/65 (78) 93 NIPPV (BIPAP/CPAP) I&O- Last 24 Hours up to 6 AM 02/24/21 06:00 Intake Total 2460 ml Output Total 1300 ml Balance 1160 ml Microbiology Microbiology 02/19/21 Respiratory Virus Panel (PCR) ([facility]) - Final, Complete Adenovirus 02/16/21 Respiratory Virus Panel (PCR) ([facility]) - Final, Complete 02/15/21 Gram Stain - Final, Complete 02/15/21 Sputum Culture - Final, Complete 02/15/21 Blood Culture - Final, Complete NO GROWTH AFTER 5 DAYS 02/15/21 Blood Culture - Final, Complete NO GROWTH AFTER 5 DAYS Discharge Medications Scheduled Esomeprazole Magnesium (Nexium) 40 Mg Capsule.dr, 40 MG PO DAILY, (Reported) Levofloxacin (Levofloxacin) 750 Mg Tablet, 750 MG PO DAILY@0800 Prednisone (Prednisone) 10 Mg Tablet, 10 MG PO TAPER Take 4 tabs daily x 3 days, then 3 tabs daily x 3 days, then 2 tabs daily x 3 days, then 1 tab daily x 3 days and stop Tamsulosin HCl (Flomax) 0.4 Mg Capsule, 0.4 MG PO DAILY, (Reported) Scheduled PRN Guaifenesin (Mucinex) 600 Mg Tab.er.12h, 600 MG PO for CONGESTION, (Reported) Allergies Coded Allergies: No Known Allergies (Unverified , 12/04/19) ROLDAN GONZALEZ M.D. Feb 24, 2021 19:09
== END 2021-02-24 14:11 | disposition home health service (06) | DRG 871 ==
LOC: M ED 11:14 → M ED INP 14:57 → M 4MAIN 01-15 01:37 → M ICU 01-20 23:49 → M 4MAIN 02-07 17:24 → M ICU 02-15 16:23 → M MS5PR 02-19 19:15
PROVIDERS: ADMIT Internal Medicine Nephrology; ATTEND Internal Medicine
DX: A41.9 Sepsis, unspecified organism (principal); J12.82 Pneumonia due to coronavirus disease 2019; J18.9 Pneumonia, unspecified organism; J96.01 Acute respiratory failure with hypoxia; U07.1 COVID-19; Z79.899 Other long term (current) drug therapy; E66.9 Obesity, unspecified; G47.33 Obstructive sleep apnea (adult) (pediatric); Z91.19 Patient's noncompliance with other medical treatment and regimen; B18.2 Chronic viral hepatitis C; Z79.52 Long term (current) use of systemic steroids; K21.9 Gastro-esophageal reflux disease without esophagitis; E78.00 Pure hypercholesterolemia, unspecified; F41.9 Anxiety disorder, unspecified; E87.5 Hyperkalemia

== ENCOUNTER → 2021-03-13 | Outpatient (CLI) | payer OTHER ==
[~2021-03-13] MED LIST changes: +LEVO750T13 PO; +MUCI600T31 PO; +PRED10TA2 PO
--- NOTE | 2021-03-13 12:48 | REP ---
INDICATION: PNEUMONIA, UNSPECIFIED ORGANISM. COMPARISON: Multiple the latest 02/15/2021 TECHNIQUE: PA and lateral FINDINGS: Once again, there are diffuse bilateral patchy interstitial and airspace opacities essentially unchanged. The cardiomediastinal silhouette is unchanged. The osseous structures are unchanged. The pleural angles are unchanged. IMPRESSION: No significant change <Electronically signed by Dung Yanez > 03/13/21 0085
== END ==
LOC: M WUC 11:34
PROVIDERS: ATTEND Family Medicine
DX: J18.9 Pneumonia, unspecified organism (principal)

== ENCOUNTER → 2021-04-02 | Outpatient (CLI) | payer OTHER ==
[2021-04-08 13:07] LABS: ASPERGILLUS GALACTOMANNAN AG 0.09 Index (0.00-0.49); FUNGITELL, SERUM <31 pg/mL (<80)
== END ==
LOC: M WUC 09:32
PROVIDERS: ATTEND Internal Medicine Pulmonary Disease
DX: J96.11 Chronic respiratory failure with hypoxia (principal)

== ENCOUNTER → 2021-05-08 | Outpatient (CLI) | payer OTHER | LOC: M PLAIMG 10:19 | PROVIDERS: ATTEND Internal Medicine Pulmonary Disease | DX: J96.11 Chronic respiratory failure with hypoxia (principal); J44.9 Chronic obstructive pulmonary disease, unspecified ==

== ENCOUNTER → 2021-06-24 | Outpatient (CLI) | payer OTHER ==
[2021-06-24 19:57] LABS: RHEUMATOID FACTOR QUANT < 10.0 IU/ML (<15.0); URIC ACID 6.4 MG/DL (3.5-7.2)
[2021-06-28 21:09] LABS: ANTINUCLEAR ANTIBODIES DIRECT Negative (Negative); CYCLIC CITRULLINATED PEPTIDE 4 units (0-19); Lyme Disease IgG/IgM Antibodie <0.91 ISR (0.00-0.90); Lyme Disease IgM Ab Quantitati <0.80 index (0.00-0.79)
== END ==
LOC: M WUC 15:36
PROVIDERS: ATTEND Family Medicine
DX: M25.50 Pain in unspecified joint (principal)

== ENCOUNTER → 2021-10-29 | Outpatient (CLI) | payer OTHER ==
[~2021-10-29] MED LIST changes: +LEVO1TAB40 PO; -LEVO750T13 PO
[2021-10-29 18:52] LABS: C REACTIVE PROTEIN QUANTITATIV < 0.30 MG/DL (0.00-0.30); RHEUMATOID FACTOR QUANT < 10.0 IU/ML (<15.0)
[2021-10-29 23:00] LABS: CA19-9 TUMOR MARKER,CARBOHYDRA 2.9 U/ML (<35.0)
[2021-12-02 07:07] LABS: ANA (HEP2) Negative (.); ANCA-ATYPICAL <1:20 titer (Neg:<1:20); ANGIOTENSIN 1 CONVERTING ENZYM 53 U/L (14-82); ANTI DS-DNA AB Negative (Negative); ANTI JO-1 ANTIBODIES <20 Units (<20); ANTINUCLEAR ANTIBODIES DIRECT Negative (Negative); ASPERGILLUS FUMIGATUS AB Negative (Negative); AUREOBASIDIUM PULLULANS Negative (Negative); CYCLIC CITRULLINATED PEPTIDE 6 units (0-19); CYTOPLASMIC NEUTROP AB ANCA-C <1:20 titer (Neg:<1:20); MICROPOLYSPORA FAENI AB Negative (Negative); PERINUCLEAR AB ANCA-P <1:20 titer (Neg:<1:20); PIGEON SERUM AB Negative (Negative); RNP ANTIBODIES <0.2 AI (0.0-0.9); SJOGREN'S ANTI SS-A <0.2 AI (0.0-0.9); SJOGREN'S ANTI SS-B <0.2 AI (0.0-0.9); SMITH ANTIBODIES <0.2 AI (0.0-0.9); THERMOACTINOMYCES SACCHARI Negative (Negative); THERMOACTINOMYCES VULGARIS Negative (Negative)
== END ==
LOC: M WUC 14:38
PROVIDERS: ATTEND Internal Medicine Pulmonary Disease
DX: J96.11 Chronic respiratory failure with hypoxia (principal)

== ENCOUNTER → 2021-11-05 | Outpatient (CLI) | payer OTHER ==
[~2021-11-05] MED LIST changes: -LEVO1TAB40 PO; +LEVO750T13 PO
== END ==
LOC: M PLAIMG 14:23
PROVIDERS: ATTEND Internal Medicine Pulmonary Disease
DX: J84.9 Interstitial pulmonary disease, unspecified (principal)

== ENCOUNTER → 2022-04-22 | Outpatient (CLI) | payer OTHER ==
[~2022-04-22] MED LIST changes: +LEVO1TAB40 PO; -LEVO750T13 PO
== END ==
LOC: M PLAIMG 08:26
PROVIDERS: ATTEND Internal Medicine Pulmonary Disease
DX: J84.9 Interstitial pulmonary disease, unspecified (principal)

== ENCOUNTER → 2023-03-07 | Outpatient (CLI) | payer OTHER | LOC: M PLALAB 09:17 | PROVIDERS: ATTEND Physician Assistant | DX: Z12.5 Encounter for screening for malignant neoplasm of prostate (principal) | CPT/HCPCS: 36415; G0103 ==

== ENCOUNTER → 2023-03-07 | Outpatient (CLI) | payer OTHER ==
[2023-03-07 13:20] LABS: BASO % 0.4 % (0.0-1.0); EOS # 0.2 10^3/uL (0.0-0.5); EOS % 3.1 % (0.0-3.0); HEMATOCRIT 49.6 % (42.0-52.0); HEMOGLOBIN 16.5 g/dl (13.5-17.5); LYMPH # 3.5 10^3/uL (1.5-5.0); LYMPH % 50.4 % (24.0-44.0); MEAN CORPUSCULAR HGB CONC 33.3 g/dl (32.0-36.5); MONO # 0.6 10^3/uL (0.0-0.8); MONO % 8.9 % (2.0-8.0); NEUTROPHILS # 2.6 10^3/uL (1.5-8.5); NEUTROPHILS % 37.1 % (36.0-66.0); PLATELET COUNT, AUTOMATED 184 10^3/uL (150-450); RED BLOOD COUNT 6.12 10^6/uL (4.30-6.10); WHITE BLOOD COUNT 6.9 10^3/uL (4.0-10.0)
[2023-03-07 14:00] LABS: ALKALINE PHOSPHATASE 89 U/L (46-116); ALT/SGPT 64 U/L (7.0-40); AST/SGOT 31 U/L (<34); BILIRUBIN,TOTAL 0.6 MG/DL (0.3-1.2); BLOOD UREA NITROGEN 20 MG/DL (9-23); CALCIUM LEVEL 9.3 MG/DL (8.5-10.1); CARBON DIOXIDE LEVEL 26 MMOL/L (20-31); CHLORIDE LEVEL 107 MMOL/L (98-107); CHOLESTEROL LEVEL 278 MG/DL (<200); CHOLESTEROL RISK RATIO 7.18 (<5); GLOMERULAR FILTRATION RATE > 60.0 (>56); GLUCOSE, FASTING 98 MG/DL (60-100); HDL CHOLESTEROL 38.7 MG/DL (>40); NON-HDL-C 239.3 MG/DL; POTASSIUM SERUM 4.6 MMOL/L (3.5-5.1); SODIUM LEVEL 145 MMOL/L (136-145); TOTAL PROTEIN 7.1 G/DL (5.7-8.2); TRIGLYCERIDES LEVEL 536 MG/DL (<150)
== END ==
LOC: M PLALAB 09:14
PROVIDERS: ATTEND Family Medicine
DX: E78.5 Hyperlipidemia, unspecified (principal)

== ENCOUNTER → 2023-05-16 | Outpatient (CLI) | payer OTHER | LOC: M RAD 14:36 | PROVIDERS: ATTEND Internal Medicine Pulmonary Disease | DX: Z87.891 Personal history of nicotine dependence (principal) ==

== ENCOUNTER → 2024-04-18 | Outpatient (CLI) | payer OTHER ==
[2024-04-18 10:29] LABS: BASO % 0.5 % (0.0-1.0); EOS # 0.2 10^3/uL (0.0-0.5); EOS % 3.1 % (0.0-3.0); HEMATOCRIT 48.3 % (42.0-52.0); HEMOGLOBIN 16.4 g/dl (13.5-17.5); LYMPH # 3.1 10^3/uL (1.5-5.0); LYMPH % 48.9 % (24.0-44.0); MEAN CORPUSCULAR HEMOGLOBIN 27.7 pg (27.0-33.0); MEAN CORPUSCULAR VOLUME 81.5 fl (80.0-96.0); MONO # 0.5 10^3/uL (0.0-0.8); MONO % 8.2 % (2.0-8.0); NEUTROPHILS # 2.5 10^3/uL (1.5-8.5); NEUTROPHILS % 39.1 % (36.0-66.0); RED BLOOD COUNT 5.93 10^6/uL (4.30-6.10); WHITE BLOOD COUNT 6.4 10^3/uL (4.0-10.0)
[2024-04-18 10:33] LABS: CHOLESTEROL RISK RATIO 7.45 (<5); HDL CHOLESTEROL 36.5 MG/DL (>40); LDL CHOLESTEROL 168.3 MG/DL (<100); NON-HDL-C 235.5 MG/DL
[2024-04-18 11:08] LABS: PLATELET COUNT, AUTOMATED 86 10^3/uL (150-450)
[2024-04-19 09:32] LABS: LDL DIRECT 175 mg/dL (<100)
== END ==
LOC: M WUC 08:11
PROVIDERS: ATTEND Family Medicine
DX: E78.5 Hyperlipidemia, unspecified (principal)

== ENCOUNTER → 2024-04-18 | Outpatient (CLI) | payer OTHER | LOC: M WUC 08:13 | PROVIDERS: ATTEND Physician Assistant | DX: Z12.5 Encounter for screening for malignant neoplasm of prostate (principal) ==

== ENCOUNTER → 2024-06-06 | Outpatient (REF) | payer OTHER ==
[2024-06-06 20:08] LABS: BASO # 0.1 10^3/uL (0.0-0.2); BASO % 0.5 % (0.0-1.0); EOS # 0.2 10^3/uL (0.0-0.5); EOS % 2.1 % (0.0-3.0); HEMATOCRIT 45.5 % (42.0-52.0); HEMOGLOBIN 15.5 g/dl (13.5-17.5); LYMPH # 4.6 10^3/uL (1.5-5.0); LYMPH % 49.3 % (24.0-44.0); MEAN CORPUSCULAR HEMOGLOBIN 27.4 pg (27.0-33.0); MEAN CORPUSCULAR HGB CONC 34.1 g/dl (32.0-36.5); MEAN CORPUSCULAR VOLUME 80.4 fl (80.0-96.0); MONO # 0.8 10^3/uL (0.0-0.8); MONO % 8.3 % (2.0-8.0); NEUTROPHILS # 3.7 10^3/uL (1.5-8.5); NEUTROPHILS % 39.6 % (36.0-66.0); PLATELET COUNT, AUTOMATED 231 10^3/uL (150-450); RED BLOOD COUNT 5.66 10^6/uL (4.30-6.10); WHITE BLOOD COUNT 9.2 10^3/uL (4.0-10.0)
== END ==
LOC: M LAB REF 19:42
PROVIDERS: ATTEND Family Medicine
DX: D69.6 Thrombocytopenia, unspecified (principal)

== ENCOUNTER → 2024-06-07 | Outpatient (CLI) | payer OTHER | LOC: M RAD 16:37 | PROVIDERS: ATTEND Internal Medicine Pulmonary Disease | DX: Z87.891 Personal history of nicotine dependence (principal); J43.9 Emphysema, unspecified; J84.9 Interstitial pulmonary disease, unspecified ==

== ENCOUNTER → 2025-03-03 | Outpatient (REF) | payer OTHER ==
[~2025-03-03] MED LIST changes: -FLOM0.4C39 PO; +TAMS-18 PO
[2025-03-03 09:02] LABS: BASO # 0.0 10^3/uL (0.0-0.2); BASO % 0.3 % (0.0-1.0); EOS # 0.2 10^3/uL (0.0-0.5); EOS % 2.3 % (0.0-3.0); LYMPH # 2.6 10^3/uL (1.5-5.0); LYMPH % 39.6 % (24.0-44.0); MONO # 0.5 10^3/uL (0.0-0.8); MONO % 7.6 % (2.0-8.0); NEUTROPHILS # 3.3 10^3/uL (1.5-8.5); NEUTROPHILS % 50.0 % (36.0-66.0); PLATELET COUNT, AUTOMATED 187 10^3/uL (150-450)
[2025-03-03 09:53] LABS: ALT/SGPT 61.0 U/L (7.0-40); AST/SGOT 32.0 U/L (<34); CALCIUM LEVEL 9.2 MG/DL (8.5-10.1); CARBON DIOXIDE LEVEL 27.0 MMOL/L (20-31); CHLORIDE LEVEL 110.0 MMOL/L (98-107); CHOLESTEROL LEVEL 206.0 MG/DL (<200); CHOLESTEROL RISK RATIO 4.61 (<5); CREATININE FOR GFR 1.21 MG/DL (0.70-1.30); GLOMERULAR FILTRATION RATE 70.3 (>56); LDL CHOLESTEROL 137.0 MG/DL (<100); NON-HDL-C 161.4 MG/DL; POTASSIUM SERUM 5.0 MMOL/L (3.5-5.1); SODIUM LEVEL 146.0 MMOL/L (136-145); TRIGLYCERIDES LEVEL 122.0 MG/DL (<150)
== END ==
LOC: M LAB REF 08:52
PROVIDERS: ATTEND Family Medicine
DX: E78.5 Hyperlipidemia, unspecified (principal)

== ENCOUNTER → 2025-03-03 | Outpatient (CLI) | payer OTHER | LOC: M LAB 08:15 | PROVIDERS: ATTEND Physician Assistant | DX: Z12.5 Encounter for screening for malignant neoplasm of prostate (principal) ==